=== PATIENT | female | born 1960 | race Caucasian/White ===

== ENCOUNTER 2018-02-02 16:38 | Outpatient (REF) | payer OTHER, SELFPAY ==
--- NOTE | 2018-02-02 10:00 | PAPFT_PTH ---
PATIENT: Elin Willard LOC: [facility] U#:[id number] AGE/SX: 57/F ROOM: RE02/02/[address]: Greta Kimball V : 1960 BED: DIS: 02/02/2018 SPEC #: [id number] RECD: 02/05/18 13:00 STATUS: JORDIN CONLEY #: [id number] CINDY: 02/02/18 10:[address]: Greta Kimball V DEPT: [facility] Cytology RECD BY: Cheryl Morton Tissues: 1 - CX/ENDOCX FOR PAP SMEARS Procedures: PAP THIN PREP/UVM Screening HPV DNA PROBE Comments: [id number]
== END 2018-02-02 16:58 ==
LOC: NCHCN 16:38
PROVIDERS: PCP Family Medicine; Visit Provider Family Medicine
DX: Z12.4 Encounter for screening for malignant neoplasm of cervix (principal); Z11.51 Encounter for screening for human papillomavirus (HPV)
CPT/HCPCS: 88142; 87624

== ENCOUNTER 2018-04-13 00:57 | Outpatient (CLI) | payer OTHER, SELFPAY ==
--- NOTE | 2018-04-13 15:27 | DI.MAMMO_ITS ---
SYMPTOM/DIAGNOSIS: SCREENING Z12.31, PREVENTATIVE CARE Z00.00 BILATERAL SCREENING MAMMOGRAM: Mammograms were interpreted according to the usual protocol including computer analysis with CAD system, tomosynthesis and C view imaging. Comparison is made with exams from 2013 through 2017. The breasts are composed of heterogeneously dense fibroglandular tissue, breast density Category C. Benign calcifications are again noted in both breasts, left greater than right. No suspicious microcalcifications or masses are seen. IMPRESSION: Category 2-C, negative mammogram with benign findings. Yearly screening mammography is recommended. SA ASSESSMENT OF FINDINGS: Negative with benign findings. Category 2. Patient will receive a letter notifying them of these results. Bi-RADS category C. The breasts are heterogeneously dense, which may obscure small masses.
== END 2018-04-13 01:17 ==
PROVIDERS: PCP Family Medicine; Visit Provider Family Medicine
DX: Z00.00 Encounter for general adult medical examination without abnormal findings (principal); Z12.31 Encounter for screening mammogram for malignant neoplasm of breast
CPT/HCPCS: 77063; 77067

== ENCOUNTER 2018-07-25 04:13 | Emergency (ER) | payer OTHER, SELFPAY ==
[2018-07-25] VITALS (50 sets, daily range): BP systolic 97–111; BP diastolic 56–69; PULSE 60–84; RESP 10–26; TEMP 36.5–36.7; O2SAT 94–100
[2018-07-25] MEDS: Normal Saline Flush 10 ML SYR IVP (04:30)
--- NOTE | 2018-07-25 04:32 | DI.RAD_ITS ---
SYMPTOM/DIAGNOSIS: CHEST PAIN PA AND LATERAL CHEST: The heart is normal in size. The lungs are clear. The mediastinal structures and pleura appear intact. CONCLUSION: Normal chest. No evidence of acute cardiopulmonary disease.
--- NOTE | 2018-07-25 04:33 | W.ED.GENAD ---
Discharge Plan Disposition Patient Disposition: HOME Condition: Good Discharge Details Chief Complaint: Chest Pain Clinical Impression: Chest pain Primary Care Provider: Greta Kimball V ED Provider: Martínez Payne Home Meds and New Rx's Prescriptions: No Action sumatriptan succinate 100 MG tablet 100 mg PO BID PRN RF: 0 hydrocodone-acetaminophen 1 EACH tablet 1 tab PO Q6H PRN RF: 0 famotidine 20 MG tablet 20 mg PO DAILY PRN RF: 0 albuterol sulfate [ProAir HFA] 8.5 GM HFA aerosol inhaler 2 puff Inhalation .Q4-6 PRN RF: 0 hydroxyzine pamoate [Vistaril] 25 MG capsule 25 mg PO DAILY PRN RF: 0 cholecalciferol (vitamin D3) 1,000 UNITS tablet 3,000 unit PO DIRECTED RF: 0 calcium carbonate-vitamin D3 1 EACH tablet 1 tab PO BID RF: 0 topiramate [Topamax] 100 MG tablet 100 mg PO HS RF: 0 diazepam [Valium] 5 MG tablet 5 mg PO PRN PRNRF: 0 magnesium citrate 100 MG tablet 100 mg PO DAILY RF: 0 naproxen 500 mg Tablet 500 mg PO BID PRNRF: 0 Discharge Instructions Instructions: Chest Pain (ED) Additional Instructions: Please discuss with your primary care provider potential outpatient testing/stress test of your heart. If you notice any worsening of your symptoms, or any new symptoms such as vomiting, diarrhea, fever, chills, shortness of breath, chest pain, numbness, weakness, or fainting , please return immediately to the emergency department for reevaluation. Please follow up with your primary care provider as soon as possible for reassessment and reevaluation. As always, it was a pleasure participating in your medical care today. Referrals: Greta Kimball MD [Primary Care Provider] - Medical Decision Making <Shaun Flynn MD - Last Filed: 07/25/18 07:51> 58-year-old female presents from home stating she was awakened from sleep 45 minutes prior with bandlike pressure and discomfort across her back and upper chest. She denies associated shortness of breath, nausea, or diaphoresis. She states the discomfort was transient and dissipated on its own. She arrives improved, well-appearing, with unremarkable vital signs and exam. Differential diagnosis includes ACS, esophageal spasm, must exclude pulmonary embolism given recent travel. Patient placed on manager stone, IV access established, referred for chest x-ray, EKG, laboratory testing. Labs including CBC, comprehensive panel troponin and d-dimer are reassuring and unremarkable for acute process. Patient's discomfort dissipated and she remained pain-free. Observed on manager stone and repeat troponin obtained at [address] Please see Dr Payne's note regarding final impression and disposition. Lab Data Lab results reviewed: Yes I reviewed the patient's lab results. Laboratory Results - last 24 hr 07/25/18 07/25/18 04:37 04:37 WBC 6.43 RBC 4.50 Hgb 14.5 Hct 42.6 MCV 94.7 MCH 32.2 MCHC 34.0 RDW 11.9 Plt Count 205 MPV 11.4 H Immature Gran % 0.2 Neutrophils % 38.8 Lymphocytes % 46.7 Monocytes % 8.7 Eosinophils % 4.7 Basophils % 0.9 Absolute Neutrophils 2.50 Absolute Lymphocytes 3.00 Absolute Monocytes 0.56 Absolute Eosinophils 0.30 Absolute Basophils 0.06 Sodium 144 Potassium 3.8 Chloride 107 Carbon Dioxide 27.2 Anion Gap 9.8 BUN 26 H Creatinine 0.82 Estimated GFR/1.73 m2 >= 60.00 Glucose 93 Calcium 8.9 Magnesium 2.1 Total Bilirubin 0.4 AST 14 L ALT 22 Alkaline Phosphatase 65 Troponin I < 0.02 Total Protein 6.6 Albumin 3.9 ECG Data Attestation: I personally reviewed and interpreted this ECG (s) as follows: Interpretation: Normal sinus rhythm with a rate of 66, the QRS is narrow, there is no ST segment elevation <Martínez Payne, DO - Last Filed: 07/25/18 09:32> Patient was signed out to me my my colleague Dr. Shaun Flynn. We were pending serial troponins and EKG at that time. Repeat troponin, repeat EKG have both returned benign, no evidence of STEMI, or other significant abnormality. EKG unchanged. Patient's chest pain and reevaluation is completely resolved without intervention, and her signs and symptoms are clinically inconsistent at this time with ACS. Of note she did cross-country ski last week and went 12 miles with no chest pain or shortness of breath whatsoever. I did discuss with her outpatient stress testing, the patient has declined and would like to follow-up with her primary care provider first. Of note the patient has been taking an increased amount of Aleve as of late for joint pain, and this may be a partial component of the cause of her symptoms, including mild stomach irritation. Discussed red flags for which to return, and the patient understands. I have extensively reviewed the treatment plan and discharge instructions with the patient. I have addressed all patient concerns at this time. The patient was made aware of what symptoms to monitor for that would warrant a return to the emergency department. Discussed the plan with the patient, they demonstrate verbal understanding and agreement with our assessment and plan at this time. EKG 8: 05 Rate 75, intervals normal, sinus rhythm, no significant ST elevations or depressions, no T wave inversions, no evidence of STEMI. No acute changes from prior EKG. HPI <Shaun Flynn MD - Last Filed: 07/25/18 07:51> General Mode of arrival: ambulatory. Date/Time Provider Initiated Documentation: 07/25/18 04:26. Limitations to Documentation: no limitations. Information obtained by: patient. History of Present Illness 58 year old F presents to the emergency department with the chief complaint of Chest and back pain, now improved, described as moderate, Quality is described as dull and constant, and is localized to the chest and back. Patient reports radiation to back. Patient started experiencing this minute(s) and it has been now resolved. No exacerbating factors reported . Patient notes no other symptoms. and other. Related Data Home Medications Medication Instructions Recorded Confirmed albuterol sulfate [ProAir HFA] 2 puff INHALATION .Q4-6 PRN 11/22/13 07/25/18 calcium carbonate-vitamin D3 1 tab PO BID 11/22/13 07/25/18 cholecalciferol (vitamin D3) 3,000 unit PO DIRECTED 11/22/13 07/25/18 famotidine 20 mg PO DAILY PRN 11/22/13 07/25/18 hydrocodone-acetaminophen 1 tab PO Q6H PRN 11/22/13 07/25/18 hydroxyzine pamoate [Vistaril] 25 mg PO DAILY PRN 11/22/13 07/25/18 sumatriptan succinate 100 mg PO BID PRN 11/22/13 07/25/18 diazepam [Valium] 5 mg PO PRN PRN 03/26/16 07/25/18 magnesium citrate 100 mg PO DAILY 03/26/16 07/25/18 topiramate [Topamax] 100 mg PO HS 03/26/16 07/25/18 naproxen 500 mg PO BID PRN 07/25/18 07/25/18 Allergies Allergy/AdvReac Type Severity Reaction Status Date / Time amitriptyline HCl AdvReac Intermediate lips and Unverified 07/25/18 04:25 [From Elavil] fingers tingling erythromycin base AdvReac Intermediate Nausea Unverified 07/25/18 04:25 [Erythromycin Base] escitalopram oxalate AdvReac Intermediate edgey Unverified 07/25/18 04:25 [From Lexapro] General Stated Complaint: Chest Pain SIVAN: 2 Review of Systems <Shaun Flynn MD - Last Filed: 07/25/18 07:51> Review of Systems Recently traveled home from [place]. No leg pain or swelling. No recent illness. 8 systems reviewed and otherwise neg PFSH <Shaun Flynn MD - Last Filed: 07/25/18 07:51> Social History Smoking/Tobacco Use Status: Never Alcohol Intake: current Alcohol Intake frequency: a few times a week Alcohol type: wine Drug use: Never Substance use type: does not use Do you feel safe at home: Yes Do you feel safe in your relationship?: Yes Exam <Shanu Flynn MD - Last Filed: 07/25/18 07:51> Narrative Exam Narrative: GEN: awake, alert, oriented 3. Pleasant, well groomed, interactive. HEAD: Normocephalic, atraumatic ENT: Mucous membranes moist, oropharynx unremarkable, External ear exam unremarkable EYES: PERRL, EOMI NECK: Full ROM, no KEVIN, no menigismus CHEST/RESP: Nontender, clear to auscultation bilateral, no wheeze/rhonchi/rales CARDIOVASCULAR: RRR, no murmur, rub gus. 2+ Rad pulse bilateral ABDOMEN: Soft, nontender, no mass. +Bowel sounds EXT: Full ROM, no edema, no rash Neuro: Grossly normal neurologic exam, conversant, interactive. Psych: Speech fluent, thoughts congruent, affect normal Course <Shaun Flynn MD - Last Filed: 07/25/18 07:51> Vital Signs Temperature 36.5 C 07/25/18 04:17 Pulse 73 07/25/18 04:17 Respiratory Rate 20 07/25/18 04:17 Blood Pressure 111/69 07/25/18 04:17 Pulse Oximetry 100 07/25/18 04:17 Temperature 36.5 C 07/25/18 04:17 Temperature Source Skin 07/25/18 04:17 Pulse 73 07/25/18 04:17 Respiratory Rate 20 07/25/18 04:27 Respiratory Effort Non-Labored 07/25/18 04:27 Respiratory Depth Normal 07/25/18 04:27 Respiratory Pattern Normal 07/25/18 04:27 Blood Pressure 111/69 07/25/18 04:17 Blood Pressure Position Sitting 07/25/18 04:17 Pulse Oximetry 100 07/25/18 04:17 Oxygen Delivery Method Room Air 07/25/18 04:17 Oxygen Flow Rate 0 07/25/18 04:17 Pain Level 0 07/25/18 04:17
[2018-07-25] MEDS: Normal Saline 1,000 ML 125 ML IV (04:35)
--- NOTE | 2018-07-25 04:36 | ED.GENADUL_ITS ---
Discharge Plan Disposition Patient Disposition: HOME Condition: Good Discharge Details Chief Complaint: Chest Pain Clinical Impression: Chest pain Primary Care Provider: Greta Kimball V ED Provider: Martínez Payne Home Meds and New Rx's Prescriptions: No Action sumatriptan succinate 100 MG tablet 100 mg PO BID PRN RF: 0 hydrocodone-acetaminophen 1 EACH tablet 1 tab PO Q6H PRN RF: 0 famotidine 20 MG tablet 20 mg PO DAILY PRN RF: 0 albuterol sulfate [ProAir HFA] 8.5 GM HFA aerosol inhaler 2 puff Inhalation .Q4-6 PRN RF: 0 hydroxyzine pamoate [Vistaril] 25 MG capsule 25 mg PO DAILY PRN RF: 0 cholecalciferol (vitamin D3) 1,000 UNITS tablet 3,000 unit PO DIRECTED RF: 0 calcium carbonate-vitamin D3 1 EACH tablet 1 tab PO BID RF: 0 topiramate [Topamax] 100 MG tablet 100 mg PO HS RF: 0 diazepam [Valium] 5 MG tablet 5 mg PO PRN PRNRF: 0 magnesium citrate 100 MG tablet 100 mg PO DAILY RF: 0 naproxen 500 mg Tablet 500 mg PO BID PRNRF: 0 Discharge Instructions Instructions: Chest Pain (ED) Additional Instructions: Please discuss with your primary care provider potential outpatient testing/stress test of your heart. If you notice any worsening of your symptoms, or any new symptoms such as vomiting, diarrhea, fever, chills, shortness of breath, chest pain, numbness, weakness, or fainting , please return immediately to the emergency department for reevaluation. Please follow up with your primary care provider as soon as possible for reassessment and reevaluation. As always, it was a pleasure participating in your medical care today. Referrals: Greta Kimball MD [Primary Care Provider] - Medical Decision Making <Shaun Flynn MD - Last Filed: 07/25/18 07:51> 58-year-old female presents from home stating she was awakened from sleep 45 minutes prior with bandlike pressure and discomfort across her back and upper chest. She denies associated shortness of breath, nausea, or diaphoresis. She states the discomfort was transient and dissipated on its own. She arrives improved, well-appearing, with unremarkable vital signs and exam. Differential diagnosis includes ACS, esophageal spasm, must exclude pulmonary embolism given recent travel. Patient placed on hall monitor, IV access established, referred for chest x-ray, EKG, laboratory testing. Labs including CBC, comprehensive panel troponin and d-dimer are reassuring and unremarkable for acute process. Patient's discomfort dissipated and she remained pain-free. Observed on hall monitor and repeat troponin obtained at [address] Please see Dr Payne's note regarding final impression and disposition. Lab Data Lab results reviewed: Yes I reviewed the patient's lab results. Laboratory Results - last 24 hr 07/25/18 07/25/18 04:37 04:37 WBC 6.43 RBC 4.50 Hgb 14.5 Hct 42.6 MCV 94.7 MCH 32.2 MCHC 34.0 RDW 11.9 Plt Count 205 MPV 11.4 H Immature Gran % 0.2 Neutrophils % 38.8 Lymphocytes % 46.7 Monocytes % 8.7 Eosinophils % 4.7 Basophils % 0.9 Absolute Neutrophils 2.50 Absolute Lymphocytes 3.00 Absolute Monocytes 0.56 Absolute Eosinophils 0.30 Absolute Basophils 0.06 Sodium 144 Potassium 3.8 Chloride 107 Carbon Dioxide 27.2 Anion Gap 9.8 BUN 26 H Creatinine 0.82 Estimated GFR/1.73 m2 >= 60.00 Glucose 93 Calcium 8.9 Magnesium 2.1 Total Bilirubin 0.4 AST 14 L ALT 22 Alkaline Phosphatase 65 Troponin I < 0.02 Total Protein 6.6 Albumin 3.9 ECG Data Attestation: I personally reviewed and interpreted this ECG (s) as follows: Interpretation: Normal sinus rhythm with a rate of 66, the QRS is narrow, there is no ST segment elevation <Martínez Payne, DO - Last Filed: 07/25/18 09:32> Patient was signed out to me my my colleague Dr. Shaun Flynn. We were pending serial troponins and EKG at that time. Repeat troponin, repeat EKG have both returned benign, no evidence of STEMI, or other significant abnormality. EKG unchanged. Patient's chest pain and reevaluation is completely resolved without intervention, and her signs and symptoms are clinically inconsistent at this time with ACS. Of note she did cross-country ski last week and went 12 miles with no chest pain or shortness of breath whatsoever. I did discuss with her outpatient stress testing, the patient has declined and would like to follow-up with her primary care provider first. Of note the patient has been taking an increased amount of Aleve as of late for joint pain, and this may be a partial component of the cause of her symptoms, including mild stomach irritation. Discussed red flags for which to return, and the patient understands. I have extensively reviewed the treatment plan and discharge instructions with the patient. I have addressed all patient concerns at this time. The patient was made aware of what symptoms to monitor for that would warrant a return to the emergency department. Discussed the plan with the patient, they demonstrate verbal understanding and agreement with our assessment and plan at this time. EKG 8: 05 Rate 75, intervals normal, sinus rhythm, no significant ST elevations or depressions, no T wave inversions, no evidence of STEMI. No acute changes from prior EKG. HPI <Shaun Flynn MD - Last Filed: 07/25/18 07:51> General Mode of arrival: ambulatory . Date/Time Provider Initiated Documentation: 07/25/18 04:26 . Limitations to Documentation: no limitations . Information obtained by: patient . History of Present Illness 58 year old F presents to the emergency department with the chief complaint of Chest and back pain, now improved, described as moderate, Quality is described as dull and constant, and is localized to the chest and back. Patient reports radiation to back. Patient started experiencing this minute(s) and it has been now resolved. No exacerbating factors reported . Patient notes no other symptoms. and other. Related Data Home Medications Medication Instructions Recorded Confirmed albuterol sulfate [ProAir HFA] 2 puff INHALATION .Q4-6 PRN 11/22/13 07/25/18 calcium carbonate-vitamin D3 1 tab PO BID 11/22/13 07/25/18 cholecalciferol (vitamin D3) 3,000 unit PO DIRECTED 11/22/13 07/25/18 famotidine 20 mg PO DAILY PRN 11/22/13 07/25/18 hydrocodone-acetaminophen 1 tab PO Q6H PRN 11/22/13 07/25/18 hydroxyzine pamoate [Vistaril] 25 mg PO DAILY PRN 11/22/13 07/25/18 sumatriptan succinate 100 mg PO BID PRN 11/22/13 07/25/18 diazepam [Valium] 5 mg PO PRN PRN 03/26/16 07/25/18 magnesium citrate 100 mg PO DAILY 03/26/16 07/25/18 topiramate [Topamax] 100 mg PO HS 03/26/16 07/25/18 naproxen 500 mg PO BID PRN 07/25/18 07/25/18 Allergies Allergy/AdvReac Type Severity Reaction Status Date / Time amitriptyline HCl AdvReac Intermediate lips and Unverified 07/25/18 04:25 [From Elavil] fingers tingling erythromycin base AdvReac Intermediate Nausea Unverified 07/25/18 04:25 [Erythromycin Base] escitalopram oxalate AdvReac Intermediate edgey Unverified 07/25/18 04:25 [From Lexapro] General Stated Complaint: Chest Pain SIVAN: 2 Review of Systems <Shaun Flynn MD - Last Filed: 07/25/18 07:51> Review of Systems Recently traveled home from [place]. No leg pain or swelling. No recent illness. 8 systems reviewed and otherwise neg PFSH <Shaun Flynn MD - Last Filed: 07/25/18 07:51> Social History Smoking/Tobacco Use Status: Never Alcohol Intake: current Alcohol Intake frequency: a few times a week Alcohol type: wine Drug use: Never Substance use type: does not use Do you feel safe at home: Yes Do you feel safe in your relationship?: Yes Exam <Shaun Flynn MD - Last Filed: 07/25/18 07:51> Narrative Exam Narrative: GEN: awake, alert, oriented 3. Pleasant, well groomed, inte ractive. HEAD: Normocephalic, atraumatic ENT: Mucous membranes moist, oropharynx unremarkable, External ear exam unremarkable EYES: PERRL, EOMI NECK: Full ROM, no KEVIN, no menigismus CHEST/RESP: Nontender, clear to auscultation bilateral, no wheeze/rhonchi/rales CARDIOVASCULAR: RRR, no murmur, rub gus. 2+ Rad pulse bilateral ABDOMEN: Soft, nontender, no mass. +Bowel sounds EXT: Full ROM, no edema, no rash Neuro: Grossly normal neurologic exam, conversant, interactive. Psych: Speech fluent, thoughts congruent, affect normal Course <Shaun Flynn MD - Last Filed: 07/25/18 07:51> Vital Signs Temperature 36.5 C 07/25/18 04:17 Pulse 73 07/25/18 04:17 Respiratory Rate 20 07/25/18 04:17 Blood Pressure 111/69 07/25/18 04:17 Pulse Oximetry 100 07/25/18 04:17 Temperature 36.5 C 07/25/18 04:17 Temperature Source Skin 07/25/18 04:17 Pulse 73 07/25/18 04:17 Respiratory Rate 20 07/25/18 04:27 Respiratory Effort Non-Labored 07/25/18 04:27 Respiratory Depth Normal 07/25/18 04:27 Respiratory Pattern Normal 07/25/18 04:27 Blood Pressure 111/69 07/25/18 04:17 Blood Pressure Position Sitting 07/25/18 04:17 Pulse Oximetry 100 07/25/18 04:17 Oxygen Delivery Method Room Air 07/25/18 04:17 Oxygen Flow Rate 0 07/25/18 04:17 Pain Level 0 07/25/18 04:17
[2018-07-25 04:47] LABS: Abs Immature Grans 0.01 k/cumm (0.0-0.09); Absolute Basophil Count 0.06 k/cumm (0.0-0.2); Absolute Monocyte Count 0.56 k/cumm (0.11-0.7); Basophils % 0.9; Eosinophils % 4.7; HCT 42.6 % (36.0-46.0); HGB 14.5 g/dL (12.0-15.5); Immature Grans % 0.2; Lymphocytes % 46.7; Mean Corpuscular Hemoglobin 32.2 pg (27.0-33.0); Mean Corpuscular Volume 94.7 fL (80-95); Mean Platelet Volume 11.4 fL (8.0-11.0); Monocytes % 8.7; Neutrophils % 38.8; Platelet Count 205 x1000/uL (130-400); RBC Distribution Width 11.9 % (11.7-14.6); White Blood Cell Count 6.43 k/cumm (4.4-10.8)
[2018-07-25 05:07] LABS: ALT 22 U/L (12-78); AST 14 U/L (15-37); Albumin 3.9 g/dL (3.4-5.0); Alkaline Phosphatase 65 U/L (46-116); Anion Gap 9.8 mmol/L (3-11); BUN 26 mg/dL (7-18); Bilirubin, Total 0.4 mg/dL (0.2-1.0); CO2 27.2 mmol/L (21.0-32.0); CREATININE 0.82 mg/dL (0.55-1.02); Calcium 8.9 mg/dL (8.5-10.1); Chloride 107 mmol/L (98-107); Glucose 93 mg/dL (70-100); Magnesium 2.1 mg/dL (1.8-2.4); Potassium 3.8 mmol/L (3.5-5.1); Sodium 144 mmol/L (136-145); Total Protein 6.6 g/dL (6.4-8.2)
[2018-07-25 05:13] LABS: Troponin I < 0.02 ng/mL (0.00-0.06)
[2018-07-25 05:18] LABS: D-Dimer 137 ng/mlFEU (<500)
--- NOTE | 2018-07-25 05:31 | DI.VRAD_ITS ---
EXAM: XR Chest, 2 Views EXAM DATE/TIME: 07/25/2018 4:34 AM CLINICAL HISTORY: 58 years old, female; Pain; Chest pain and other: Chest pain above left scapula and mid chest; Type not specified; Patient HX: Acute sharp pain in upper left back and mid chest TECHNIQUE: Imaging protocol: XR of the chest, 2 views. COMPARISON: No relevant prior studies available. FINDINGS: Lungs: Clear lungs. Pleural space: No pneumothorax. No sizable pleural effusion. Heart/Mediastinum: No cardiomegaly. Bones/joints: Unremarkable. IMPRESSION: Clear lungs. Dictated and Authenticated by: Burak Louis MD. Ordering:SALVATORE Dunn MD
[2018-07-25 08:16] LABS: Troponin I 0.02 ng/mL (0.00-0.06)
== END 2018-07-25 09:48 | disposition home or self-care (01) ==
PROVIDERS: Emergency Medicine; Emergency Provider Student in an Organized Health Care Education/Training Program; PCP Family Medicine
DX: R07.9 Chest pain, unspecified (principal)
CPT/HCPCS: 36415; 80053; 93005; 96360; 96361; 99285; 71046; 83735; 84484; 85025; 85379; 93010; 99284

== ENCOUNTER 2019-02-07 09:37 | Outpatient (REF) | payer OTHER, SELFPAY ==
--- NOTE | 2019-02-07 09:00 | PAPFT_PTH ---
PATIENT: Elin Willard LOC: [facility] U#:[id number] AGE/SX: 58/F ROOM: RE02/07/[address]: Greta Kimball V : 1960 BED: DIS: 02/07/2019 SPEC #: [id number] RECD: 02/08/19 12:59 STATUS: JORDIN REQ #: [id number] CINDY: 02/07/19 09:[address]: Greta Kimball V DEPT: [facility] Cytology RECD BY: Cheryl Morton Tissues: 1 - CX/ENDOCX FOR PAP SMEARS Procedures: PAP THIN PREP/UVM Screening HPV DNA PROBE Comments: [id number]
== END 2019-02-07 09:57 ==
LOC: NCHCN 09:37
PROVIDERS: PCP Family Medicine; Visit Provider Family Medicine
DX: Z12.4 Encounter for screening for malignant neoplasm of cervix (principal); Z11.51 Encounter for screening for human papillomavirus (HPV); Z01.419 Encounter for gynecological examination (general) (routine) without abnormal findings
CPT/HCPCS: 88142; 87624

== ENCOUNTER 2019-07-08 10:42 | Outpatient (REF) | payer OTHER, SELFPAY ==
[2019-07-08 19:06] LABS: Glucose 89 mg/dL (74-106); TSH (W/Ref FT4) 1.52 uIU/mL (0.36-3.74)
[2019-07-08 19:19] LABS: Calculated LDL 140 mg/dL (<100); Cholesterol 225 mg/dL (<200); HDL Cholesterol 70 mg/dL (40-60); Triglyceride 78 mg/dL (<150)
[2019-07-10 08:52] LABS: FSH 103.1 mIU/mL (See Note); LH 38.9 mIU/mL (See Note)
== END 2019-07-08 11:02 ==
LOC: NCHCN 10:42
PROVIDERS: PCP Family Medicine; Visit Provider Family Medicine
DX: Z00.00 Encounter for general adult medical examination without abnormal findings (principal); E28.319 Asymptomatic premature menopause
CPT/HCPCS: 80061; 82947; 83001; 83002; 84443

== ENCOUNTER 2020-02-11 10:28 | Outpatient (REF) | payer OTHER, SELFPAY ==
--- NOTE | 2020-02-11 08:30 | PAPFT_PTH ---
PATIENT: Elin Willard LOC: [facility]#:[id number] AGE/SX: 59/F ROOM: RE02/11/[address]: Greta Kimball V : 1960 BED: DIS: 02/11/2020 SPEC #: [id number] RECD: 02/11/20 18:17 STATUS: JORDIN REQ #: [id number] CINDY: 02/11/20 08:[address]: Greta Kimball V DEPT: [facility] Cytology RECD BY: Cheryl Morton Tissues: 1 - CX/ENDOCX FOR PAP SMEARS Procedures: PAP THIN PREP/UVM Screening HPV DNA PROBE Comments: [id number]
== END 2020-02-11 10:48 ==
LOC: NCHCN 10:28
PROVIDERS: PCP Family Medicine; Visit Provider Family Medicine
DX: Z12.4 Encounter for screening for malignant neoplasm of cervix (principal); Z11.51 Encounter for screening for human papillomavirus (HPV); Z01.419 Encounter for gynecological examination (general) (routine) without abnormal findings; R87.610 Atypical squamous cells of undetermined significance on cytologic smear of cervix (ASC-US); R87.810 Cervical high risk human papillomavirus (HPV) DNA test positive
CPT/HCPCS: 88142; 87624

== ENCOUNTER 2020-06-16 19:34 | Outpatient (CLI) | payer OTHER, SELFPAY ==
--- NOTE | 2020-06-16 | DI.RAD_ITS ---
EXAM: XR THORACIC SPINE COMPLETE there is slight indentation of the superior endplate of T12 CLINICAL HISTORY: BACK PAIN < 3 MONTHS M54.9. TECHNIQUE: 2D digital imaging was performed. COMPARISON: CR,XR XR LUMBAR SPINE AP, LAT from 06/16/2020 FINDINGS: There is slight depression of the superior endplate of T12, possibly 10-15 percent. Probable nancy eladia fracture. Correlation with site of tenderness is recommended. No other height loss evident. N o listhesis. No retropulsed fragment evident. IMPRESSION: Mild T12 superior endplate compression fracture. DATA REPOSITORY: RADIATION DOSE DELIVERED:
--- NOTE | 2020-06-16 | DI.RAD_ITS ---
EXAM: XR LUMBAR SPINE AP, LAT CLINICAL HISTORY: BACK PAIN < 3 MONTHS M54.9. TECHNIQUE: 2D digital imaging was performed. COMPARISON: CR LUMBAR SPINE COMPLETE from 08/02/2013 FINDINGS: There is no evidence of fracture or listhesis. Disc spaces exhibit normal height. No pars defects. Some facet joint degenerative changes are noted at the L5-S1 level. SI joints appear unremarkable. IMPRESSION: DATA REPOSITORY: RADIATION DOSE DELIVERED:
--- NOTE | 2020-06-16 | DI.RAD_ITS ---
EXAM: XR CERVICAL SP ROMANO TRAUMA 2-3V CLINICAL HISTORY: BACK PAIN < 3 MONTHS M54.9. TECHNIQUE: 2D digital imaging was performed. COMPARISON: No exams were available for comparison FINDINGS: There is no evidence of acute cervical spine fracture. There is multilevel moderate disc space narro wing. There is mild degenerative anterolisthesis of C4 upon C5. No obvious jumped facets. There is straightening of the normal lordotic curvature which is probably related to muscle spasm. IMPRESSION: Degenerative changes. No acute cervical spine fractures evident. DATA REPOSITORY: RADIATION DOSE DELIVERED:
--- NOTE | 2020-06-16 16:44 | DI.VRAD_ITS ---
Addendum created by Errol Blum DO on 06/16/2020 4:47:50 PM EST: Upon review of the same day lumbar radiographs the compression deformity described correlates to T12. Initial report created on 06/16/2020 4:43:52 PM EST: PROCEDURE INFORMATION: Exam: XR Thoracic Spine, 3 Views Exam date and time: 06/16/2020 12:20 PM Age: 60 years old Clinical indication: Other: Back pain <3 months TECHNIQUE: Imaging protocol: XR of the thoracic spine, 3 views. COMPARISON: MR T-SPINE^ROUTINE 09/20/2013 7:59 AM FINDINGS: Bones/joints: there is an endplate deformity of a lower thoracic vertebral body with up to approximately 20-30% height loss. Vertebral body heights are otherwise well maintained. Alignment is well preserved without significant listhesis. Note that the upper thoracic vertebral levels are not well visualized due to overlapping structures. Bony degenerative changes are at most mild. Soft tissues: Unremarkable. Lungs: Visualized lung clear. IMPRESSION: Suspected compression deformity of a lower thoracic vertebral body with up to 20-30% height loss of indeterminate age. Correlate with point tenderness. Dictated and Authenticated by: Errol Blum MD. Ordering:DOMINICK Navarro MD
--- NOTE | 2020-06-16 16:45 | DI.VRAD_ITS ---
PROCEDURE INFORMATION: Exam: XR Cervical Spine, 2 or 3 Views Exam date and time: 06/16/2020 12:20 PM Age: 60 years old Clinical indication: Other: Back pain <3 months TECHNIQUE: Imaging protocol: XR of the cervical spine, 2 or 3 views. COMPARISON: No relevant images were readily available for comparison purposes. FINDINGS: Bones/joints: Cervical vertebral body heights are well maintained. There is minimal anterolisthesis of C4 on C5 likely degenerative. Straightening and reversal of the normal lordotic curvature may be positional and/or degenerative. bony degenerative changes are [id number]. Soft tissues: unremarkable soft tissues. Dental: Dental hardware. Lungs: clear lung apices. IMPRESSION: [id number] bony degenerative changes of the cervical spine without acute bony findings. Dictated and Authenticated by: Errol Blum MD. Ordering:DOMINICK Navarro MD
--- NOTE | 2020-06-16 16:46 | DI.VRAD_ITS ---
PROCEDURE INFORMATION: Exam: XR Lumbosacral Spine, 2 or 3 Views Exam date and time: 06/16/2020 12:20 PM Age: 60 years old Clinical indication: Other: Back pain <3 months TECHNIQUE: Imaging protocol: XR of the lumbosacral spine, 2 or 3 views. COMPARISON: MRI - LUMBAR SPINE WO CONTRAST 09/20/2013 7:41 PM FINDINGS: Bones/joints: Lumbar vertebral body heights are well maintained. Alignment is well preserved without significant listhesis. Bony degenerative changes are mild. Soft tissues: unremarkable soft tissues. IMPRESSION: Mild bony degenerative changes of the lumbar spine Dictated and Authenticated by: Errol Blum MD. Ordering:DOMINICK Navarro MD
== END 2020-06-16 19:35 ==
LOC: DI 06-18 19:34
PROVIDERS: PCP Family Medicine; Visit Provider Nurse Practitioner Family
DX: M54.6 Pain in thoracic spine (principal); M48.54XA Collapsed vertebra, not elsewhere classified, thoracic region, initial encounter for fracture; M54.5 Low back pain; M54.2 Cervicalgia
CPT/HCPCS: 72040; 72072; 72100

== ENCOUNTER 2020-08-06 01:53 | Outpatient (CLI) | payer OTHER, SELFPAY ==
--- NOTE | 2020-08-06 | DI.MRI_ITS ---
EXAM: MR THORACIC SPINE WO CLINICAL HISTORY: LOW AND MID BACK PAIN WITH RADICULOPATHY,M54.16,XRAY SHOWED SUPERIOR END TECHNIQUE: Multiplanar multisequence MRI of the thoracic spine was performed without intravenous con trast. FINDINGS: MARROW: There are no acute appearing thoracic vertebral fractures. Slight indentation of the superior endplate of T12 is noted which does not exhibit acute signal on STIR sequence. There are no ominous osseous lesions in the thoracic vertebrae. A benign intraosseous hemangioma is noted in the T7 vert ebral body. THORACIC SPINAL CORD: There is no abnormal signal in the cervical spinal cord and no evidence of foca l cord atrophy nor focal cord swelling. There is no evidence of syringomyelia nor significant spinal cord dysraphism. There is no evidence of mass at the conus medullaris. The position of the conus me dullaris is at L1 level. SIGNIFICANT INDIVIDUAL LEVEL FINDINGS: T4-5: Mild central annular bulging. No prominent disc herniation. Central canal dimensions within n ormal limits. No significant foraminal stenosis. T5-6: Mild asymmetric right-sided annular bulging. No prominent disc herniation. No central canal s tenosis. No foraminal stenosis. T6-7: There is a central subligamentous disc protrusion at this level. This extends posteriorly 2 mi llimeters and is approximately 4 millimeters wide. This indents the thecal sac at this level and the re is slight concavity to the anterior border of the spinal cord at this level. The actual osseous c anal dimensions are within normal limits. There is no foraminal stenosis at this level this disc pro trusion does not extend into the exiting neural foramina. PARASPINAL TISSUES: No significant masses nor fluid collections evident. IMPRESSION: 1. There is a central subligamentous disc protrusion at T6-7 level as described above. This slightly indents the thecal sac and spinal cord. However, there is no prominent central canal stenosis at th is level. Also no foraminal stenosis at this level (nor elsewhere in the thoracic spinal column). 2. Other smaller annular bulges as described individually above. 3. Osseous canal dimensions are within normal limits throughout the 6 spinal canal. 4. Slight height loss of the superior endplate of T12 which is not acute and there is no evidence of compromise of the CS spinal canal at this level. DATA REPOSITORY:
--- NOTE | 2020-08-06 | DI.MRI_ITS ---
EXAM: MR LUMBAR SPINE WO CLINICAL HISTORY: LUMBAR BACK PAIN WITH RADICULOPATHY,M54.16. TECHNIQUE: Multiplanar multisequence MRI of the Lumbar spine was performed. COMPARISON: MR MRI - LUMBAR SPINE WO CONTRAST from 09/20/2013 CR,XR XR LUMBAR SPINE AP, LAT from 06/16/2020 FINDINGS: Conus medullaris is at normal level. There is no evidence of conus mass nor subjacent clumping of in trathecal nerve roots to suggest arachnoiditis. The distal thecal sac appears unremarkable.There is a small Tarlov intra sacral cyst left of center at the mid S2 level just below the tip of the distal thecal sac, this measuring 7 x 5 by 6 millimeters. Bones:There are no acute fractures nor ominous osseous lesions in the lumbar vertebral bodies and vis ualized sacrum. There is concavity of the superior endplate of T12 which is not acute, exhibiting no rmal signal on all sequences. With respect to the individual levels... T12-L1: Unremarkable L1-2: Normal disc height and signal. No disc herniation nor central canal stenosis.No foraminal steno sis L2-3: Normal disc height. No disc herniation nor central canal stenosis.No foraminal stenosis.No face t arthropathy. L3-4: Normal disc height. No disc herniation or central canal stenosis.No foraminal stenosis.No face t arthropathy. L4-5: Normal disc height and signal. Minimal central annular bulging without a significant disc colby iation. Central canal dimensions are lower normal. There is no foraminal stenosis. Mild degenerati ve changes in the facet joints. L5-S1: Slightly decreased disc height. There is signal abnormality consistent with a radial tear in the posterior right side of the annulus but this does not appear to be associated with a significant disc herniation at this time. There is mild annular bulging. No prominent indentation of the thecal sac. No foraminal stenosis. Mild degenerative facet joint changes. Soft tissues: paraspinal soft tissues appear unremarkable. IMPRESSION: 1. At L5-S1 level there is a right of center radial annular tear but there is no focal disc protrusio n at this level. There is mild generalized annular bulging at this level. No central nor foraminal stenosis at this level nor elsewhere in the lumbar spine. 2. Mild degenerative changes are noted in the facet joints at L4-5 and L5-S1 levels. There is no pro minent facet arthropathy. 3. Mild indentation of the superior endplate of T12. This is not an acute finding as there is no abn ormal intraosseous signal. DATA REPOSITORY:
== END 2020-08-06 02:13 ==
PROVIDERS: PCP Family Medicine; Visit Provider Nurse Practitioner Family
DX: M54.16 Radiculopathy, lumbar region (principal); M54.6 Pain in thoracic spine; M51.24 Other intervertebral disc displacement, thoracic region; M43.06 Spondylolysis, lumbar region
CPT/HCPCS: 72146; 72148

== ENCOUNTER 2020-08-13 02:01 | Outpatient (CLI) | payer OTHER, SELFPAY ==
--- NOTE | 2020-08-13 | DI.MAMMO_ITS ---
EXAM: MG MAMMO SCREENING CLINICAL HISTORY: SCREENING,COUNT INCLUDES THE [facility],Z00.00 TECHNIQUE: Bilateral full field digital CC and MLO mammographic images were obtained with 3D tomosyn thesis and utilizing computer aided detection (CAD). COMPARISON: Available for comparison. FINDINGS: Masses/Architectural Distortion: None seen. Microcalcifications: No suspicious pleomorphic-type are seen. Stable benign-appearing calcifications in both breasts. Skin Thickening/Nipple Retraction: None. IMPRESSION: 1. No significant interval change with no specific features of malignancy noted. 2. Unless there is more urgent need, screening mammography is recommended, as per [place] guidelines. BI-RADS Category 2 - Benign Findings Breast Density - Category C - Heterogeneously dense Breast density category C or D implies that the patient has dense breast tissue. Dense breast tissue is very common and is not abnormal but dense breast tissue can make it harder to find cancer on a ma mmogram. Also, dense breast tissue may increase their breast cancer risk. This information about the result of the mammogram report was provided to the patient to raise their awareness. Use this report when you speak with the patient about their risks for breast cancer, which includes their family hist ory. At that time, you may recommend for more screening tests (Ultrasound or MRI) as they might be us eful based on their risk. A negative radiographic report should not delay biopsy if a dominant or clinically suspicious mass is present. Up to ten percent of cancers are not identified on mammography. A negative report may reinforce clinical impression. Adenosis and dense breasts may obscure an underlying neoplasm. False positive reports average 6 to 10%. Patient will receive a letter notifying them of these results.
== END 2020-08-13 02:21 ==
PROVIDERS: PCP Family Medicine; Visit Provider Family Medicine
DX: Z00.00 Encounter for general adult medical examination without abnormal findings (principal); Z12.31 Encounter for screening mammogram for malignant neoplasm of breast
CPT/HCPCS: 77063; 77067

== ENCOUNTER 2020-08-26 02:29 | Outpatient (CLI) | payer OTHER, SELFPAY ==
--- NOTE | 2020-08-26 | DI.DEXA_ITS ---
Exam(s) XR DEXA BONE DENSITY W/WO TAINA EXAM: XR DEXA BONE DENSITY W/WO TAINA CLINICAL HISTORY: SCREENING FOR OSTEOPOROSIS, PREVENTIVE HEALTH CARE,Z00.00 TECHNIQUE: COMPARISON: CR,XR XR THORACIC SPINE COMPLETE from 06/16/2020 CR,XR XR LUMBAR SPINE AP, LAT from 06/16/2020 FINDINGS: DEXA scan was performed according to the usual protocol. Please see the accompanying data sheets. P margarito note that the lateral vertebral scanogram shows a mild anterior compression fracture of what ap pears to be the T12 vertebral body, minimal endplate changes were noted in T12 vertebral body on prio r radiographs of June 16 but the findings today would suggest some additional anterior loss of height. Radiographs or CT of the thoracolumbar junction suggested to evaluate this finding. Left hip scanning shows T-score -1.9 with left femoral neck T-score -2.1. Prior scan of January 11 showed left hip T-score -1.0. Lumbar spine scanning shows T-score -3.5. Prior examination of 2013 showed lumbar T-score -3.2. Left forearm scanning shows T-score -2.7. Prior examination of 2013 showed T-score -1.1. IMPRESSION: Findings consistent with osteoporosis according to the WHO criteria. Question new T12 vertebral body fracture, correlation with radiographs or CT of the thoraco lumbar junction region suggested. RADIATION DOSE DELIVERED: Total DLP
== END 2020-08-26 02:49 ==
PROVIDERS: PCP Family Medicine; Visit Provider Family Medicine
DX: M81.0 Age-related osteoporosis without current pathological fracture (principal)
CPT/HCPCS: 77080

== ENCOUNTER 2020-12-28 13:09 | Outpatient (REF) | payer OTHER, SELFPAY ==
[2020-12-28 14:37] LABS: Creatinine,Urine 62.35 mg/dL
[2020-12-28 14:38] LABS: Total Volume 1600 ml
[2020-12-30 08:51] LABS: Calcium Urine 23.4 mg/dL (See Note); Calcium Urine 24 hr 374 mg/24hrs (100-300); Timed Urine Volume 1600 mL
== END 2020-12-28 13:10 | disposition home or self-care (01) ==
LOC: LBN 13:09
PROVIDERS: PCP Family Medicine; Visit Provider Internal Medicine Endocrinology, Diabetes & Metabolism
DX: M80.08XD Age-related osteoporosis with current pathological fracture, vertebra(e), subsequent encounter for fracture with routine healing (principal)
CPT/HCPCS: 81050; 82340; 82570

== ENCOUNTER 2021-02-12 15:17 | Outpatient (REF) | payer OTHER, SELFPAY ==
--- NOTE | 2021-02-12 09:15 | PAPFT_PTH ---
PATIENT: Elin Willard LOC: [facility]#:[id number] AGE/SX: 60/F ROOM: RE02/12/[address]: Greta Kimball V : 1960 BED: DIS: 02/12/2021 SPEC #: [id number] RECD: 02/15/21 13:07 STATUS: JORDIN CONLEY #: [id number] CINDY: 02/12/21 09:[address]: Greta Kimball V DEPT: [facility] Cytology RECD BY: Cheryl Morton Tissues: 1 - CX/ENDOCX FOR PAP SMEARS Procedures: PAP THIN PREP/UVM Screening HPV DNA PROBE Comments: [id number]
== END 2021-02-12 15:18 | disposition home or self-care (01) ==
LOC: NCHCN 15:17
PROVIDERS: PCP Family Medicine; Visit Provider Family Medicine
DX: Z12.4 Encounter for screening for malignant neoplasm of cervix (principal); Z11.51 Encounter for screening for human papillomavirus (HPV); R87.610 Atypical squamous cells of undetermined significance on cytologic smear of cervix (ASC-US); R87.810 Cervical high risk human papillomavirus (HPV) DNA test positive
CPT/HCPCS: 88142; 87624

== ENCOUNTER 2021-07-15 19:46 | Outpatient (REF) | payer OTHER, SELFPAY ==
[2021-07-15 13:32] LABS: ESR 3 mm/hr (0-30)
[2021-07-15 13:50] LABS: ALT 27 U/L (14-59); AST 21 U/L (15-37); Alkaline Phosphatase 75 U/L (46-116); Anion Gap 8.5 mmol/L (3-11); BUN 21 mg/dL (7-18); Bilirubin, Total 0.4 mg/dL (0.2-1.0); C-Reactive Protein 0.66 mg/dL (0.0-0.3); CO2 25.5 mmol/L (21.0-32.0); CREATININE 0.8 mg/dL (0.55-1.02); Chloride 107 mmol/L (98-107); Glucose 92 mg/dL (74-106); Potassium 4.2 mmol/L (3.5-5.1); Sodium 141 mmol/L (136-145); Total Protein 6.8 g/dL (6.4-8.2)
[2021-07-15 22:22] LABS: Rheumatoid Factor <8.6 IU/mL (<12.0)
[2021-07-16 15:38] LABS: ANA Interpretation Negative (Negative)
== END 2021-07-15 19:47 | disposition home or self-care (01) ==
LOC: NCHCN 19:46
PROVIDERS: PCP Family Medicine; Visit Provider Nurse Practitioner Family
DX: M54.59 Other low back pain (principal)
CPT/HCPCS: 80053; 85652; 86038; 86140; 86431

== ENCOUNTER 2021-08-16 03:03 | Outpatient (CLI) | payer MEDICAID, SELFPAY ==
--- NOTE | 2021-08-16 11:15 | DI.MAMMO_ITS ---
Exam(s) MAMMO SCREENING EXAM: MAMMO SCREENING CLINICAL HISTORY: SCREENING, Z12.31 TECHNIQUE: Bilateral full field digital CC and MLO mammographic images were obtained with 3D tomosyn thesis and utilizing computer aided detection (CAD). COMPARISON: Available for comparison. FINDINGS: Masses/Architectural Distortion: None seen. Microcalcifications: No suspicious pleomorphic-type are seen. Stable benign-appearing calcifications are seen in both breasts. Skin Thickening/Nipple Retraction: None. IMPRESSION: 1. No significant interval change with no specific features of malignancy noted. 2. Unless there is more urgent need, screening mammography is recommended, as per [place] [employer] guidelines. BI-RADS Category 2 - Benign Findings Breast Density - Category C - Heterogeneously dense Breast density category C or D implies that the patient has dense breast tissue. Dense breast tissue is very common and is not abnormal but dense breast tissue can make it harder to find cancer on a ma mmogram. Also, dense breast tissue may increase their breast cancer risk. This information about the result of the mammogram report was provided to the patient to raise their awareness. Use this report when you speak with the patient about their risks for breast cancer, which includes their family hist ory. At that time, you may recommend for more screening tests (Ultrasound or MRI) as they might be us eful based on their risk. A negative radiographic report should not delay biopsy if a dominant or clinically suspicious mass is present. Up to ten percent of cancers are not identified on mammography. A negative report may reinforce clinical impression. Adenosis and dense breasts may obscure an underlying neoplasm. False positive reports average 6 to 10%. Patient will receive a letter notifying them of these results.
== END 2021-08-16 03:23 ==
PROVIDERS: PCP Family Medicine; Visit Provider Family Medicine
DX: Z12.31 Encounter for screening mammogram for malignant neoplasm of breast (principal)
CPT/HCPCS: 77063; 77067

== ENCOUNTER 2022-02-15 14:07 | Outpatient (REF) | payer MEDICAID, SELFPAY ==
--- NOTE | 2022-02-15 10:00 | PAPFT_PTH ---
PATIENT: Elin Willard LOC: [facility]#:[id number] AGE/SX: 61/F ROOM: RE02/15/[address]: Greta Kimball V : 1960 BED: DIS: 02/15/2022 SPEC #: [id number] RECD: 02/15/22 17:20 STATUS: JORDIN REBillie #: [id number] CINDY: 02/15/22 10:[address]: Greta Kimball V DEPT: [facility] Cytology RECD BY: Cheryl Morton Tissues: 1 - CX/ENDOCX FOR PAP SMEARS Procedures: PAP THIN PREP/UVM Screening Comments: [id number]
[2022-02-15 17:36] LABS: Calculated LDL 160 mg/dL (<100); Cholesterol 246 mg/dL (<200); HDL Cholesterol 77 mg/dL (40-60); Triglyceride 49 mg/dL (<150)
== END 2022-02-15 14:08 | disposition home or self-care (01) ==
LOC: NCHCN 14:07
PROVIDERS: PCP Family Medicine; Visit Provider Family Medicine
DX: Z00.00 Encounter for general adult medical examination without abnormal findings (principal); Z13.220 Encounter for screening for lipoid disorders; Z12.4 Encounter for screening for malignant neoplasm of cervix; R87.610 Atypical squamous cells of undetermined significance on cytologic smear of cervix (ASC-US)
CPT/HCPCS: 80061; 88142

== ENCOUNTER 2022-03-23 15:37 | Outpatient (REF) | payer MEDICAID, SELFPAY ==
[2022-03-25 12:15] LABS: COVID-19 RT-PCR UVMMC Result Negative (Negative)
== END 2022-03-23 15:38 | disposition home or self-care (01) ==
LOC: LBN 15:37
PROVIDERS: PCP Family Medicine; Visit Provider Physician Assistant Medical
DX: Z20.822 Contact with and (suspected) exposure to COVID-19 (principal); R09.81 Nasal congestion
CPT/HCPCS: U0003

== ENCOUNTER 2022-03-24 07:54 | Emergency (ER) | payer MEDICAID, SELFPAY ==
[2022-03-24 08:18] VITALS: BP 113/68; PULSE 99; RESP 18; TEMP 36.8; O2SAT 94
--- NOTE | 2022-03-24 08:45 | DI.CT_ITS ---
Exam(s) CT HEAD SINUS WO EXAM: CT HEAD SINUS WO CLINICAL HISTORY: Headache, sinus pressure. TECHNIQUE: Imaging Protocol: Axial computed tomography images with coronal and sagittal reformatted images were created and reviewed Noncontrast sinus protocol CT was also obtained. COMPARISON: No exams were available for comparison FINDINGS: The ventricular system is normal in appearance. No evidence of acute intracranial hemorrhage, mass effect, or midline shift. The orbital structures are unremarkable. The temporal bone structures appear intact. Calvarium: Normal. Visualized Paranasal sinuses/Mastoids: There is moderate mucoperiosteal thickening maxillary antra an d ethmoid air cells bilaterally. Minimal mucoperiosteal thickening of sphenoid sinuses period sparin g of frontal sinuses bilaterally. Findings are consistent with mild chronic pansinusitis.. IMPRESSION: No evidence of acute intracranial process, findings are consistent with mild chronic pansinusitis.. RADIATION DOSE DELIVERED: 708.24mGy.cm Total DLP 708.24mGy.cm Total DLP DATA REPOSITORY: All CT scans at this facility are submitted to the National Radiology Data Registry (NRDR) Dose Index Registry (DIR) with the [employer] (ACR). RADIATION OPTIMIZATION: All CT scans at this facility use at least one of these dose optimization te chniques: automated exposure control; mA and/or kV adjustment per patient size (includes targeted exa ms where dose is matched to clinical indication); or iterative reconstruction.
--- NOTE | 2022-03-24 08:49 | W.ED.GENAD ---
Discharge Plan Disposition Patient Disposition: Home Condition: Improving Discharge Details Clinical Impression: Acute sinusitis Primary Care Provider: Greta Kimball V ED Provider: Shaun Flynn Home Meds and New Rx's Prescriptions: New cefdinir 300 mg capsule 300 mg PO Q12H 10 Days Qty: 20 0RF Continued sumatriptan succinate 100 MG tablet 100 mg PO BID PRN albuterol sulfate [ProAir HFA] 8.5 GM HFA aerosol inhaler 2 puff Inhalation .Q4-6 PRN Label Comments: 03/26/16 pt uses only as needed for seasonal allergies. cholecalciferol (vitamin D3) 1,000 UNITS tablet 3,000 unit PO DIRECTED calcium carbonate-vitamin D3 1 EACH tablet 1 tab PO BID topiramate [Topamax] 100 MG tablet 100 mg PO HS diazepam [Valium] 5 MG tablet 5 mg PO PRN PRN magnesium citrate 100 MG tablet 100 mg PO DAILY acetaminophen 500 mg Tablet 500 mg PO DAILY PRN orphenadrine citrate 100 mg tablet extended release 100 mg PO DAILY PRN Label Comments: TAKE ONE TABLET BY MOUTH EVERY DAY NEEDED celecoxib 100 mg capsule 100 mg PO DAILY PRN Label Comments: Take 1-2 capsule by mouth once a day as needed Centrum 18-400 mg-mcg Tablet 1 tab PO DAILY riboflavin (vitamin B2) 400 mg tablet 400 mg PO DAILY Label Comments: 1 tablet daily Discontinued doxycycline hyclate 100 mg capsule 100 mg PO DAILY Discharge Instructions Instructions: Sinusitis (ED) Additional Instructions: Please stop the previously prescribed doxycycline. Begin antibiotics, cefdinir as prescribed today. Home to rest today. Small, frequent sips of fluids so that she maintain good hydration. You received dexamethasone, 8 mg by mouth x1 today. You may wish to discuss this single use of steroid with your specialty development consultant providers. Return to the emergency room for any acute concerns. Medical Decision Making 61-year-old female who has a history of migraine headaches. She has recently had persistent sinus drainage and pressure. She was seen at urgent care and started on doxycycline yesterday. Overnight she developed a global pounding headache similar to previous migraine that was refractive to home sumatriptan. She now presents with unremarkable neurologic exam, well-appearing. Differential diagnosis would include benign or migraine type cephalgia, sinus infection. She does not clinically appear to have evidence of meningitis. IV access established, screening labs obtained, patient referred for CT imaging and given parenteral medications and fluids. CT reveals chronic sinusitis. See the formal report. White blood cell count is 8, hematocrit 43, platelets 261. Chemistries unremarkable. Patient improved with medications. I will switch her from doxycycline to an oral cephalosporin. She is stable, improved, appropriate for discharge to home. Sign Out No HPI General Mode of arrival: ambulatory. Date/Time Provider Initiated Documentation: 03/24/22 08:02. Limitations to Documentation: no limitations. Information obtained by: patient. History of Present Illness 61 year old F presents to the emergency department with the chief complaint of Headache, sinus pressure, on antibiotics, described as moderate, Quality is described as dull and constant, and is localized to the head. Patient started experiencing this day(s) and it has been intermittent. No relieving factors improve symptom(s), No exacerbating factors reported . Patient notes denies fever/chills and weakness. Patient did receive the following treatments prior to arrival, none Related Data Home Medications Medication Instructions Recorded Confirmed albuterol sulfate 90 mcg/actuation 2 puff inhalation .Q4-6 PRN 11/22/13 03/24/22 aerosol inhaler (ProAir HFA) calcium carbonate 600 mg-vitamin 1 tab PO BID 11/22/13 03/24/22 D3 10 mcg (400 unit) tablet cholecalciferol (vitamin D3) 25 3,000 unit PO DIRECTED 11/22/13 03/24/22 mcg (1,000 unit) tablet sumatriptan succinate 100 mg tablet 100 mg PO BID PRN 11/22/13 03/24/22 diazepam 5 mg tablet (Valium) 5 mg PO PRN PRN 03/26/16 03/24/22 magnesium citrate 100 mg tablet 100 mg PO DAILY 03/26/16 03/24/22 topiramate 100 mg tablet (Topamax) 100 mg PO HS 03/26/16 03/24/22 acetaminophen 500 mg tablet 500 mg PO DAILY PRN 03/24/22 03/24/22 cefdinir 300 mg capsule 300 mg PO Q12H 10 days #20 caps 03/24/22 celecoxib 100 mg capsule 100 mg PO DAILY PRN 03/24/22 03/24/22 multivitamin-ferrous 1 tab PO DAILY 03/24/22 03/24/22 fumarate-folic acid 18 mg-400 mcg tablet (Centrum) orphenadrine citrate 100 mg 100 mg PO DAILY PRN 03/24/22 03/24/22 tablet,extended release riboflavin (vitamin B2) 400 mg 400 mg PO DAILY 03/24/22 03/24/22 tablet Previous Rx's Medication Instructions Recorded cefdinir 300 mg capsule 300 mg PO Q12H 10 days #20 caps 03/24/22 Allergies Allergy/AdvReac Type Severity Reaction Status Date / Time amitriptyline HCl AdvReac Intermediate lips and Unverified 03/24/22 08:21 [From Elavil] fingers tingling erythromycin base AdvReac Intermediate Nausea Unverified 03/24/22 08:21 [Erythromycin Base] escitalopram oxalate AdvReac Intermediate edgey Unverified 03/24/22 08:21 [From Lexapro] General Stated Complaint: Headache SIVAN: 4 Review of Systems Narrative: No neck stiffness, rash, fall. 8 systems reviewed and otherwise negative. PFSH All Active Problems (Updated 03/24/22 @ 11:03 by Shaun Flynn MD) Acute sinusitis (Acute) Social History Smoking/Tobacco Use Status: Never Smoking risk assessment performed?: Yes Alcohol Intake: current Alcohol Intake frequency: a few times a week Alcohol type: wine Drug use: Never Substance use type: does not use Do you feel safe at home: Yes Do you feel safe in your relationship?: Yes Exam Narrative Exam Narrative: GEN: awake, alert, oriented 3. Pleasant, well groomed, interactive. HEAD: Normocephalic, atraumatic ENT: Mucous membranes moist, oropharynx unremarkable, tympanic membranes clear bilaterally, mild sinus tenderness to percussion frontal and maxillary, external ear exam unremarkable EYES: PERRL, EOMI NECK: Full ROM, no KEVIN, no menigismus CHEST/RESP: Nontender, clear to auscultation bilateral, no wheeze/rhonchi/rales CARDIOVASCULAR: RRR, no murmur, rub gus. 2+ Rad pulse bilateral ABDOMEN: Soft, nontender, no mass. +Bowel sounds EXT: Full ROM, no edema, no rash Neuro: Grossly normal neurologic exam, conversant, interactive. Psych: Speech fluent, thoughts congruent, affect normal Course Vital Signs Vital signs: Vital Signs Temperature 36.8 C 03/24/22 08:18 Pulse 99 H 12/01/22 08:18 Respiratory Rate 18 03/24/22 08:18 Blood Pressure 113/68 03/24/22 08:18 Pulse Oximetry 94 03/24/22 08:18 Temperature 36.8 C 03/24/22 08:18 Temperature Source Temporal Artery Scan 03/24/22 08:18 Pulse 99 H 03/24/22 08:18 Respiratory Rate 18 03/24/22 08:18 Respiratory Effort Non-Labored 03/24/22 08:22 Blood Pressure 113/68 03/24/22 08:18 Blood Pressure Position Sitting 03/24/22 08:18 Pulse Oximetry 94 03/24/22 08:18 Oxygen Delivery Method Room Air 03/24/22 08:18 Oxygen Flow Rate 0 03/24/22 08:18 PAWSS Have you Been Recently Intoxicated or Drunk Within the Last 30 days?: No Have you Ever Experienced Previous Episodes of Alcohol Withdrawal?: No Have you ever Experienced Withdrawal Seizures?: No Have you ever Experienced Delirium Tremens(DT)s?: No Have you ever undergone Alcohol Rehabilitation Treatment (i.e, inpt ot outpatient treatment programs)?: No Have you ever Experienced Blackouts?: No Have you ever Combined Alcohol with other Downers within the last 90 days?: No Have you ever Combined Alcohol with any other Substance of Abuse during the last 90 days?: No Positive Blood Alcohol level on Presentation? [PCS.BAL]: No Evidence of Increased Autonomic Activity (i.e. HR>120, tremor, sweating, agitation, nausea)?: No Result: 0
[2022-03-24] MEDS: Normal Saline 1,000 ML 1000 ML IV (09:14)
[2022-03-24 09:20] LABS: Abs Immature Grans 0.03 10^3/uL (0.0-0.06); Absolute Basophil Count 0.05 10^3/uL (0.0-0.2); Absolute Eosinophil Count 0.13 10^3/uL (0.0-0.7); Absolute Lymphocyte Count 1.38 10^3/uL (1.2-3.4); Absolute Monocyte Count 0.69 10^3/uL (0.1-0.8); Absolute Neutrophil Count 5.92 10^3/uL (1.2-6.7); Basophils % 0.6; Eosinophils % 1.6; HCT 43.1 % (36.0-46.0); HGB 14.3 g/dL (11.2-15.7); Immature Grans % 0.4; Lymphocytes % 16.8; MCH 31.6 pg (27.0-33.0); MCHC 33.2 % (32.0-36.0); MCV 95 fL (80-95); MPV 10.6 fL (8.0-11.0); Monocytes % 8.4; Neutrophils % 72.2; Platelet Count 261 10^3/uL (130-400); RBC 4.52 10^6/uL (3.93-5.22); RDW 11.3 % (11.7-14.6); RDW-SD 39.8 fL
[2022-03-24] MEDS: Ondansetron 4 MG/2 ML VIAL IVP (09:29)
[2022-03-24] MEDS: Ketorolac 15 MG/ML VIAL (09:30)
[2022-03-24] MEDS: Dexamethasone 4 MG/ML VIAL 8 MG IVP (09:31)
[2022-03-24 09:39] LABS: ALT 21 U/L (14-59); AST 15 U/L (15-37); Albumin 3.5 g/dL (3.4-5.0); Alkaline Phosphatase 65 U/L (46-116); Anion Gap 7.9 mmol/L (3-11); BUN 14 mg/dL (7-18); Bilirubin, Total 0.3 mg/dL (0.2-1.0); CO2 27.1 mmol/L (21.0-32.0); CREATININE 0.9 mg/dL (0.55-1.02); Calcium 9.3 mg/dL (8.5-10.1); Chloride 105 mmol/L (98-107); Estimated GFR 72.28 (mL/min/1.73m2); Glucose 146 mg/dL (74-106); Potassium 3.7 mmol/L (3.5-5.1); Sodium 140 mmol/L (136-145); Total Protein 7.4 g/dL (6.4-8.2)
[2022-03-24 10:33] VITALS: BP 119/73; PULSE 85; RESP 14; TEMP 36.9; O2SAT 96
== END 2022-03-24 11:17 | disposition home or self-care (01) ==
PROVIDERS: Emergency Provider Emergency Medicine; PCP Family Medicine
DX: J01.90 Acute sinusitis, unspecified (principal); Z86.69 Personal history of other diseases of the nervous system and sense organs
CPT/HCPCS: 36415; 80053; 96361; 96374; 96375; 99284; 70450; 70486; 85025; J1100; J1885; J2405

== ENCOUNTER 2022-08-04 16:42 | Outpatient (REF) | payer MEDICAID, SELFPAY ==
[2022-08-04 15:55] LABS: TSH (W/Ref FT4) 1.14 uIU/mL (0.36-3.74)
[2022-08-08 10:31] LABS: Alpha 1 Antitrypsin,Serum 91 mg/dL (90-200)
== END 2022-08-04 16:43 | disposition home or self-care (01) ==
LOC: NCHCN 16:42
PROVIDERS: PCP Family Medicine; Visit Provider Nurse Practitioner Family
DX: R00.2 Palpitations (principal); L65.9 Nonscarring hair loss, unspecified; L85.3 Xerosis cutis; Z84.81 Family history of carrier of genetic disease
CPT/HCPCS: 82103; 84443

== ENCOUNTER 2022-08-09 11:20 | Outpatient (CLI) | payer MEDICAID, SELFPAY | END 2022-08-09 11:21 | disposition home or self-care (01) | PROVIDERS: PCP Family Medicine; Visit Provider Nurse Practitioner Family | DX: R00.2 Palpitations (principal) | CPT/HCPCS: 93246 ==

== ENCOUNTER 2022-08-25 00:57 | Outpatient (CLI) | payer MEDICAID, SELFPAY ==
--- NOTE | 2022-08-25 | DI.MAMMO_ITS ---
Exam(s) MAMMO SCREENING EXAM: MAMMO SCREENING CLINICAL HISTORY: SCREENING FOR BREAST CANCER Z12.31 [facility] C[facility] Z00.00 TECHNIQUE: Bilateral full field digital CC and MLO mammographic images were obtained with 3D tomosyn thesis and utilizing computer aided detection (CAD). COMPARISON: Available for comparison. FINDINGS: Masses/Architectural Distortion: There is a stable nodule in the medial left breast. No suspicious n odules or areas of architectural distortion are present. Microcalcifications: No suspicious pleomorphic-type are seen. Stable benign type calcifications are s een in both breasts. Skin Thickening/Nipple Retraction: None. IMPRESSION: 1. No significant interval change with no specific features of malignancy noted. 2. Unless there is more urgent need, screening mammography is recommended, as per [place] [employer] guidelines. BI-RADS Category 2 - Benign Findings Breast Density - Category C - Heterogeneously dense Breast density category C or D implies that the patient has dense breast tissue. Dense breast tissue is very common and is not abnormal but dense breast tissue can make it harder to find cancer on a ma mmogram. Also, dense breast tissue may increase their breast cancer risk. This information about the result of the mammogram report was provided to the patient to raise their awareness. Use this report when you speak with the patient about their risks for breast cancer, which includes their family hist ory. At that time, you may recommend for more screening tests (Ultrasound or MRI) as they might be us eful based on their risk. A negative radiographic report should not delay biopsy if a dominant or clinically suspicious mass is present. Up to ten percent of cancers are not identified on mammography. A negative report may reinforce clinical impression. Adenosis and dense breasts may obscure an underlying neoplasm. False positive reports average 6 to 10%. Patient will receive a letter notifying them of these results.
== END 2022-08-25 01:17 ==
LOC: DI 00:57
PROVIDERS: PCP Family Medicine; Visit Provider Nurse Practitioner Family
DX: Z12.31 Encounter for screening mammogram for malignant neoplasm of breast (principal); Z00.00 Encounter for general adult medical examination without abnormal findings
CPT/HCPCS: 77063; 77067

== ENCOUNTER 2022-09-01 07:23 | Outpatient (CLI) | payer MEDICAID, SELFPAY ==
--- NOTE | 2022-09-01 09:18 | W.CARDEVENT ---
Date of service: 09/01/22 Time of Service: 09:18 Cardiac Event Recorder Referring Provider:: Melanie Guajardo Indications:: Palpitations Cardiac Event Note: This is a 14-day cardiac event recorder ordered for palpitations Rhythm throughout was sinus with an average heart rate of 79. Minimum was 49, maximum 174 There were very rare isolated atrial and ventricular ectopic beats A total of 3 self-limited atrial runs occurred. The longest of these was 7 beats in duration There was no atrial fibrillation, no SVT, no high-grade AV block, no pauses greater than 3 seconds Multiple patient symptoms were reported all of which corresponded to sinus rhythm
== END 2022-09-01 07:24 | disposition home or self-care (01) ==
LOC: CARDOPNVT 07:23
PROVIDERS: PCP Family Medicine; Visit Provider Internal Medicine Cardiovascular Disease
DX: R00.2 Palpitations (principal); I49.1 Atrial premature depolarization

== ENCOUNTER 2023-02-16 10:34 | Outpatient (REF) | payer MEDICAID, SELFPAY ==
--- NOTE | 2023-02-16 08:40 | PAPFT_PTH ---
PATIENT: Elin Willard LOC: [facility]#:[id number] AGE/SX: 62/F ROOM: RE02/16/[address]: Greta Kimball V : 1960 BED: DIS: 02/16/2023 SPEC #: [id number] RECD: 02/16/23 18:23 STATUS: JORDIN REBillie #: [id number] CINDY: 02/16/23 08:[address]: Greta Kimball V DEPT: [facility] Cytology RECD BY: Cheryl Morton Tissues: 1 - CX/ENDOCX FOR PAP SMEARS Procedures: PAP THIN PREP/UVM Screening HPV DNA PROBE Comments: [id number]
[2023-02-16 16:17] LABS: ALT 20 U/L (14-59); AST 18 U/L (15-37); Alkaline Phosphatase 73 U/L (46-116); Anion Gap 6.5 mmol/L (3-11); BUN 25 mg/dL (7-18); Bilirubin, Total 0.4 mg/dL (0.2-1.0); CO2 27.5 mmol/L (21.0-32.0); CREATININE 0.9 mg/dL (0.55-1.02); Calcium 9.6 mg/dL (8.5-10.1); Calculated LDL 170 mg/dL (<100); Chloride 109 mmol/L (98-107); Cholesterol 244 mg/dL (<200); Estimated GFR 71.83 (mL/min/1.73m2); Glucose 99 mg/dL (74-106); HDL Cholesterol 64 mg/dL (40-60); Potassium 4.1 mmol/L (3.5-5.1); Sodium 143 mmol/L (136-145); Total Protein 7.2 g/dL (6.4-8.2); Triglyceride 54 mg/dL (<150)
[2023-02-16 16:22] LABS: Hemoglobin A1C 5.3 % (<5.7)
== END 2023-02-16 10:35 | disposition home or self-care (01) ==
LOC: NCHCN 10:34
PROVIDERS: PCP Family Medicine; Visit Provider Family Medicine
DX: Z01.419 Encounter for gynecological examination (general) (routine) without abnormal findings (principal); G43.909 Migraine, unspecified, not intractable, without status migrainosus; Z79.1 Long term (current) use of non-steroidal anti-inflammatories (NSAID)
CPT/HCPCS: 80053; 80061; 88142; 83036; 87624

== ENCOUNTER → 2023-05-10 01:06 | Outpatient (CLI) | payer MEDICAID, SELFPAY ==
--- NOTE | 2023-05-10 | DI.RAD_ITS ---
Exam(s) XR CHEST 2V PA LATERAL EXAM: XR CHEST 2V PA LATERAL CLINICAL HISTORY: CHRONIC COUGH,R05.3,H/O ASTHMA. TECHNIQUE: 2D digital imaging was performed. COMPARISON: CR XR CHEST 2V PA LATERAL from 07/25/2018 FINDINGS: 2 views: Heart size is normal. The mediastinum is not widened. Right lung is clear. There is subsegmental platelike atelectasis in left lung base. No confluent in filtrates. No pleural effusions. No pneumothorax. No fractures evident. IMPRESSION: There is subsegmental platelike atelectasis noted in the left lung base. DATA REPOSITORY: RADIATION DOSE DELIVERED:
--- OUTSIDE RECORDS SUMMARY | 2023-05-10 01:09 | XMS_ITS | Continuity of Care Document ---
Author Name Unknown Organization [facility] Ambulatory Clinics Address [address] [place] [address] Care Team Providers Care Paint Dipper Name Role Phone Greta Kimball Primary Care Physician Encounter [facility] NBR [id number] Date(s): 07/27/22 - 07/27/22 [facility] Ambulatory Clinics [address] [place] [address]- [place] Discharge Disposition: Home or Self Care Attending Physician: Harika Osullivan DO Allergies, Adverse Reactions, Alerts Substance Reaction Severity Status erythromycin N/V/D Unknown Active amitriptyline Unknown Unknown Active escitalopram edgy Unknown Active Elavil lips/fingers tingly Unknown Active Erythromycin ES INTOLERENCE Unknown Active Assessment and Plan Future Appointments Future Scheduled Tests Radiology* MRI Spine Lumbar w/o Contrast 08/03/22 Functional Status 07/27/22 Other exposure to Infectious Disease Non e Medications Airborne Dual Action 0 Refill(s) Start Date: 03/03/22 Status: Ordered calcium (as calcium citrate) 250 mg oral tablet 2 Unknown, 0 Refill(s) Start Date: 03/03/22 Status: Ordered cannabidiol See Instructions, 0 Refill(s) Start Date: 03/03/22 Status: Ordered celecoxib 100 mg oral capsule 120 EA, TAKE ONE CAPSULE BY MOUTH TWICE A DAY NEEDED, 0 Refill(s) Start Date: 02/17/22 Status: Ordered cetirizine 10 mg oral capsule 10 mg, Oral, Daily, 1 Unknown, 0 Refill(s) Start Date: 03/03/22 Status: Ordered cholecalciferol 10,000 intl units oral capsule 0 Refill(s) Start Date: 02/17/22 Status: Ordered diazePAM 10 mg oral tablet 0 Refill(s) Start Date: 03/03/22 Status: Ordered diclofenac sodium 1% topical cream 1 %, Topical, 0 Refill(s) Start Date: 03/03/22 Status: Ordered Flovent HFA 44 mcg/inh inhalation aerosol 2 puffs, Inhale, BID, # 10.6 g, 0 Refill(s) Start Date: 03/31/22 Status: Ordered fluorouracil 5% topical cream 40 g, APPLY A SMALL AMOUNT TO SKIN TWO TIMES A DAY ON NOSE FOR 2 WEEKS; APPLY VASELINE 1 HOUR AFTERAPPLICATION TO AID IN REDUCTION OF IRRITATION, 0 Refill(s) Start Date: 02/17/22 Status: Ordered hydrocortisone 2.5% topical cream 20 g, APPLY A SMALL AMOUNT TO AFFECTED AREA TWICE A DAY UP TO 2 WEEKS OR UNTIL RASH HAS CLEARED, 0 Refill(s) Start Date: 02/17/22 Status: Ordered hydrOXYzine hydrochloride 25 mg/mL intramuscular solution 25 Unknown, 0 Refill(s) Start Date: 03/03/22 Status: Ordered ketoconazole 2% topical shampoo 120 mL, APPLY A SMALL AMOUNT DIRECTED TO AFFECTED AREA(S) THREE TIMES WEEKLY; LEAVE ON FOR 5 MINBEFORE RINSING, 0 Refill(s) Start Date: 02/17/22 Status: Ordered Lidoderm 5% topical film 5 %, TD, 0 Refill(s) Start Date: 02/17/22 Status: Ordered melatonin 10 mg oral capsule 1 Unknown, 0 Refill(s) Start Date: 03/03/22 Status: Ordered orphenadrine 100 mg oral tablet, extended release 30 EA, TAKE ONE TABLET BY MOUTH EVERY DAY NEEDED, 0 Refill(s) Start Date: 02/17/22 Status: Ordered ProAir HFA 90 mcg/inh inhalation aerosol 8 g, INHALE TWO PUFFS BY MOUTH EVERY 6 HOURS NEEDED, 0 Refill(s) Start Date: 02/17/22 Status: Ordered prochlorperazine 10 mg oral tablet 1 Unknown, 0 Refill(s) Start Date: 02/17/22 Status: Ordered riboflavin 25 mg oral tablet 0 Refill(s) Start Date: 03/03/22 Status: Ordered SUMAtriptan 100 mg oral tablet 9 EA, TAKE ONE TABLET BY MOUTH EVERY DAY NEEDED FOR MIGRAINE. MAY REPEAT ONE TIME IN ONE HOUR, 0Refill(s) Start Date: 02/17/22 Status: Ordered topiramate 100 mg oral tablet 90 EA, TAKE ONE TABLET BY MOUTH EVERY NIGHT, 0 Refill(s) Start Date: 02/17/22 Status: Ordered Tylenol Extra Strength 500 mg oral tablet 0 Refill(s) Start Date: 03/03/22 Status: Ordered venlafaxine 37.5 mg oral capsule, extended release 7 EA, TAKE ONE CAPSULE BY MOUTH EVERY DAY FOR ONE WEEK, THEN STOP, 0 Refill(s) Start Date: 02/17/22 Status: Ordered Problem List Condition Confirmation Course Effective Dates Status H ealth Status Informant Annular tear of lumbar disc Confirmed Active Atypical squamous cells of undetermined significance on cervical Papanicolaou smear Confirmed Active Cervical radiculopathy Confirmed Active Derangement of right knee Confirmed Active Fracture of twelfth thoracic vertebra Confirmed Active Generalized anxiety disorder Confirmed Active Human papillomavirus deoxyribonucleic 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 Sex Patient Care team information Care Team Personnel Name: Greta Kimball Position: No Access Member Role: Primary Care Physician Address: Address: [address] [place] [id number] [place] Care Team Related Persons Name: KHANH TRAMMELL Address: Home [address] [place], [place] [id number] [facility]
--- OUTSIDE RECORDS SUMMARY | 2023-05-10 01:09 | XMS_ITS | Continuity of Care Document ---
Author Name Unknown Organization [facility] Ambulatory Clinics Address [address] [place] [address] Care Team Providers Care Police [employer] Program Coordinator Name Role Phone Greta Kimball Primary Care Physician [phone] Encounter [facility] NBR [id number] Date(s): 02/17/22 - 02/17/22 [facility] Ambulatory Clinics [address] [place] [address] [place] Encounter Diagnosis Lumbar spondylosis(Discharge Diagnosis) - 02/17/22 Sacroiliac joint dysfunction(Discharge Diagnosis) - 02/17/22 Lumbar radiculopathy(Discharge Diagnosis) - 02/17/22 Myofascial pain(Discharge Diagnosis) - 02/17/22 Discharge Disposition: Home or Self Care Attending Physician: Danny Ny DO Allergies, Adverse Reactions, Alerts Substance Reaction Severity Status erythromycin N/V/D Unknown Active amitriptyline Unknown Unknown Active escitalopram edgy Unknown Active Elavil lips/fingers tingly Unknown Active Erythromycin ES INTOLERENCE Unknown Active Functional Status 02/17/22 Other exposure to Infectious Disease Non e Medications albuterol 90 mcg/inh aerosol inhaler 2 Unknown, 0 Refill(s) Start Date: 02/17/22 Status: Ordered celecoxib 100 mg oral capsule 120 EA, TAKE ONE CAPSULE BY MOUTH TWICE A DAY NEEDED, 0 Refill(s) Start Date: 02/17/22 Status: Ordered cholecalciferol 10,000 intl units oral capsule 0 Refill(s) Start Date: 02/17/22 Status: Ordered diazePAM 5 mg oral tablet 10 EA, TAKE ONE TABLET BY MOUTH EVERY DAY NEEDED FOR MIGRAINES, 0 Refill(s) Start Date: 02/17/22 Status: Ordered fluorouracil 5% topical cream 40 [...] Date: 02/17/22 Status: Ordered hydrOXYzine hydrochloride 25 mg oral tablet 1 Unknown, 0 Refill(s) Start Date: 02/17/22 Status: Ordered hydrOXYzine pamoate 25 mg oral capsule 60 EA, TAKE ONE CAPSULE BY MOUTH TWICE A DAY NEEDED, 0 Refill(s) Start Date: 02/17/22 Status: Ordered Imitrex 100 mg oral tablet 1 Unknown, 0 Refill(s) Start Date: 02/17/22 Status: Ordered Imitrex 50 mg oral tablet BID, 0 Refill(s) Start Date: 02/17/22 Status: Ordered ketoconazole 2% topical shampoo 120 mL, APPLY A SMALL AMOUNT DIRECTED TO AFFECTED AREA(S) THREE TIMES WEEKLY; LEAVE ON FOR 5 MINBEFORE RINSING, 0 Refill(s) Start Date: 02/17/22 Status: Ordered Lidoderm 5% topical film 0 Refill(s) Start Date: 02/17/22 Status: Ordered Lyrica 50 mg oral capsule BID, 1 Unknown, 0 Refill(s) Start Date: 02/17/22 Status: Ordered orphenadrine 100 mg oral tablet, [...] 0 Refill(s) Start Date: 02/17/22 Status: Ordered SUMAtriptan 100 mg oral tablet 9 EA, TAKE ONE TABLET BY MOUTH EVERY DAY NEEDED FOR MIGRAINE. MAY REPEAT ONE TIME IN ONE HOUR, 0Refill(s) Start Date: 02/17/22 Status: Ordered Topamax 100 mg oral tablet 0 Refill(s) Start Date: 02/17/22 Status: Ordered topiramate 100 mg oral tablet 90 EA, TAKE ONE TABLET BY MOUTH EVERY NIGHT, 0 Refill(s) Start Date: 02/17/22 Status: Ordered Valium 5 mg oral tablet 1 Unknown, 0 Refill(s) Start Date: 02/17/22 Status: Ordered venlafaxine 37.5 mg oral capsule, extended release 7 EA, TAKE ONE CAPSULE BY MOUTH EVERY DAY FOR ONE WEEK, THEN STOP, 0 Refill(s) Start Date: 02/17/22 Status: Ordered venlafaxine 75 mg oral capsule, extended release 90 EA, TAKE ONE CAPSULE BY MOUTH EVERY DAY, 0 Refill(s) Start Date: 02/17/22 Status: Ordered Vitamin B2 100 mg oral tablet 360 unknown unit, 0 Refill(s) Start Date: 02/17/22 Status: Ordered Vital Signs Most recent to oldest [Reference Range]: 1 Temperature Temporal Artery [36-38 Deg C ] 36.8 Deg C (02/17/22 10:47 AM) Peripheral Pulse Rate [60-100 bpm] 79 bp m (02/17/22 10:47 AM) Weight 51.8 kg (02/17/22 10:47 AM) Weight Measured (lbs) 114.199 lb (02/17/22 10:47 AM) [place] Body Weight Calculated 47.8 kg (02/17/22 10:47 AM) Height 154.94 cm (02/17/22 10:47 AM) Height/Length Measured (inches) 61 inch (02/17/22 10:47 AM) BSA Measured 1.49 m2 (02/17/22 10:47 AM) Body Mass Index 21.58 kg/m2 (02/17/22 10:47 AM) Social History Social History Type Response Tobacco Tobacco use status u nknown Tobacco Use:. Sex Patient Care team information Personnel Name: Greta Kimball Address: Address: [address]
--- OUTSIDE RECORDS SUMMARY | 2023-05-10 01:09 | XMS_ITS | Continuity of Care Document ---
Author Name Unknown Organization [facility] Ambulatory Clinics Address [address] [place] [address] Care Team Providers Care Cost Control Supervisor Name Role Phone Greta Kimball Primary Care Physician [phone] Encounter [facility] NBR [id number] Date(s): 04/26/22 - 04/26/22 [facility] Ambulatory Clinics [address] [place] [address] [place] Encounter Diagnosis Left lumbar radiculopathy(Discharge Diagnosis) - 04/26/22 Sacroiliac joint dysfunction of left side(Discharge Diagnosis) - 04/26/22 Lumbar spondylosis(Discharge Diagnosis) - 04/26/22 Sacroiliac joint dysfunction of left side(Discharge Diagnosis) - 04/26/22 Myofascial pain(Discharge Diagnosis) - 04/26/22 Spinal enthesopathy of lumbar region(Discharge Diagnosis) - 04/26/22 Discharge Disposition: Home or Self Care Attending Physician: Danny Ny DO Allergies, Adverse Reactions, Alerts Substance Reaction Severity Status erythromycin N/V/D Unknown Active amitriptyline Unknown Unknown Active escitalopram edgy Unknown Active Elavil lips/fingers tingly Unknown Active Erythromycin ES INTOLERENCE Unknown Active Functional Status 04/26/22 Other exposure to Infectious Disease Non e Medications Airborne Dual Action 0 Refill(s) Start Date: 03/03/22 Status: Ordered albuterol 90 mcg/inh aerosol inhaler 2 Unknown, 0 Refill(s) Start Date: 02/17/22 Status: Ordered calcium (as calcium citrate) 250 mg oral tablet 2 Unknown, 0 Refill(s) Start Date: 03/03/22 Status: Ordered cannabidiol See Instructions, 0 Refill(s) Start Date: 03/03/22 Status: Ordered celecoxib 100 mg oral capsule 120 EA, TAKE ONE CAPSULE BY MOUTH TWICE A DAY NEEDED, 0 Refill(s) Start Date: 02/17/22 Status: Ordered Centrum Silver oral tablet, chewable 0 Refill(s) Start Date: 03/03/22 Status: Ordered cetirizine 10 mg oral capsule 10 mg, Oral, Daily, 1 Unknown, 0 Refill(s) Start Date: 03/03/22 Status: Ordered cholecalciferol 10,000 intl units oral capsule 0 Refill(s) Start Date: 02/17/22 Status: Ordered cyclobenzaprine 10 mg oral tablet 10 mg =, Oral, Daily, 1 Unknown, 0 Refill(s) Start Date: 03/03/22 Status: Ordered diazePAM 10 mg oral tablet 0 Refill(s) Start Date: 03/03/22 Status: Ordered diazePAM 5 mg oral tablet 10 EA, TAKE ONE TABLET BY MOUTH EVERY DAY NEEDED FOR MIGRAINES, 0 Refill(s) Start Date: 02/17/22 Status: Ordered diclofenac sodium 1% topical cream [...] 0 Refill(s) Start Date: 03/03/22 Status: Ordered hydrOXYzine pamoate 25 mg oral [...] Status: Ordered Lyrica 50 mg oral capsule 50 mg =, Oral, BID, 1 Unknown, 0 Refill(s) Start Date: [...] 0 Refill(s) Start Date: 03/03/22 Status: Ordered riboflavin 400 mg oral capsule 1 Unknown, 0 Refill(s) [...] 0 Refill(s) Start Date: 03/03/22 Status: Ordered Tylenol Extra Strength 500 mg oral tablet QID, 1 Unknown, 0 Refill(s) Start Date: 03/03/22 Status: Ordered Valium 5 mg oral tablet [...] Shoulder pain Confirmed Active Vertigo Confirmed Active Vital Signs Most recent to oldest [Reference Range]: 1 Peripheral Pulse Rate [60-100 bpm] 62 bp m (04/26/22 8:45 AM) Respiratory Rate [12-24 br/min] 16 br/mi n (04/26/22 8:45 AM) Blood Pressure [90-140/60-90 mmHg] 102/7 0mmHg (04/26/22 8:45 AM) Social History Social History Type Response Tobacco Tobacco use status u nknown Tobacco Use:. Sex Physician Outpatient Note * Danny Ny, DO: PERFORM, MODIFY Event Display: Office Clinic Note Physician Authored Date: [id number] JUAN AGUILAR :1960 Age:62 years Sex:Female Visit Date:04/26/2022 Primary Care Physician: Greta Kimball History of Present Illness Patient is here for follow-up after left L3, L4 and L5 medial branch blocks x1??and left sacroiliacjoint with piriformis injection x1. ??Patient claims to have??100% relief of lumbar pain??and 60 to70% relief of sacral pain. ??Patient also complains of??occasional radiation of pain down the right??medial thigh. ??Patient denies any adverse reactions to injection. ??Patient denies any new numbness weakness or bladder bowel dysfunction Review of Systems Patient denies any shortness of breath, chest pain, adverse reaction to procedures, new numbness, weakness, bladder dysfunction, bowel dysfunction, falls, gait/balance impairment Physical Exam Orientaton: AOx3, NAD Mood: pleasant ROM: pain with Palpation: tenderness to??palpation, trigger points noted Respiratory: non labor, non distress Strength: 5/5 overall except +4/5 hip??extension and abduction Neuro: Romberg's and Trendelenburg??negative Provocative exam: SLR, Facet Loading, Compression, Distraction, FABERS,??Martin and?? Galenson negative gait: Antalgic ?? Procedure Diagnosis:??Lumbar myofascial pain, lumbar spinal enthesopathy Procedure: Bilateral??trigger point injections??to the lumbar paraspinals gluteus jocelin and medius After risk and benefits were explained to the patient in detailed, the patient agreed to proceed with trigger point injections. After?? identifying trigger points by palpation and sterilizing the skin with an alcohol solution, a 22 gauge needle was placed into each trigger points. After negative aspriation a lidocaine solution was injected into each trigger point. Then each trigger point was peppered. The needle was withdrawn and there were no complications. A total of 5 TPI were performed to the lumbar paraspinals Assessment/Plan Left lumbar radiculopathy??M54.16 Patient received??100% relief of lumbar pain and 60 to 70% relief??of sacral??spinal pain??relief??from left L3, L4 and L5 epidural??x1??and left sacroiliac joint with piriformis injection x1 ?? Patient residual pain appears secondary??to unresolved sacroiliac joint dysfunction,??L5,??S1 and L3?? radiculopathy and myofascial pain Performed trigger point injections today If limited relief patient may benefit from L5 and S1 epidural??versus repeat SI joint injection Patient presents occasionally with L3 radiculopathy may benefit from L3 epidural Patient has had 2 successful lumbar medial branch blocks??of more than 100% relief. ??Patient may benefit from radiofrequency ablation next flareup Expressed to patient importance??of strengthening hip extensors and abductor's. 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 ??She is to follow-up with new provider??in the future. ??She expressed understanding Lumbar spondylosis??M47.816 Myofascial pain??M79.18 Sacroiliac joint dysfunction of left side??M53.3,?? Sacroiliac joint dysfunction of left side??M53.3 Spinal enthesopathy of lumbar region??M46.06 Problem List/Past Medical History Ongoing Annular tear of lumbar disc Atypical squamous cells of undetermined significance on cervical Papanicolaou smear Cervical radiculopathy Derangement of right knee Fracture of twelfth thoracic vertebra Generalized anxiety disorder Human papillomavirus deoxyribonucleic acid test positive, high risk on cervical specimen Inflammation of sacroiliac joint Insomnia Lumbar radiculopathy Lumbar spondylosis Menopausal flushing Pain of right knee joint Panic disorder Refractory migraine with aura Refractory migraine without aura Shoulder pain Vertigo Historical No qualifying data Medications Airborne Dual Action albuterol 90 mcg/inh aerosol inhaler calcium (as calcium citrate) 250 mg oral tablet cannabidiol, See Instructions celecoxib 100 mg oral capsule Centrum Silver oral tablet, chewable cetirizine 10 mg oral capsule, 10 mg, Oral, Daily cholecalciferol 10,000 intl units oral capsule cyclobenzaprine 10 mg oral tablet, 10 mg, Oral, Daily diazePAM 10 mg oral tablet diazePAM 5 mg oral tablet diclofenac sodium 1% topical cream, 1 %, Topical Flovent HFA 44 mcg/inh inhalation aerosol, 2 puffs, Inhale, BID fluorouracil 5% topical cream hydrocortisone 2.5% topical cream hydrOXYzine hydrochloride 25 mg oral tablet hydrOXYzine hydrochloride 25 mg/mL intramuscular solution hydrOXYzine pamoate 25 mg oral capsule Imitrex 100 mg oral tablet Imitrex 50 mg oral tablet, BID ketoconazole 2% topical shampoo Lidoderm 5% topical film, 5 %, TD Lyrica 50 mg oral capsule, 50 mg, Oral, BID melatonin 10 mg oral capsule orphenadrine 100 mg oral tablet, extended release ProAir HFA 90 mcg/inh inhalation aerosol prochlorperazine 10 mg oral tablet riboflavin 25 mg oral tablet riboflavin 400 mg oral capsule SUMAtriptan 100 mg oral tablet Topamax 100 mg oral tablet topiramate 100 mg oral tablet Tylenol Extra Strength 500 mg oral tablet Tylenol Extra Strength 500 mg oral tablet, QID Valium 5 mg oral tablet venlafaxine 37.5 mg oral capsule, extended release venlafaxine 75 mg oral capsule, extended release Vitamin B2 100 mg oral tablet Allergies Elavil??(lips/fingers tingly) Erythromycin ES??(INTOLERENCE) amitriptyline??(Unknown) erythromycin??(N/V/D) escitalopram??(edgy) Social History Electronic Cigarette/Vaping Electronic Cigarette Use: Unknown/not obtained. Tobacco Tobacco use status unknown Tobacco Use:. Electronically Signed on 04/26/22 10:15 AM Danny Ny, DO Patient Care team information Personnel Name: Greta Kimball Address: Address: [address] [place] [id number]
--- OUTSIDE RECORDS SUMMARY | 2023-05-10 01:09 | XMS_ITS | Continuity of Care Document ---
Author Name Unknown Organization [facility] Address [address] [place] [phone] Care Team Providers Care Aoc [employer] Operations Staff Officer Name Role Phone MOHAN OAKES Primary Care Physician Encounter [facility] FIN NBR [id number] Date(s): 08/26/22 - 08/26/[address] [phone]- [place] Discharge Disposition: Home or Self Care Attending Physician: Harika Osullivan DO Admitting Physician: Harika Osullivan DO Allergies, Adverse Reactions, Alerts Substance Reaction Severity Status erythromycin N/V/D Unknown Active amitriptyline Unknown Unknown Active escitalopram edgy Unknown Active Elavil lips/fingers tingly Unknown Active Erythromycin ES INTOLERENCE Unknown Active Assessment and Plan Extracted from: Title:Thoracic MRI results Author:Harika chand DO Date:08/26/22 Reviewed thoracic MRI images and report from today 08/26/2022. No urgent findings. Results will be reviewed with patient during her follow-up appointment next week. Future Appointments Medications Airborne Dual Action 0 Refill(s) Start [...] Shoulder pain Confirmed Active Vertigo Confirmed Active Results Radiology Reports * Exam Date Time Procedure Performing Provider Status 08/26/22 9:38 AM MRI Spine Thoracic w/o Contrast Charles Leach; Sukumar (Verified) Notes: (MRI Spine Thoracic w/o Contrast) Reason For Exam: history of thoracic disc protrusion T6-7, Hx of compression fx at T12, new leg weakness/shaking not explained by recent lumbar MRI. evaluate for changes since 2020 MRI Spine Thoracic w/o Contrast EXAM DESCRIPTION: MRI Spine Thoracic w/o Contrast 08/26/2022 INDICATION: HISTORY OF THORACIC DISC PROTRUSION T6-7, HX OF COMPRESSION FX AT T12, NEW LEG WEAKNESS/SHAKING NOT EXPLAINED BY RECENT LUMBAR MRI. EVALUATE FOR CHANGES SINCE 2020 TECHNIQUE: Multiplanar MRI examination of the thoracic spine utilizing T1, fat-suppressed T2 and fast STIR technique. COMPARISON: Outside facility MRI thoracic spine examination from 08/06/2020 FINDINGS: Lateral thoracic spine alignment is satisfactory. T4-5: Minimal posterior disc bulge without significant stenosis or cord encroachment T5-6: Mild central/right paracentral disc protrusion. No significant stenosis, cord encroachment or deformity. T6-7: Mild central disc protrusion without significant stenosis, cord encroachment or cord deformity. T9-10: Mild broad-based left paracentral disc protrusion with mild left lateral recess stenosis. No significant central stenosis or cord encroachment Remaining levels demonstrate no focal disc protrusion or significant stenosis. Neural foramina appear without significant encroachment throughout the thoracic region bilaterally. Spondylotic changes in the cervical spine with posterior disc osteophyte complexes at several levels with mild relative stenosis. No intrinsic signal abnormality within the thoracic spinal cord to suggest edema or myelomalacia with no evidence of syrinx No suspicious regional marrow lesions with mild degenerative endplate changes at T4-5. Small vertebral body hemangioma suspected at the T7 level. Mild stable remote compression deformity involving the superior endplate of the T12 vertebral body. No additional compression deformity in the thoracic region. Paraspinal soft tissues are unremarkable. IMPRESSION: Mild spondylotic changes. No significant thoracic stenosis or cord encroachment. Please see above discussion for detailed description Normal thoracic spinal cord. JOB #: [id number] Final Signed by: Isiah Cardenas MD Signed (Electronic Signature): 08/26/2022 9:51 am Social History Social History Type Response Tobacco Tobacco use status u nknown Tobacco Use:. Sex Progress note * Harika Osullivan DO: PERFORM Event Display: Progress Note - Physician Authored Date: [id number] Reviewed thoracic MRI images and report from today 08/26/2022. No urgent findings. Results will be reviewed with patient during her follow-up appointment next week. Electronically Signed on 08/26/22 01:17 PM Harika Osullivan DO MR Thoracic spine WO contrast * Isiah Cardenas MD: VERIFY, VERIFY Event Display: Report EXAM DESCRIPTION: MRI Spine Thoracic w/o Contrast 08/26/2022 INDICATION: HISTORY OF THORACIC DISC PROTRUSION T6-7, HX OF COMPRESSION FX AT T12, NEW LEG WEAKNESS/SHAKING NOT EXPLAINED BY RECENT LUMBAR MRI. EVALUATE FOR CHANGES SINCE 2020 TECHNIQUE: Multiplanar MRI examination of the thoracic spine utilizing T1, fat-suppressed T2 and fast STIR technique. COMPARISON: Outside facility MRI thoracic spine examination from 08/06/2020 FINDINGS: Lateral thoracic spine alignment is satisfactory. T4-5: Minimal posterior disc bulge without significant stenosis or cord encroachment T5-6: Mild central/right paracentral disc protrusion. No significant stenosis, cord encroachment or deformity. T6-7: Mild central disc protrusion without significant stenosis, cord encroachment or cord deformity. T9-10: Mild broad-based left paracentral disc protrusion with mild left lateral recess stenosis. No significant central stenosis or cord encroachment Remaining levels demonstrate no focal disc protrusion or significant stenosis. Neural foramina appear without significant encroachment throughout the thoracic region bilaterally. Spondylotic changes in the cervical spine with posterior disc osteophyte complexes at several levels with mild relative stenosis. No intrinsic signal abnormality within the thoracic spinal cord to suggest edema or myelomalacia with no evidence of syrinx No suspicious regional marrow lesions with mild degenerative endplate changes at T4-5. Small vertebral body hemangioma suspected at the T7 level. Mild stable remote compression deformity involving the superior endplate of the T12 vertebral body. No additional compression deformity in the thoracic region. Paraspinal soft tissues are unremarkable. IMPRESSION: Mild spondylotic changes. No significant thoracic stenosis or cord encroachment. Please see above discussion for detailed description Normal thoracic spinal cord. JOB #: [id number] Final Signed by: Isiah Cardenas MD Signed (Electronic Signature): 08/26/2022 9:51 am Patient Care team information Care Team Personnel Name: VIOLETTE MOHAN Alyse Position: No Access Member Role: Primary Care Physician Address: Address: [address] [place] [phone] [place] Care Team Related Persons Name: JP KHANH Beka Address: Home [address] [place], [place] [id number] [facility]
--- OUTSIDE RECORDS SUMMARY | 2023-05-10 01:09 | XMS_ITS | Continuity of Care Document ---
Author Name Unknown Organization [facility] Address [address] [place] [address] Care Team Providers Care Employment Educational Coord Name Role Phone Greta Kimball Primary Care Physician Encounter [facility] NBR [id number] Date(s): 03/31/22 - 03/31/22 [facility] [address] [place] [address] [place] Encounter Diagnosis Sacroiliac joint dysfunction of right side(Discharge Diagnosis) - 03/31/22 Piriformis syndrome of right side(Discharge Diagnosis) - 03/31/22 Discharge Disposition: Home or Self Care Attending Physician: Danny Ny DO Allergies, Adverse Reactions, Alerts Substance Reaction Severity Status erythromycin N/V/D Unknown Active amitriptyline Unknown Unknown Active escitalopram edgy Unknown Active Elavil lips/fingers tingly Unknown Active Erythromycin ES INTOLERENCE Unknown Active Assessment and Plan Future Appointments Functional Status 03/31/22 Other exposure to Infectious Disease Non e [...] recent to oldest [Reference Range]: 1 Temperature Tympanic [36.6-37.9 Deg C] 3 6.4 Deg C *LOW* (03/31/22 12:06 PM) Peripheral Pulse Rate [60-100 bpm] 77 bp m (03/31/22 12:06 PM) Respiratory Rate [12-24 br/min] 16 br/mi n (03/31/22 12:06 PM) Blood Pressure [90-140/60-90 mmHg] 100/6 0mmHg (03/31/22 12:06 PM) Social History Social History Type Response Tobacco Tobacco use status u nknown Tobacco Use:. Sex History and physical note * Danny Ny, DO: PERFORM, MODIFY Event Display: History and Physical Update Authored Date: [id number] JUAN AGUILAR :1960 Age:61 years Sex:Female Visit Date:03/31/2022 Primary Care Physician: Greta Kimball Chief complaint:??Back pain HPI:??Patient planes of back pain. ??Patient denies any other changes since last procedure. ??She claims to have had??relief from 80%??medial branch blocks??but complains of sacroiliac joint pain and??lower thoracic pain. ??Patient denies any??fevers or recent illnesses.?? Patient denies any new numbness, weakness, bladder??dysfunction, bowel dysfunction, shortness of breath??or gait??and balanceissues ?? ROS: Patient denies any recent illnesses, fevers, upper respiratory issues, shortness of breath, chest pain, abdominal pain, nausea, vomiting, new numbness, new weakness, bladder bowel dysfunction??or gait dysfunction ?? PE: ?? Orientation: Patient is alert and orient x3, does not appear to be in any acute distress Mood:??Pleasant Respiratory:??Nonlabored??breathing noted Abdominal, soft nondistended??nontender Cardio: Regular rate and rhythm Extremity:??No edema Gait:??Antalgic Assessment and plan: ?? Patient's back pain secondary to??sacroiliac joint dysfunction ?? We will proceed with??right sacroiliac joint with piriformis??steroid??injection??under fluoroscopy ?? Follow-up 2 weeks after injection Electronically Signed on 03/31/22 10:11 AM Danny Ny, DO Patient Care team information Personnel Name: Greta Kimball Address: Address: [address] [place] [phone] [place]
--- OUTSIDE RECORDS SUMMARY | 2023-05-10 01:09 | XMS_ITS | Continuity of Care Document ---
Author Name Unknown Organization [facility] Address [address] [place] [address] Care Team Providers Care Pipe Fitter Name Role Phone MOHAN OAKES Primary Care Physician Encounter [facility] NBR [id number] Date(s): 08/09/22 - 08/09/22 [facility] [address] [place] [address]- Encounter Diagnosis Lumbar spondylosis(Discharge Diagnosis) - 08/09/22 Facet arthropathy, lumbar(Discharge Diagnosis) - 08/09/22 Annular tear of lumbar disc(Discharge Diagnosis) - 08/09/22 Thoracic disc herniation(Discharge Diagnosis) - 08/09/22 Other intervertebral disc degeneration, lumbar region(Final) - Spondylosis without myelopathy or radiculopathy, lumbar region(Final) - Other intervertebral disc displacement, thoracic region(Final) - Discharge Disposition: Home or Self Care Attending Physician: Harika Osullivan DO Allergies, Adverse Reactions, Alerts Substance Reaction Severity Status erythromycin N/V/D Unknown Active amitriptyline Unknown Unknown Active escitalopram edgy Unknown Active Elavil lips/fingers tingly Unknown Active Erythromycin ES INTOLERENCE Unknown Active Assessment and Plan Future Appointments Future Scheduled Tests Radiology* MRI Spine Thoracic w/o Contrast 08/26/22 Medications Airborne Dual Action 0 Refill(s) Start [...] Tobacco Use:. Sex Physician Outpatient Note * Harika Osullivan, DO: PERFORM, MODIFY, MODIFY, MODIFY Event Display: Office Clinic Note Physician Authored Date: [id number] JUAN AGUILAR :1960 Age:62 years Sex:Female Visit Date:08/09/2022 Primary Care Physician: MOHAN OAKES Chief Complaint back pain History of Present Illness ?? Juan presents for??follow-up of lumbar MRI which was completed on 08/03/22.?? MRI does not show new urgent findings. ??Overall very similar to prior study from May 2021. ??There is no new disc herniation or obvious nerve root impingement. ?? She recently underwent bilateral facet steroid injections at L4-5 and L5- S1??on 07/27/2022.?? For the first week or so, she had slight increase in pain.?? She was experiencing some increased aching sensation in the??right calf and heel. ??She states that this has since??resolved. ??She has noticedsome improvement in her low back pain??which started to improve after the first week. ??She notes about 30% improvement at this point. 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 She starts physical therapy tomorrow. Review of Systems No new areas of pain or new??weakness. Physical Exam Not performed as this is a telehealth assessment Assessment/Plan Annular tear of lumbar disc??M51.36 ?? Facet arthropathy, lumbar??M47.816,??Lumbar spondylosis??M47.816 ?? Thoracic disc herniation??M51.24 Ordered: ? Juan is a pleasant 62 year old female with history of low back pain.?? We ordered an updated lumbar MRI as she was reporting some??sensation of leg shaking or weakness??in recent months. MRI doesnot show any new disc herniation or obvious nerve root impingement in the lumbar region.?? There isvery??mild disc bulging at L4-5 and L5-S1. ??There is an annular fissure at L5-S1 which could be contributing to the low back pain.?? There is facet arthropathy which appears to be most significant at L4-5 and there does appear to be??mild periarticular edema extending into the pars on the right side??on STIR??sequence which could also be contributing to the axial back pain.?? There is perhaps tra ce??listhesis of L4 on L5, although??the radiologist did not comment on this and overall this finding is fairly subtle.?? There is very mild foraminal narrowing on the right??at L4-5??which could??potentially irritate the exiting L4??nerve root on a dynamic basis??depending on positioning??and could potentially explain the intermittent??spasms she experiences along the medial right thigh. ?? While the mild foraminal narrowing on the right at L4-5 could potentially explain some medial??thigh discomfort,??overall the updated lumbar MRI does not show any obvious??nerve root compression??anddoes not reasonably explain the episodes of??leg shaking/weakness in the lower extremities that shedescribed.?? She??does have a history of a prior T12 compression??deformity as well as a T6-7??discprotrusion seen on prior thoracic MRI studies. ??We discussed updating the thoracic MRI to see??if there are any changes??from prior that would explain her more recent symptoms. She would like to proceed with an updated thoracic MRI. Order placed. ?? Also??informed patient of what appears to be an incidental??left renal??cyst??per radiologist. ??Recommended that she??follow-up with her primary care physician to discuss if further??evaluation or additional imaging is needed for this incidental finding. She expressed understanding. Images MRI lumbar spine from 08/03/22 reviewed ? Telehealth consent obtained: Yes?? Communication Type Utilized: Phone Patient Location: Home Provider Location: Office Names of individuals involved and Role or Relationship to Patient: Self Patient:??Juan Aguilar Provider:??Harika Dillon, DO ? 25 minutes spent in this encounter including 17 minutes on the phone??with the patient and additional time on??chart review, imaging??review and documentation. Problem List/Past Medical History Ongoing Annular tear [...] pain Vertigo Historical No qualifying data Medications Inpatient No active inpatient medications Home Airborne Dual Action calcium (as calcium citrate) 250 mg oral tablet cannabidiol, See Instructions celecoxib 100 mg oral capsule cetirizine 10 mg oral capsule, 10 mg, Oral, Daily cholecalciferol 10,000 intl units oral capsule diazePAM 10 mg oral tablet diclofenac sodium 1% topical cream, 1 %, Topical Flovent HFA 44 mcg/inh inhalation aerosol, 2 puffs, Inhale, BID fluorouracil 5% topical cream hydrocortisone 2.5% topical cream hydrOXYzine hydrochloride 25 mg/mL intramuscular solution ketoconazole 2% topical shampoo Lidoderm 5% topical film, 5 %, TD melatonin 10 mg oral capsule orphenadrine 100 mg oral tablet, extended release ProAir HFA 90 mcg/inh inhalation aerosol prochlorperazine 10 mg oral tablet riboflavin 25 mg oral tablet SUMAtriptan 100 mg oral tablet topiramate 100 mg oral tablet Tylenol Extra Strength 500 mg oral tablet venlafaxine 37.5 mg oral capsule, extended release Allergies Elavil??(lips/fingers tingly) Erythromycin ES??(INTOLERENCE) amitriptyline??(Unknown) erythromycin??(N/V/D) escitalopram??(edgy) Social History Electronic Cigarette/Vaping Electronic Cigarette Use: Unknown/not obtained. Tobacco Tobacco use status unknown Tobacco Use:. Electronically Signed on 08/09/22 01:54 PM Harika Osullivan DO Electronically Signed on 08/09/22 04:08 PM Harika Osullivan DO Patient Care team information Care Team Personnel Name: MOHAN OAKES Position: No Access Member Role: Primary Care Physician Address: Address: [address] [place] [phone] Care Team Related Persons Name: KHANH TRAMMELL Address: Home [address] [place], [place] [id number] [facility]
--- OUTSIDE RECORDS SUMMARY | 2023-05-10 01:09 | XMS_ITS | Continuity of Care Document ---
Author Name Unknown Organization [facility] Address [address] [place] [phone] Care Team Providers Care Powder Core Tester Name Role Phone Greta Kimball Primary Care Physician [phone] Encounter [facility] NBR [id number] Date(s): 08/03/22 - 08/03/[address] [phone] [place] Discharge Disposition: Home or Self Care Attending Physician: Harika Osullivan DO Admitting Physician: Harika Osullivan DO Allergies, Adverse Reactions, Alerts Substance Reaction Severity Status erythromycin N/V/D Unknown Active amitriptyline Unknown Unknown Active escitalopram edgy Unknown Active Elavil lips/fingers tingly Unknown Active Erythromycin ES INTOLERENCE Unknown Active Assessment and Plan Future Appointments Medications Airborne Dual Action 0 [...] Exam Date Time Procedure Performing Provider Status 08/03/22 2:29 PM MRI Spine Lumbar w/o Contrast Smiley Hall; Sukumar (Verified) Notes: (MRI Spine Lumbar w/o Contrast) Reason For Exam: low back pain, intermittent radiation to medial right thigh. evaluate for L3 impingement MRI Spine Lumbar w/o Contrast EXAM DESCRIPTION: MRI Spine Lumbar w/o Contrast 08/03/2022 INDICATION: LOW BACK PAIN, INTERMITTENT RADIATION TO MEDIAL RIGHT THIGH. EVALUATE FOR L3 IMPINGEMENT TECHNIQUE: Multiplanar MRI examination of the lumbar spine utilizing T1, fat-suppressed T2 and fast STIR technique. COMPARISON: Outside facility MRI lumbar spine examination from 06/12/2021 FINDINGS: Minimal anterolisthesis at L4-5. Lumbar lordosis is otherwise satisfactory. No significant scoliosis L5-S1: Right paracentral annular tear/fissure. Minimal diffuse disc bulge with mild bilateral facet hypertrophy. No focal disc protrusion, significant spinal stenosis or neural foraminal narrowing. AP spinal canal diameter is 12 mm. L4-5: Minimal diffuse disc bulge with mild bilateral facet hypertrophy. No focal disc protrusion, significant spinal stenosis or neural foraminal narrowing. AP spinal canal diameter is 11 mm L3-4: No focal disc protrusion, significant spinal stenosis or neural foraminal narrowing. L2-3: No focal disc protrusion, significant spinal stenosis or neural foraminal narrowing. L1-2: No focal disc protrusion, significant spinal stenosis or neural foraminal narrowing. No significant stenosis in the visualized lower thoracic spine The conus is normal in morphology and signal intensity and terminates at the L1 level. No suspicious focal marrow lesions. Mild remote compression deformity involving the superior endplate of the T12 vertebral body without significant change from previous study. No vertebral body compression deformity in the lumbar region Small T1 hypointense left renal lesion likely reflecting cyst. Paraspinal soft tissues are otherwise unremarkable. IMPRESSION: Minimal diffuse disc bulges at L4-5 and L5-S1. No focal disc protrusion or significant lumbar stenosis. Please see above discussion for individual level description. Normal conus. JOB #: [id number] Final Signed by: Isiah aCrdenas MD Signed (Electronic Signature): 08/03/2022 2:58 pm Social History Social History Type Response Tobacco Tobacco use status u nknown Tobacco Use:. Sex MR Lumbar spine WO contrast * Isiah Cardenas MD: VERIFY, VERIFY Event Display: Report EXAM DESCRIPTION: MRI Spine Lumbar w/o Contrast 08/03/2022 INDICATION: LOW BACK PAIN, INTERMITTENT RADIATION TO MEDIAL RIGHT THIGH. EVALUATE FOR L3 IMPINGEMENT TECHNIQUE: Multiplanar MRI examination of the lumbar spine utilizing T1, fat-suppressed T2 and fast STIR technique. COMPARISON: Outside facility MRI lumbar spine examination from 06/12/2021 FINDINGS: Minimal anterolisthesis at L4-5. Lumbar lordosis is otherwise satisfactory. No significant scoliosis L5-S1: Right paracentral annular tear/fissure. Minimal diffuse disc bulge with mild bilateral facet hypertrophy. No focal disc protrusion, significant spinal stenosis or neural foraminal narrowing. AP spinal canal diameter is 12 mm. L4-5: Minimal diffuse disc bulge with mild bilateral facet hypertrophy. No focal disc protrusion, significant spinal stenosis or neural foraminal narrowing. AP spinal canal diameter is 11 mm L3-4: No focal disc protrusion, significant spinal stenosis or neural foraminal narrowing. L2-3: No focal disc protrusion, significant spinal stenosis or neural foraminal narrowing. L1-2: No focal disc protrusion, significant spinal stenosis or neural foraminal narrowing. No significant stenosis in the visualized lower thoracic spine The conus is normal in morphology and signal intensity and terminates at the L1 level. No suspicious focal marrow lesions. Mild remote compression deformity involving the superior endplate of the T12 vertebral body without significant change from previous study. No vertebral body compression deformity in the lumbar region Small T1 hypointense left renal lesion likely reflecting cyst. Paraspinal soft tissues are otherwise unremarkable. IMPRESSION: Minimal diffuse disc bulges at L4-5 and L5-S1. No focal disc protrusion or significant lumbar stenosis. Please see above discussion for individual level description. Normal conus. JOB #: [id number] Final Signed by: Isiah Cardenas MD Signed (Electronic Signature): 08/03/2022 2:58 pm Patient Care team information Care Team Personnel Name: Greta Kimball Position: No Access Member Role: Primary Care Physician Address: Address: [address] [place] [phone] [place] Care Team Related Persons Name: KHANH TRAMMELL Address: Home [address] [place], [place] [id number] [facility]
--- OUTSIDE RECORDS SUMMARY | 2023-05-10 01:09 | XMS_ITS | Continuity of Care Document ---
Author Name Unknown Organization [facility] Ambulatory Clinics Address [address] [place] [address] Care Team Providers Care Test Car Driver Name Role Phone Greta Kimball Primary Care Physician Encounter [facility] NBR [id number] Date(s): 07/15/22 - 07/15/22 [facility] Ambulatory Clinics [address] [place] [address]- [place] Discharge Disposition: Home or Self Care Attending Physician: Harika Osullivan DO Allergies, Adverse Reactions, Alerts Substance Reaction Severity Status erythromycin N/V/D Unknown Active amitriptyline Unknown Unknown Active escitalopram edgy Unknown Active Elavil lips/fingers tingly Unknown Active Erythromycin ES INTOLERENCE Unknown Active Functional Status 07/15/22 Other exposure to Infectious Disease Non e [...] Temperature Temporal Artery [36-38 Deg C ] 36.7 Deg C (07/15/22 9:31 AM) Peripheral Pulse Rate [60-100 bpm] 74 bp m (07/15/22 9:31 AM) Blood Pressure [90-140/60-90 mmHg] 114/7 0mmHg (07/15/22 9:31 AM) Weight 52.80 kg (07/15/22 9:31 AM) Weight Measured (lbs) 116.404 lb (07/15/22 9:31 AM) [place] Body Weight Calculated 47.383 kg (07/15/22 9:31 AM) Height 154.48 cm (07/15/22 9:31 AM) Height/Length Measured (inches) 60.82 in ch (07/15/22 9:31 AM) BSA Measured 1.51 m2 (07/15/22 9:31 AM) Body Mass Index 22.13 kg/m2 (07/15/22 9:31 AM) Social History Social History Type Response Tobacco Tobacco use status u nknown Tobacco Use:. Sex Patient Care team information Care Team Personnel Name: Greta Kimball Position: No Access Member Role: Primary Care Physician Address: Address: [address] [place] [phone] [place] Care Team Related Persons Name: KHANH TRAMMELL Address: Home [address] [place] [address] [facility]
--- OUTSIDE RECORDS SUMMARY | 2023-05-10 01:09 | XMS_ITS | Continuity of Care Document ---
Author Name Unknown Organization [facility] Ambulatory Clinics Address [address] [place] [address] Care Team Providers Care Bobbin Handler Name Role Phone MOHAN OAKES Primary Care Physician [phone] Encounter [facility] FIN NBR [id number] Date(s): 08/10/22 - 08/10/22 [facility] Ambulatory Clinics [address] [place] [address]- [place] Discharge Disposition: Home Allergies, Adverse Reactions, Alerts Substance Reaction Severity [...] Member Role: Primary Care Physician Address: Address: [address] [place] [phone] [place] Care Team Related Persons Name: KHANH TRAMMELL Address: Home [address] [place], [place] [id number] [facility]
--- OUTSIDE RECORDS SUMMARY | 2023-05-10 01:09 | XMS_ITS | Continuity of Care Document ---
Author Name Unknown Organization [facility] Ambulatory Clinics Address [address] [place] [address] Care Team Providers Care Sailboat Captain Name Role Phone Greta Kimball Primary Care Physician [phone] Encounter [facility] NBR [id number] Date(s): 03/03/22 - 03/03/22 [facility] Ambulatory Clinics [address] [place] [address]- Encounter Diagnosis Sacroiliac joint dysfunction(Discharge Diagnosis) - 03/02/22 Myofascial pain(Discharge Diagnosis) - 03/02/22 Lumbar spondylosis(Discharge Diagnosis) - 03/03/22 Acute allergic reaction(Discharge Diagnosis) - 03/03/22 Spondylosis without myelopathy or radiculopathy, lumbar region(Final) - Myalgia, other site(Final) - Sacrococcygeal disorders, not elsewhere classified(Final) - Discharge Disposition: Home or Self Care Attending Physician: Danny Ny DO Allergies, Adverse Reactions, Alerts Substance Reaction Severity Status erythromycin N/V/D Unknown Active amitriptyline Unknown Unknown Active escitalopram edgy Unknown Active Elavil lips/fingers tingly Unknown Active Erythromycin ES INTOLERENCE Unknown Active Assessment and Plan Future Appointments Functional Status 03/03/22 Other exposure to Infectious Disease Non e Medications Airborne Dual Action 0 Refill(s) Start Date: 03/03/22 Status: Ordered albuterol 90 mcg/inh aerosol inhaler 2 Unknown, 0 Refill(s) Start Date: 02/17/22 Status: Ordered Benadryl 25 mg oral tablet 25 mg = 1 tab, Oral, Once, # 1 tab, 0 Refill(s), other reason (Rx) Start Date: 03/03/22 Status: Ordered calcium (as [...] 0 Refill(s) Start Date: 03/03/22 Status: Ordered fluorouracil 5% topical cream 40 [...] Member Role: Primary Care Physician Address: Address: [address]
--- OUTSIDE RECORDS SUMMARY | 2023-05-10 01:09 | XMS_ITS | Continuity of Care Document ---
Author Name Unknown Organization [facility] Ambulatory Clinics Address [address] [place] [address] Care Team Providers Care Data Lead Name Role Phone MOHAN OAKES Primary Care Physician Encounter [facility] NBR [id number] Date(s): 11/02/22 - 11/02/22 [facility] Ambulatory Clinics [address] [place] [address]- Encounter Diagnosis Protrusion of thoracic intervertebral disc(Discharge Diagnosis) - 11/02/22 Facet arthropathy, lumbar(Discharge Diagnosis) - 11/02/22 Annular tear of lumbar disc(Discharge Diagnosis) - 11/02/22 Other intervertebral disc degeneration, lumbar region(Final) - Spondylosis without myelopathy or radiculopathy, lumbar region(Final) - Other intervertebral disc displacement, thoracic region(Final) - Discharge Disposition: Home or Self Care Attending Physician: Harika Osullivan DO Allergies, Adverse Reactions, Alerts Substance Reaction Severity Status erythromycin N/V/D Unknown Active amitriptyline Unknown Unknown Active escitalopram edgy Unknown Active Erythromycin ES INTOLERENCE Unknown Active Elavil lips/fingers tingly Unknown Active Medications Airborne Dual Action 0 Refill(s) Start [...] STOP, 0 Refill(s) Start Date: 02/17/22 Status: Suspended Problem List Condition Confirmation Course Effective Dates [...] Physician Outpatient Note * Harika Osullivan, DO: PERFORM Event Display: Office Clinic Note Physician Authored Date: [id number] JUAN AGUILAR :1960 Age:62 years Sex:Female Visit Date:11/02/2022 Primary Care Physician: MOHAN OAKES Chief Complaint 2 month f/u History of Present Illness follows up today??for mid and low back pain Last??seen??08/30/2022 Since last visit, she completed physical therapy, therapist focused primarily on myofascial work reports that??her symptoms are overall??manageable with Celebrex 100 mg twice daily - denies negative SE to celebrex/no stomach upset experiences intermittent muscle spasm along the right adductor muscle group - states that she has had??weakness and atrophy in the adductor muscle group for at least 2 years and is unchanged, she never had an EMG/NCS study ?? mid back pain unchanged, occurs with slight bending forward (history of chronic thoracic disc protrusion) Review of Systems Reports chronic right adductor weakness and atrophy (states has been ongoing two years/unchanged), no new weakness and no new numbness. Physical Exam Not performed as this is a telehealth visit Assessment/Plan Annular tear of lumbar disc??M51.36 Facet arthropathy, lumbar??M47.816 Protrusion of thoracic intervertebral disc??M51.24 ?? Juan follows up today??for mid and low back pain, last visit was 08/30/2022.?? Since the last visit, she completed physical therapy last week.?Her pain??is overall similar to prior visit. ??Paincan wax and wane in intensity. ??She states that at this time her symptoms are manageable with Celebrex 100 mg twice daily. ??She experiences intermittent muscle spasms along the right adductor muscle group. She states that she has had??weakness and atrophy in the adductor muscle group for at least2 years.?She states that strength always comes up as normal??on??motor strength testing during her office exams - Per last in person office visit, strength was documented to be??5/5 in the lower extremities bilaterally. Lumbar MRI does not show obvious nerve root??compression??that would??explain the adductor atrophy. ??We reviewed??the option to pursue electrodiagnostic studies which would hopefully provide??additional information. ??She is not interested in pursuing electrodiagnostic studies at this time. ?? She??will continue with her daily exercise regimen. 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 She would like to continue to monitor her symptoms for now and will follow-up on an as-needed basis. ??She agrees to notify us if her pain??progresses or if she decides that she would like to pursue electrodiagnostic studies, she was advised to call the office and I will place a referral. ?? She may follow-up on an as-needed basis. Images MRI thoracic and lumbar spine reviewed ? Telehealth consent obtained: Yes??- she confirmed that she is aware she will be billed for telehealth visit, similar to in-person office visit Communication Type Utilized: Phone Patient Location: Home Provider Location: Office Names of individuals involved and Role or Relationship to Patient: Self Patient:??Juan Aguilar Provider:??Harika Dillon, DO ? 29 minutes spent in this encounter including 20 minutes on the phone with Juan and additional time on chart review,??documentation. Problem List/Past Medical History Ongoing Annular tear [...] Tylenol Extra Strength 500 mg oral tablet Allergies Elavil??(lips/fingers tingly) Erythromycin ES??(INTOLERENCE) amitriptyline??(Unknown) erythromycin??(N/V/D) escitalopram??(edgy) Social History Electronic Cigarette/Vaping Electronic Cigarette Use: Unknown/not obtained. Tobacco Tobacco use status unknown Tobacco Use:. Electronically Signed on 11/02/22 04:56 PM Harika Osullivan DO Patient Care team information Care Team Personnel Name: MOHAN OAKES Position: No Access Member Role: Primary Care Physician Address: Address: [address] [place] [phone] Care Team Related Persons Name: KHANH TRAMMELL Address: Home [address] [place], [place] [id number] [facility]
== END ==
PROVIDERS: PCP Family Medicine; Visit Provider Nurse Practitioner Family
DX: J98.11 Atelectasis (principal); R05.3 Chronic cough
CPT/HCPCS: 71046

== ENCOUNTER 2023-05-15 04:58 | Outpatient (CLI) | payer MEDICAID, SELFPAY ==
[2023-05-15] MEDS: Inhaler, Assist Device 1 EACH MC (12:01)
[2023-05-15] MEDS: Levalbuterol HFA 15 GM INH 4 PUFF IH (12:01)
--- NOTE | 2023-05-15 13:51 | W.PFT ---
Date of service: 05/15/23 Time of Service: 08:12 Pulmonary Function Test Result Indications: Cough Interpretation Spirometry: There is no airflow limitation. No bronchodilator response Lung Volumes: Normal lung volumes Diffusion Capacity: Normal diffusion Airway Pressure: Normal airways resistance Impression Normal pulmonary function testing Clinical Correlation therefore is recommended.
== END 2023-05-15 04:59 | disposition home or self-care (01) ==
LOC: RT 04:58
PROVIDERS: PCP Family Medicine; Visit Provider Nurse Practitioner Family
DX: R05.9 Cough, unspecified (principal)
CPT/HCPCS: 94060; 94726; 94729

== ENCOUNTER → 2023-07-19 02:49 | Outpatient (CLI) | payer MEDICAID, SELFPAY ==
--- NOTE | 2023-07-19 | DI.CT_ITS ---
Exam(s) CT CHEST WO EXAM: CT CHEST WO CLINICAL HISTORY: R05.3 Chronic cough, Platelike atelectasis on CXR TECHNIQUE: Imaging Protocol: Axial computed tomography images with coronal and sagittal reformatted images were created and reviewed CONTRAST MATERIAL: Intravenous: Omnipaque 350 Contrast volume:structured data ml. COMPARISON: CR XR CHEST, 2 VIEWS from 05/14/2021 CR XR CHEST 2V PA LATERAL from 05/10/2023 FINDINGS: Pulmonary parenchyma: No consolidation. No dominant measurable mass. No visible emphysematous change s. No significant interstitial changes. Minimal linear scarring noted at the right lower lobe. Min imal lingular scarring. Tracheobronchial tree: No bronchiectasis or mucous plugging. Mediastinum and Elizabeth: No dominant adenopathy or fluid collection. Pleura: No effusion. No pneumothorax. Heart: The heart is not dilated. No coronary artery calcifications are seen. Aorta: Thoracic aorta non-dilated. Mild atherosclerotic changes. Upper abdomen: No acute findings.. Bones: Degenerative changes in the spine. Soft tissues: Unremarkable. IMPRESSION: No acute abnormality. RADIATION DOSE DELIVERED: Total DLP DATA REPOSITORY: All CT scans at this facility are submitted to the National Radiology Data Registry (NRDR) Dose Index Registry (DIR) with the [employer] (ACR). RADIATION OPTIMIZATION: All CT scans at this facility use at least one of these dose optimization te chniques: automated exposure control; mA and/or kV adjustment per patient size (includes targeted exa ms where dose is matched to clinical indication); or iterative reconstruction.
== END ==
PROVIDERS: PCP Family Medicine; Visit Provider Nurse Practitioner Family
DX: R05.3 Chronic cough (principal); J98.4 Other disorders of lung
CPT/HCPCS: 71250

== ENCOUNTER → 2023-08-30 02:54 | Outpatient (CLI) | payer MEDICAID, SELFPAY ==
--- NOTE | 2023-08-30 | DI.MAMMO_ITS ---
Exam(s) MAMMO SCREENING EXAM: MAMMO SCREENING CLINICAL HISTORY: Z12.31 Screening TECHNIQUE: Mammograms were interpreted according to the usual protocol including computer analysis w [employer] CAD system, tomosynthesis and C-view imaging. COMPARISON: 2013 through 2022 FINDINGS: The breasts are composed of heterogeneously dense fibroglandular densities, Breast Density category C . No suspicious masses or suspicious microcalcifications are seen. Stable nodule lower inner quadrant of the left breast found by. So center represents a cyst. Stable benign calcifications greater in t he left breast. No skin thickening or abnormal axillary lymph nodes are seen. There has been no significant change from prior exams. IMPRESSION: BI-RADS Category 2 - Negative Mammogram with benign findings. Yearly screening mammography is recom mended. Breast Density Category C, heterogeneously Dense. The mammogram demonstrates the patient's breast tissue is dense. Dense breast tissue is very common a nd is not abnormal but dense breast tissue can make it harder to find cancer on a mammogram. Also, de nse breast tissue may increase breast cancer risk. This information about the result of the mammogram report was provided to the patient to raise their awareness. Use this report when you speak with the patient about their risks for breast cancer, which includes their family history. At that time, you may recommend additional screening tests (Ultrasound or MRI) as they might be useful based on their r isk. A negative radiographic report should not delay biopsy if a dominant or clinically suspicious mass is present. Up to ten percent of cancers are not identified on mammography. A negative report may reinforce clinical impression. Adenosis and dense breasts may obscure an underlying neoplasm. False positive reports average 6 to 10%.
== END ==
PROVIDERS: PCP Family Medicine; Visit Provider Family Medicine
DX: Z12.31 Encounter for screening mammogram for malignant neoplasm of breast (principal)
CPT/HCPCS: 77063; 77067

== ENCOUNTER 2024-05-28 15:27 | Outpatient (REF) | payer MEDICARE, MEDICAID, SELFPAY ==
--- NOTE | 2024-05-28 10:20 | PAPFT_PTH ---
PATIENT: Elin Willard LOC: [facility] U#:[id number] AGE/SX: 64/F ROOM: RE05/28/[address]: Greta Kimball V : 1960 BED: DIS: 05/28/2024 SPEC #: [id number] RECD: 05/28/24 17:47 STATUS: JORDIN REBillie #: [id number] CINDY: 05/28/24 10:[address]: Greta Kimball V DEPT: [facility] Cytology RECD BY: Cheryl Morton Tissues: 1 - CX/ENDOCX FOR PAP SMEARS Procedures: PAP THIN PREP/UVM Screening HPV DNA PROBE Comments: [id number] (HPV 16 & 18/45)
--- OUTSIDE RECORDS SUMMARY | 2024-05-28 16:05 | XMS_ITS | Encounter Summary ---
[place] [address] Care Team Providers Care Multimedia Assistant Name Role Phone Greta Kimball MD Primary Care Provider [phone] Encounter Details Date Type Department Care Team (Late st Contact Info) Description 06/04/2021 Telephone [facility] [place] [phone] Lore Maldonado RN Social History Tobacco Use Types Packs/Day Years Used Date Smoking Tobacco: Never Smokeless Tobacco: Never Alcohol Use Standard Drinks/Week Comments Yes 1 (1 standard drink = 0.6 oz pur e alcohol) Sex and Gender Information Value Date Recorded Sex Assigned at Female 07/26/2020 11:14 AM EDT Gender Identity Not on file Sexual Orientation Not on file documented as of this encounter Miscellaneous Notes * Telephone Encounter - Lore Maldonado RN - 06/04/2021 12:48 PM EST In coming call from Rambo wanting to know if Suzie Hebert APRN would approve changing patient's pregabalin prescription from 50 mg three times a day to 75 mg twice a day. I asked Rambo the reasoning behind this change and she informed me it is the same daily dose and because of the cost. If Ms. Hebert agrees to this change, a new prescription would need to be written and sent to patients pharmacy - [facility]. I spoke with Ms. Hebert who asked that I contact patient as she believes patient takes 50 mg in the morning and 100 mg at night. I left a M asking Capri to call the nurse triage line at [phone] so we can find out how she takes her pregabalin. Once we know we can let Ms. Hebert MEDICAL CLAIMS SPECIALIST know. FAROOQ Lay documented in this encounter Plan of Treatment Upcoming Encounters Date Type Department Care Team (Late st Contact Info) Description 07/10/2024 9:00 AM EDT TH Visit (TeleHealth) [place] [address] Andrei Kent MD [facility] [place] [address] documented as of this encounter Visit Diagnoses Not on filedocumented in this encounter Care Teams Multimedia Assistant Relationship Specialty Start Date End Date Greta Kimball MD [address] [place] [address] PCP - General 06/25/13 documented as of this encounter
--- OUTSIDE RECORDS SUMMARY | 2024-05-28 16:05 | XMS_ITS | Encounter Summary ---
Author Organization [facility] Address [facility] [place] [address] Care Team Providers Care Potato Chip Processing Supervisor Name Role Phone Greta Kimball MD Primary Care Provider [phone] Reason for Visit * Consultation (Urgent) - Closed Specialty Diagnoses / Procedures Referred By Michelle calle Referred To Contact Neurology Diagnoses Migraine without status migrainosus, not intractable, unspecified migraine type Greta Kimball MD [address] [place] [address] [facility] [place] [facility] [address] [place] [address] Referral ID Status Reason Start Date Expiration Date V isits Requested Visits Authorized [id number] Closed Consult, Test & Treat 07/27/2023 07/26/2024 1 1 Encounter Details Date Type Department Care Team (Late st Contact Info) Description 11/08/2023 11:00 AM EDT [place] [address] Andrei Kent MD [facility] [place] [address] Chronic migraine without aura without status migrainosus, not intractable (Primary Dx) Social History Tobacco Use Types Packs/Day Years Used Date Smoking Tobacco: Never Smokeless Tobacco: Never Alcohol Use Standard Drinks/Week Comments Yes 1 (1 standard drink = 0.6 oz pur e alcohol) Sex and Gender Information Value Date Recorded Sex Assigned at Female 07/26/2020 11:14 AM EDT Gender Identity Not on file Sexual Orientation Not on file documented as of this encounter Last Filed Vital Signs Vital Sign Reading Time Taken Comments Blood Pressure 106/78 11/08/2023 11:00 AM EDT Pulse 70 11/08/2023 11:00 AM EDT Temperature - - Respiratory Rate - - Oxygen Saturation - - Inhaled Oxygen Concentration - - Weight 52.2 kg (115 lb) 11/08/2023 11:00 AM EDT Height 152.4 cm (5') 11/08/2023 11:00 AM EDT Body Mass Index 22.46 11/08/2023 11:00 AM EDT documented in this encounter Patient Instructions * Patient Instructions* Andrei Kent MD - 11/08/2023 11:00 AM EDT Elin Willard 11/08/23 Today's diagnosis: Chronic migraine without aura Testing to be scheduled:None. Return visit will be scheduled. Please communicate with me thru your portal with clinic updates as necessary. Instructions: Ajovy 225 mg SC monthly as your next preventative Continue sumatriptan 100-mg as needed. Stop hydroxyzine Stop topirimate Medications to be used: Ajovy (Prescription has been electronically sent to your pharmacy.) Questions after the visit can be directed to my office (Dr. Zac Kent, Dept Neurology through your [facility] portal). Migraine Therapies and Advice Migraine headache therapies can be divided into two classes - rescue and prophylactic therapies. Rescue medications are taken at the time your headache starts and are useful to 'rescue' you from the impending headache (ie. reduce your head pain). Prophylactic medications are taken regularly in an attempt to reduce the frequency of your headaches. RESCUE Medications: Commonly, many patients find over the counter (OTC) analgesics helpful (Excedrin, Motrin/Advil (ibuprofen), Aleve(naprosyn) or Tylenol (acetaminophen) for their headaches. Often, Excedrin, which has caffeine as part of the tablet, has a preferred positive impact for migraines than the other analgesics. If these OTC medications do not help sufficiently, there are also prescriptions for triptans which became first available in the mid-: (Imitrex (sumatriptan), Maxalt (rizatriptan), Zomig (zolmitriptan), Amerge (naratriptan), Frova (frovatriptan) and Relpax (eletriptan)). These are specific migraine medications and are all tablets, except for a) sumatriptan - available as a nasal spray and injection and b) zolmitriptan - available as a nasal spray. These can be very effective headacheabortants - typically reducing head pain within 30-45 minutes. The nasal sprays can be preferred inpatients who suffer with nausea as an early symptom of the migraine. The triptans ae best if used ea rly in the headache attack but can be used anytime during the headache episode. Typical side effects can include nausea, somnolence, mental slowing and chest discomfort. Maximum use is two tablets/24hours or five tablets within seven days. Often, sumatriptan is the initial medication tried but, ifinsufficient or poorly tolerated, methodically going through the other triptans is requested to help find the best triptan for the individual patient. These are all generic at this time but remain dispensed limited by your insurance prescription benefits managers. Therefore, receiving only 6-9 tablets per month is very typical. CGRP (calcitonin gene receptor protein) antagonists, which became available between 2907-1624, can be effective headache abortants if the triptans fail. These include Nurtec, Ubrelevy, Qulipta and Zavzpret. As of yet, these are not available as generics, which means they are all expensive and require a prior authorization from your pharmacy e commerce manager. These have differences in use: Nurtec 75 mg tablet- taken once in 24 hours. (Nurtec can also be used as a prophylactic medication (see below) when taken every other day.) Nausea is a side effect seen in <5% of patients. Ubrelevy 50 mg and 100 mg tablets - taken at headache onset and can be repeated within 2 hours if needed. Maximum dose: 200-mg/day. Typical side effects include nausea and somnolence in <5% patients. Qulipta 10, 30, 60 mg tablets. Maximum daily dose is 200-mg. (Qulipta can be used for episodic rescue medication once a day or as a prophylactic 60 mg daily dose.). Typical side effects are nausea and somnulence in <5% of patients. Zavzpret 10 mg nasal spray used once a day at headache onset. Maximum daily dose is 10 mg. Typical side effects - nasal discomfort, nausea and taste distortion PROPHYLACTIC Medications 1) Oral older therapies - Available since the late 1970s, these are drugs such as Elavil (amitriptyline), propranolol, Depakote (divalproex), Calan & Verelan (verapamil) and Topamax (topirimate). By and large, these generic drugs are cheap, frequently cause unwanted and bothersome side effects and have limited benefits in reducing migraine attacks. 2) CGRP antagonists - available beginning in 2018, these are monthly, self- administered injections given via autoinjectors into the subcutaneous tissue of the thigh or abdomin. These are brand name medications: Aimovig, Emgailty and Ajovy. Another CGRP, Vyepi, is an infusion given IV every three months. These four drugs typically reduce headache frequency by 50% within the first four months of use with little side effects. (Note: Aimovig does have constipation occur in almost 40% of patients.) 3) Botox injections - This is reserved for patients who average at least 15 migraine headache days/month. This is an expensive therapy. It consists of 31 injections every 2-3 months into the scalp with a small needle. While the injection therapy may seem like a 'big' step, this therapy has been very helpful for a majority of patients with this headache frequency. Some advice: 1) Avoid triggers of migraine - Migrainedisorders.org has a fairly comprehensive list of common triggers - food, alcohol, etc. Review the list to see if there are triggers in your diet that you neverthought about. 2) Take your rescue medication early when you recognize that your migraine is in its early stages. The more you delay, the more pain you suffer with and the less likely the medication has its maximalimpact. 3) Fill your prescription for your rescue medication every month, even if you haven't run out of tablets. This will allow you to build up a 'stock pile' of extra tablets so that you never run out of medication, even if you have a 'bad' month with more than your usual headaches. As discussed in the office visit, my opinion is that using the CGRP medications for migraine prophylaxis are far superior than the oral medications used decades earlier. They are more likely to reduce the frequency of your headaches without the disabling side effects that are so common with the oral medications. However, these are all brand named prescriptions and are expensive ($760/month). Hence, when my prescription for this medication gets to your pharmacy, your prescription benefit plan will require a prior authorization, meaning nothing more than paperwork requesting information for me to your insurer with my reasoning for prescribing this class. For cost sake, your insurer would prefer you take a less expensive medication. Therefore if you have not been prescribed some of the cheaper alternatives, your pharmacy clerk will deny my prescription. In the written denial letter, which both you and I will receive, will be their reasoning for the denial and how many oral medications they would like you to trial before they would reconsider the CGRP prescription. For some, it is only one medication taken for a month. For others, it may be 2 or 3, each taken for a month. I propose the following plan if my prescription for this CGRP antagonist is denied. Today, I have written a prescription for one of these oral medications. This will count as one of the oral medications your pharmacy e commerce manager is looking for. Please pick this up at the pharmacy BUT DO NOT TAKE IT. Wait 30 days and then send me a message through the portal asking and reminding me to write another prescription for another oral medication. Wait another 30 days and, once again, send me a message through the portal. If you needed to have 2 oral medications used before your insurance benefit procurement services manager would reconsider my CGRP prescription, then I will send the prescription once again and it will be accepted. Remember, you must pickle water pump operator each prescription but I do not expect you to take it. This creates a paper trail of medications used which will ultimately get you to being on the medication of choice. documented in this encounter Progress Notes * Andrei Kent MD - 11/08/2023 11:00 AM EDT Images from the original note were not included. [facility] Department of Neurology Established Patient Visit 11/08/2023 Interval History: She was last seen in neurology in 2016 and earlier by Frieda Dias. She has been treated over many years for chronic migraine without aura. Her last two visits in 2016 were to receive Botox injections which failed to clearly make an impact on her headache frequency. She returns today to discuss other possible avenues of treatment that have not been tried previously-in particular, CGRP antagonist therapy. She has suffered with lifelong headaches of varying frequency. For example, in 2016 her headache frequency exceeded 15 per month but now, she states she has eight headaches per month. Her headaches are typically unilateral and are almost always associated with a prodrome of left eye twitching that can occur days in advance. She does not suffer with an aura. Her headaches are associated with nausea, photophobia and sonophobia. A paternal grandmother suffered with migraines. Red wine and poor night's sleep are known triggers. 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 She has successfully relied on sumatriptan 100 mg tablets as a headache rescue medicine. She statesthat within 15 minutes she already notices a significant benefit. Mild fatigue can be a side effect. No other triptans have been taken. When a headache starts, she had been told by Abiel Dias to take hydroxyzine first to see what might happen. From her perspective, very little happens and then she goes on to take sumatriptan which clearly is impactful. Occasionally, when her headaches become global in location, she requires diazepam to put her to sleep. She has not required diazepam in a few years. Review of Systems: No fever, diplopia, blurry vision, ptosis, neck pain, chest tightness or pain, palpitations, cough,breathlessness, urinary or fecal incontinence, recent falling, recent concussion, loss of responsiveness, loss of consciousness, diabetes, distal paresthesias or muscle cramps. All other ROS are negative Medical History: Past Medical History: Diagnosis Date Cervicalgia Chronic lower back pain Chronic migraine without aura Osteoporosis Surgical History: Past Surgical History: Procedure Laterality Date CARPAL TUNNEL RELEASE Bilateral PRO ARTHROSCOPY HIP W/LABRAL REPAIR Left 01/14/2016 ARTHROSCOPY HIP W/LABRAL REPAIR performed by Jonathan Smith MD at [facility] Medications: Your Medications Accurate as of November 08, 2023 2:27 PM. If you have any questions, ask your nurse or doctor. New Medications Dose Details Ajovy Autoinjector 225 mg/1.5 mL Auto-Injector Inject 1.5 mLs subcutaneously every 30 days. Generic drug: fremanezumab-vfrm Started by: Andrei Kent MD 1.5 mL Quantity: 1.5 mL Refills: 5 Continued medications, unchanged Dose Details acetaminophen 500 mg tablet Commonly known as: Tylenol Take 500-1,000 mg by mouth as needed. 500-1,000 mg Refills: 0 calcium carbonate 648 mg calcium tablet Commonly known as: OS-FABIANA Take 650 mg by mouth daily. 650 mg Refills: 0 celecoxib 100 mg capsule Commonly known as: CeleBREX Take 100 mg by mouth 2 times daily. TAKE 1-2 CAPSULES BY MOUTH ONCE DAILY NEEDED 100 mg Refills: 0 cetirizine 10 mg tablet Commonly known as: ZyrTEC Take 10 mg by mouth as needed for Allergies. 10 mg Refills: 0 Cholecalciferol (Vitamin D3) 125 mcg (5,000 unit) Capsule Take 1 capsule by mouth daily. 10,000 units 1 capsule Refills: 0 diazePAM 5 mg tablet Commonly known as: Valium Take 1-2 tablets by mouth daily as needed. 5-10 mg Quantity: 10 tablet Refills: 5 hydrOXYzine 25 mg capsule Commonly known as: Vistaril Take 1 capsule by mouth 2 times daily as needed. Caution:sedation 25 mg Quantity: 135 capsule Refills: 3 orphenadrine 100 mg ER tablet Commonly known as: Norflex TAKE 1 TABLET BY MOUTH TWICE DAILY NEEDED FOR MUSCLE SPASM Refills: 0 ProAir HFA 90 mcg/actuation inhaler (HFA) Inhale 1 puff into the lungs as needed. Generic drug: albuteroL 1 puff Refills: 0 prochlorperazine 10 mg tablet Commonly known as: Compazine TAKE 1 TABLET BY MOUTH EVERY 6 HOURS NEEDED FOR NAUSEA Refills: 0 SUMAtriptan 100 mg tablet Commonly known as: Imitrex Take 1 tablet by mouth 2 times daily as needed for Migraine. 100 mg Quantity: 54 tablet Refills: 3 topiramate 100 mg tablet Commonly known as: Topamax Take 25 mg by mouth nightly. 25 mg Refills: 0 UNABLE TO FIND Med Name: CBD: for night sleeping 1 droplet every day Refills: 0 (Previously used medications: gabapentin, amitriptyline, topiramate, botulinum toxin) Allergies: Allergies Allergen Reactions Amitriptyline 25 mg and up caused her fingers to tingle Erythromycin Mold Extracts Mildew, Dust Family history: Family History Problem Relation Age of Onset Migraines Paternal Grandmother Thrombophilia Neg Hx Social history: Social History Socioeconomic History Marital status: Domestic Partner Spouse name: Not on file Number of children: 2 Years of education: Not on file Highest education level: Not on file Occupational History Not on file Tobacco Use Smoking status: Never Smokeless tobacco: Never Vaping Use Vaping status: Never Used Substance and Sexual Activity Alcohol use: Yes Alcohol/week: 1.0 standard drink of alcohol Types: 1 Glasses of wine per week Drug use: Yes Types: Marijuana Sexual activity: Not on file Comment: Deferred Other Topics Concern Not on file Social History Narrative She is but living with a partner. She has two sons from her earlier marriage. 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 Social Determinants of Health Financial Resource Strain: Not on file Food Insecurity: Not on file Transportation Needs: Not on file Physical Activity: Not on file Intimate Partner Violence: Not on file Housing Stability: Not on file Physical Exam: Their appearance is of normal development and habitus. BP 106/78 (BP Location (NBP): Right arm, Patient Position: Sitting, BP Cuff Sizes: Adult (25-34 cm)) Pulse 70 Ht 152.4 cm (5') Wt 52.2 kg (115 lb) BMI 22.46 kg/m?? Relevant Laboratories: See below: Prior studies: cranial MRI (2010)-by report, this is normal. Assessment: Chronic migraine without aura-not intractable & without status migrainosis. Plan: Recommended that she continue to use her sumatriptan as a rescue medication. I don't believe she should be taking hydroxyzine before and waiting to use the sumatriptan. Method of use reviewed with her. Ajovy 225 mg SC monthly prescribed as a headache prophylactic therapy. She understands that this will require a prior authorization process, which we will complete and await her prescription benefitsdepartment review. I will keep her up-to-date with that process. I asked her to review online common foods that could trigger headaches. A telehealth visit will be scheduled for five months. Timdelores Kent MD I spent a total of 45 minutes on this encounter on the date of service. This included: [x] Preparing to see the patient, review of laboratory test results and medical record [] Independently interpreting neuroimaging or neurophysiological results [x] Obtaining and/or reviewing separately obtained history (eg, outside records, caregiver) [] Counseling and educating the patient/family/caregiver [x] Referring and communicating with other health personal caregiver [x] Documenting clinical information in the electronic or other health record [] Care coordination documented in this encounter Plan of Treatment Upcoming Encounters Date Type Department Care Team (Late st Contact Info) Description 07/10/2024 9:00 AM EDT TH Visit (TeleHealth) [place] [address] Andrei Kent MD [facility] [place] [address] documented as of this encounter Visit Diagnoses Diagnosis Chronic migraine without aura without status migrainosus, not intractable- Primary Chronic migraine without aura, without mention of intractable migraine without mention of status migrainosus documented in this encounter Care Teams Potato Chip Processing Supervisor Relationship Specialty Start Date End Date Greta Kimball MD [address] [place] [address] PCP - General 06/25/13 documented as of this encounter
--- OUTSIDE RECORDS SUMMARY | 2024-05-28 16:05 | XMS_ITS | Encounter Summary ---
Author Organization [facility] Address [facility] [place] [address] Care Team Providers Care Outside Sales Representative Insurance Name Role Phone Greta Kimball MD Primary Care Provider [phone] Encounter Details Date Type Department Care Team (Latest Contact Info) Description 11/08/2023 Travel Social History Tobacco Use Types Packs/Day Years Used Date Smoking Tobacco: Never Smokeless Tobacco: Never Alcohol Use Standard Drinks/Week Comments Yes 1 (1 standard drink = 0.6 oz pur e alcohol) Sex and Gender Information Value Date Recorded Sex Assigned at Female 07/26/2020 11:14 AM EDT Gender Identity Not on file Sexual Orientation Not on file documented as of this encounter Plan of Treatment Upcoming Encounters Date Type Department Care Team (Late st Contact Info) Description 07/10/2024 9:00 AM EDT TH Visit (TeleHealth) [place] [address] Andrei Kent MD [facility] [place] [address] documented as of this encounter Visit Diagnoses Not on filedocumented in this encounter Care Teams Outside Sales Representative Insurance Relationship Specialty Start Date End Date Greta Kimball MD [address] [place] [address] PCP - General 06/25/13 documented as of this encounter
--- OUTSIDE RECORDS SUMMARY | 2024-05-28 16:05 | XMS_ITS | Data Portability ---
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 Plan of Treatment Reminders Order Date Submit Date Provider Last Modified By Organization Details Last Modified Time Details Appointments Medicare Annual Wellness 40 2024 09:40A M GRETA KIMBALL Not available Not available Not available Medicare Annual Wellness 40 2025 09:00A Alyse KIMBALL Not available Not available Not available Lab urinalysi s, dipstick 2023 024 [email or web address] [facility], [address] [place] [address], [address], 03/27/2024 13:11:04 Referral None recorded. Procedures colonosco py screening (PROC) - Due for screening colonosco py [email or web address], [address] [place] [address], [place], [address], 12/26/2023 15:12:50 Surgeries None recorded. Imaging XR, chest, 2 view - HX asthma, prolonged cough 2023 024 [email or web address] [facility] [address], [place], [address], 07/05/2023 17:59:45 CT, chest, w/o contrast - platelike atelectas is on CXR 2023 024 [email or web address] [facility], [address], [place], [address], 09/27/2023 08:59:47 Medication Orders Ocuflox 0.3 % eye drops 2023 024 BOBNASIR [facility], [address] [place], [address], 05/28/2024 09:46:27 Macrobid 100 mg capsule 2023 024 BOB [facility], [address] [place], [address], 05/28/2024 09:45:26 Patient TargetsNo targets recorded. Patient Instructions Encounter Date Encounter Id Patient Instructions Last Modified By Organization Details Last Modified Time 05/08/2023 [id number] complete PFT w/ post bronchodilator spirometry* - HX of asthma, prolonged cough-? worsening asthma [email or web address] Not available 05/16/2023 09:29:51 Capri H: expect a call from [facility] respiratory re: PFTS and a call from radiology re: CXR follow up in 3-4 weeks with either Greta or Fabienne hernandez Not available 05/08/2023 16:16:36 06/14/2023 [id number] Capri start OTC citirizine daily for at least 4-6 weeks to see if cough improves expect a call from [facility]ology for your chest CT- will follow up after imaging on the phone. schedule a follow up in 8 weeks. mary Not available 06/14/2023 13:27:38 Reason for Referral None Reported. Results Created Date Observation Date Name Description Value Unit Range Abnormal Flag Note LastModifiedBy Organization Detail LastModifiedTime 03/27/2003/27/2024 urina lysis , dipst ick Leukocytes Negati ve Not Available [address], [place], [address], 03/27/2024 10:43:00 03/27/2016 0403/27/2024 urina lysis , dipst ick Nitrite negati ve Not Available [address], [address], 03/27/2024 10:43:00 03/27/20 24 03/27/2024 urina lysis , dipst ick Urobilinogen .2 Not Available [address], [address], 03/27/2024 10:43:00 03/27/20 24 03/27/2024 urina lysis , dipst ick Protein Negati ve Not Available [address], [address], 03/27/2024 10:43:00 03/27/20 24 03/27/2024 urina lysis , dipst ick pH 6.0 Not Available [address], [address], 03/27/2024 10:43:00 03/27/20 24 03/27/2024 urina lysis , dipst ick Blood Small Not Available [address], [address], 03/27/2024 10:43:00 03/27/20 24 03/27/2024 urina lysis , dipst ick Specific [place] 1.005 Not Available [address], [address], 03/27/2024 10:43:00 03/27/20 24 03/27/2024 urina lysis , dipst ick Ketone Negati ve Not Available [address], [address], 03/27/2024 10:43:00 03/27/20 24 03/27/2024 urina lysis , dipst ick Bilirubin Negati ve Not Available [facility] [address] [place], [address], 03/27/2024 10:43:00 03/27/20 24 03/27/2024 urina lysis , dipst ick Glucose Negati ve Not Available [address], [address], 03/27/2024 10:43:00 03/27/20 24 03/27/2024 urina lysis , dipst ick Appearance Clear Not Available [address], [address], 03/27/2024 10:43:00 03/27/20 24 03/27/2024 urina lysis , dipst ick Color Pale Yellow Not Available [address], [address], 03/27/2024 10:43:00 05/10/19 24 05/10/2023 x-ray imagi ng repor t Joseph t Name: Indra Willard Unit #: [id number] Loc: DI Orderi ng Provid er: oRe Pereira t #: [id number] Status : REG CLI Primar y Care Provid er: Flores Robles M.D. Date of Exam : Sex: F Admiss ion Date: : 1959 Age: 63 Exam(s ) XR CHEST 2V PA LATERA L EXAM: XR CHEST 2V PA LATERA L CLINIC AL HISTOR Y: CHRONI C COUGH, R05.3, H/O ASTHMA . TECHNI QUE: 2D digita l imagin g was perfor med. COMPAR DARRON: CR XR CHEST 2V PA LATERA L from 2018 FINDIN GS: 2 views: Heart size is normal . The medias tinum is not widene d. Right lung is clear. There is subseg mental platel davey atelec tasis in left lung base. No conflu ent infilt rates. No pleura l effusi ons. No pneumo thorax . No fractu res eviden t. IMPRES ELADIA: There is subseg mental platel davey atelec tasis noted in the left lung base. DATA REPOSI TORY: RADIAT ION DOSE DELIVE RED: Ordere d By: Roe Pereira CC: ------ ------ ------ ------ ------ ------ ------ ------ ------ ------ ------ ------ - Dictat ed By: Mynor Sosa M.D. 8 1457 Transc ribed By: Sheila LEWIS,Roderick tami 1457 This is privil eged, confid ential inform ation intend ed only for the provid er named. Any use or distri bution by any person other than this provid er is strict ly prohib ited. If you receiv e this report in error, please notify us immedi yuliyaly at and return the origin al report to us at the addres s above. Thank- you. the[address], [place], [address] 05/15/2023 17:30:22 05/12/19 24 05/10/2023 x-ray imagi liyah Ruiz t Name: Indra Willard janet Coleman Unit #: [id number] Loc: DI Orderi ng Provid er: Roe Pereira Accoun t #: [id number] Status : REG CLI Primar y Care Provid er: Flores Robles M.D. Date of Exam : Sex: F Admiss ion Date: : 1959 Age: 63 Exam(s ) XR CHEST 2V PA LATERA L EXAM: XR CHEST 2V PA LATERA L CLINIC AL HISTOR Y: CHRONI C COUGH, R05.3, H/O ASTHMA . TECHNI QUE: 2D digita l imagin g was perfor med. COMPAR DARRON: CR XR CHEST 2V PA LATERA L from 2018 FINDIN GS: 2 views: Heart size is normal . The medias tinum is not widene d. Right lung is clear. There is subseg mental platel davey atelec tasis in left lung base. No conflu ent infilt rates. No pleura l effusi ons. No pneumo thorax . No fractu res eviden t. IMPRES ELADIA: There is subseg mental platel davey atelec tasis noted in the left lung base. DATA REPOSI TORY: RADIAT ION DOSE DELIVE RED: Ordere d By: Roe Pereira CC: ------ ------ ------ ------ ------ ------ ------ ------ ------ ------ ------ ------ - Dictat ed By: Mynor Sosa M.D. 1458 1457 Transc ribed By: Sheila LEWIS,Roderick tami 1457 This is privil eged, confid ential inform ation intend ed only for the provid er named. Any use or distri bution by any person other than this provid er is strict ly prohib ited. If you receiv e this report in error, please notify us immedi ately at and return the origin al report to us at the addres s above. Thank- you. [email or web address] [facility] [address] [place], [address] 05/15/2023 17:30:23 05/15/19 24 05/15/2023 PFT, compl ete Pulmon ponce Functi on Test PATIEN T NAME: Indra Willard UNIT #: [id number] ADMITT ING PROVID ER: Serena Vidal M.D. ACCOUN T #: [id number] PRIMAR Y CARE PROVID ER: BRAN Larios MD, GRETA DATE OF ADMIT: : 1959 Date of servic e: Time of Servic e: 08:12 Pulmon ponce Functi on Test Result Indica tions: Cough Interp retati on Spirom etry: There is no airflo w limita tion. No bronch odilat or respon se Lung Volume s: Normal lung volume s Diffus ion Capaci ty: Normal diffus ion Airway Pressu re: Normal airway s resist ance Impres eladia Normal pulmon ponce functi on testin g Clinic al Correl ation theref ore is recomm ended. cc: ------ ------ ------ ------ ------ ------ ------ ------ ------ ------ ------ --- Dictat ed by: ONIEL Mcgarry MD,HALEY TTANY E Dictat ed: Time: 1351 Date: 1 353 Date: Date: Transc ribed Date: Transc ribed Time: 135 By: JED This is privil eged, confid ential inform ation, intend ed only for the provid er named. Any use or distri bution by any person other than this provid er is strict ly prohib ited. If you receiv e this report in error, please notify us immedi ger at and return the origin al report to us at the addres s above. Thank you. [email or web address] [facility] [address], [place], [address] 05/15/2023 17:30:24 07/19/19 24 07/19/2023 CT, chest , w/o contr ast Patien t Name: Indra Willard lavon P Unit #: [id number] Loc: DI Orderi ng Provid er: Roe Pereira Accoun t #: [id number] Status : REG CLI Primar y Care Provid er: Flores Robles M.D. Date of Exam : Sex: F : 1959 Age: 63 Exam(s ) a CT:CT chest wo Exam(s ) CT CHEST WO EXAM: CT CHEST WO CLINIC AL HISTOR Y: R05.3 Chroni c cough, Platel davey atelec tasis on CXR TECHNI QUE: Imagin g Protoc ol: Axial comput ed tomogr aphy images with abel l and sagitt al reform atted images were create d and review ed CONTRA ST MATERI AL: Intrav enous: Omnipa que [address] volume :struc tured data ml. COMPAR DARRON: CR XR CHEST, 2 VIEWS from 2021 CR XR CHEST 2V PA LATERA L from 2023 FINDIN GS: Pulmon ponce parenc hyma: No consol idatio n. No domina nt measur able mass. No visibl e emphys ematou s change s. No signif icant inters titial change s. Minima l linear scarri ng noted at the right lower lobe. Minima l lingul ar scarri ng. Trache obronc hial tree: No bronch iectas is or mucous pluggi ng. Medias tinum and Elizabeth: No domina nt adenop athy or fluid collec tion. Pleura : No effusi on. No pneumo thorax . Heart: The heart is not dilate d. No abel ry artery calcif icatio ns are seen. Aorta: Thorac ic aorta non-di lated. Mild athero sclero tic change s. Upper abdome n: No acute findin gs.. Bones: Degene rative change s in the spine. Soft tissue s: Unrema rkable . IMPRES ELADIA: No acute abnorm ality. RADIAT ION DOSE DELIVE RED: Total DLP DATA REPOSI TORY: All CT scans at this facili ty are submit zeinab to the Nation al Radiol ogy Data Regist ry (NRDR) Dose Index Regist ry (DIR) with the [employer] o[employer] (ACR). RADIAT ION OPTIMI ZATION : All CT scans at this facili ty use at least one of these dose optimi zation techni ques: automa zeinab exposu re contro l; mA and/or kV adjust ment per patien t size (inclu brendan target ed exams where dose is matche d to clinic al indica tion); or iterat sary recons tructi on. 0327-0 003: Total DLP = 0.00 mGy-cm Ordere d By: Roe Pereira CC: ------ ------ ------ ------ ------ ------ ------ ------ ------ ------ ------ ------ ---- Dictat ed By: Ciro Griffith 143 143 Transc ribed By: Talat Luevano 143 This is privil eged, confid ential inform ation intend ed only for the provid er named. Any use or distri bution by any person other than this provid er is strict ly prohib ited. If you receiv e this report in error, please notify us immedi ately at and return the origin al report to us at the addres s above. Thank- you. [email or web address] [facility] [address], [place], [address] 09/27/2023 08:59:47 08/30/19 24 08/30/2023 MAMMO eli bilat eral Patien t Name: Indra Willard Jared Unit #: [id number] Loc: DI Orderi ng Provid er: Flores Robles M.D. Accoun t #: [id number] Status : REG CLI Primar y Care Provid er: Flores Robles M.D. Date of Exam : Sex: F Admiss ion Date: : 1959 Age: 63 Exam(s ) MG MAMMO SCREEN ING EXAM: MG MAMMO SCREEN ING CLINIC AL HISTOR Y: Z12.31 Screen ing TECHNI QUE: Mammog amol were interp reted accord ing to the usual protoc ol includ ing comput er analys is with CAD system , tomosy nthesi s and C-view imagin g. COMPAR DARRON: 2013 throug h 2022 FINDIN GS: The breast s are compos ed of hetero geneou sly dense fibrog landul ar densit ies, Breast Densit y catego ry C. No suspic ious masses or suspic ious microc alcifi cation s are seen. Stable nodule lower inner quadra nt of the left breast found by. So center repres ents a cyst. Stable benign calcif icatio ns greate r in the left breast . No skin thicke viral or abnorm al axilla ry lymph nodes are seen. There has been no signif icant change from prior exams. IMPRES ELADIA: BI-RAD S Catego ry 2 - Negati ve Mammog yohan with benign findin gs. Yearly screen ing mammog micaela is recomm ended. Breast Densit y Catego ry C, hetero geneou sly Dense. The mammog yohan demons trates the patien t's breast tissue is dense. Dense breast tissue is very common and is not abnorm al but dense breast tissue can make it harder to find cancer on a mammog yohan. Also, dense breast tissue may increa se breast cancer risk. This inform ation about the result of the mammog yohan report was provid ed to the patien t to raise their awaren ess. Use this report when you speak with the patien t about their risks for breast cancer , which includ es their family histor y. At that time, you may recomm end additi onal screen ing tests (Ultra sound or MRI) as they might be useful based on their risk. A negati ve radiog raphic report should not delay biopsy if a domina nt or clinic ally suspic ious mass is presen t. Up to ten percen t of cancer s are not identi fied on mammog micaela. A negati ve report may reinfo rce clinic al impres eladia. Adenos is and dense breast s may obscur e an underl deric neopla sm. False positi ve report s averag e 6 to 10%. Ordere d By: Flores Robles M.D. CC: ------ ------ ------ ------ ------ ------ ------ ------ ------ ------ ------ ------ - Dictat ed By: Ciro Griffith 1312 1311 Transc ribed By: Talat Luevano 1311 This is privil eged, confid ential inform ation intend ed only for the provid er named. Any use or distri bution by any person other than this provid er is strict ly prohib ited. If you receiv e this report in error, please notify us immedi ately at and return the origin al report to us at the addres s above. Thank- you. [email or web address] [facility] [address], [place], [address], 09/22/2023 07:33:20 01/08/20 24 09/01/2022 imagi ng/kasandra benito tic resul t No observ ation record ed. Not Available 01/07 16:53:40 01/08/20 24 08/06/2019 DEXA No observ ation record ed. Not Available 01/07 16:53:43 01/08/20 24 08/06/2019 DEXA No observ ation record ed. Not Available 01/07 16:53:45 01/08/20 24 08/06/2019 DEXA No observ ation record ed. Not Available 01/07 16:53:46 01/08/20 24 08/18/2020 MAMMO , scree viral No observ ation record ed. Not Available 01/07 16:54:26 01/08/20 24 08/16/2021 MAMMO , scree viral No observ ation record ed. Not Available 01/07 16:54:28 01/08/20 24 06/16/2020 XR, lumba r spine No observ ation record ed. Not Available 01/07 16:54:30 01/08/20 24 08/03/2022 MRI, lumba r spine No observ ation record ed. Not Available 01/07 16:54:31 01/08/20 24 08/06/2020 MRI, lumba r spine No observ ation record ed. Not Available 01/07 16:54:33 01/08/20 24 05/14/2021 XR, chest No observ ation record ed. Not Available 01/07 16:54:35 01/08/20 24 03/24/2022 imagi ng/di agnos tic resul t No observ ation record ed. Not Available 01/07 16:54:36 01/08/20 24 07/25/2018 XR, chest No observ ation record ed. Not Available 01/07 16:54:37 01/08/20 24 08/27/2020 bone densi ty No observ ation record ed. Not Available 01/07 16:54:40 01/08/20 24 05/31/2019 MAMMO , diagn ostic No observ ation record ed. Not Available 01/07 16:54:49 01/08/20 24 06/16/2020 XR, cervi gerardo spine No observ ation record ed. Not Available 01/07 16:54:55 01/08/20 24 09/01/2022 imagi ng/di agnos tic resul t No observ ation record ed. Not Available 01/07 16:55:07 01/08/20 24 07/25/2018 imagi ng/di agnos tic resul t No observ ation record ed. Not Available 01/07 16:55:28 01/08/20 24 06/16/2020 imagi ng/di agnos tic resul t No observ ation record ed. Not Available 01/07 16:55:29 01/08/20 24 06/16/2020 imagi ng/di agnos tic resul t No observ ation record ed. Not Available 01/07 16:55:30 01/08/20 24 06/16/2020 imagi ng/di agnos tic resul t No observ ation record ed. Not Available 01/07 16:55:31 01/08/20 24 08/25/2022 imagi ng/di agnos tic resul t No observ ation record ed. Not Available 01/07 16:58:01 01/08/20 24 06/06/2019 imagi ng/di agnos tic resul t No observ ation record ed. Not Available 01/07 16:58:07 01/08/20 24 06/16/2020 XR, thora cic spine No observ ation record ed. Not Available 01/07 16:58:08 01/08/20 24 07/04/2019 XR, ribs No observ ation record ed. Not Available 01/07 16:58:09 01/08/20 24 08/26/2022 MRI, thora cic spine No observ ation record ed. Not Available 01/07 16:58:10 01/08/20 24 08/06/2020 MRI, thora cic spine No observ ation record ed. Not Available 01/07 16:58:11 Result Notes None recorded. Problems Name Problem SNOMED Code Status Onset Date Resolution Date Notes Provider Name and Address Organization Details Recorded Time Tubular adenoma of colon 230176243 Active 2024 GRETA KIMBALL MD [facility] [address], [place], [address] , [facility] 5 09:52:58 Migraine 89482411 Active 200702/18/20 22 - Comments only - Greta Kimball MD - Which have decrease d in intensit y and frequenc y. 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 She like to try decreasi ng the Topamax, see below. 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 She has normal calcium level, appropri ately replaced vitamin D. She has failed two oral bisphosp honates historic ally. We discusse d Reclast and she is interest ed in having a Reclast infusion . We will have her make sure she gets any dental work taking care of and then we can schedule the infusion . Problem Code: M81.0; Problem Code Type: ICD-10; Not Available [facility] 3 04:07:12 Term pregnanc y delivere d 49595550 Active 2005 Problem Code: O80; Problem Code Type: ICD-10; Not Available [facility] 3 04:07:12 Patient status finding 207234734 Active 2005 Problem Code: Z78.9; Problem Code Type: ICD-10; Not Available [facility] 3 04:07:13 Prematur e menopaus e 108613976 Active 200502/13/20 20 - Comments only - Greta Kimball MD - with associat ed mood fluctuat ions/hot flashes ongoing. She did meet with Dr. 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 He didn't list the dose in his note. Problem Code: E28.319; Problem Code Type: ICD-10; Not Available [facility] 3 04:07:13 Postproc edural state finding 578262692 Active 2011 Problem Code: Z98.89; Problem Code Type: ICD-10; Not Available [facility] 3 04:07:13 Breast lump 67747334 Active 201102/17/20 21 - Comments only - Greta Kimball MD - She does have a more prominen t area of some nodulari ty on the left that is being followed with mammogra phy. There have been no recent changes. Problem Code: N63.0; Problem Code Type: ICD-10; Not Available [facility] 3 04:07:13 Benign paroxysm al position al vertigo 758544653 Active 201202/08/20 19 - Comments only - Paulo townsend Udupi - She continue s to have this occasion ally. She is getting relief with Jesusita s maneuver . Problem Code: H81.10; Problem Code Type: ICD-10; Not Available [facility] 3 04:07:13 Adult health examinat ion Active 201408/05/19 23 - Comments only - Melanie Diaz [employer] - - She is due for mammogra m later this month; order generate d - She is schedule d for her annual exam with Dr Kimball 01/2023 Problem Code: Z00.00; Problem Code Type: ICD-10; Not Available [facility] 3 04:07:13 Lumbosac ral radiculo murtaza 0806632 Active 201505/06/19 22 - Comments only - Melanie Diaz [employer] - - She is awaiting repeat MRI appointm ent, and will continue to work with [facility], with possible repeat epidural . 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 Refill given today. Problem Code: J45.990; Problem Code Type: ICD-10; Not Available [facility] 3 04:07:14 Neck pain 91628849 Active 201501/31/20 21 - Comments only - Greta Kimball MD - This seems to be muscular . Will ask PT to work with her. Problem Code: M54.2; Problem Code Type: ICD-10; Not Available [facility] 3 04:07:14 Acute sinusiti s 20951156 Completed 201609/30/2016 09/17/19 17 - Comments only - Yessica Bales MD - given URI initiall y imrpoved and now worse with fevers and sinus pain, will treat with augmenti n 875 BID for 7 days. Continue with sinus rinse, lemon, etc. Problem Code: J01.90; Problem Code Type: ICD-10; Not Available [facility] 3 04:07:14 Palpitat ions 06413248 Active 201602/01/20 17 - Comments only - Greta Kimball MD - she will let me know if these worsen and then will arrange a holter monitor Problem Code: R00.2; Problem Code Type: ICD-10; Not Available [facility] 3 04:07:14 Insomnia 887129410 Active 201702/17/20 21 - Comments only - Greta Kimball MD - Partly stress related. She continue s to work on relaxati on techniqu es, will let me know if she needs a sleep clinic referral Problem Code: G47.00; Problem Code Type: ICD-10; Not Available [facility] 3 04:07:14 History of infectio us disease 304052820 Active 201802/17/20 21 - Comments only - Greta Kimball MD - And ASCUS with last Pap. We will follow up with her regardin g Pap results Problem Code: Z86.19; Problem Code Type: ICD-10; Not Available [facility] 3 04:07:14 Cough 43635318 Completed 201906/05/201920 20 - Comments only - Andres Cifuentes PA-C - Will treat with DOXYCYCL INE 100mg BID x 10d and PREDNISO NE 40mg QD x 4d as burst. Capri vilchis otherwis e continue to suppleme nt with MINNIE LEWISI (with provided spacer) as rescue. She was excused from work tomorrow to allow for rest and instruct ed to call to discuss scheduli ng for CXR if no better by F 05/24/19. Problem Code: R05; Problem Code Type: ICD-10; Not Available [facility] 3 04:07:14 Pleuriti c pain 8509679 Completed 201906/17/2019 Problem Code: R07.81; Problem Code Type: ICD-10; Not Available [facility] 3 04:07:15 Low back pain 017870572 Active 202010/08/19 22 - Comments only - Melanie Diaz [facility]- - - She continue s to be an active treatmen t for her persisti ng low back pain and radiculo murtaza, includin g physical therapy and pain clinic appointm ents. 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 She does continue to be symptoma tic, especial ly with prolonge d sitting, bending, and stooping , and she is definite ly not function ing at her preinjur y level. -She is currentl y consider ing another epidural injectio n, and possibly a medial branch block through the pain clinic. I will defer to her physical therapis t and the pain clinic regardin g when she has exhauste d all of her availabl e treatmen ts. Until that time, I am happy to see her back as needed for her Worker's Comp. claim. -I did give her informat ion today about obtainin g a medical marijuan a card, as we are unable to provide those through this [facility]. Problem Code: M54.5; Problem Code Type: ICD-10; Not Available [facility] 3 04:07:15 Pain of left shoulder joint [id number] Active 202005/06/19 22 - Comments only - Melanie Reyes -Lalito [facility] - - She has an appointm ent schedule d with Dr Rivas at [facility] on 05/11/20 for evaluati on of her ongoing L shoulder pain. Problem Code: M25.512; Problem Code Type: ICD-10; Not Available [facility] 3 04:07:15 Fracture of thoracic spine 050304126 Active 202002/18/20 22 - Comments only - Greta Kimball MD - With associat ed radiculo murtaza. Clinic the symptoms have been slowly improvin g. She still gets some back pain, less of the leg pain. She is finding a keeping herself in good physical shape is helping. 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 She is finding other things she is enjoying doing and mood has improved . Problem Code: F43.23; Problem Code Type: ICD-10; Not Available [facility] 3 04:07:15 Atypical squamous cells of undeterm ined signific ance on cervical Papanico laou smear 987426562 Active 202102/18/20 22 - Comments only - Greta Kimball MD - Pap and HPV done today. We will follow-u p with her regardin g results. Problem Code: R87.610; Problem Code Type: ICD-10; Not Available [facility] 3 04:07:16 Disorder of skin and/or subcutan eous tissue 35591802 Active 202102/18/20 22 - Comments only - Greta Kimball MD - She does have an actinic keratosi s on her nose, few scattere d elsewher e. She is interest ed in trying the 5-FU cream. Explaine d how it works, that she will have transien t increase d redness before symptoms start to armen. Problem Code: L98.8; Problem Code Type: ICD-10; Not Available [facility] 3 04:07:16 Itching of skin 772394936 Active 202109/11/19 22 - Comments only - Melanie Diaz [employer] - - Faint and resolvin g pruritic rash, with appearan ce of an eczemato us dermatit is. - Hydrocor tisone 2.5% cream sent to [facility] for twice daily use for up to 2 weeks, or until rash is cleared. She may also take oral antihist amines for itching, and or apply topical pramoxin e. She will call if the above is not providin g relief. - - I also suggeste d pramoxin e topical for itching, or p.o. antihist amines. 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 - - Last TSH checked 12/23/2020 and wnl; will recheck today, given newer onset dry skin and hair loss Problem Code: L85.3; Problem Code Type: ICD-10; Not Available [facility] 3 04:07:16 Non-scar ring alopecia 592669203 Active 2022 Problem Code: L65.9; Problem Code Type: ICD-10; Not Available [facility] 3 04:07:16 Menopaus e present 674251607 Active 202208/05/19 23 - Comments only - Melanie Reyes -Lalito [employer] - - [facility] hot flashes handout given today, which outlines lifestyl e modifica tions, non-pres cription , and prescrip tions options for manageme nt. Advised her to contact her PCP if she wishes to trial an Rx med. Problem Code: N95.1; Problem Code Type: ICD-10; Not Available [facility] 3 04:07:17 Traumati c or non-trau matic injury 144496371 Completed 201602/02/2018 Problem Code: T14.8; Problem Code Type: ICD-10; Not Available [facility] 3 04:07:17 History of patholog ical fracture [id number] 9104 Completed 202001/30/2021 Problem Code: Z87.311; Problem Code Type: ICD-10; Not Available [facility] 3 04:07:18 Lumbosac ral radiculo murtaza 7637800 Completed 201602/12/2020 Problem Code: M54.16; Problem Code Type: ICD-10; Not Available [facility] 3 04:07:18 Pelvic and perineal pain 728821132 Completed 201502/12/2020 Problem Code: R10.2; Problem Code Type: ICD-10; Not Available [facility] 3 04:07:18 Pneumoni a 288036591 Completed 202108/04/2022 Problem Code: J18.9; Problem Code Type: ICD-10; Not Available [facility] 3 04:07:18 Uncompli cated asthma 140403043 Completed 201501/22/2016 Problem Code: J45.909; Problem Code Type: ICD-10; Not Available [facility] 3 04:07:19 Osteopor osis 24224690 Completed 200401/18/2023 01/17/20 15 - Comments only - Greta Kimball MD - DEXA last year with osteopor osis of the spine. She is exercisi ng regulari ly, getting vitamin D. Continue the same and repeat DEXA in a few years. Not Available [facility] 3 04:07:19 Chronic sinusiti s 79943085 Completed 201702/02/2018 Problem Code: J32.9; Problem Code Type: ICD-10; Not Available [facility] 3 04:07:19 Chest pain 38686561 Completed 201802/12/2020 Problem Code: R07.9; Problem Code Type: ICD-10; Not Available [facility] 3 04:07:20 Disorder of nasal sinus 3317010 Completed 202108/04/2022 Not Available [facility] 3 04:07:20 Traumati c or non-trau matic injury 524140148 Completed 201509/16/2016 Problem Code: T14.8; Problem Code Type: ICD-10; Not Available [facility] 3 04:07:20 Pain in right arm 616546283 Completed 201702/02/2018 Problem Code: M79.601; Problem Code Type: ICD-10; Not Available [facility] 3 04:07:21 Nasal congesti on 08354118 Completed 202108/04/2022 Problem Code: R09.81; Problem Code Type: ICD-10; Not Available [facility] 3 04:07:22 Pre-surg peggy evaluati on Completed 201501/22/2016 Problem Code: Z01.818; Problem Code Type: ICD-10; Not Available [facility] 3 04:07:22 Vertigo 540596726 Completed 201201/18/2023 Not Available [facility] 3 04:07:23 Pain in thoracic spine 343879840 Completed 202001/30/2021 Problem Code: M54.9; Problem Code Type: ICD-10; Not Available [facility] 3 04:07:23 Human papillom a virus screenin g Completed 201502/12/2020 Problem Code: Z11.51; Problem Code Type: ICD-10; Not Available [facility] 3 04:07:23 Pain in thoracic spine 616629526 Completed Problem Code: M54.9; Problem Code Type: ICD-10; Not Available [facility] 3 04:07:24 Diarrhea 93590687 Completed 201401/22/2016 Problem Code: R19.7; Problem Code Type: ICD-10; Not Available [facility] 3 04:07:24 Abdomina l pain 81123435 Completed 201401/22/2016 Problem Code: R10.9; Problem Code Type: ICD-10; Not Available [facility] 3 04:07:25 Fever 640853223 Completed 201609/16/2016 Problem Code: R50.9; Problem Code Type: ICD-10; Not Available [facility] 3 04:07:25 Acute pharyngi tis 240144182 Completed 201609/16/2016 Problem Code: J02.9; Problem Code Type: ICD-10; Not Available [facility] 3 04:07:25 Pain of right knee joint 66474298330 4100 Completed 201702/02/2018 Problem Code: M25.561; Problem Code Type: ICD-10; Not Available [facility] 3 04:07:25 detention current use of non-ster oidal anti-inf lammator y drug 75443382178 9103 Active 202202/18/20 23 - Comments only - Greta Kimball MD - and tylenol use - will check a CMP Problem Code: Z79.1; Problem Code Type: ICD-10; Not Available [facility] 4 05:35:40 Pain in left arm 402856171 Active 2022 Problem Code: M79.602; Problem Code Type: ICD-10; Not Available [facility] 4 05:35:40 Notes:*Problem Name: Seasona l Affective *ICD-10 Codes: *Problem Status: inactive *Comments: *Note Date: 03/23/2006 *Problem Name: , Both *ICD-10 Codes: *Problem Status: inactive *Comments: *Note Date: 03/23/2006 *Problem Name: Lateral Release Right Knee And Chrondraplasty *ICD-10 Codes: *Problem Status: inactive *Comments: *Note Date: 01/02/2012 *Problem Name: Menopause Age 37 *ICD-10 Codes: *Problem Status: inactive *Comments: *Note Date: 03/23/2006 *Problem Name: Peridontal Disease *ICD-10 Codes: *Problem Status: inactive *Comments: *Note Date: 07/26/2007 *Problem Name: Tibeal Platueau Fracture--right June 2011 *ICD-10 Codes: *Problem Status: active *Comments: *Note Date: 01/02/2012 Problem Notes None recorded. Procedures Surgical History None recorded. Imaging Results Imaging Date Name Status LastModified by [facility] Details LastModified Time 05/10/2023 x-ray imaging report completed [address] [facility] [place], [address] 05/15/2023 17:30:22 05/10/2023 x-ray imaging report completed [address] [place], [address] 05/15/2023 17:30:23 05/15/2023 PFT, complete completed [address] [place], [address] 05/15/2023 17:30:24 07/19/2023 CT, chest, w/o contrast completed [email or web address] [place], [address] 09/27/2023 08:59:47 08/30/2023 MAMMO, screening, bilateral completed [email or web address] [address], [place], [address], 09/22/2023 07:33:20 09/01/2022 imaging/diagnos tic result completed Information not available 01/08/2024 16:53:40 08/06/2019 DEXA completed Information no t available 01/08/2024 16:53:43 08/06/2019 DEXA completed Information no t available 01/08/2024 16:53:45 08/06/2019 DEXA completed Information no t available 01/08/2024 16:53:46 08/18/2020 MAMMO, screening completed Information not available 01/08/2024 16:54:26 08/16/2021 MAMMO, screening completed Information not available 01/08/2024 16:54:28 06/16/2020 XR, lumbar spine completed Information not available 01/08/2024 16:54:30 08/03/2022 MRI, lumbar spine completed Information not available 01/08/2024 16:54:31 08/06/2020 MRI, lumbar spine completed Information not available 01/08/2024 16:54:33 05/14/2021 XR, chest completed Information no t available 01/08/2024 16:54:35 03/24/2022 imaging/diagnos tic result completed Information not available 01/08/2024 16:54:36 07/25/2018 XR, chest completed Information no t available 01/08/2024 16:54:37 08/27/2020 bone density completed Information not available 01/08/2024 16:54:40 05/31/2019 MAMMO, diagnostic completed Information not available 01/08/2024 16:54:49 06/16/2020 XR, cervical spine completed Information not available 01/08/2024 16:54:55 09/01/2022 imaging/diagnos tic result completed Information not available 01/08/2024 16:55:07 07/25/2018 imaging/diagnos tic result completed Information not available 01/08/2024 16:55:28 06/16/2020 imaging/diagnos tic result completed Information not available 01/08/2024 16:55:29 06/16/2020 imaging/diagnos tic result completed Information not available 01/08/2024 16:55:30 06/16/2020 imaging/diagnos tic result completed Information not available 01/08/2024 16:55:31 08/25/2022 imaging/diagnos tic result completed Information not available 01/08/2024 16:58:01 06/06/2019 imaging/diagnos tic result completed Information not available 01/08/2024 16:58:07 06/16/2020 XR, thoracic spine completed Information not available 01/08/2024 16:58:08 07/04/2019 XR, ribs completed Information no t available 01/08/2024 16:58:09 08/26/2022 MRI, thoracic spine completed Information not available 01/08/2024 16:58:10 08/06/2020 MRI, thoracic spine completed Information not available 01/08/2024 16:58:11 Procedure Notes None recorded. Medical Equipment None Reported. Allergies Allergen ID Allergen Name Allergen Category Reaction Reaction Severity Criticality Documentation Date Start Date Code Code System Note Provider Name and Address Organization Details Recorded Time 51003 erythromy sandie medicatio n nausea mild Not available 03/03/20232004 4053 RxNorm Nause a/Vom iting /Diar sean Aller gyRea ction : 'Naus ea/Vo mitin g/Lynette rrhea '; Aller gyCod e: '3680 [id number] 64'; Aller gyNam e: 'ERYT HROMY SANDIE'; Aller gyCon ceptT ype: 'NDC' ; Not Available [facility] 16:29:13 Medications Name Sig Start Date Stop Date Status Note LastModified by Organization Details LastModified Time cyclobenz aprine 10 mg tablet Take 1 tablet by mouth three times a day as needed 09/10 completed Not Available Not Available Not Available Augmentin 875 mg-125 mg tablet Take 1 tab by mouth twice daily. 02/05 completed Not Available Not Available Not Available venlafaxi ne ER 37.5 mg capsule,e xtended release 24 hr Take 1 capsule by mouth once a day for 1 week, then stop. 02/15 completed Not Available Not Available Not Available prednison e 10 mg tablet 6 po qd x 3d, 4 po qd x 3d, 2 po qd x 3d, 1 po qd x 3d, THEN STOP 05/23 completed Not Available Not Available Not Available venlafaxi ne ER 75 mg capsule,e xtended release 24 hr Take 1 capsule by mouth once a day 01/20 completed Not Available Not Available Not Available doxycycli ne hyclate 100 mg capsule Take 1 capsule by mouth twice a day 03/28 completed Not Available Not Available Not Available Neurontin 300 mg capsule 2 CAPS TID 01/03 completed Not Available Not Available Not Available ketoconaz ole 2 % shampoo 1 a small amount as directed as directed Use 3 times a week leave on for 5 minutes before rinsing 2021 active Not Available Not Available Not Avai lable tizanidin e 2 mg tablet 1 TAB THREE TIMES DAILY 01/13 completed Not Available Not Available Not Available azithromy sandie 250 mg tablet Take 2 by mouth now, then take 1 by mouth daily x 4 days 05/22 completed Not Available Not Available Not Available fluconazo le 150 mg tablet 1 tablet by mouth single dose 1 now and 1 after finishin g the metronid azole. Avoid taking the hydroxyz ine or diazepam on the days you take fluconaz ole 04/06 completed Not Available Not Available Not Available Vicodin 5 mg-500 mg tablet 1 TAB Q6H 07/26 completed Not Available Not Available Not Available sumatript an 100 mg tablet TAKE 1 TABLET BY MOUTH ONCE DAILY NEEDED FOR MIGRAINE , MAY REPEAT ONE TIME IN ONE HOUR 2023 active Not Available Not Available Not Avai lable hydrocodo ne 5 mg-acetam inophen 325 mg tablet 1 every 6 hours PRN 02/07 completed Not Available Not Available Not Available meloxicam 15 mg tablet 1 TAB DAILY 01/16 completed Not Available Not Available Not Available Flonase 50 mcg/DOSE nasal inhaler 2 SPRAY QD 01/24 completed Not Available Not Available Not Available prednison e 20 mg tablet Take two tabs by mouth daily x 4 days 06/12 completed Not Available Not Available Not Available fluoroura cil 5 % topical cream 1 a small amount to skin twice a day Apply to scaly spots on the nose BID x 2 weeks 2021 active Not Available Not Available Not Avai lable prednison e 5 mg tablet by mouth 4 tabs daily for 3d then 3 tabs daily for 4d then 2 tabs daily for 4d then 1 tab daily for 4d 09/10 completed Not Available Not Available Not Available Maxalt 10 mg tablet 1 TAB Q2H 05/18 completed Not Available Not Available Not Available topiramat e 25 mg tablet TAKE THREE TABLETS BY MOUTH EVERY EVENING AT BEDTIME 03/27 completed Not Available Not Available Not Available metronida zole 500 mg tablet 1 tablet by mouth twice a day 04/12 completed Not Available Not Available Not Available prochlorp erazine maleate 10 mg tablet 1 tablet by mouth every six hours as needed for nausea 2020 active Not Available Not Available Not Avai lable Nasacort AQ 55 mcg nasal spray aerosol 2 SPRAY daily 01/02 completed Not Available Not Available Not Available amoxicill in 500 mg tablet 1 CAP TID 08/20 completed Not Available Not Available Not Available Macrobid 100 mg capsule Take 1 capsule every 12 hours by oral route. 05/28 completed Not Available Not Available Not Available Lidoderm 5 % topical patch Apply 1-2 patch to skin once a day as needed for pain 02/16 completed Not Available Not Available Not Available Valium 5 mg tablet 1 tablet once a day as needed for migraine s [address] Enrico vides Not Available Not Available Not Available Ocuflox 0.3 % eye drops 2 drops in R eye TID x 7 days 05/28 completed Not Available Not Available Not Available naproxen sodium 550 mg tablet Take 1 tablet by mouth twice daily PRN 02/07 completed Not Available Not Available Not Available Neurontin 100 mg capsule 1 CAP TID 01/01 completed Not Available Not Available Not Available Antivert 25 mg tablet 1 TAB four times daily 01/02 completed Not Available Not Available Not Available orphenadr ine citrate ER 100 mg tablet,ex tended release Take 1 tablet by mouth once a day as needed 08/04 completed Not Available Not Available Not Available ibuprofen 200 mg tablet 01/24 completed Not Available Not Available Not Available hydrocort isone 2.5 % topical cream Apply a small amount to affected area twice a day For up to 2 weeks. or until rash has cleared 02/15 completed Not Available Not Available Not Available bisacodyl 5 mg tablet,de layed release TAKE TWO TABLETS BY MOUTH TWICE A DAY WITH A FULL GLASS OF WATER DIRECTED FOR COLONOSC OPY PREPARAT ION 03/27 completed Not Available Not Available Not Available Vistaril 25 mg capsule Take 1 tablet by mouth twice a day as needed 05/28 completed Not Available Not Available Not Available albuterol 90 mcg/actua tion aerosol inhaler 2 PUFFS Q 4-6 hours 2012 active Not Available Not Available Not Avai lable Pepcid 20 mg tablet 1 tab daily PRN 05/22 completed Not Available Not Available Not Available polyethyl grzegorz glycol 3350 17 gram/dose oral powder USE DIRECTED BY PHYSICIA N FOR PREP 03/27 completed Not Available Not Available Not Available methylpre dnisolone 4 mg tablets in a dose pack 12/30 completed Not Available Not Available Not Available celecoxib 100 mg capsule TAKE ONE TO TWO CAPSULES BY MOUTH EVERY DAY active Not Available Not Available No t Available topiramat e 100 mg tablet TAKE ONE TABLET BY MOUTH EVERY EVENING 03/27 completed Not Available Not Available Not Available doxycycli ne hyclate 100 mg tablet Take 1 tab by mouth twice daily x 10 days 06/01 completed Not Available Not Available Not Available naproxen 500 mg tablet 1 TAB twice daily 01/16 completed Not Available Not Available Not Available Ventolin HFA 90 mcg/actua tion aerosol inhaler INHALE TWO PUFFS BY MOUTH EVERY 4 TO 6 HOURS NEEDED FOR COUGH, WHEEZE, OR FOR SHORTNES S OF BREATH active Not Available Not Available No t Available magnesium 200 mg tablet Take by oral route in the morning. active Not Available Not Available No t Available Relpax 40 mg tablet 1 at onset H/A 06/27 completed Not Available Not Available Not Available Flovent HFA 44 mcg/actua tion aerosol inhaler Inhale 2 puff as directed twice a day Until cough and breathin g have improved . Rinse and spit after use 04/27 completed Not Available Not Available Not Available vitamin E (dl, acetate) 45 mg (100 unit) capsule Take 1 capsule by mouth once a day as needed 03/27 completed Not Available Not Available Not Available Lyrica 50 mg capsule Take 1 capsule by mouth at bedtime may increase to TID 12/23 completed Works [facility] Not Available Not Available Not Available Claritin 01/02 completed Not Available Not Available Not Available Vitamin D3 5000 units one daily active Not Available Not Available No t Available calcium 250 mg (as citrate) tablet Take 2 tablet by mouth once a day 02/16 completed Not Available Not Available Not Available Symbicort 80 mcg-4.5 mcg/actua tion HFA aerosol inhaler INHALE 2 PUFFS BY MOUTH TWO TIMES A DAY active Not Available Not Available No t Available diclofena c 1 % topical gel Apply a small amount to affected area three times a day as needed for pain 03/27 completed Not Available Not Available Not Available melatonin 5 mg tablet Take 1 tab by mouth at bedtime as needed 2017 active Not Available Not Available Not Avai lable venlafaxi ne ER 37.5 mg tablet,ex tended release 24 hr Take 1 tablet by mouth once a day for 2 weeks, then increase to 2 tabs 12/24 completed Not Available Not Available Not Available Bone Density Calcium Plus D active Not Available Not Available Not Available Vitamin D3 125 mcg (5,000 unit) tablet 1 tab twice daily 2010 active Not Available Not Available Not Avai lable Vicodin 5 mg-300 mg tablet 1 TAB Q6H 2013 active Not Available Not Available Not Avai lable cholecalc iferol (vitamin D3) 250 mcg (10,000 unit) tablet 1 tab daily 2010 active Not Available Not Available Not Avai lable Centrum Silver Women 8 mg iron-400 mcg-50 mcg tablet Take 1 tablet by mouth once a day 08/04 completed Not Available Not Available Not Available Vitamin B12 01/24 completed Not Available Not Available Not Available riboflavi n (vitamin B2) 400 mg tablet 1 tablet daily 03/27 completed Not Available Not Available Not Available Ajovy 225 mg/1.5 mL subcutane ous auto-inje ctor INJECT 1.5ML UNDER THE SKIN ONCE MONTHLY active Not Available Not Available No t Available Paxlovid 300 mg (150 mg x 2)-100 mg tablets in a dose pack Take 3 tablets twice a day by oral route. 06/14 completed Not Available Not Available Not Available Vitals Date Recorded Body height Body temperature Oxygen saturation Oxygen saturation in Arterial blood by Pulse oximetry Heart rate Systolic blood pressure Diastolic blood pressure Provider Name and Address Organization Details Last Updated DateTime 4 153.67 cm 98.5 [degF] 95 % 95 % 80 /min 102 mm[Hg] 60 mm[Hg] NIELS PURI LPN [facility] 4 15:43:15 Date Recorded Body height Oxygen saturation Oxygen saturation in Arterial blood by Pulse oximetry Heart rate Systolic blood pressure Diastolic blood pressure Provider Name and Address Organization Details Last Updated DateTime 4 153.67 cm 93 % 93 % 96 /min 90 mm[Hg] 58 mm[Hg] NIELS PURI LPN [facility] 4 13:00:48 Date Recorded Body height Body temperature Oxygen saturation Oxygen saturation in Arterial blood by Pulse oximetry Heart rate Respiratory rate Systolic blood pressure Diastolic blood pressure Provider Name and Address Organization Details Last Updated DateTime 4 153.67 cm 98 [degF] 96 % 96 % 64 /min 14 /min 110 mm[Hg] 60 mm[Hg] Mindy Dozier RN [facility] 4 10:02:45 Date Recorded Body height Body mass index (BMI) Body weight Oxygen saturation Oxygen saturation in Arterial blood by Pulse oximetry Heart rate Systolic blood pressure Diastolic blood pressure Provider Name and Address Organization Details Last Updated DateTime 5 153.67 cm 24.6 kg/m2 04359.8 2 g 99 % 99 % 88 /min 108 mm[Hg] 60 mm[Hg] Evan Hill MA [facility] 5 09:51:12 Social History Question Answer Notes LastModified by Organizat ion Details LastModified Time Tobacco Smoking Status Never Smoker Evan Hill MA [facility], [facility] 05/28/2024 09:48:28 Date Of Most Recent HSA 05/28/2024 [email or web address] Information not available 05/28/2024 Would You Say That, In General, Your Health Is Good [email or web address] Information not available 05/28/2024 How Often Does Anyone, Including Family, Physically Hurt You? Never [email or web address] Information not available 05/28/2024 How Often Does Anyone, Including Family, Insult Or Talk Down To You? Never [email or web address] Information no t available 05/28/2024 How Often Does Anyone, Including Family, Threaten You With Harm? Never [email or web address] Information not available 05/28/2024 How Often Does Anyone, Including Family, Scream Or Curse At You? Never [email or web address] Information not available 05/28/2024 Within The Past 12 Months, You Worried That Your Food Would Run Out Before You Got Money To Buy More. Never True [email or web address] Information n ot available 05/28/2024 Within The Past 12 Months, The Food You Bought Just Didn't Last And You Didn't Have Money To Get More. Never True [email or web address] Information n ot available 05/28/2024 How Hard Is It For You To Pay For The Very Basics Like Food, Housing, Medical Care, And Heating? Would You Say It Is: Not Hard At All [email or web address] Information not available 05/28/2024 In The Past 12 Months, Has Lack Of Reliable Transportation Kept You From Medical Appointments, Meetings, Work Or From Getting Things Needed For Daily Living? No [email or web address] Information not available 05/28/2024 What Is Your Housing Situation Today? I Have Housing. [email or web address] Information not available 05/28/2024 How Often In The Past Year Have You Used Marijuana (including Smoking, Vaping, Dabbing, Or Edibles)? 2-3 Times Per Week [email or web address] Information not available 05/28/2024 How Often In The Past Year Have You Used Prescription Medications That Were Not Prescribed To You? Never [email or web address] Information n ot available 05/28/2024 How Often In The Past Year Have You Taken Your Own Prescription Medication More Than The Way It Was Prescribed Or For Different Reasons Than Its Intended Purpose? Never [email or web address] Information no t available 05/28/2024 How Often In The Past Year Have You Used Other Drugs (for Example, Heroin, Cocaine, Meth, Salvia, Inhalants)? Never [email or web address] Information not available 05/28/2024 Have You Ever Used IV Drugs? No [email or web address] Information not available 05/28/2024 During The Past Four Weeks Has Your Physical And Emotional Health Limited Your Social Activities With Family And Friends, Neighbors, Or Groups? Moderately [email or web address] Information not available 05/28/2024 During The Past Four Weeks, Was Someone Available To Help You If You Needed And Wanted Help? (For Example, If You [place] Very Nervous, Lonely, Or Blue; Got Sick And Had To Stay In Bed; Needed Someone To Talk To; Needed Help With Daily Chores; Or Needed Help Just Taking Care Of Yourself.) Yes- As Much As I Wanted [email or web address] Information not available 05/28/2024 During The Past Four Weeks, What Was The Hardest Physical Activity You Could Do For At Least 2 Minutes? Moderate Information not available 05/28/2024 Can You Get To Places Out Of Walking Distance Without Help? (For Example, Can You Travel Alone On Buses Or Taxis, Or Drive Your Own Car?) Yes [email or web address] Information not available 05/28/2024 Can You Go Shopping For Groceries Or Clothes Without Someone? s Help? Yes [email or web address] Information not available 05/28/2024 Can You Prepare Your Own Meals? Yes [email or web address] Information not available 05/28/2024 Can You Do Your Housework Without Help? No [email or web address] Information not available 05/28/2024 Because Of Any Health Problems, Do You Need The Help Of Another Person With Your Personal Care Needs Such As Eating, Bathing, Dressing, Or Getting Around The House? No [email or web address] Information not available 05/28/2024 Can You Handle Your Own Money Without Help? Yes [email or web address] Information not available 05/28/2024 Are You Having Difficulties Driving Your Car? No [email or web address] Information no t available 05/28/2024 Do You Always Fasten Your Seat Belt When You Are In A Car? Yes- Usually [email or web address] Information not available 05/28/2024 How Often During The Past Four Weeks Have You Been Bothered By Any Of The Following Problems? Falling Or Dizzy When Standing Up? Seldom [email or web address] Information not available 05/28/2024 Sexual Problems? Never [email or web address] Informat ion not available 05/28/2024 Trouble Eating Well? Never [email or web address] Information not available 05/28/2024 Teeth Or Denture Problems? Seldom [email or web address] Information not available 05/28/2024 Problems Using The Telephone? Never [email or web address] Information not available 05/28/2024 Tiredness Or Fatigue? Sometimes [email or web address] Information not available 05/28/2024 Have You Had 2 Or More Falls Or Sustained An Injury With A Fall In The Last Year? No [email or web address] Information no t available 05/28/2024 Do You Have Difficulty With Walking Or Balance? No [email or web address] Information not available 05/28/2024 Do You Currently Use A Hearing Device? No [email or web address] Information not available 05/28/2024 Do You Currently Have Any Trouble With Your Vision? No Information no t available 05/28/2024 Do You Exercise For About 20 Minutes Three Or More Days A Week? Yes- Most Of The Time [email or web address] Information not available 05/28/2024 Are There Any Safety Concerns In Your Home (see Attached CDC Pamphlet)? No [email or web address] Information not available 05/28/2024 How Often Do You Have Trouble Taking Medicines The Way You Have Been Told To Take Them? I Always Take Them As Prescribed [email or web address] Information not available 05/28/2024 How Confident Are You That You Can Control And Manage Most Of Your Health Problems? Very Confident [email or web address] Information not available 05/28/2024 Do You Currently Have Any Difficulty With Your Hearing? No [email or web address] Information not available 05/28/2024 Date Of Most Recent SBINS 05/28/2024 [email or web address] Information not available 05/28/2024 What Was The Date Of Your Most Recent Tobacco Screening? 05/28/2024 Information not available 05/28/2024 Do You Or Have You Ever Used Any Other Forms Of Tobacco Or Nicotine? No [email or web address] Information not available 05/28/2024 Sex: Female Functional Status None recorded. Mental Status None recorded. 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 Mom with h/o HTN, brother with HTN. But no family h/oovarian CA, or colon CA, however. Obesity in mom's family. Breast cancer - paternal cousin. and maternal great aunt, cousin who from breast CA in her 40's depression strong on maternal side Medical History No medical history recorded. Gynecological HistoryNo gynecological history recorded. Obstetrics History GPAL:G 0 P 0 0 0 0 Immunizations Vaccine Type Date Status Note Provider Nam e and Address Organization Details Recorded Time Tdap 7 completed Not Available [facility] 03/03/2023 05:12:00 Td(adult) unspecified formulation 1 completed Not Available [facility] 03/03/2023 05:12:00 Td(adult) unspecified formulation 4 completed Not Available [facility] 03/03/2023 05:12:01 Influenza, split virus, trivalent, preservative 5 completed Not Available [facility] 03/03/2023 05:12:01 Influenza, split virus, quadrivalent, PF 9 completed Not Available [facility] 03/03/2023 05:12:02 Influenza, split virus, quadrivalent, PF 0 completed Not Available [facility] 03/03/2023 05:12:02 Influenza, split virus, quadrivalent, PF 1 completed Not Available [facility] 03/03/2023 05:12:02 Influenza, split virus, quadrivalent, PF 2 completed Not Available [facility] 03/03/2023 05:12:02 Influenza, split virus, quadrivalent, preservative 8 completed Not Available [facility] 03/03/2023 05:12:02 zoster recombinant 1 completed Not Available [facility] 03/03/2023 05:12:03 zoster recombinant 0 completed Not Available [facility] 03/03/2023 05:12:03 COVID-19, mRNA, LNP-S, PF, 100 mcg/0.5mL dose or 50 mcg/0.25mL dose 1 completed Not Available [facility] 03/03/2023 05:12:04 COVID-19, mRNA, LNP-S, PF, 100 mcg/0.5mL dose or 50 mcg/0.25mL dose 2 completed Not Available [facility] 03/03/2023 05:12:04 COVID-19, mRNA, LNP-S, PF, 100 mcg/0.5mL dose or 50 mcg/0.25mL dose 0 completed Not Available [facility] 03/03/2023 05:12:04 SARS-COV-2 (COVID-19) vaccine, UNSPECIFIED 1 completed Not Available [facility] 03/03/2023 05:12:05 COVID-19, mRNA, LNP-S, bivalent, PF, 30 mcg/0.3 mL dose 2 completed Not Available [facility] 03/03/2023 05:12:05 pneumococcal polysaccharide PPV23 8 completed Not Available [facility] 03/03/2023 05:12:06 influenza, unspecified formulation 1 completed Not Available [facility] 03/03/2023 05:12:06 influenza, unspecified formulation 2 completed Not Available [facility] 03/03/2023 05:12:06 influenza, unspecified formulation 6 completed Not Available [facility] 03/03/2023 05:12:07 COVID-19, mRNA, LNP-S, PF, miriam-sucrose, 30 mcg/0.3 mL 4 [facility] 15:07:58 Influenza, split virus, trivalent, PF 4 completed [facility]/27/[facility]24 15:07:58 Influenza, split virus, quadrivalent, PF 3 completed Not Available [facility] 05/05/2023 05:30:48 COVID-19, mRNA, LNP-S, PF, miriam-sucrose, 30 mcg/0.3 mL 3 completed Not Available [facility] 05/05/2023 05:30:51 Past Encounters Encounter ID Performer Location Encounter Start Date Encounter Closed Date Diagnosis/Indication Diagnosis SNOMED-CT Code Diagnosis ICD10 Code Diagnosis Note [id number] FABIENNE PEREIRA, [address] [address] 05/08/2023 15:24:59 05/08/2023 16:17:07 Persistent cough 228817431 R05.3 physical exam unremarkab le, lung sounds are clear bilaterall y, no postnasal drip on exam. Known history of asthma? likely a worsening of her asthma vs postinfect ious cough? Will get chest x-ray to rule out any abnormalit ies, order pulmonary function test at [facility], have her follow-up in 3 to 4 weeks, may consider trial of Symbicort. [id number] FABIENNE PEREIRA, [employer] [address] [address] 06/14/2023 12:46:09 06/14/2023 13:34:44 Persistent cough 030061954 R05.3 Cough if, persistent , waxes and wanes. Slightly exacerbate d with recent COVID infection. She did not consistent ly use the Symbicort did not think it helped out much. She will continue to recover from her COVID-19 infection, plan to trial over-the-c ounter cetirizine 10 mg daily to see if there is an allergic component, meanwhile in about 1 month will do a chest CT at [facility] without to further evaluate abnormalit y seen on chest x-ray. Will plan to follow-up in 8 weeks. Could consider pulmonolog y referral if unable to get complete resolution of symptoms. Screening for malignant neoplasm of colon [id number] Z12.11 Would like me to send a referral to [facility] for colonoscop y? colon cancer screening [id number] Traci Sun MA [address] [address] 02/27/2024 14:50:38 02/27/2024 15:03:53 Active or passive immunization [id number] Z23 [id number] Lauri Rodriguez DO [address] [address] 03/27/2024 09:46:28 03/27/2024 10:51:58 Acute conjunctivitis 12989182 H10.30 R eye conjunctiv itis w discolored dischargen o periorbita l or mastoid tenderness to palpation, full EOMI, no internal stye/horde olumtx ocuflox TID x 7 daysfreque nt hand washing, avoid touching eyes, change pillow casestx L eye w ocuflox at first sign of conjunctiv itis symptoms should they occur Increased frequency of urination [id number] R35.0 w mild discomfort on urinationu rine dip w 1+ bld, neg nitr, neg leuks - suspect possible skin tear w discomfort pt. traveling out of state for a week in near future - will rx macrobid 100mg Q12hr x 5-7 days should UTI symptoms occur during travel [id number] Mary Nathan [facility] [address] [place] [address] 05/28/2024 09:28:20 05/28/2024 10:48:01 Adult health examination 190606111 Z00.00 Screening for malignant neoplasm of colon 222258599 Z12.11 UTD, performed 10/12/2023 Screening mammography 24 339818 Z12.31 Mammo due 08/29/24 Screening for osteoporosis 055270589 Z78.0 Dexa done 2020 Lumbosacra l radiculopathy 0550673 M54.17 Gynecologi c examination 09934542 Z01.419 Health Concerns Section Related Observation LastModified by Organization Detai ls LastModified Time None Recorded Concern Status LastModified by Organization Details LastModified Time None Recorded Advance Directives Directive None Recorded Payers Encounter Date Sequence Insurance Name Policy Number Policy Barreto Covered Member ID Barreto Member ID Guarantor Name 05/08/2023 1 [facility] (MEDICAID) Elin P Willard [id number] Elin P Willard 06/14/2023 1 [facility] (MEDICAID) Elin P Willard [id number] Elin P Willard 02/27/2024 1 [facility] (MEDICAID) Elin P Willard [id number] Elin P Willard 03/27/2024 1 [facility] (MEDICAID) Elin P Willard [id number] [place] Notes Date Note Type Note Provider Name and Address Organization Details Recorded Time 05/08/19 24 text/htm l 63-year-old woman here for complaints of prolonged cough. She had an upper respiratory infection over , and since then she has a barky? dry cough can be during the nighttime and during the daytime as well. It gets worse when she is exposed to cold air or respiratory irritants. Denies shortness of breath. She is using her rescue inhaler almost daily (history of asthma), never on a controller medicine. She feels tired overall. The cough does keep her up at nighttime. She is concerned as in the past there was an abnormality on imaging that showed a possible small granuloma. She feels well otherwise, does have occasional night sweats? chronic intermittent after menopause (went through menopause in her 40s), no weight loss, reports slight weight gain.History of seasonal allergies to goldenrod and to mold and mildew? has been asymptomatic though recently.She is physically active, doing cardiovascular activity at the gym typically 45 minutes, has had to cut back to 30 minutes due to fatigue. She skis regularly and rides her bike. 05/14/2021 [facility] chest x-ray; small dense nodular opacity in the left mid chest described on recent left shoulder series appears to overlie the lateral left hilum and is consistent with vascular artifact or possible small granuloma. FABIENNE PEREIRA, [employer] [address], [place], [address], [facility]. 05/09/2023 10:21:54 06/14/19 24 text/htm l 63-year-old woman here for f/u prolonged cough. HX: She had an upper respiratory infection over , and since then she has a barky? dry cough can be during the nighttime and during the daytime as well. It gets worse when she is exposed to cold air or respiratory irritants. Denies shortness of breath. She is using her rescue inhaler almost daily (history of asthma), never on a controller medicine. She feels tired overall. The cough does keep her up at nighttime. She is concerned as in the past there was an abnormality on imaging that showed a possible small granuloma. She feels well otherwise, does have occasional night sweats? chronic intermittent after menopause (went through menopause in her 40s), no weight loss, reports slight weight gain.History of seasonal allergies to goldenrod and to mold and mildew? has been asymptomatic though recently.She is physically active, doing cardiovascular activity at the gym typically 45 minutes, has had to cut back to 30 minutes due to fatigue. She skis regularly and rides her bike. 05/14/2021 [facility] chest x-ray; small dense nodular opacity in the left mid chest described on recent left shoulder series appears to overlie the lateral left hilum and is consistent with vascular artifact or possible small granuloma. 05/10/2023: CXR:Heart size is normal. The mediastinum is not widened.Right lung is clear. There is subsegmental platelike atelectasis in left lung base.No confluent infiltrates. No pleural effusions. No pneumothorax. No fractures evident. After consulting with patient's PCP, patient is agreeable to a trial of Symbicort. 05/15/2023:Pulmonary Function Test ResultIndications: CoughInterpretationSpirometry: There is no airflow limitation. No bronchodilator responseLung Volumes:Normal lung volumesDiffusion Capacity:Normal diffusionAirway Pressure:Normal airways resistanceImpressionNormal pulmonary function testingClinical Correlation therefore is recommended. Today 06/14/2023 patient recently recovering from COVID-19 infection, she is concerned that her cough has an allergic component? notices it gets triggered when she is at the gym doing yoga at a certain area of the room that is carpeted, also notices it gets triggered with people wearing heavy cologne and perfumes. Has not used the Symbicort inhaler consistently- When used it did not think it was helpful. Denies shortness of breath, No fever, weight loss. FABIENNE PEREIRA, [employer] [address], [place], [address], [facility], [facility]. 06/14/2023 14:04:27 03/27/20 24 text/htm l pt presents c/o redness, swelling, and discharge of R eye since monday (today day 4). using warm compresses w some improvement of symptoms however still w discharge and erythema. no acute vision changes, no new neurological complaints (has migraines - on ajovy).also c/o discomfort w urine flow, increased frequency and urgency for several days. possibly related to rigorous intimate activity, possible minor skin tear. no new mid back pain, no abdominal pain, fevers/chills.pt. will be traveling out of state for a week in the near future - understandably does not want to have UTI during trip. Lauri Rodriguez, DO [address], [place], [address], [facility], [facility]. 03/27/2024 11:25:25 OBGyn Episode No OBEpisode recorded.
--- OUTSIDE RECORDS SUMMARY | 2024-05-28 16:05 | XMS_ITS | Encounter Summary ---
Author Organization [facility] Address [facility] [place] [address] Care Team Providers Care Manager Shipping Name Role Phone Greta Kimball MD Primary Care Provider [phone] Reason for Visit * Auth/Cert Specialty Diagnoses / Procedures Referred By Michelle calle Referred To Contact Diagnoses lumbar radiculopathy Procedures PRO INJECTION DX/THER SBST INTRLMNR LMBR/SAC W/IMG GDN INJECTION, EPIDURAL, LUMBAR OR SACRAL (CAUDAL), WITH IMAGING GUIDANCE (WRVU 1.8) Referral ID Status Reason Start Date Expiration Date Visits Re quested Visits Authorized [id number] 1 1 Encounter Details Date Type Department Care Team (Late st Contact Info) Description 12/15/2020 10:30 AM EDT - 12/15/2020 11:00 AM EDT [place] [id number] Jamie Pepe MD [facility] [place] [address] INJECTION, EPIDURAL, LUMBAR OR SACRAL (CAUDAL), WITH IMAGING GUIDANCE (WRVU 1.8) Social History Tobacco Use Types Packs/Day Years [...] Sign Reading Time Taken Comments Blood Pressure 108/62 12/15/2020 10:45 AM EDT Pulse 72 12/15/2020 10:45 AM EDT Temperature - - Respiratory Rate 14 12/15/2020 10:45 AM EDT Oxygen Saturation 100% 12/15/2020 10:45 AM EDT Inhaled Oxygen Concentration - - Weight 50.8 kg (112 lb) 12/15/2020 10:45 AM EDT Height 154.9 cm (5' 1) 12/15/2020 10:45 AM EDT Body Mass Index 21.16 12/15/2020 10:45 AM EDT documented in this encounter Discharge Instructions * Discharge Instructions* William Calderón Beka - 12/15/2020 11:29 AM EDT Pain Management Center Discharge Instructions: You were seen today by Surgeon(s): Vik Garcia MD Dey, [place], MD The following was performed: Procedure(s) (LRB): INJECTION, EPIDURAL, LUMBAR OR SACRAL (CAUDAL), WITH IMAGING GUIDANCE (WRVU 1.8) (N/A) It is normal that the injection site will be sore for up to 48 hours. [x] You may also experience mild stiffness in the joint near the injection site. You may resume your normal activities: tomorrow. You may shower today. DO NOT tub bathe, use whirlpools, hot tubs or pool therapy for 2 days. RemoveBand-Aid(s) later today/tomorrow. Do not drive until tomorrow. Use caution walking/climbing stairs as you may be unsteady on your feet. You may use your usual medications, including pain medications, as directed, unless otherwise instructed. You may use an ice pack as needed for the first 24 hours, on for 20 minutes then off for 20 minutes. Do not apply heat today. Attempt to empty your bladder 4-6 hours after your procedure. You received the following medications: Medications Given During Procedure Date/Time Order Dose Route Action 12/15/2020 1118 iohexoL (Omnipaque) (240 mg/mL) injection solution 2 mL Epidural Given 12/15/2020 1118 lidocaine (pf) (Xylocaine) (10 mg/mL) 1% injection 2 mL Other Given 12/15/2020 1119 methylPREDNISolone acetate (DEPO-Medrol) (80 mg/mL) injection 80 mg Epidural Given During regular business hours, please phone the Pain Management Center at with any questions or if the following or other troubling symptoms develop: 1) Prolonged dizziness or weakness (more than 1 day). 2) Localized swelling, redness or drainage at the injection site(s). 3) Temperature of 101 degrees that lasts for more than 4 hours. After 5 PM or on weekends, call and ask for Pain Clinic provider on-call. If you are unable to reach the Pain Management Center and have a complication, please call your Primary Care Provider or proceed to your local emergency department. William Calderón Special instructions documented in this encounter Medications at Time of Discharge Medication Sig Dispensed Refills Start Date End Date orphenadrine (NORFLEX) 100 mg Tablet Sustained Release TAKE 1 TABLET BY MOUTH TWICE DAILY NEEDED FOR MUSCLE SPASM 07/01/2020 prochlorperazine (Compazine) 10 mg Tablet TAKE 1 TABLET BY MOUTH EVERY 6 HOURS NEEDED FOR NAUSEA 07/17/2020 cetirizine (ZYRTEC) 10 mg Tablet Take 10 mg by mouth as needed for Allergies. SUMAtriptan (IMITREX) 100 mg TabletIndications:Chron ic migraine Take 1 tablet by mouth 2 times daily as needed for Migraine. 54 tablet 3 05/20/2015 diaZEPam (VALIUM) 5 mg TabletIndications:Migra ine without aura and without status migrainosus, not intractable Take 1-2 tablets by mouth daily as needed. 10 tablet 5 05/20/2015 hydrOXYzine (VISTARIL) 25 mg CapsuleIndications:Migr rick without aura and without status migrainosus, not intractable Take 1 capsule by mouth 2 times daily as needed. Caution:sedation 135 capsule 3 05/20/2015 Cholecalciferol, Vitamin D3, 5,000 unit Capsule Take 1 capsule by mouth daily. 10,000 units PROAIR HFA 90 mcg/actuation inhaler Inhale 1 puff into the lungs as needed. 07/07/2013 calcium carbonate 648 mg calcium tablet Take 650 mg by mouth daily. topiramate (Topamax) 100 mg Tablet Take 25 mg by mouth nightly. 09/19/2020 04/09/2024 multivitamin Capsule Take 1 capsule by mouth daily. 11/08/2023 cyclobenzaprine (FLEXERIL) 10 mg tablet Take 10 mg by mouth 3 times daily as needed. 01/12/2021 documented as of this encounter H&P Notes * Vik Garcia MD - 12/15/2020 5:20 AM EDT Patient Name: Elin Willard Patient Age: 60 y.o. Birthdate: 1960 Admit date: 12/15/2020 Attending Physician: Jamie Pepe MD PREPROCEDURE HISTORY AND PHYSICAL Date of Visit: December 15, 2020 Chief Complaint: Low back pain down R leg HPI: Elin Willard is a 60 y.o. female who presents today for L5-S1 Interlaminar SIVAN with a diagnosis of 1. Radiculopathy of lumbar region resulting in symptoms of low back pain and R leg pain. The history is obtained from the patient, and I have reviewed medical records provided by the referring physician and located in the electronic medical record to fill in gaps in the patient's recollection of events, treatments and outcomes. LOCATION: right lumbar area or radiating to right leg(s). PAIN LEVEL AT REST 4/10 PAST MEDICAL HISTORY: No past medical history on file. There are no medical history contraindications to this procedure. PAST SURGICAL HISTORY: Past Surgical History: Procedure Laterality Date ??? PRO ARTHROSCOPY HIP W/LABRAL REPAIR Left 01/14/2016 ARTHROSCOPY HIP W/LABRAL REPAIR performed by Jonathan Smith MD at [facility] There are no past surgical contraindications to this procedure PAST PAIN PROCEDURES: 08/28/2020: L5-S1 SIVAN ALLERGIES: Amitriptyline, Erythromycin, and Mold extracts There are no allergic contraindications to this procedure. MEDICATIONS: No current facility-administered medications for this encounter. There are no medication contraindications to this procedure. FAMILY HISTORY: Family History Problem Relation Age of Onset ??? Thrombophilia Neg Hx SOCIAL HISTORY: Social History Socioeconomic History ??? Marital status: Domestic Partner Spouse name: Not on file ??? Number of children: Not on file ??? Years of education: Not on file ??? Highest education level: Not on file Occupational History ??? Not on file Tobacco Use ??? Smoking status: Never Smoker ??? Smokeless tobacco: Never Used Vaping Use ??? Vaping Use: Never used Substance and Sexual Activity ??? Alcohol use: Yes Alcohol/week: 1.0 standard drink Types: 1 Glasses of wine per week ??? Drug use: No ??? Sexual activity: Not on file Comment: Deferred Other Topics Concern ??? Not on file Social History Narrative ??? Not on file Social Determinants of Health Financial Resource Strain: ??? Difficulty of Paying Living Expenses: Not on file Food Insecurity: ??? Worried About Running Out of Food in the Last Year: Not on file ??? Ran Out of Food in the Last Year: Not on file Transportation Needs: ??? Lack of Transportation (Medical): Not on file ??? Lack of Transportation (Non-Medical): Not on file Physical Activity: ??? Days of Exercise per Week: Not on file ??? Minutes of Exercise per Session: Not on file There are no social history contraindications to this procedure. ROS: Review of Systems Constitutional: Negative for fever, chills, or recent infection. Respiratory: Negative for shortness of breath. Cardiovascular: Negative for chest pain. Musculoskeletal: Positive for low back and R leg pain. Psychiatric/Behavioral: Negative for agitation and behavioral problems. PHYSICAL EXAM: BP 108/62 (Patient Position: Sitting) Pulse 72 Resp 14 Ht 154.9 cm (5' 1) Wt 50.8 kg (112 lb) SpO2 100% BMI 21.16 kg/m?? Physical Exam Constitutional: She appears well-developed and well-nourished. No distress. Cardiovascular: Normal heart rate. Pulmonary/Chest: Effort normal and breath sounds normal. Skin: She is not diaphoretic. This is no rash, apparent infection, or other abnormality to the areaof the proposed injection. There are no physical examination findings which would preclude this procedure. ASSESSMENT: 1. Radiculopathy of lumbar region PLAN: Proceed with procedure as planned. Thank you for the opportunity to participate in Elin Willard's care. Please feel free to contactme with any questions. Sincerely, Vik Garcia MD Pain Medicine Fellow documented in this encounter Miscellaneous Notes * Op Note - Jamie Pepe MD - 12/15/2020 11:16 AM EDT Pain Management Operative Note Patient Name: Elin Willard : [id number] MR#: [id number] Case Date: 12/15/2020 Surgeon: Surgeon(s) and Role: * Jamie Pepe MD - Primary * Vik Garcia MD - Fellow Present on Admission: ??? Radiculopathy of lumbar region Postoperative diagnosis: same LUMBAR INTERLAMINAR EPIDURAL STERIOID INJECTION PROCEDURE NOTE Ms. Elin Willard has been referred to the Pain Management Center for a lumbar epidural steroid injection by Suzie Hebert APRN [facility] [address]. The patient complains of low back pain with pain radiating down the bilateral leg. Ms. Willard was greeted by the nurse who verified patients name and . The patient was then taken tothe fluoroscopy suite. Ms. Willard was interviewed and the medical record reviewed. There were no medical, pharmacologic, radiographic, or other structural contraindications to attempting fluoroscopically guided lumbar epidural steroid injection. Risks and potential side effects, as well as potential benefits of the procedure were reviewed with Ms. Willard. Her voiced concerns were addressed. After I was assured that informed consent was obtained, the patient consent form was signed. Standard time-out procedure was performed. Ms. Willard was placed in the prone position on the fluoroscopy table and automated blood pressure cuff and pulse oximeter applied. The skin entry point for entering/approaching the right L5-S1 epiduralspace for the lumbar epidural steroid injection was marked. Following thorough chlorhexadine preparation of the skin and draping and 1% lidocaine infiltration of the skin entry point and subcutaneoustissues, an 18 gauge Touhy needle was placed and advanced under fluoroscopic guidance and with lossof resistance technique into the right L5-S1 epidural space. Needle tip placement and depth were aided and confirmed by fluoroscopy. There was no paresthesia or return of blood or CSF through the need le. 2 cc's of Omnipaque 240 was injected (48 cc's was wasted) with clear epidural spread confirmed with fluoroscopy. 80 mg of preservative-free Depomedrol (80 mg/cc) and 2 ml of 1% lidocaine preservative free was injected. This was followed by 1 cc of preservative-free normal saline to flush the darien roid out of the needle. There was not any unusual discomfort expressed by Ms. Willard. (48 cc of Omnipaque was wasted) Patient's neurological examination was unchanged postprocedure. Ms. Willard's vital signs were stable throughout the procedure and were as recorded in nursing records. Follow up plans and appointments were discussed with Ms. Willard. The patient is set to follow up withSuzie Hebert APRN as scheduled. Post procedure instruction was given as documented in nursing records and having met discharge criteria he was discharged from the Pain Management Center. Comments: If this procedure is successful in helping with pain and improving her function, it can be completed a maximum of 3 times every 12 months. I was the attending physician supervising the fellow in the above care and I was present with the fellow for the entire procedure. Jamie Pepe MD Pain Management Center Slasher Runner of Anesthesiology [facility] [employer] [address] [phone] / [facility] CC: Suzie Hebert APRN [facility] [place] [address] documented in this encounter Plan of Treatment Upcoming Encounters Date Type Department Care Team (Late st Contact Info) Description 07/10/2024 9:00 AM EDT TH Visit (TeleHealth) [place] [address] Andrei Kent MD [facility] [place] [address] Scheduled Orders Name Type Priority Associated Diagnoses Orde r Schedule INJECTION, EPIDURAL, LUMBAR OR SACRAL (CAUDAL), WITH IMAGING GUIDANCE Procedures Routine Radiculopathy of lumbar region One Time for 1 Occurrences starting 12/15/2020 until 12/15/2020 documented as of this encounter Visit Diagnoses Diagnosis Radiculopathy of lumbar region Thoracic or lumbosacral neuritis or radiculitis, unspecified Radiculopathy of lumbar region Thoracic or lumbosacral neuritis or radiculitis, unspecified documented in this encounter Administered Medications Inactive Administered Medications - up to 3 most recent administrations Medication Order MAR Action Action Date Dose Rate Site iohexoL (Omnipaque) (240 mg/mL) injection solution ONCE PRN, Starting on Mon12/15/20 at 1118, Until Mon12/15/20 at 1337, Intra-Operative (Intra-Procedure), Routine Given 12/15/2020 11:18 AM EDT 2 mLs lidocaine (pf) (Xylocaine) (10 mg/mL) 1% injection ONCE PRN, Starting on Mon12/15/20 at 1118, Until Mon12/15/20 at 1337, Intra-Operative (Intra-Procedure), Routine Given 12/15/2020 11:18 AM EDT 2 mLs methylPREDNISolone acetate (DEPO-Medrol) (80 mg/mL) injection ONCE PRN, Starting on Mon12/15/20 at 1119, Until Mon12/15/20 at 1337, Intra-Operative (Intra-Procedure), Routine Given 12/15/2020 11:19 AM EDT 80 mg documented in this encounter Active and Recently Administered Medications Times are shown in EDT. PRN Medication Order 12/13/2020 12/14/2020 12/15/2020 iohexoL (Omnipaque) (240 mg/mL) injection solution (CANCELED) ONCE PRN, Starting on Mon12/15/20 at 1118, Until Tu12/15/20 at 1337, Intra-Operative (Intra-Procedure), Routine 1118 (Given - Provid er: Vik Garcia MD) lidocaine (pf) (Xylocaine) (10 mg/mL) 1% injection (CANCELED) ONCE PRN, Starting on Mon12/15/20 at 1118, Until Mon12/15/20 at 1337, Intra-Operative (Intra-Procedure), Routine 1118 (Given - Provid er: Vik Garcia MD - Comment: LESI) methylPREDNISolone acetate (DEPO-Medrol) (80 mg/mL) injection (CANCELED) ONCE PRN, Starting on Mon12/15/20 at 1119, Until Mon12/15/20 at 1337, Intra-Operative (Intra-Procedure), Routine 1119 (Given - Provid er: Vik Garcia MD) documented in this encounter Care Teams Manager Shipping Relationship Specialty Start Date End Date Greta Kimball MD [address] [place] [address] PCP - General 06/25/13 documented as of this encounter
--- OUTSIDE RECORDS SUMMARY | 2024-05-28 16:05 | XMS_ITS | Encounter Summary ---
Author Organization [facility] Address [facility] [place] [address] Care Team Providers Care Clipper Automatic Name Role Phone Greta Kimball MD Primary Care Provider [phone] Encounter Details Date Type Department Care Team (Latest Contact Info) Description 06/12/2021 Travel Social History Tobacco Use Types Packs/Day [...] AM EDT TH Visit (TeleHealth) [place] [address] [facility] [place] [address] documented as of this encounter Visit Diagnoses Not on filedocumented in this encounter Care Teams Clipper Automatic Relationship Specialty Start Date End Date Greta Kimball MD [address] [place] [address] PCP - General 06/25/13 documented as of this encounter
--- OUTSIDE RECORDS SUMMARY | 2024-05-28 16:05 | XMS_ITS | Encounter Summary ---
Author Organization [facility] [place] [address] Care Team Providers Care Steam Conditioner Operator Name Role Phone Greta Kimball MD Primary Care Provider [phone] Encounter Details Date Type Department Care Team (Latest Contact Info) Description 10/12/2023 5:34 PM EDT - 10/12/2023 11:59 PM EDT Hospital [place] [phone] Discharge Disposition: Home Social History Tobacco Use Types Packs/Day Years Used Date Smoking Tobacco: Never Smokeless Tobacco: Never Alcohol Use Standard Drinks/Week Comments Yes 1 (1 standard drink = 0.6 oz pur e alcohol) Sex and Gender Information Value Date Recorded Sex Assigned at Female 07/26/2020 11:14 AM EDT Gender Identity Not on file Sexual Orientation Not on file documented as of this encounter Medications at Time of Discharge Medication Sig Dispensed Refills Start Date End Date UNABLE TO FIND Med Name: CBD: for night sleeping 1 droplet every day acetaminophen (Tylenol) 500 mg Tablet Take 500-1,000 mg by mouth as needed. orphenadrine (NORFLEX) 100 mg Tablet Sustained Release TAKE 1 TABLET BY MOUTH TWICE DAILY NEEDED FOR MUSCLE SPASM 07/01/2020 prochlorperazine (Compazine) 10 mg Tablet TAKE 1 TABLET BY MOUTH EVERY 6 HOURS NEEDED FOR NAUSEA 07/17/2020 cetirizine (ZYRTEC) 10 mg Tablet Take 10 mg by mouth as needed for Allergies. 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 54 tablet 3 05/20/2015 diaZEPam (VALIUM) 5 mg TabletIndications:Migr rick without aura and without status migrainosus, not intractable Take 1-2 tablets by mouth daily as needed. 10 tablet 5 05/20/2015 hydrOXYzine (VISTARIL) 25 mg CapsuleIndications:Casey irene without aura and without status migrainosus, not intractable Take 1 capsule by mouth 2 times daily as needed. Caution:sedation 135 capsule 3 05/20/2015 Cholecalciferol, Vitamin D3, 5,000 unit Capsule Take 1 capsule by mouth daily. 10,000 units PROAIR HFA 90 mcg/actuation inhaler Inhale 1 puff into the lungs as needed. 07/07/2013 calcium carbonate 648 mg calcium tablet Take 650 mg by mouth daily. lidocaine (Lidoderm) 5% Adhesive Patch, Medicated 1-2 patches as needed. 03/03/2021 11/08/2023 riboflavin, vitamin B2, (RIBOFLAVIN ORAL) Take by mouth daily. 11/08/2023 cyclobenzaprine HCl (FLEXERIL ORAL) Take by mouth as needed. 11/08/2023 topiramate (Topamax) 100 mg Tablet Take 25 mg by mouth nightly. 09/19/2020 04/09/2024 multivitamin Capsule Take 1 capsule by mouth daily. 11/08/2023 documented as of this encounter Plan of Treatment Upcoming Encounters Date Type Department Care Team (Late st Contact Info) Description 07/10/2024 9:00 AM EDT TH Visit (TeleHealth) [place] [address] Andrei Kent MD [facility] [place] [address] documented as of this encounter Procedures Procedure Name Priority Date/Time Associated Diagnosis Comments SURGICAL PATHOLOGY REPORT Routine 10/12/2023 11:45 AM EDT documented in this encounter Results * Surgical Pathology Report (10/12/2023 11:45 AM EDT) Final Diagnosis [id number] ? Location: [facility] The signing pathologist has (i) examined the relevant preparation(s) for the specimen(s) and (ii) rendered or confirmed the diagnosis(es). . ?Surgical Pathology DIAGNOSIS A - Random Colon Bxs: - ??Colonic mucosa within normal limits. B - Rectal Polyp: - ??Tubular adenoma. CR-PX Electronically signed by: ?Niko LEWIS PhD, Gisela Verified: ??10/18/2023 10:38 ??Pathologist Performed at: ??-[facility] [place] [place], [place] [address] Combatant Swimmer: Naga Price MD, FCAP, ??CLIA Certificate: [id number] SPECIMEN(S) SUBMITTED A - Random Colon Bxs B - Rectal Polyp Referring Identifier: ??[id number] Copy to: Anika Carpenter CLINICAL INFORMATION Screening, chronic diarrhea, normal-appearin g colon SPECIMEN PROCESSING A - Labeled/Fixativ e: Random colon BXS, formalin. Quantity/Size: Six, ranging from 0.1 to 0.2 cm. Tissue Description: Soft, che-pink tissues. Sections/Proces sing: Submitted in toto ??in 1 cassette labeled A1. B - Labeled/Fixativ e: Rectal polyp, formalin. Quantity/Size: Single, 0.2 cm. Tissue Description: Soft, che-pink tissue. Sections/Proces sing: Submitted in toto ??in 1 cassette labeled B1. ??CCP 10/18/2023 10:38 AM EDT [facility] GI Biopsy 10/12/2023 11:4 5 AM EDT 10/12/2023 11:45 AM EDT GI Biopsy 10/12/2023 11:4 5 AM EDT 10/12/2023 11:45 AM EDT Gabriel Malhotra DO PATHOLOGY/CYT OLOGY ORDERABLES [facility] [place] [address] documented in this encounter Visit Diagnoses Not on filedocumented in this encounter Care Teams Steam Conditioner Operator Relationship Specialty Start Date End Date Greta Kimball MD [address] [place] [address] PCP - General 06/25/13 documented as of this encounter
--- OUTSIDE RECORDS SUMMARY | 2024-05-28 16:05 | XMS_ITS | Encounter Summary ---
Author Organization [facility] Address [facility] [place] [address] Care Team Providers Care Floor Specialist Name Role Phone Greta Kimball MD Primary Care Provider Reason for Visit * Consultation (Routine) - Closed Specialty Diagnoses / Procedures Referred By Michelle calle Referred To Contact Endocrinology Diagnoses Age-related osteoporosis without current pathological fracture Greta Kimball MD [address] [place] [address] [facility] [address] [place] [address] Referral ID Status Reason Start Date Expiration Date V isits Requested Visits Authorized [id number] Closed Consult, Test & Treat Connection Center PCP Updated and/or Approved 09/03/2020 09/03/2021 12 12 Encounter Details Date Type Department Care Team (Late st Contact Info) Description 12/23/2020 8:30 AM EDT Office [place] [address] Renny Macias MD [facility] [place] [address] Osteoporosis with pathological fracture with routine healing, subsequent encounter Social History Tobacco Use Types Packs/Day Years [...] Sign Reading Time Taken Comments Blood Pressure 116/78 12/23/2020 8:37 AM EDT Pulse 75 12/23/2020 8:37 AM EDT Temperature 36.2 ??C (97.2 ??F) 12/23/2020 8:37 AM ED T Respiratory Rate - - Oxygen Saturation 99% 12/23/2020 8:37 AM EDT Inhaled Oxygen Concentration - - Weight 50.9 kg (112 lb 3.2 oz) 12/23/2020 8:37 A M EDT Height 153 cm (5' 0.24) 12/23/2020 8:37 AM EDT Body Mass Index 21.74 12/23/2020 8:37 AM EDT documented in this encounter Progress Notes * Renny Macias MD - 12/23/2020 8:30 AM EDT Date of Visit: 12/23/2020 Patient Name: Elin Willard : 1960 PCP: Greta Kimball MD Reason for Referral We are asked to consult on Mrs Elin Willard for spine T12 compression fx/osteoporosis by Dr. Greta Kimball MD. This is his/her 1st minimal trauma fracture. 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 She has been on ibandronate/alendronate some years ago, but read that it makes bones brittle and stopped. Her last BMD by DXA done on 08/2020 LS - 3.5 SD LFN -2.1 SD Distal 1/3 forearm -2.7 SD on T score Other risk factors for fracture/osteoporosis are: [] Yes [x] No Smoking, if yes, how long [x] Yes [] No Drinking alcohol. If yes, how much, 1-2 drinks a week [x] Yes [] No Exercise If yes how long and what kind of exercise, water exercise, PT, yoga, walking [] Yes [x] No Stomach or bowel surgery. If yes, When and what kind [x] Yes [] No Loose bowel movements. If yes, how frequently and how long as has IBS [x] Yes [] No Loss of height 1/4 [] Yes [x] No History of kidney stones? If yes, when and how many episodes? [] Yes [x] No Kidney or liver problems? If yes, what kind and how long? Average time spent outside in direct sun a day [] 0-5 min [] 5-10 min [] 11-15 min [] 16-20 min [] 21-25 min [] 26-30 min [x] >30 min For women: Start of menstrual cycle 13 End of menstrual cycle 39 was on ERT for some time Daily calcium intake: [] 0-100 mg [x] 101-200 mg MVI pill [] 201-300 mg [] 301-400 mg [] 401-500 mg [x] 501-600 mg takes one Ca pill daily [x] 601-700 mg from food, mainly cheese [] 701-900 mg [] 901-1100 mg [] 4005-1464 mg [] 8274-1887 mg [] Above 1500 mg Medications: Current Outpatient Medications on File Prior to Visit Medication Sig Dispense Refill ??? topiramate (Topamax) 100 mg Tablet nightly. ??? Cholecalciferol, Vitamin D3, 5,000 unit Capsule Take 1 capsule by mouth daily. 10,000 units ??? acetaminophen (Tylenol) 500 mg Tablet Take 1,000 mg by mouth 2 times daily. ??? multivitamin Capsule Take 1 capsule by mouth daily. ??? orphenadrine (NORFLEX) 100 mg Tablet Sustained Release TAKE 1 TABLET BY MOUTH TWICE DAILY NEEDED FOR MUSCLE SPASM ??? prochlorperazine (Compazine) 10 mg Tablet TAKE 1 TABLET BY MOUTH EVERY 6 HOURS NEEDED FOR NAUSEA ??? cetirizine (ZYRTEC) 10 mg Tablet Take 10 mg by mouth as needed for Allergies. ??? SUMAtriptan (IMITREX) 100 mg Tablet Take 1 tablet by mouth 2 times daily as needed for Migraine. (Patient not taking: Reported on 12/23/2020) 54 tablet 3 ??? diaZEPam (VALIUM) 5 mg Tablet Take 1-2 tablets by mouth daily as needed. (Patient not taking: Reported on 12/23/2020) 10 tablet 5 ??? hydrOXYzine (VISTARIL) 25 mg Capsule Take 1 capsule by mouth 2 times daily as needed. Caution:sedation (Patient not taking: Reported on 12/23/2020) 135 capsule 3 ??? PROAIR HFA 90 mcg/actuation inhaler Inhale 1 puff into the lungs as needed. ??? calcium carbonate 648 mg calcium tablet Take 650 mg by mouth daily. ??? cyclobenzaprine (FLEXERIL) 10 mg tablet Take 10 mg by mouth 3 times daily as needed. No current facility-administered medications on file prior to visit. [] Yes [x] No Glucocorticoid dose. When first prescribed? [] Yes [x] No Cyclosporine dose. When first prescribed? [] Yes [x] No Phenobarbital and phenytoin. When first prescribed? [] Yes [x] No Rosiglitazone, pioglitazone. When first prescribed? [] Yes [x] No PPI. When first prescribed? [] Yes [x] No SSRI. When first prescribed? [] Yes [x] No Thiaizdes, loop diuretics. When first prescribed? [x] Yes [] No Estrogens, testosterone. When first prescribed? [] Yes [x] No Calcitonin. When first prescribed? [] Yes [x] No Aromatase inhibitors (breast CA). When first prescribed? [] Yes [x] No Androgen deprivation therapy (prostate CA). When first prescribed? [x] Yes [] No Alendronate, risedronate, ibandronate. When first prescribed? PMH: Patient Active Problem List Diagnosis Code ??? Migraine G43.909 ??? Chronic migraine G43.709 ??? Multilevel degenerative disc disease M53.9 ??? IBS (irritable bowel syndrome) K58.9 ??? Left hip pain s/p labral debridement 01/14/16 ([facility]) M25.552 ??? Radiculopathy of lumbar region M54.16 ??? Neck pain M54.2 ??? Lumbar spondylosis M47.816 ??? Compression fracture of T12 vertebra S22.080A ??? Work related injury Y99.0 Allergy: Allergies Allergen Reactions ??? Amitriptyline 25 mg and up caused her fingers to tingle ??? Erythromycin ??? Mold Extracts Mildew, Dust Family history: Family History Problem Relation Age of Onset ??? Thrombophilia Neg Hx Hip fracture in parents: yes mom in her 80s Osteopenia/Osteoporosis: yes Hyperthyroidism/Hyperparathyrodism: no Social History: Social History Socioeconomic History ??? Marital status: [...] of Exercise per Session: Not on file Physical Examination: BP 116/78 Pulse 75 Temp 36.2 ??C (97.2 ??F) Ht 153 cm (5' 0.24) Wt 50.9 kg (112 lb 3.2 oz) SpO2 99% BMI 21.74 kg/m?? Spine: without kyphosis, without pain on palpation. Patient able to stand up without assistance Skin: no [place] rio face, acne, supraclavicular fat pads, purple striae on Appearance: well hydrated, well nourished, oriented x 3, in nad. Lungs: Lungs clear bilaterally, no crackles or wheeze. Extremities: no pitting edema Labs None Assessment and Plan 1. spine fracture/osteoporosis: Mrs Elin Willard has minimal trauma fracture due to severe osteoorosis. Her risk of future fractures are increased. Pt can not lift more than 10lbs with this BMD and compression fx. A. As patient's Ca intake is 650mg from food mg, and 200mg from MVU and one Ca pill, will get 24h urine ca to see if it is adequate. Get PTH, TSH also. B. Patient also doesn't have Vitamin D done; goal is 30 ng/ml and above. Will check 25, Vit D now, yet pt resport being on vit D 27964I daily for more than a year. C. Will order BMD by DXA 12/2021 D. As 25 Vit D, PTH, TSH and 24h urine ca is at good range, would treat with either teriparatide 20mcg SC daily, Tymlos or Evenity to stimulate osteoblasts and make new bone, before antiresorptive agent is used to solidify those improvements. E. I will schedule patient for outpatient visit at 6 month. Thank you for allowing me to participate in the care of this very pleasant patient. I spend 60min in chart review of xrays, DXA, discussing osteoporosis and writing my note. Sincerely, Renny Macias MD Professor documented in this encounter Miscellaneous Notes * Addendum Note - João Vo - 12/23/2020 8:30 AM EDTAddended by: JOÃO VO on: 12/23/2020 09:55 AM Modules accepted: Orders documented in this encounter Plan of Treatment Upcoming Encounters Date Type Department Care Team (Late st Contact Info) Description 07/10/2024 9:00 AM EDT TH Visit (TeleHealth) [place] [id number] Andrei Kent MD [facility] [place] [address] documented as of this encounter Procedures Procedure Name Priority Date/Time Associated Diagnosis Comments HC PARATHYROID HORMONE(PTH INTACT Routine 12/23/2020 10:08 AM EDT Osteoporosis with pathological fracture with routine healing, subsequent encounter HC HEMOGRAM Routine 12/23/2020 10:08 AM EDT Osteoporosis with pathological fracture with routine healing, subsequent encounter HC VITAMIN D TOTAL-25 HYDROXY Routine 12/23/2020 10:08 AM EDT Osteoporosis with pathological fracture with routine healing, subsequent encounter HC THYROID STIMULATING HORMONE, SERUM Routine 12/23/2020 10:08 AM EDT Osteoporosis with pathological fracture with routine healing, subsequent encounter HC FREE THYROXINE (T4) Routine 12/23/2020 10:08 AM EDT Osteoporosis with pathological fracture with routine healing, subsequent encounter BASIC METABOLIC PANEL Routine 12/23/2020 10:08 AM EDT Osteoporosis with pathological fracture with routine healing, subsequent encounter documented in this encounter Results * (ABNORMAL) Hemogram (12/23/2020 10:08 AM EDT) White Blood Cell 7.8 4.0 - 9.5 x10(3)/mc L [facility] Red Blood Cell 4.68 4.00 - 5.21 x10(6)/mc L [facility] Hemoglobin 15.0 11.7 - 15.5 gm/dL [facility] Hematocrit 45.1 35.7 - 45.8 % [facility] Mean Cell Volume 96.4(H) 82.6 - 94.4 fL [facility] Mean Cell Hemoglobin 32.1(H) 27.1 - 32.0 pg [facility] Mean Cell Hemoglobin Concentration 33.3 31.7 - 35.0 gm/dL [facility] Platelet 258 145 - 357 x10(3)/mc L [facility] RDW Standard Deviation 40.9 37.0 - 46.0 fL [facility] RDW coefficient of variation 11.6 11.5 - 14.1 % [facility] Mean Platelet Volume 11.2 7.6 - 12.9 fL [facility] NRBC% auto 0.0 % [facility] NRBC Absolute 0.000 0.000 - 0.000 x10(3)/mc L [facility] Blood 12/23/2020 10:0 8 AM EDT 12/23/2020 10:41 AM EDT Narrative Resulting Agency Comment Spec In Lab Renny Macias MD HEMATOLOGY ORDERABLE S [facility] [place] [address] * (ABNORMAL) Basic Metabolic Panel (non-fasting) (12/23/2020 10:08 AM EDT) Glucose 94 65 - 199 mg/dL [facility] Comment:Diabetes: >=200 mg/d L plus symptoms Blood Urea Nitrogen 22(H) 8 - 18 mg/dL [facility] Creatinine 0.80 0.70 - 1.20 mg/dL [facility] Sodium 141 135 - 145 mmol/L [facility] Potassium 4.0 3.5 - 5.0 mmol/L [facility] Comment: Please note: ??Patients with WBC >100,000 may have falsely elevated Potassium levels. ??For accurate Potassium quantification in these patients send serum separator tube (gold top) for subsequent determinations. ??Contact the Clinical Chemistry Laboratory if there are any questions. Chloride 104 98 - 107 mmol/L [facility] Carbon Dioxide 25 22 - 31 mmol/L [facility] Anion Gap 12 5 - 15 mmol/L [facility] Calcium 9.9 8.5 - 10.5 mg/dL [facility] Est Glomerular Filtration Rate 80 >=60 mL/min/1. 73 m?? [facility] Comment: This patient? s estimated glomerular filtration rate (eGFR) is between 80 mL/min/1.73 m2 (patients with less muscle mass) and 92 mL/min/1.73 m2 (patients with more muscle mass) as determined by the CKD-EPI equation. Assessment of eGFR is not appropriate when creatinine concentrations are rapidly changing. For clinical decisions where creatinine clearance will affect therapy, a 24-hour urine creatinine clearance may be advised. Assignment of CKD stage 1 - 5 for patients with an eGFR near the transition point between stages may be based on clinical assessment of muscle mass and symptoms in addition to eGFR. Blood 12/23/2020 10:0 8 AM EDT 12/23/2020 10:41 AM EDT Narrative Resulting Agency Comment Spec In Lab Renny Macias MD CHEMISTRY ORDERABLES Performing Organization Address City/[facility]/ZIP Co de Phone Number [facility] [place] [address] * PTH (12/23/2020 10:08 AM EDT) Parathyroid Hormone 45 15 - 65 pg/mL [facility] Blood 12/23/2020 10:0 8 AM EDT 12/23/2020 10:41 AM EDT Narrative Resulting Agency Comment Spec In Lab Renny Macias MD CHEMISTRY ORDERABLES Performing Organization Address City/[facility]/ZIP Co de Phone Number [facility] [place] [address] * Vitamin D, 25-Hydroxy (12/23/2020 10:08 AM EDT) Vitamin D Total 25 OH 74 21 - 100 ng/mL [facility] Vit D Interp Sufficient [facility] Blood 12/23/2020 10:0 8 AM EDT 12/23/2020 10:41 AM EDT Narrative Resulting Agency Comment Spec In Lab Renny Macias MD CHEMISTRY ORDERABLES Performing Organization Address City/[facility]/ZIP Co de Phone Number [facility] [place] [address] * T4, free (12/23/2020 10:08 AM EDT) Free T4 1.15 0.93 - 1.70 ng/dL [facility] Comment: Reference Interval (ng/dL): Females: ??First Trimester: 0.97-1.68 ??Second Trimester: 0.77-1.51 ??Third Trimester: 0.77-1.49 Blood 12/23/2020 10:0 8 AM EDT 12/23/2020 10:41 AM EDT Narrative Resulting Agency Comment Spec In Lab Renny Macias MD CHEMISTRY ORDERABLES Performing Organization Address City/[facility] Co de Phone Number [facility] [place] [address] * TSH (12/23/2020 10:08 AM EDT) Thyroid Stimulating Hormone 1.49 0.27 - 4.20 mcIU/mL [facility] Comment: Reference Interval (mcIU/mL): Females: ??First Trimester: 0.23-3.88 ??Second Trimester: 0.22-3.90 ??Third Trimester: 0.44-4.66 Blood 12/23/2020 10:0 8 AM EDT 12/23/2020 10:41 AM EDT Narrative Resulting Agency Comment Spec In Lab Renny Macias MD CHEMISTRY ORDERABLES Performing Organization Address City/[facility]/ZIP Co de Phone Number [facility] [place] [address] documented in this encounter Visit Diagnoses Diagnosis Osteoporosis with pathological fracture with routine healing, subsequent encounter documented in this encounter Care Teams Floor Specialist Relationship Specialty Start Date End Date Greta Kimball MD [address] [place] [address] PCP - General 06/25/13 documented as of this encounter
--- OUTSIDE RECORDS SUMMARY | 2024-05-28 16:05 | XMS_ITS | Encounter Summary ---
[place] [address] Care Team Providers Care Long Distance Billing Operator Name Role Phone Greta Kimball MD Primary Care Provider [phone] Encounter Details Date Type Department Care Team (Late st Contact Info) Description 12/02/2020 Notes Only [facility] [place] [address] Ariana Eisenberg Social History Tobacco Use Types Packs/Day Years Used Date Smoking Tobacco: Never Smokeless Tobacco: Never Alcohol Use Standard Drinks/Week Comments Yes 1 (1 standard drink = 0.6 oz pur e alcohol) Sex and Gender Information Value Date Recorded Sex Assigned at Female 07/26/2020 11:14 AM EDT Gender Identity Not on file Sexual Orientation Not on file documented as of this encounter Progress Notes * Ariana Eisenberg - 12/02/2020 5:46 PM EDT Faxed Office notes from 12/01/20 to Nurse First Leveler Aaliyah electronically documented in this encounter Plan of Treatment Upcoming Encounters Date Type Department Care Team (Late st Contact Info) Description 07/10/2024 9:00 AM EDT TH Visit (TeleHealth) [place] [address] Andrei Kent MD [facility] [place] [address] documented as of this encounter Visit Diagnoses Not on filedocumented in this encounter Care Teams Long Distance Billing Operator Relationship Specialty Start Date End Date Greta Kimball MD [address] [place] [address] PCP - General 06/25/13 documented as of this encounter
--- OUTSIDE RECORDS SUMMARY | 2024-05-28 16:05 | XMS_ITS | Encounter Summary ---
[place] [address] Care Team Providers Care Service Center Supervisor Name Role Phone Greta Kimball MD Primary Care Provider [phone] Encounter Details Date Type Department Care Team (Late st Contact Info) Description 05/25/2021 Telephone [facility] [place] [phone] Smiley Jenkins Social History Tobacco Use Types Packs/Day Years [...] encounter Miscellaneous Notes * Telephone Encounter - Smiley Jenkins - 05/25/2021 3:58 PM EST LVM for patient requesting a return call to discuss financial clearance for her upcoming MRI, scheduled 05/27/21. Per notification from [facility], they have been unsuccessful in reaching the W/C adjustortherefore have not been able to obtain a PA for the MRI. If the patient has a flaring machine operator involved I would encourage her to notify her flaring machine operator in order to attempt to intervene, otherwise the patient's P/F plan could be billed. The MRI will more than likely need to be postponed to a later date in order totake action regardless. documented in this encounter Plan of Treatment Upcoming Encounters Date Type Department Care Team (Late st Contact Info) Description 07/10/2024 9:00 AM EDT TH Visit (TeleHealth) [place] [address] Andrei Kent MD [facility] [place] [address] documented as of this encounter Visit Diagnoses Not on filedocumented in this encounter Care Teams Service Center Supervisor Relationship Specialty Start Date End Date Greta Kimball MD [address] [place] [address] PCP - General 06/25/13 documented as of this encounter
--- OUTSIDE RECORDS SUMMARY | 2024-05-28 16:05 | XMS_ITS | Encounter Summary ---
Author Organization [place] [id number] Care Team Providers Care Log Truck Driver Name Role Phone Greta Kimball MD Primary Care Provider [phone] Reason for Referral * Consultation (Urgent) - Closed Specialty Diagnoses / Procedures Referred By Michelle calle Referred To Contact Neurology Diagnoses Migraine without status migrainosus, not intractable, unspecified migraine type Greta Kimball MD [address] [place] [address] [facility] [address] [place] [phone] Referral ID Status Reason Start Date Expiration Date V isits Requested Visits Authorized [id number] Closed Consult, Test & Treat 07/27/2023 07/26/2024 1 1 Encounter Details Date Type Department Care Team (Latest Contact Info) Description 07/27/2023 Transcribe Orders eDH Incoming Referrals [phone] Greta Kimball MD [address] [place] [address] Migraine without status migrainosus, not intractable, unspecified migraine type Social History Tobacco Use Types Packs/Day Years [...] AM EDT TH Visit (TeleHealth) [place] [address] Andrei Kent MD [facility] [place] [address] Scheduled Referrals Name Type Priority Associated Diagnoses Orde r Schedule Referral to Neurology Outpatient Referral Urgent Migraine without status migrainosus, not intractable, unspecified migraine type Ordered: 07/27/2023 documented as of this encounter Visit Diagnoses Diagnosis Migraine without status migrainosus, not intractable, unspecified migraine type documented in this encounter Care Teams Log Truck Driver Relationship Specialty Start Date End Date Greta Kimball MD [address] [place] [address] PCP - General 06/25/13 documented as of this encounter
--- OUTSIDE RECORDS SUMMARY | 2024-05-28 16:05 | XMS_ITS | Encounter Summary ---
Author Organization [facility] [place] [address] Care Team Providers Care Veneer Drier Tailer Name Role Phone Greta Kimball MD Primary Care Provider [phone] Reason for Visit * Auth/Cert Specialty Diagnoses / Procedures Referred By Michelle calle Referred To Contact Diagnoses lumbar radiculopathy Procedures PRO INJECTION DX/THER SBST INTRLMNR LMBR/SAC W/IMG GDN INJECTION, EPIDURAL, LUMBAR OR SACRAL (CAUDAL), WITH IMAGING GUIDANCE (WRVU 1.8) Referral ID Status Reason Start Date Expiration Date Visits Re quested Visits Authorized [id number] 1 1 Encounter Details Date Type Department Care Team (Late st Contact Info) Description 12/15/2020 10:45 AM EDT Ancillary Procedure [place] [phone] Jamie Pepe MD [facility] [place] [address] Pain Social History Tobacco Use Types Packs/Day Years [...] AM EDT TH Visit (TeleHealth) [place] [address] Andrei Kent MD [facility] [place] [address] documented as of this encounter Procedures Procedure Name Priority Date/Time Associated Diagnosis Comments FILM LIBRARY STORAGE ONLY PAIN CLINIC C ARM Routine 12/15/2020 4:13 PM EDT Pain documented in this encounter Results * Film Library- Storage Only pain Clinic C-Arm (12/15/2020 4:13 PM EDT) Narrative [facility] - 12/15/2020 4:13 PM EDT See PACS for result report. Jamie Pepe MD IMG FILM LIBRARY ORD ERABLES Performing Organization Address City/State/[place] Co de Phone Number [place], [place] documented in this encounter Visit Diagnoses Diagnosis Pain Generalized pain documented in this encounter Care Teams Veneer Drier Tailer Relationship Specialty Start Date End Date Greta Kimball MD [address] [place] [address] PCP - General 06/25/13 documented as of this encounter
--- OUTSIDE RECORDS SUMMARY | 2024-05-28 16:05 | XMS_ITS | Encounter Summary ---
Author Organization [facility] Address [facility] [place] [address] Care Team Providers Care Tax Representative Name Role Phone Greta Kimball MD Primary Care Provider [phone] Reason for Visit * Auth/Cert Specialty Diagnoses / Procedures Referred By Michelle calle Referred To Contact Diagnoses lumbar radiculopathy Procedures PRO INJECTION DX/THER SBST INTRLMNR LMBR/SAC W/IMG GDN INJECTION, EPIDURAL, LUMBAR OR SACRAL (CAUDAL), WITH IMAGING GUIDANCE (WRVU 1.8) Referral ID Status Reason Start Date Expiration Date Visits Re quested Visits Authorized [id number] 1 1 Encounter Details Date Type Department Care Team (Latest Contact Info) Description 12/15/2020 10:05 AM EDT - 12/15/2020 11:37 AM EDT Hospital [place] [phone] Jamie Pepe MD [facility] [place] [address] Radiculopathy of lumbar region Discharge Disposition: Home Social History Tobacco Use [...] 10:45 AM EDT Oxygen Saturation 100% 12/15/2020 11:25 AM EDT Inhaled Oxygen Concentration - - Weight 50.8 kg (112 lb) 12/15/2020 10:45 AM EDT Height 154.9 cm (5' 1) 12/15/2020 10:45 AM EDT Body Mass Index 21.16 12/15/2020 10:45 AM EDT documented in this encounter Discharge Instructions * Discharge Instructions* William Calderón - 12/15/2020 11:29 AM EDT Pain Management [...] REPAIR performed by Jonathan Smith MD at [facility] There are no past surgical contraindications [...] Operative Note Patient Name: Elin Willard : [id number] MR#: [id number] Case Date: 12/15/2020 Surgeon: Surgeon(s) and Role: * Jamie Pepe MD - Primary * Vik Garcia MD - Fellow Present on Admission: ??? Radiculopathy of lumbar region Postoperative diagnosis: same LUMBAR INTERLAMINAR EPIDURAL STERIOID INJECTION PROCEDURE NOTE Ms. Elin Willard has been referred [facility] the [facility] for a lumbar epidural steroid injection by Suzie Hebert APRN [facility] [place] [address]. The patient complains of low back pain [...] procedure. Jamie Pepe MD [facility] Department Manager of Anesthesiology [facility] [employer] [address] [phone] / [facility] CC: Suzie Hebert APRN [facility] [place] [address] documented in this encounter Plan of Treatment Upcoming Encounters Date Type Department Care Team (Late st Contact Info) Description 07/10/2024 9:00 AM EDT TH Visit (TeleHealth) [place] [address] Andrei Kent MD [facility] [address] Scheduled Orders Name Type Priority Associated Diagnoses Orde r Schedule INJECTION, EPIDURAL, LUMBAR OR SACRAL (CAUDAL), WITH IMAGING GUIDANCE Procedures Routine Radiculopathy of lumbar region One Time for 1 Occurrences starting 12/15/2020 until 12/15/2020 documented as of this encounter Visit Diagnoses Diagnosis Radiculopathy of lumbar region Thoracic or lumbosacral neuritis or radiculitis, unspecified documented in this encounter Active and Recently Administered Medications Times are shown in EDT. PRN Medication Order 12/13/2020 12/14/2020 12/15/2020 iohexoL (Omnipaque) (240 mg/mL) injection solution (CANCELED) ONCE PRN, Starting on 12/15/20 at 1118, Until 12/15/20 at 1337, Intra-Operative (Intra-Procedure), Routine 1118 (Given - Provid er: Vik Garcia MD) lidocaine (pf) (Xylocaine) (10 mg/mL) 1% injection (CANCELED) ONCE PRN, Starting on 12/15/20 at 1118, Until 12/15/20 at 1337, Intra-Operative (Intra-Procedure), Routine 1118 (Given - Provid er: Vik Garcia MD - Comment: LESI) methylPREDNISolone acetate (DEPO-Medrol) (80 mg/mL) injection (CANCELED) ONCE PRN, Starting on e 12/15/20 at 1119, Until 12/15/20 at 1337, Intra-Operative (Intra-Procedure), Routine 1119 (Given - Provid er: Vik Garcia MD) documented in this encounter Care Teams Tax Representative Relationship Specialty Start Date End Date Greta Kimball MD [address] [place] [address] PCP - General 06/25/13 documented as of this encounter
--- OUTSIDE RECORDS SUMMARY | 2024-05-28 16:05 | XMS_ITS | Continuity of Care Document ---
Author Organization [facility] Address [address] [place] [address] Care Team Providers Care Physician Assistant Psychiatry Name Role Phone MOHAN OAKES Primary Care Provider [phone] TITO UGALDE Neurologist Assessment No assessment recorded. Plan of Treatment Reminders Order Date Submit Date Provider Last Modified By Organization Details Last Modified Time Details Appointments Medicare Annual Wellness 40 2024 09:40A M MOHAN OAKES Not available Not available Not available Medicare Annual Wellness 40 2025 09:00A M MOHAN OAKES Not available Not available Not available Lab urinalysi s, dipstick 2023 024 [email or web address] [facility], [address] [place] [address], [address], 03/27/2024 13:11:04 Referral None recorded. Procedures None recorded. Surgeries None recorded. Imaging None recorded. Medication Orders Ocuflox 0.3 % eye drops 2023 [facility], [address] [place], [address], 05/28/2024 09:46:27 Macrobid 100 mg capsule 2023 024 [facility], [address] [place], [address], 05/28/2024 09:45:26 Patient TargetsNo targets recorded. Patient InstructionsNo instructions recorded. Reason for Referral None Reported. Results Created Date Observation Date Name Description Value Unit Range Abnormal Flag Note LastModifiedBy Organization Detail LastModifiedTime 03/27/20 24 03/27/2024 urina lysis , dipst ick Leukocytes Negati ve Not Available [facility] [address] [place], [address], 03/27/2024 10:43:00 03/27/20 24 03/27/2024 urina lysis , dipst ick Nitrite negati ve Not Available [address], [address], 03/27/2024 10:43:00 03/27/20 24 03/27/2024 urina lysis , dipst ick Urobilinogen .2 Not Available [address], [address], 03/27/2024 10:43:00 03/27/20 24 03/27/2024 urina lysis , dipst ick Protein Negati ve Not Available [address], [address], 03/27/2024 10:43:00 03/27/20 24 03/27/2024 urina lysis , dipst ick pH 6.0 Not Available [address], [address], 03/27/2024 10:43:00 03/27/20 24 03/27/2024 urina lysis , dipst ick Blood Small Not Available [address], [address], 03/27/2024 10:43:00 03/27/20 24 03/27/2024 urina lysis , dipst ick Specific [place] 1.005 Not Available [address], [address], 03/27/2024 10:43:00 03/27/20 24 03/27/2024 urina lysis , dipst ick Ketone Negati ve Not Available [address], [address], 03/27/2024 10:43:00 03/27/20 24 03/27/2024 urina lysis , dipst ick Bilirubin Negati ve Not Available [address], [address], 03/27/2024 10:43:00 03/27/20 24 03/27/2024 urina lysis , dipst ick Glucose Negati ve Not Available [address], [address], 03/27/2024 10:43:00 03/27/20 24 03/27/2024 urina lysis , dipst ick Appearance Clear Not Available [address], [address], 03/27/2024 10:43:00 03/27/20 24 03/27/2024 urina lysis , dipst ick Color Pale Yellow Not Available [address], [address], 03/27/2024 10:43:00 Result Notes None recorded. Problems Name Problem SNOMED Code Status Onset Date Resolution Date Notes Provider Name and Address Organization Details Recorded Time Tubular adenoma of colon 598021256 Active 2024 MOHAN OAKES MD [address], [place], [address] , [place] - [facility] 09:52:58 Migraine 58303534 Active 200702/18/20 22 - Comments only - Mohan Oakes MD - Which have decrease d in intensit y and frequenc y. 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 She like to try decreasi ng the Topamax, see below. 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 Problem Code: K05.6; Problem Code Type: ICD-10; Not Available [facility] 3 04:07:12 Recurren t major depressi on 84484230 Active 2005 Problem Code: F33.9; Problem Code Type: ICD-10; Not Available [facility] 3 04:07:12 Senile osteopor osis 75176528 Active 200402/18/20 22 - Comments only - Mohan Oakes MD - With a history of vertebra [...] M81.0; Problem Code Type: ICD-10; Not Available [facility] 3 04:07:12 Term pregnanc y delivere d 70424744 Active 2005 Problem Code: O80; Problem Code Type: ICD-10; Not Available [facility] 3 04:07:12 Patient status finding 080455404 Active 2005 Problem Code: Z78.9; Problem Code Type: ICD-10; Not Available [facility] 3 04:07:13 Prematur e menopaus e 790333865 Active 200502/13/20 20 - Comments only - Mohan Oakes MD - with associat ed mood fluctuat ions/hot flashes ongoing. She did meet with Dr. Vega recently and he suggeste d she start Remifemi n (black cohosh) OTC and also he sent in an rx for venlefax ine that Capri has yet to picker tender. He didn't list the dose in his note. Problem Code: E28.319; Problem Code Type: ICD-10; Not Available [facility] 3 04:07:13 Postproc edural state finding 974447350 Active 2011 Problem Code: Z98.89; Problem Code Type: ICD-10; Not Available [facility] 3 04:07:13 Breast lump 34166297 Active 201102/17/20 21 - Comments only - Mohan Oakes MD - She does have a more prominen t area of some nodulari ty on the left that is being followed with mammogra phy. There have been no recent changes. Problem Code: N63.0; Problem Code Type: ICD-10; Not Available [facility] 3 04:07:13 Benign paroxysm al position al vertigo 506612537 Active 201202/08/20 19 - Comments only - Paulo Arenas - She continue s to have this occasion ally. She is getting relief with Jesusita s maneuver . 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 Refill given today. Problem Code: J45.990; Problem Code Type: ICD-10; Not Available [facility] 3 04:07:14 Neck pain 99549484 Active 201501/31/20 21 - Comments only - Mohan Oakes MD - This seems to be muscular . Will ask PT to work with her. Problem Code: M54.2; Problem Code Type: ICD-10; Not Available [facility] 3 04:07:14 Acute sinusiti s 18147025 Completed 201609/30/2016 09/17/19 17 - Comments only - Yessica Bales MD - given URI initiall y imrpoved and now worse with fevers and sinus pain, will treat with augmenti n 875 BID for 7 days. Continue with sinus rinse, lemon, etc. Problem Code: J01.90; Problem Code Type: ICD-10; Not Available [facility] 3 04:07:14 Palpitat ions 38952443 Active 201602/01/20 17 - Comments only - Mohan Oakes MD - she will let me know if these worsen and then will arrange a holter monitor Problem Code: R00.2; Problem Code Type: ICD-10; Not Available [facility] 3 04:07:14 Insomnia 806861973 Active 201702/17/20 21 - Comments only - Mohan Oakes MD - Partly stress related. She continue s to work on relaxati on techniqu es, will let me know if she needs a sleep clinic referral Problem Code: G47.00; Problem Code Type: ICD-10; Not Available [facility] 3 04:07:14 History of infectio us disease 157062780 Active 201802/17/20 21 - Comments only - Mohan Oakes MD - And ASCUS with last Pap. We will follow up with her regardin g Pap results Problem Code: Z86.19; Problem Code Type: ICD-10; Not Available [facility] 3 04:07:14 Cough 34790907 Completed 201906/05/2019 05/22/19 20 - Comments only - Andres Cifuentes [...] R05; Problem Code Type: ICD-10; Not Available [facility] 3 04:07:14 Pleuriti c pain 2534871 Completed 201906/17/2019 Problem Code: R07.81; Problem Code Type: ICD-10; Not Available [facility] 3 04:07:15 Low back pain 465311725 Active 202010/08/19 22 - Comments only - Melanie Diaz [facility]- - - She continue s to be [...] are unable to provide those through this [facility]. Problem Code: M54.5; Problem Code Type: ICD-10; Not Available [facility] 3 04:07:15 Pain of left shoulder joint 23094446456 781835 Active 202005/06/19 22 - Comments only - Melanie Reyes -Lalito [facility]- - - She has an appointm ent schedule d with Dr Rivas at [facility] on 05/11/20 for evaluati on of her ongoing L shoulder pain. Problem Code: M25.512; Problem Code Type: ICD-10; Not Available [facility] 3 04:07:15 Fracture of thoracic spine 232675688 Active 202002/18/20 22 - Comments only - Mohan Oakes MD - With associat ed radiculo murtaza. Clinic the symptoms have been slowly improvin g. She still gets some back pain, less of the leg pain. She is finding a keeping herself in good physical shape is helping. Problem Code: S22.009S ; Problem Code Type: ICD-10; Not Available [facility] 3 04:07:15 General symptom 099494451 Completed 202105/19/2021 Problem Code: R68.89; Problem Code Type: ICD-10; Not Available [facility] 3 04:07:15 Nerve root disorder 92209650 Active 2021 Problem Code: M54.10; Problem Code Type: ICD-10; Not Available [facility] 3 04:07:15 Adjustme nt disorder with mixed anxiety and depresse d mood 354819365 Active 202102/18/20 22 - Comments only - Mohan Oakes MD - Capri is doing better, has adjusted to the fact that she is okay to be on disabili ty and not working. She is finding other things she is enjoying doing and mood has improved . Problem Code: F43.23; Problem Code Type: ICD-10; Not Available [facility] 3 04:07:15 Atypical squamous cells of undeterm ined signific ance on cervical Papanico laou smear 655642544 Active 202102/18/20 22 - Comments only - Mohan Oakes MD - Pap and HPV done today. We will follow-u p with her regardin g results. Problem Code: R87.610; Problem Code Type: ICD-10; Not Available [facility] 3 04:07:16 Disorder of skin and/or subcutan eous tissue 51123907 Active 202102/18/20 22 - Comments only - Mohan Oakes MD - She does have an actinic keratosi s on her nose, few scattere d elsewher e. She is interest ed in trying the 5-FU cream. Explaine d how it works, that she will have transien t increase d redness before symptoms start to armen. 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[employer] - - Will check alpha 1 antitryp sin carrier status Problem Code: Z84.81; Problem Code Type: ICD-10; Not Available [facility] 3 04:07:16 Asteatos is cutis 40967096 Active 202208/05/19 23 - Comments only - Melanie Diaz 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[employer] - - Last TSH checked 12/23/2020 and wnl; will recheck today, given newer onset dry skin and hair loss Problem Code: L85.3; Problem Code Type: ICD-10; Not Available [facility] 3 04:07:16 Non-scar ring alopecia 330679507 Active 2022 Problem Code: L65.9; Problem Code Type: ICD-10; Not Available [facility] 3 04:07:16 Menopaus e present 489357008 Active 202208/05/19 23 - Comments only - 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 Advised her to contact her PCP if she wishes to trial an Rx med. Problem Code: N95.1; Problem Code Type: ICD-10; Not Available [facility] 3 04:07:17 Traumati c or non-trau matic injury 820209755 Completed 201602/02/2018 Problem Code: T14.8; Problem Code Type: ICD-10; Not Available [facility] 3 04:07:17 History of patholog ical fracture 35994589763 9104 Completed 202001/30/2021 Problem Code: Z87.311; Problem Code Type: ICD-10; Not Available [facility] 3 04:07:18 Lumbosac ral radiculo murtaza 9911401 Completed 201602/12/2020 Problem Code: M54.16; Problem Code Type: ICD-10; Not Available [facility] 3 04:07:18 Pelvic and perineal pain 244993658 Completed 201502/12/2020 Problem Code: R10.2; Problem Code Type: ICD-10; Not Available [facility] 3 04:07:18 Pneumoni a 971077402 Completed 202108/04/2022 Problem Code: J18.9; Problem Code Type: ICD-10; Not Available [facility] 3 04:07:18 Uncompli cated asthma 990251087 Completed 201501/22/2016 Problem Code: J45.909; Problem Code Type: ICD-10; Not Available [facility] 3 04:07:19 Osteopor osis 05722797 Completed 200401/18/2023 01/17/20 15 - Comments only - Mohan Oakes MD - DEXA last year with osteopor osis of the spine. She is exercisi ng regulari ly, getting vitamin D. Continue the same and repeat DEXA in a few years. Not Available [facility] 3 04:07:19 Chronic sinusiti s 81115247 Completed 201702/02/2018 Problem Code: J32.9; Problem Code Type: ICD-10; Not Available [facility] 3 04:07:19 Chest pain 32627585 Completed 201802/12/2020 Problem Code: R07.9; Problem Code Type: ICD-10; Not Available [facility] 3 04:07:20 Disorder of nasal sinus 2700655 Completed 202108/04/2022 Not Available [facility] 3 04:07:20 Traumati c or non-trau matic injury 830410284 Completed 201509/16/2016 Problem Code: T14.8; Problem Code Type: ICD-10; Not Available [facility] 3 04:07:20 Pain in right arm 159653501 Completed 201702/02/2018 Problem Code: M79.601; Problem Code Type: ICD-10; Not Available [facility] 3 04:07:21 Nasal congesti on 64162824 Completed 202108/04/2022 Problem Code: R09.81; Problem Code Type: ICD-10; Not Available [facility] 3 04:07:22 Pre-surg peggy evaluati on Completed 201501/22/2016 Problem Code: Z01.818; Problem Code Type: ICD-10; Not Available [facility] 3 04:07:22 Vertigo 388280790 Completed 201201/18/2023 Not Available [facility] 3 04:07:23 Pain in thoracic spine 280129004 Completed 202001/30/2021 Problem Code: M54.9; Problem Code Type: ICD-10; Not Available [facility] 3 04:07:23 Human papillom a virus screenin g Completed 201502/12/2020 Problem Code: Z11.51; Problem Code Type: ICD-10; Not Available [facility] 3 04:07:23 Pain in thoracic spine 238256657 Completed Problem Code: M54.9; Problem Code Type: ICD-10; Not Available [facility] 3 04:07:24 Diarrhea 96782442 Completed 201401/22/2016 Problem Code: R19.7; Problem Code Type: ICD-10; Not Available [facility] 3 04:07:24 Abdomina l pain 61864696 Completed 201401/22/2016 Problem Code: R10.9; Problem Code Type: ICD-10; Not Available [facility] 3 04:07:25 Fever 545891469 Completed 201609/16/2016 Problem Code: R50.9; Problem Code Type: ICD-10; Not Available [facility] 3 04:07:25 Acute pharyngi tis 030392931 Completed 201609/16/2016 Problem Code: J02.9; Problem Code Type: ICD-10; Not Available [facility] 3 04:07:25 Pain of right knee joint 50580807217 4100 Completed 201702/02/2018 Problem Code: M25.561; Problem Code Type: ICD-10; Not Available [facility] 3 04:07:25 care home current use of non-ster oidal anti-inf lammator y drug 46425668524 9103 Active 202202/18/20 23 - Comments only - Mohan Oakes MD - and tylenol use - will check a CMP Problem Code: Z79.1; Problem Code Type: ICD-10; Not Available [facility] 4 05:35:40 Pain in left arm 945847106 Active 2022 Problem Code: M79.602; Problem Code Type: ICD-10; Not Available [facility] 4 05:35:40 Notes:*Problem Name: Seasona l Affective [...] *Note Date: 01/02/2012 Problem Notes None recorded. Medical Equipment None Reported. Allergies Allergen ID Allergen Name Allergen Category Reaction Reaction Severity Criticality Documentation Date Start Date Code Code System Note Provider Name and Address Organization Details Recorded Time 22062 erythromy sandie medicatio n nausea mild Not available 03/03/20232004 4053 RxNorm Nause a/Vom iting /Diar sean Aller gyRea ction : 'Naus ea/Vo mitin g/Lynette rrhea '; Aller gyCod e: '3680 78210 64'; Aller gyNam e: 'ERYT HROMY SANDIE'; Aller gyCon ceptT ype: 'NDC' ; Not Available [facility] 3 16:29:13 Medications Name Sig Start Date Stop [...] may increase to TID 12/23 completed Works [facility] Not Available Not Available Not Available [...] 110 mm[Hg] 60 mm[Hg] Mindy Dozier RN [facility] 4 10:02:45 Social History Question Answer Notes LastModified by Organizat ion Details LastModified Time Tobacco Smoking Status Never Smoker KYARA Padilla, [facility] 05/28/2024 09:48:28 Date Of Most Recent HSA 05/28/2024 [email or web address] Information not available 05/28/2024 Would You Say That, In General, Your Health Is Good [email or web address] Information not available 05/28/2024 How Often Does Anyone, Including Family, Physically Hurt You? Never [email or web address] Information not available 05/28/2024 How Often Does Anyone, Including Family, Insult Or Talk Down To You? Never [email or web address] Information no t available 05/28/2024 How Often Does Anyone, Including Family, Threaten You With Harm? Never [email or web address] Information not available 05/28/2024 How Often Does Anyone, Including Family, Scream Or Curse At You? Never [email or web address] Information not available 05/28/2024 Within The Past 12 Months, You Worried That Your Food Would Run Out Before You Got Money To Buy More. Never True [email or web address] Information n ot available 05/28/2024 Within The Past 12 Months, The Food You Bought Just Didn't Last And You Didn't Have Money To Get More. Never True [email or web address] Information n ot available 05/28/2024 How Hard Is It For You To Pay For The Very Basics Like Food, Housing, Medical Care, And Heating? Would You Say It Is: Not Hard At All [email or web address] Information not available 05/28/2024 In The Past 12 Months, Has Lack Of Reliable Transportation Kept You From Medical Appointments, Meetings, Work Or From Getting Things Needed For Daily Living? No [email or web address] Information not available 05/28/2024 What Is Your Housing Situation Today? I Have Housing. [email or web address] Information not available 05/28/2024 How Often In The Past Year Have You Used Marijuana (including Smoking, Vaping, Dabbing, Or Edibles)? 2-3 Times Per Week Information not available 05/28/2024 How Often In The Past Year Have You Used Prescription Medications That Were Not Prescribed To You? Never [email or web address] Information n ot available 05/28/2024 How Often In The Past Year Have You Taken Your Own Prescription Medication More Than The Way It Was Prescribed Or For Different Reasons Than Its Intended Purpose? Never [email or web address] Information no t available 05/28/2024 How Often In The Past Year Have You Used Other Drugs (for Example, Heroin, Cocaine, Meth, Salvia, Inhalants)? Never [email or web address] Information not available 05/28/2024 Have You Ever Used IV Drugs? No [email or web address] Information not available 05/28/2024 During The Past Four Weeks Has Your Physical And Emotional Health Limited Your Social Activities With Family And Friends, Neighbors, Or Groups? Moderately [email or web address] Information not available 05/28/2024 During The Past Four Weeks, Was Someone Available To Help You If You Needed And Wanted Help? (For Example, If You [place] Very Nervous, Lonely, Or Blue; Got Sick And Had To Stay In Bed; Needed Someone To Talk To; Needed Help With Daily Chores; Or Needed Help Just Taking Care Of Yourself.) Yes- As Much As I Wanted [email or web address] Information not available 05/28/2024 During The Past Four Weeks, What Was The Hardest Physical Activity You Could Do For At Least 2 Minutes? Moderate [email or web address] Information not available 05/28/2024 Can You Get To Places Out Of Walking Distance Without Help? (For Example, Can You Travel Alone On Buses Or Taxis, Or Drive Your Own Car?) Yes [email or web address] Information not available 05/28/2024 Can You Go Shopping For Groceries Or Clothes Without Someone? s Help? Yes [email or web address] Information not available 05/28/2024 Can You Prepare Your Own Meals? Yes Information not available 05/28/2024 Can You Do Your Housework Without Help? No [email or web address] Information not available 05/28/2024 Because Of Any Health Problems, Do You Need The Help Of Another Person With Your Personal Care Needs Such As Eating, Bathing, Dressing, Or Getting Around The House? No [email or web address] Information not available 05/28/2024 Can You Handle Your Own Money Without Help? Yes [email or web address] Information not available 05/28/2024 Are You Having Difficulties Driving Your Car? No [email or web address] Information no t available 05/28/2024 Do You Always Fasten Your Seat Belt When You Are In A Car? Yes- Usually [email or web address] Information not available 05/28/2024 How Often During The Past Four Weeks Have You Been Bothered By Any Of The Following Problems? Falling Or Dizzy When Standing Up? Seldom Information not available 05/28/2024 Sexual Problems? Never [email or web address] Informat ion not available 05/28/2024 Trouble Eating Well? Never [email or web address] Information not available 05/28/2024 Teeth Or Denture Problems? Seldom [email or web address] Information not available 05/28/2024 Problems Using The Telephone? Never Information not available 05/28/2024 Tiredness Or Fatigue? Sometimes [email or web address] Information not available 05/28/2024 Have You Had 2 Or More Falls Or Sustained An Injury With A Fall In The Last Year? No [email or web address] Information no t available 05/28/2024 Do You Have Difficulty With Walking Or Balance? No [email or web address] Information not available 05/28/2024 Do You Currently Use A Hearing Device? No [email or web address] Information not available 05/28/2024 Do You Currently Have Any Trouble With Your Vision? No [email or web address] Information no t available 05/28/2024 Do You Exercise For About 20 Minutes Three Or More Days A Week? Yes- Most Of The Time [email or web address] Information not available 05/28/2024 Are There Any Safety Concerns In Your Home (see Attached [facility] Pamphlet)? No [email or web address] Information not available 05/28/2024 How Often Do You Have Trouble Taking Medicines The Way You Have Been Told To Take Them? I Always Take Them As Prescribed [email or web address] Information not available 05/28/2024 How Confident Are You That You Can Control And Manage Most Of Your Health Problems? Very Confident [email or web address] Information not available 05/28/2024 Do You Currently Have Any Difficulty With Your Hearing? No Information not available 05/28/2024 Date Of Most Recent SBINS 05/28/2024 [email or web address] Information not available 05/28/2024 What Was The Date Of Your Most Recent Tobacco Screening? 05/28/2024 [email or web address] Information not available 05/28/2024 Do You Or Have You Ever Used Any Other Forms Of Tobacco Or Nicotine? No Information not available 05/28/2024 Sex: Female Functional Status None recorded. Mental Status None recorded. 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 - thyroid [...] Recorded Time Tdap 7 completed Not Available [facility] 03/03/2023 05:12:00 Td(adult) unspecified formulation 1 completed Not Available [facility] 03/03/2023 05:12:00 Td(adult) unspecified formulation 4 completed [facility] 03/[facility]/2023 05:12:01 Influenza, split virus, trivalent, preservative 5 completed Not Available [facility] 03/03/2023 05:12:01 Influenza, split virus, quadrivalent, PF 9 completed Not [facility] 03/03/2023 05:12:02 Influenza, split virus, quadrivalent, PF 0 completed Not Available [facility] 03/03/2023 05:12:02 Influenza, split virus, quadrivalent, PF 1 completed Not Available [facility] 03/03/2023 05:12:02 Influenza, split virus, quadrivalent, PF 2 completed Not Available [facility] 03/03/2023 05:12:02 Influenza, split virus, quadrivalent, preservative 8 completed Not Available [facility] 03/03/2023 05:12:02 zoster recombinant 1 completed Not Available [facility] 03/03/2023 05:12:03 zoster recombinant 0 completed Not Available [facility] 03/03/2023 05:12:03 COVID-19, mRNA, LNP-S, PF, 100 mcg/0.5mL dose or 50 mcg/0.25mL dose 1 completed Not Available [facility] 03/03/2023 05:12:04 COVID-19, mRNA, LNP-S, PF, 100 mcg/0.5mL dose or 50 mcg/0.25mL dose 2 completed Not Available [facility] 03/03/2023 05:12:04 COVID-19, mRNA, LNP-S, PF, 100 mcg/0.5mL dose or 50 mcg/0.25mL dose 0 completed Not Available [facility] 03/03/2023 05:12:04 SARS-COV-2 (COVID-19) vaccine, UNSPECIFIED 1 completed Not Available [facility] 03/03/2023 05:12:05 COVID-19, mRNA, LNP-S, bivalent, PF, 30 mcg/0.3 mL dose 2 completed Not Available [facility] 03/03/2023 05:12:05 pneumococcal polysaccharide PPV23 8 completed Not Available [facility] 03/03/2023 05:12:06 influenza, unspecified formulation 1 completed Not Available [facility] 03/03/2023 05:12:06 influenza, unspecified formulation 2 completed Not Available [facility] 03/03/2023 05:12:06 influenza, unspecified formulation 6 completed Not Available [facility] 03/03/2023 05:12:07 COVID-19, mRNA, LNP-S, PF, miriam-sucrose, 30 mcg/0.3 mL 4 completed KYARA Byrd, [facility] 02/27/2024 15:07:58 Influenza, split virus, trivalent, PF 4 completed KYARA Byrd, [facility] 02/27/2024 15:07:58 Influenza, split virus, quadrivalent, PF 3 completed Not Available [facility] 05/05/2023 05:30:48 COVID-19, mRNA, LNP-S, PF, miriam-sucrose, 30 mcg/0.3 mL 3 completed [facility] 05/05/2023 05:30:51 Past Encounters Encounter ID Performer Location Encounter Start Date Encounter Closed Date Diagnosis/Indication Diagnosis SNOMED-CT Code Diagnosis ICD10 Code Diagnosis Note [id number] Traci Sun KYARA [facility] [address] [place] [address] 02/27/2024 14:50:38 02/27/2024 15:03:53 Active or passive immunization [id number] Z23 [id number] Lauri Rodriguez DO [facility] [address] [place] [address] 03/27/2024 09:46:28 03/27/2024 10:51:58 Acute conjunctivitis 31717178 H10.30 R eye conjunctiv itis w discolored dischargen o periorbita l or mastoid tenderness to palpation, full EOMI, no internal stye/horde olumtx ocuflox TID x 7 daysfreque nt hand washing, avoid touching eyes, change pillow casestx L eye w ocuflox at first sign of conjunctiv itis symptoms should they occur Increased frequency of urination [id number] R35.0 w mild discomfort on urinationu rine dip w 1+ bld, neg nitr, neg leuks - suspect possible skin tear w discomfort pt. traveling out of state for a week in near future - will rx macrobid 100mg Q12hr x 5-7 days should UTI symptoms occur during travel Health Concerns Section Related Observation LastModified by Organization Detai ls LastModified Time None Recorded Concern Status LastModified by Organization Details LastModified Time None Recorded Payers Encounter Date Sequence Insurance Name Policy Number Policy Barreto Covered Member ID Barreto Member ID Guarantor Name 03/27/2024 1 [facility] (MEDICAID) Elin Willard [id number] Elin Willard Notes Date Note Type Note Provider Name and Address Organization Details Recorded Time 03/27/2024 text/html pt presents c/o redness, swelling, and discharge [...] trip. Lauri Rodriguez, DO [address], [place], [address], [facility]. 03/27/2024 11:25:25 OBGyn Episode No OBEpisode recorded.
--- OUTSIDE RECORDS SUMMARY | 2024-05-28 16:05 | XMS_ITS | Encounter Summary ---
[place] [address] Care Team Providers Care Technical Sales Advisor Name Role Phone Greta Kimball MD Primary Care Provider [phone] Encounter Details Date Type Department Care Team (Late st Contact Info) Description 06/17/2021 Telephone [facility] [place] [id number] Lore Maldonado RN Social History Tobacco Use [...] Telephone Encounter - Lore Maldonado RN - 06/17/2021 2:13 PM EST Incoming call from Rambo at [facility], Patient's pharmacy Benefit Carrier for workers comp. Rambo had called several weeks ago asking to have patients pregabalin prescription changed (see telephone encounter note from 06/04/21) I let Rambo know that I had spoken to Ms. Anup TAMEZ and reached out to patient to confirm how patient is taking her pregabalin. We have not heard back from patient at this time. I let Rambo know I would reach back out to Capriregarding how she is taking the pregabalin. I contact Capri to discuss her pregabalin dosing. Capri became very upset that someone from her workers [employer] had reached out to us regarding her treatment. They are not supposed to do that. They have no say in what I take or how I take it. They are not entitled to any information other thanmy medical notes. It is a breach. That is why I had to get legal representation. I apologized to Capri for the miscommunication, let her know I would not pass any information on tothe pharmacy carrier and would make a note in her chart regarding. Capri verbalized understanding and thanks Rosanne RN documented in this encounter Plan of Treatment Upcoming Encounters Date Type Department Care Team (Late st Contact Info) Description 07/10/2024 9:00 AM EDT TH Visit (TeleHealth) [place] [address] Andrei Kent MD [facility] [place] [address] documented as of this encounter Visit Diagnoses Not on filedocumented in this encounter Care Teams Technical Sales Advisor Relationship Specialty Start Date End Date Greta Kimball MD [address] [place] [address] PCP - General 06/25/13 documented as of this encounter
--- OUTSIDE RECORDS SUMMARY | 2024-05-28 16:05 | XMS_ITS | Encounter Summary ---
Author Organization [facility] Address [facility] [place] [address] Care Team Providers Care Stoker Mechanic Name Role Phone Greta Kimball MD Primary Care Provider Reason for Visit * Reason Onset Date Comments Appointment 04/10/2024 Encounter Details Date Type Department Care Team (Late st Contact Info) Description 04/10/2024 [place] [address] Andrei Kent MD [facility] [place] [address] Appointment Social History Tobacco Use Types Packs/Day Years [...] encounter Miscellaneous Notes * Telephone Encounter - Anika Spence - 04/10/2024 10:04 AM EST Please follow scheduling instructions below Schedule telehealth visit Return in about 3 months (around 07/08/2024) for Telehealth. . Appt Notes: Chronic migraine without aura without status migrainosus, not intractable Visit Type: [facility] ([facility] Video Visit Follow Up) Provider: Dr Kent Additional Info Needed: documented in this encounter Plan of Treatment Upcoming Encounters Date Type Department Care Team (Late st Contact Info) Description 07/10/2024 9:00 AM EDT TH Visit (TeleHealth) [place] [address] Andrei Kent MD [facility] [place] [address] documented as of this encounter Visit Diagnoses Not on filedocumented in this encounter Care Teams Stoker Mechanic Relationship Specialty Start Date End Date Greta Kimball MD [address] [place] [address] PCP - General 06/25/13 documented as of this encounter
--- OUTSIDE RECORDS SUMMARY | 2024-05-28 16:05 | XMS_ITS | Encounter Summary ---
[place] [address] Care Team Providers Care Exchange Administrator Name Role Phone Greta Kimball MD Primary Care Provider [phone] Encounter Details Date Type Department Care Team (Late st Contact Info) Description 06/25/2021 Telephone [facility] [place] [phone] Christian Escudero MSW Social History Tobacco Use Types Packs/Day Years [...] encounter Miscellaneous Notes * Telephone Encounter - Christian Escudero MSW - 06/25/2021 12:32 PM ESTSummary: Attempted Phone Call OFFICE of CARE MANAGMENT CCM Hair Worker attempted to contact Ms. Willard by phone at . However, she was unavailable. Hair Worker left a voicemail message asking for a return call. There are no other concerns to address at this time. Christian Escudero LCSW documented in this encounter Plan of Treatment Upcoming Encounters Date Type Department Care Team (Late st Contact Info) Description 07/10/2024 9:00 AM EDT TH Visit (TeleHealth) [place] [address] Andrei Kent MD [facility] [place] [address] documented as of this encounter Visit Diagnoses Not on filedocumented in this encounter Care Teams Exchange Administrator Relationship Specialty Start Date End Date Greta Kimball MD [address] [place] [address] PCP - General 06/25/13 documented as of this encounter
--- OUTSIDE RECORDS SUMMARY | 2024-05-28 16:05 | XMS_ITS | Encounter Summary ---
Author Organization [facility] Address [facility] [place] [address] Care Team Providers Care Research Development Manager Name Role Phone Greta Kimball MD Primary Care Provider [phone] Reason for Visit * Reason Comments Follow-up F/U to MRI Encounter Details Date Type Department Care Team (Latest Contact Info) Description 06/14/2021 8:40 AM EST TH Visit (TeleHealth) [facility] [place] [address] Suzie Hebert, JOI [facility] [place] [address] Compression fracture of T12 vertebra, sequela; Lumbar spondylosis; Radiculopathy of lumbar region; Work related injury Social History Tobacco Use Types Packs/Day Years [...] Sign Reading Time Taken Comments Blood Pressure - - Pulse - - Temperature - - Respiratory Rate - - Oxygen Saturation - - Inhaled Oxygen Concentration - - Weight 49.9 kg (110 lb) 06/11/2021 2:04 PM EST Height 156.2 cm (5' 1.5) 06/11/2021 2:04 PM EST Body Mass Index 20.45 06/11/2021 2:04 PM EST documented in this encounter Progress Notes * Suzie Hebert, LEAD ADVISOR - 06/14/2021 8:[address] [facility] [place] [address] Phone: PAIN MANAGEMENT TELEHEALTH FOLLOW UP VISIT NOTE DATE OF VISIT 06/14/2021 Patient Elin Willard 1960 REFERRING PROVIDER Melanie Guajardo [address] [place] [id number] PRIMARY CARE PROVIDER Greta Kimball MD [X] Consent: I introduced and identified myself, received verbal consent from the patient to proceed with this telephone visit and made the patient aware that the same confidentiality and informationsecurity practices apply. [X] I verified the patient's name and, date of , and as well as payer information ID if available. [X] I also verified the following: Patient Location: ( ) Work ( XX) Home ( ) Other: Provider Location: ( XX) Clinic ( ) Home ( ) Other: The patient understands not all conditions can be adequately evaluated and treated through a virtual visit and may require an in-person medical evaluation. The patient understands that there may be co-pay /cost for the visit. DOI: 1) 04/07/2020 2) 05/14/20 Reason for Visit: Elin Willard is a 61 y.o. female with lower back and right leg pain which is extending posteriorand laterally to the foot. She completed the MRI on 06/12. She is scheduled to see Dr. Satish Stern for surgical consult at the [facility] on 06/16. She will see Dr. Rivas on 07/13. Took medrol dose pack and it helped a great deal with her leg and foot symptoms. It has returned a bit but not nearly as severe as it had been. She completed the steroid pack on 05/29. She was able to go to [place] on vacation so was able to take it easy. She is more comfortable. She feels that this levelis more manageable. 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 Pain medications: Worker's Comp finally approved her [place] Patient continues to perform clinician directed home exercises. She has a follow up visit scheduledfor the Patient denies any new neurological symptoms. Denies ataxia, cornelius weakness, bladder/bowel complaints. Denies recent hospitalizations since last visit. Denies fever, chills. Past medical, social and family history is unchanged from prior visit on 05/03/21. Physical Exam: On limited telephonic examination appropriate speech and communication. Constitutional - Ax3 Psychiatric - normal affect , responds normally Respiratory - normal respiratory effort Musculoskeletal - Per report normal gait Neurologic - Alert and oriented x 3 with intact recent memory, attention, concentration, language function, and affect. Speech is fluent and prosodic with no dysarthria appreciated. Per report, able to weight bear, lift legs, bend at hips while standing, toe and heel walk without issues. Imaging Studies: EXAMINATION: MRI LUMBAR SPINE WO CONTRAST (GENERIC) ?? CLINICAL HISTORY: Lumbar radiculopathy, symptoms persist with conservative treatment right lower extremity pain with numbness into foot. ? TECHNIQUE: MRI of the lumbar spine performed without intravenous contrast administration. ?? COMPARISON: MRI lumbar spine 08/06/2020 and lumbar spine radiograph 06/16/2020 ?? FINDINGS: Mild leftward convex curvature of the lumbar spine. Unchanged chronic superior endplate deformity of T12. Facet marrow edema at L4-5 on the right related to facet arthropathy. Marrow signal is otherwise unremarkable. The conus is normal in signal and terminates at L1. Abdominal aorta is normal caliber. ?? T12-L1: Normal. ?? L1-2: Mild disc bulge without significant stenosis. ?? L2-3: Disc bulge mildly narrowing the foramina. ?? L3-4: Mild disc bulge without significant stenosis. ?? L4-5: Disc bulge minimally narrowing the foramina. ?? L5-S1: Central disc protrusion and annular fissure. No significant stenosis.. ?? IMPRESSION Mild degenerative changes. Assessment Elin Willard is a 61 y.o. 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 MRI was completed on 06/12. She is scheduled for a neurosurgical consultation with Dr. Stern on 06/16. At this time there are no red flag symptoms on history. Patient instructed to go to emergency department if new or worsening neurological symptoms develop. Plan: Reveiwed imaging results with patient using both images and discussed likely pain generators. Continue with PT and HEP She will see Dr. Stern for evaluation as scheduled. Continue work with vocational rehab. Consider MBBs if back pain increases. Patient verbalized agreement of the plan. All of patient's questions were answered to their satisfaction. Time spent on this visit reflects time evaluating the patient pre-visit, during the visit and post-visit. Total time spent (# of) 40 minutes by video. Phone Visits: PCV12 (5-10 Minutes) PCV13 (11-20 Minutes) PCV14 (21 or > Minutes) Suzie Hebert APRN Nurse Practitioner [facility] [address] [address] / documented in this encounter Plan of Treatment Upcoming Encounters Date Type Department Care Team (Late st Contact Info) Description 07/10/2024 9:00 AM EDT TH Visit (TeleHealth) [place] [address] Andrei Kent MD [facility] [place] [address] documented as of this encounter Visit Diagnoses Diagnosis Compression fracture of T12 vertebra, sequela Lumbar spondylosis Lumbosacral spondylosis without myelopathy Radiculopathy of lumbar region Thoracic or lumbosacral neuritis or radiculitis, unspecified Work related injury Injury, other and unspecified, unspecified site documented in this encounter Care Teams Research Development Manager Relationship Specialty Start Date End Date Grtea Kimball MD [address] [place] [id number] PCP - General 06/25/13 documented as of this encounter
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
--- OUTSIDE RECORDS SUMMARY | 2024-05-28 16:05 | XMS_ITS | Encounter Summary ---
[place] [address] Care Team Providers Care Spa Attendant Name Role Phone Greta Kimball MD Primary Care Provider [phone] Encounter Details Date Type Department Care Team (Late st Contact Info) Description 12/14/2020 Telephone [facility] [place] [id number] Chastity Toledo, RN Social History Tobacco Use Types Packs/Day [...] encounter Miscellaneous Notes * Telephone Encounter - Chastity Toledo RN - 12/14/2020 9:40 AM EDT Contact made with patient or bilingual inside sales representative as identified in contacts 1. Patient instructed to arrive at 1000 on 12/15/20 with their uke driver for their LESI procedure. 2. Has pt started any new medications or supplements in the past two weeks? No 3. Have any of the following occurred within the two weeks before the procedure date? a. Patient is having a Covid vaccine or other vaccine No b. Patient has been exposed to anybody with a contagious illness such as Covid, flu, chicken pox No c. Patient has any symptoms of illness such as: cough, sore throat, fever, N/V/D No d. Patient is taking antibiotics to treat an infection No e. Patient has any skin rashes, breakdown, blisters or open wounds No f. Patient has had any hospitalizations, ED visits, surgery, other procedure, dental procedure No g. Patient has taken oral steroids or had a steroid injection No 4. Has the patient's pain resolved or significantly improved such as a rating of 3/10 or less? No 5. Was patient instructed to stop any medications? No if yes: a. Name of medication(s): b. Confirm date of last dose: 6. Is patient having a nerve block: No a. If yes instructed to not take any pain medication for 12 hours before your procedure. 7. Patient instructed to take any prescribed medications that they were not told to stop, especially blood pressure medication, because their procedure may be cancelled if their blood pressure is toohigh. 8. Was patient instructed to follow NPO guidelines: No if yes, the following instructions were reviewed: a. You may eat up to 6 hours before your procedure b. You may have clear liquids only up to 2 hours before your procedure: water, apple juice, richardson lilibeth, sprite, popsicles, broth, tea or coffee plain or with sweetener, absolutely no dairy products, no milk including soy, oat, almond. 9. Does patient have a pacemaker? No a. If yes, document that cardiology was called and notified. 10. Additional notes if applicable: Patient expressed understanding and agreement with instructions No Patient denies further questions Yes documented in this encounter Plan of Treatment Upcoming Encounters Date Type Department Care Team (Late st Contact Info) Description 07/10/2024 9:00 AM EDT TH Visit (TeleHealth) [place] [address] Andrei Kent MD [facility] [place] [address] documented as of this encounter Visit Diagnoses Not on filedocumented in this encounter Care Teams Spa Attendant Relationship Specialty Start Date End Date Greta Kimball MD [address] [place] [address] PCP - General 06/25/13 documented as of this encounter
--- OUTSIDE RECORDS SUMMARY | 2024-05-28 16:05 | XMS_ITS | Encounter Summary ---
Author Organization [facility] [place] [address] Care Team Providers Care Electric Repair Supervisor Name Role Phone Greta Kimball MD Primary Care Provider [phone] Reason for Referral * Diagnostic Test (Routine) - Closed Specialty Diagnoses / Procedures Referred By Michelle calle Referred To Contact Radiology Diagnoses Radiculopathy of lumbar region Procedures MRI Lumbar Spine wo Contrast (Generic) Suzie Hebert APRN [facility] [place] [address] [place] [address] Referral ID Status Reason Start Date Expiration Date V isits Requested Visits Authorized [id number] Closed Specialty Service Requested 05/27/2021 06/26/2021 1 1 Reason for Visit * Reason Comments Follow-up Back Pain Encounter Details Date Type Department Care Team (Late st Contact Info) Description 05/03/2021 9:20 AM EST Office Visit [facility] [place] [address] Suzie Hebert APRN [facility] [place] [place] [address] Lumbar spondylosis; Neck pain; Compression fracture of T12 vertebra, sequela; Radiculopathy of lumbar region Social History Tobacco Use Types Packs/Day Years [...] Sign Reading Time Taken Comments Blood Pressure 91/57 05/03/2021 9:33 AM EST Pulse 77 05/03/2021 9:33 AM EST Temperature - - Respiratory Rate - - Oxygen Saturation 98% 05/03/2021 9:33 AM EST Inhaled Oxygen Concentration - - Weight 50.8 kg (112 lb) 05/03/2021 9:33 AM EST Height 156.2 cm (5' 1.5) 05/03/2021 9:33 AM EST Body Mass Index 20.82 05/03/2021 9:33 AM EST documented in this encounter Progress Notes * Suzie Hebert, JOI - 05/03/2021 9:20 AM EST [facility] [place] [address] Phone: PAIN MANAGEMENT INTERVAL FOLLOW UP NOTE DATE OF VISIT 05/03/2021 Patient Elin Willard 1960 REFERRING PROVIDER Melanie Guajardo [address] [place] [address] PRIMARY CARE PROVIDER Greta Kimball MD Dates of Injury: 1) Approx. April 07 2020 2) 05/14/20 REASON FOR VISIT: Elin Willard is a 61 y.o. female with lower back and right leg pain which is extending posteriorand laterally to the foot. The leg pain has worsened. She is here for interval follow up on her work related injuries. She has reached a plateau with regard to PT so is going only once per week but does exercises at the gym. She is frustrated that it has been one year and her pain is still significant and is limiting her function. She had previously been very active with skiing, biking, and hiking. She finds that doing recreational activities increases her pain markedly. She is eager to return to work but still has trouble with stooping, bending, etc. Has a 10 pound lifting restriction due to osteoporsis. She is considering medication management for the osteoporosis. Had RENAY on Apr [address] Benitez. 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 Patient's leg pain has been more severe since PT session 3 months ago. Now constant right leg pain with numbness in great toe and dorsum of foot. Pain level 5/10 She still has pain in mid back. She manages it with exercise/stretching. Medication: Tylenol-still taking often when active. Using lidocaine patches as well. HISTORY OF INJURY: Patient was injured on two separate dates. 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 She was assisting a patient with ambulation [...] constipation, or change in urination. MEDICATIONS Medications 05/03/21 5104 Medication Sig Taking? lidocaine (Lidoderm) 5% Adhesive Patch, Medicated 1-2 patches as needed. Yes UNABLE TO FIND Med Name: CBD: for night sleeping 1 droplet every day Yes riboflavin, vitamin B2, (RIBOFLAVIN ORAL) Take by mouth daily. Yes cyclobenzaprine HCl (FLEXERIL ORAL) Take by mouth as needed. Yes acetaminophen (Tylenol) 500 mg Tablet Take 500-1,000 mg by mouth as needed. Yes topiramate (Topamax) 100 mg Tablet nightly. Yes multivitamin Capsule Take 1 capsule by mouth daily. Yes orphenadrine (NORFLEX) 100 mg Tablet Sustained Release TAKE 1 TABLET BY MOUTH TWICE DAILY NEEDEDFOR MUSCLE SPASM Yes prochlorperazine (Compazine) 10 mg Tablet TAKE [...] Take 650 mg by mouth daily. Yes ADVERSE DRUG REACTIONS Allergies as of 05/03/2021 - Review Complete 05/03/2021 Allergen Reaction Noted ??? Amitriptyline 11/23/2015 ??? Erythromycin 04/14/2011 ??? Mold extracts 04/14/2011 SURGICAL HISTORY Past Surgical History: Procedure Laterality Date ??? PRO ARTHROSCOPY HIP W/LABRAL REPAIR Left 01/14/2016 ARTHROSCOPY HIP W/LABRAL REPAIR performed by Jonathan Smith MD at [facility] OSC FAMILY HISTORY None pertinent IMAGING [...] the past 24 hrs: Pulse BP SpO2 05/03/21 0933 77 91/57 98 % Body mass index is 20.82 kg/m??. BP 91/57 Pulse 77 Ht 156.2 cm (5' 1.5) Wt 50.8 kg (112 lb) Appearance/ Behavior Well groomed, good eye [...] ROM: ROM lumbar spine is fairly well preserved with pain. Left patellar DTR +1 right +2. Ankles are _+1 bilaterally No clonus Positive left SLR ASSESSMENT Elin Willard is a 61 y.o. 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 She underwent two LESIs with some temporary improvement in her leg pain but recently she has noted an increase in the pain with numbness in great toe and dorsum of foot with limitation in function. The last was in November. She is very frustrated by the continued functional limitations which have prevented her from returning to work. Physical therapist has noted that she is not able to regain much strength in the left leg. There issome reduction in patellar reflex. Will obtain current imaging to evaluate for disc herniation/ nerve root impingement. She has resumed working with voc rehab with the goal of doing computer training. PLAN/RECOMMENDATIONS Continue with physical therapy/ HEP. MRI lumbar spine w/o contrast. patient's pain has been much more severe since PT session 3 months ago. Now constant right leg pain with numbness in great toe and dorsum of foot. Continue to Pace activities. Consider another LESI Once MRI completed Completed the worker's compensation form as required. Activity restrictions are left up to the PCP. Lyrica 50mg Q hs start with one at hs may increase to TID follow up after imaging completed. Elin Willard had the opportunity to ask questions and indicated that all questions were answeredto her satisfaction. Suzie Hebert APRN Nurse Practitioner [facility] Notes to be sent to [facility] [place] documented in this encounter Plan of Treatment Upcoming Encounters Date Type Department Care Team (Late st Contact Info) Description 07/10/2024 9:00 AM EDT TH Visit (TeleHealth) [place] [address] Andrei Kent MD [facility] [place] [address] documented as of this encounter Results * MRI Lumbar Spine wo Contrast (Generic) (06/12/2021 3:26 PM EST) Anatomical Region Laterality Modality L-spine Magnetic Resonan ce Impressions 06/14/2021 8:35 AM EST Mild degenerative changes. Comment: The following findings are so common in people without low back pain that while we report their presence, they must be interpreted with caution and in context of the clinical situation (Reference- Jarvik Et Al, Spine 2001). Findings: (Prevalence in patients without low back pain), disc degeneration (decreased T2 signal, height loss, bulge) (91%), disc T2-signal loss (83%), disc height loss (56%), disc bulge (64%), disc protrusion (32%), annular fissure (38%). Thank you for letting us participate in the care of this patient. ??If you are a health care provider and have any questions regarding this report, please contact the number below. ??For patients who have questions please contact the health health care analyst that requested your imaging first. ? Narrative 06/14/2021 8:35 AM EST EXAMINATION: MRI LUMBAR SPINE WO CONTRAST (GENERIC) CLINICAL HISTORY: Lumbar radiculopathy, symptoms persist with conservative treatment right lower extremity pain with numbness into foot. TECHNIQUE: MRI of the lumbar spine performed without intravenous contrast administration. COMPARISON: MRI lumbar spine 08/06/2020 and lumbar spine radiograph 06/16/2020 FINDINGS: Mild leftward convex curvature of the lumbar spine. Unchanged chronic superior endplate deformity of T12. Facet marrow edema at L4-5 on the right related to facet arthropathy. Marrow signal is otherwise unremarkable. The conus is normal in signal and terminates at L1. Abdominal aorta is normal caliber. T12-L1: Normal. L1-2: Mild disc bulge without significant stenosis. L2-3: Disc bulge mildly narrowing the foramina. L3-4: Mild disc bulge without significant stenosis. L4-5: Disc bulge minimally narrowing the foramina. L5-S1: Central disc protrusion and annular fissure. No significant stenosis.. Procedure Note Dana Robledo MD - 06/14/2021 EXAMINATION: MRI LUMBAR SPINE WO CONTRAST (GENERIC) CLINICAL HISTORY: Lumbar radiculopathy, symptoms persist withconservative treatment right lower extremity pain with numbness into foot. TECHNIQUE: MRI of the lumbar spine performed without intravenous contrastadministration. COMPARISON: MRI lumbar spine 08/06/2020 and lumbar spine radiograph 06/16/2020 FINDINGS: Mild leftward convex curvature of the lumbar spine. Unchanged chronicsuperior endplate deformity of T12. Facet marrow edema at L4-5 on the right relatedto facet arthropathy. Marrow signal is otherwise unremarkable. The conus isnormal in signal and terminates at L1. Abdominal aorta is normal caliber. T12-L1: Normal. L1-2: Mild disc bulge without significant stenosis. L2-3: Disc bulge mildly narrowing the foramina. L3-4: Mild disc bulge without significant stenosis. L4-5: Disc bulge minimally narrowing the foramina. L5-S1: Central disc protrusion and annular fissure. No significantstenosis.. IMPRESSION Mild degenerative changes. Comment: The following findings are so common in people without low backpain that while we report their presence, they must be interpreted with cautionand in context of the clinical situation (Reference- Jarvik Et Al, [id number]). Findings: (Prevalence in patients without low back pain), discdegeneration (decreased T2 signal, height loss, bulge) (91%), disc T2-signal loss(83%), disc height loss (56%), disc bulge (64%), disc protrusion (32%), annularfissure (38%). Thank you for letting us participate in the care of this patient. If youare a health care provider and have any questions regarding this report,please contact the number below. For patients who have questions please contactthe health health care analyst that requested your imaging first. Suzie Hebert APRN IMG MRI ORDERABLES documented in this encounter Visit Diagnoses Diagnosis Lumbar spondylosis Lumbosacral spondylosis without myelopathy Neck pain Cervicalgia Compression fracture of T12 vertebra, sequela Radiculopathy of lumbar region Thoracic or lumbosacral neuritis or radiculitis, unspecified Radiculopathy of lumbar region Thoracic or lumbosacral neuritis or radiculitis, unspecified documented in this encounter Care Teams Electric Repair Supervisor Relationship Specialty Start Date End Date Greta Kimball MD [address] [place] [address] PCP - General 06/25/13 documented as of this encounter
--- OUTSIDE RECORDS SUMMARY | 2024-05-28 16:05 | XMS_ITS | Encounter Summary ---
Author Organization [facility] Address [facility] [place] [address] Care Team Providers Care Veneer Department Manager Name Role Phone Greta Kimball MD Primary Care Provider [phone] Encounter Details Date Type Department Care Team (Late st Contact Info) Description 06/25/2021 Telephone [place] [phone] Christian Escudero, HOSE TESTER Social History Tobacco Use Types Packs/Day Years [...] AM EDT TH Visit (TeleHealth) [place] [phone] Andrei Kent MD [facility] [address] documented as of this encounter Visit Diagnoses Not on filedocumented in this encounter Care Teams Veneer Department Manager Relationship Specialty Start Date End Date Greta Kimball MD [address] [place] [address] PCP - General 06/25/13 documented as of this encounter
--- OUTSIDE RECORDS SUMMARY | 2024-05-28 16:05 | XMS_ITS | Encounter Summary ---
[place] [address] Care Team Providers Care Block Trimmer Name Role Phone Greta Kimball MD Primary Care Provider [phone] Encounter Details Date Type Department Care Team (Late st Contact Info) Description 04/09/2024 9:00 AM EST TH Visit (TeleHealth) [place] [address] Andrei Kent MD [facility] [place] [address] Chronic migraine without aura without status migrainosus, [...] as of this encounter Progress Notes * Andrei Kent MD - 04/09/2024 9:00 AM EST Images from the original note were not included. [facility] Department of Neurology Established Patient Visit 04/09/2024 Patient provided verbal consent prior to initiation of this telehealth encounter and expressed understanding that the encounter may be billed similar to a clinic visit. I spent a total of 25 minutes in discussion/counseling related to ongoing medical problems as well as medication management. Interval History: Since our last visit in October, she has started Ajovy 225 mg SC monthly and will begetting her fourth injection later this month. She estimates that her migraine frequency has been reduced between 50-75%. Additionally, those breakthrough headaches that remain are shorter in duration. She continues to use sumatriptan tablets for her headache rescue medicine. She will be converting to Medicare at the end of this month and her Medicare advantage insurance isnot anticipated to cover the CGRP medications. If not, as she anticipates, she would prefer going back onto topiramate as this was somewhat helpful in reducing her headache frequency. She does have some site reaction to the Ajovy injections, manageable with conservative care. Otherwise there have been no adverse side effects from the Ajovy. Medical History: Past Medical History: Diagnosis Date Cervicalgia Chronic lower back pain Chronic migraine without aura Osteoporosis Surgical History: Past Surgical History: Procedure Laterality Date CARPAL TUNNEL RELEASE Bilateral PRO ARTHROSCOPY HIP W/LABRAL REPAIR Left 01/14/2016 ARTHROSCOPY HIP W/LABRAL REPAIR performed by Jonathan Smith MD at [facility] Medications: Your Medications Accurate as of April 09, 2024 9:33 AM. If you have any questions, ask your nurse or doctor. Continued medications, unchanged Dose Details acetaminophen 500 mg tablet Commonly known as: Tylenol Take 500-1,000 mg by mouth as needed. 500-1,000 mg Refills: 0 Ajovy Autoinjector 225 mg/1.5 mL Auto-Injector Inject 1.5 mLs subcutaneously every 30 days. Generic drug: fremanezumab-vfrm 1.5 mL Quantity: 1.5 mL Refills: 5 calcium carbonate 648 mg calcium tablet Commonly [...] 100 mg Quantity: 54 tablet Refills: 3 UNABLE TO FIND Med Name: CBD: for [...] on file Housing Stability: Not on file Relevant Laboratories: None to review. Prior studies: Cranial MRI (2010)-by report, this is normal. Assessment: Chronic migraine without aura-not intractable & without status migrainosis. Plan: She will continue using Ajovy but anticipates that her upcoming injection may be the last that is covered by her insurance. She will be looking into alternative ways of obtaining Ajovy that are more affordable. If unable to do this, she would prefer going back onto topiramate 50 mg BID which I haveagreed to prescribe if necessary. Sumatriptan is being prescribed by her PCP and will continue to be done that way. A telehealth visit will be scheduled for mid June.This is a chronic neurologic condition which requires long-term follow-up. Tim Kent MD I spent a total of 35 minutes on this encounter on the date of service. This included: [x] Preparing to see the patient, review of laboratory test results and medical record [] Independently interpreting neuroimaging or neurophysiological results [] Obtaining and/or reviewing separately obtained history (eg, outside records, caregiver) [x] Counseling and educating the patient/family/caregiver [] Referring and communicating with other health caretaker grounds [x] Documenting clinical information in the electronic or other health record [] Care coordination documented in this encounter Plan of Treatment Upcoming Encounters Date Type Department Care Team (Late st Contact Info) Description 07/10/2024 9:00 AM EDT TH Visit (TeleHealth) [place] [address] Andrei Kent MD [facility] [place] [address] documented as of this encounter Visit Diagnoses Diagnosis Chronic migraine without aura without status migrainosus, not intractable- Primary Chronic migraine without aura, without mention of intractable migraine without mention of status migrainosus documented in this encounter Care Teams Block Trimmer Relationship Specialty Start Date End Date Greta Kimball MD [address] [place] [address] PCP - General 06/25/13 documented as of this encounter
--- OUTSIDE RECORDS SUMMARY | 2024-05-28 16:05 | XMS_ITS | Encounter Summary ---
[place] [address] Care Team Providers Care Physics Tutor Name Role Phone Greta Kimball MD Primary Care Provider [phone] Reason for Visit * Reason Onset Date Comments Reminder Appointment 04/02/2024 Encounter Details Date Type Department Care Team (Late st Contact Info) Description 04/02/2024 Telephone [place] [address] Andrei Kent MD [facility] [place] [address] Reminder Appointment Social History Tobacco Use Types Packs/Day [...] encounter Miscellaneous Notes * Telephone Encounter - Genny Martinez CMA - 04/02/2024 11:52 AM EST Unable to reach this patient by phone to review their medications and allergies prior to their upcoming tele-appointment with the Neurology provider. No message left. documented in this encounter Plan of Treatment Upcoming Encounters Date Type Department Care Team (Late st Contact Info) Description 07/10/2024 9:00 AM EDT TH Visit (TeleHealth) [place] [address] Andrei Kent MD [facility] [address] documented as of this encounter Visit Diagnoses Not on filedocumented in this encounter Care Teams Physics Tutor Relationship Specialty Start Date End Date Greta Kimball MD [address] [place] [address] PCP - General 06/25/13 documented as of this encounter
--- OUTSIDE RECORDS SUMMARY | 2024-05-28 16:05 | XMS_ITS | Encounter Summary ---
Author Organization [facility] [place] [address] Care Team Providers Care Yield Clerk Name Role Phone Greta Kimball MD Primary Care Provider Reason for Visit * Reason Comments Follow-up W/C DOI Encounter Details Date Type Department Care Team (Latest Contact Info) Description 01/12/2021 2:30 PM EDT Office Visit [facility] [place] [address] Suzie Hebert, JOI [facility] [place] [address] Radiculopathy of lumbar region Social History Tobacco [...] Sign Reading Time Taken Comments Blood Pressure 104/66 01/12/2021 2:34 PM EDT Pulse 86 01/12/2021 2:34 PM EDT Temperature - - Respiratory Rate - - Oxygen Saturation 99% 01/12/2021 2:34 PM EDT Inhaled Oxygen Concentration - - Weight 51.3 kg (113 lb) 01/12/2021 2:34 PM EDT Height 156.2 cm (5' 1.5) 01/12/2021 2:34 PM EDT Body Mass Index 21.01 01/12/2021 2:34 PM EDT documented in this encounter Progress Notes * Suzie Hebert, JOI - 01/12/2021 2:30 PM EDT [facility] [place] [address] Phone: PAIN MANAGEMENT WORK RELATED INJURY FOLLOW UP NOTE DATE OF VISIT 01/12/2021 Patient Elin Willard 1960 REFERRING PROVIDER Melanie Guajardo [address] [place] [id number] PRIMARY CARE PROVIDER Greta Kimball MD Dates of Injury: 1) Approx. April 07 2020 2) 05/14/20 REASON FOR VISIT: Elin Willard is a 60 y.o. female with lower back and right leg pain radiating to the foot. She underwent an LESI on 12/15 to help improve her leg pain. She is doing much better in this regard. Having some neck pain lately and radiating into the left arm to the thumb. Some of the PT exerciseshave been aggravating the neck pain. She injured her neck during the fall. The PT was changed to [facility] and is very happy with it. She feels as though she is making progress and would like to complete this program. She is open to FRP. 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 Saw an fountain clerk due to osteoporosis. she was given restrictions regarding the osteoporosis by the fountain clerk. She was given a 10 pound lifting limit and no forward flexion. Patient feels that the restrictions are a bit strict considering her individual situation, including baseline strength and mobility. There are some options regarding medication therapy but a decision has not yet been made regarding which med will be used. Medication: Tylenol-not needing to take as often. HISTORY OF INJURY: Patient was injured on two separate dates. 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 She was assisting a patient with ambulation when he suddenly went down to the ground and , knocking Ms. Willard over. She felt immediate pain in her back and right leg but stood up and helped the client. The pain continued to be quite severe but she c ontinued to work. She was injured a second time on 05/14/2020 when she was doing a max assist transfer with a hospice client. REVIEW OF SYSTEMS: Denies fever, chills, SOB, abdominal pain, leg weakness/numbness, bowel or bladder incontinence, balance issues. No constipation, or change in urination. MEDICATIONS Medications 01/12/21 8624 Medication Sig Taking? acetaminophen (Tylenol) 500 mg Tablet Take 1,000 mg by mouth 2 times daily. Yes topiramate (Topamax) 100 mg Tablet nightly. Yes multivitamin Capsule Take 1 capsule by mouth daily. Yes prochlorperazine (Compazine) 10 mg Tablet TAKE 1 TABLET BY MOUTH EVERY 6 HOURS NEEDED FOR NAUSEAYes SUMAtriptan (IMITREX) 100 mg Tablet Take 1 [...] BY MOUTH TWICE DAILY NEEDEDFOR MUSCLE SPASM cetirizine (ZYRTEC) 10 mg Tablet Take 10 mg by mouth as needed for Allergies. ADVERSE DRUG REACTIONS Allergies as of 01/12/2021 - Review Complete 01/12/2021 Allergen Reaction Noted ??? Amitriptyline 11/23/2015 ??? Erythromycin 04/14/2011 ??? Mold extracts 04/14/2011 SURGICAL HISTORY Past Surgical History: Procedure Laterality Date ??? PRO ARTHROSCOPY HIP W/LABRAL REPAIR Left 01/14/2016 ARTHROSCOPY HIP W/LABRAL REPAIR performed by Jonathan Smith MD at [facility] FAMILY HISTORY None pertinent IMAGING [...] the past 24 hrs: Pulse BP SpO2 01/12/21 1434 86 104/66 99 % Body mass index is 21.01 kg/m??. BP 104/66 Pulse 86 Ht 156.2 cm (5' 1.5) Wt 51.3 kg (113 lb) Appearance/ Behavior Well groomed, good eye contact, relaxed, cooperative, normal speech, no acute distress, no involuntary movements Eyes Sclera anicteric, conjunctiva clear. ENT Hearing grossly intact Lungs Normal respiratory effort Skin No rash, asymmetric hair loss, bruises, scars, swelling Musckuloskeletal Inspection/Palpation/ Range of Motion/Facet Loading maneuvers Gait:intact, no assistive devices required Inspection: No residuals from injection. Good alignment, no excessive curvature, shoulder and hip levels equal bilaterally. There is some spasm on left in paraspinal musculature including trap. Palpation: Mild tenderness thoracic paraspinal musculature. Right lumbar paraspinal muscle tenderness. ROM: ROM lumbar and cervical spine are fairly well preserved. DTRs are 2+ and symmetrical. Neg hoffmans Strength upper extremities is intact. ASSESSMENT Elin Willard is a 60 y.o. 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 She underwent a second LESI on 12/15 which has resolved the leg pain. Still has some intermittentnumbness in her leg but her function has been improving. She is having some neck pain lately with some of the PT exercises with some intermittent numbness in thumb. She continues to remain off work. She is working with vocational rehabilitation. PLAN/RECOMMENDATIONS Continue with the physical therapy. Once completed, if still not able to return to work, will consider FRP. Continue to Pace activities. May consider MRI cervical spine but at this point, we can not consider further injections and she is not having neurologic deficits which might indicate surgery needed. Will monitor her symptoms and response to PT. Completed the worker's compensation form as required. Activity restrictions are left up to the PCP. Elin Willard had the opportunity to ask questions and indicated that all questions were answeredto her satisfaction. Suzie Hebert APRN Nurse Practitioner [facility] Notes to be sent to [facility] Aaliyah documented in this encounter Plan of Treatment Upcoming Encounters Date Type Department Care Team (Late st Contact Info) Description 07/10/2024 9:00 AM EDT TH Visit (TeleHealth) [place] [address] Andrei Kent MD [facility] [place] [address] documented as of this encounter Visit Diagnoses Diagnosis Radiculopathy of lumbar region Thoracic or lumbosacral neuritis or radiculitis, unspecified documented in this encounter Care Teams Yield Clerk Relationship Specialty Start Date End Date Greta Kimball MD [address] [place] [address] PCP - General 06/25/13 documented as of this encounter
--- OUTSIDE RECORDS SUMMARY | 2024-05-28 16:05 | XMS_ITS | Encounter Summary ---
[place] [address] Care Team Providers Care Battery Charger Name Role Phone Greta Kimball MD Primary Care Provider [phone] Reason for Visit * Reason Onset Date Comments Prior Authorization 12/20/2023 AJOVY (frema nezumab-vfrm) injection 225MG/1.5ML auto-injectors Encounter Details Date Type Department Care Team (Late st Contact Info) Description 12/20/2023 [place] [address] Senait Garcia CMA Prior Authorization (AJOVY (fremanezumab-vfrm) injection 225MG/1.5ML auto-injectors) Social History Tobacco Use Types Packs/Day Years [...] encounter Miscellaneous Notes * Telephone Encounter - Alexus Payne CCMA - 12/20/2023 1:16 PM EDT Summary: APPROVAL Submitted Date: Submitted Date: 12/20/2023 Next Review Date: Next Review Date: 06/21/2024 PA Outcome: PA Approval Medication Prior Authorization Approval Approved: Ajovy Inj 225/1.5 Start Date: 12/20/2023 End Date: 06/21/2024 Case/Reference #: [id number] Approval Letter will be scanned into media once received. * Telephone Encounter - Senait Garcia CMA - 12/20/2023 9:07 AM EDT PA Submitted Submitted Date: Date Submitted: 12/20/2023 Medication Prior Authorization Patient: Elin Willard Patient : 1960 Insurance Company: [place] Medicaid Sent via: [employer] [place]: [id number] Physician: Andrei Kent MD Medication Requested: fremanezumab-vfrm (Ajovy Autoinjector) 225 mg/1.5 mL Auto-Injector Frequency/Sig: Inject 1.5 mLs subcutaneously every 30 days. Disp: 1.5mL Refills: 5 Currently taking: no Diagnosis for this medication: Chronic migraine without aura without status migrainosus, not intractable [G43.709] Prior medications trialed in this patient: Medication: venlafaxine (Effexor) 50 mg Tablet Approx Dates: 04/2020-07/2020 Outcome/Adverse Reactions: Inadequate response Medication: topiramate (TOPAMAX) 25 mg Tablet Approx Dates: Outcome/Adverse Reactions: Inadequate response Medication: SUMAtriptan (IMITREX) 100 mg Tablet Approx Dates: 2010- Outcome/Adverse Reactions: Inadequate response Medication: botulinum toxin type A (BOTOX) injection 200 Units Approx Dates: -11/2015 Outcome/Adverse Reactions: inadequate response Medication: naproxen sodium (ANAPROX) 550 mg tablet Approx Dates: Outcome/Adverse Reactions: inadequate response Medication: eletriptan (RELPAX) 40 mg tablet Approx Dates: 2010 Outcome/Adverse Reactions: inadequate response Medication: hydrOXYzine (VISTARIL) 25 mg Capsule Approx Dates: Outcome/Adverse Reactions: inadequate response Additional Notes: 11/08/2023 ov note attached to PA via CMM documented in this encounter Plan of Treatment Upcoming Encounters Date Type Department Care Team (Late st Contact Info) Description 07/10/2024 9:00 AM EDT TH Visit (TeleHealth) [place] [address] Andrei Kent MD [facility] [place] [address] documented as of this encounter Visit Diagnoses Not on filedocumented in this encounter Care Teams Battery Charger Relationship Specialty Start Date End Date Greta Kimball MD [address] [place] [address] PCP - General 06/25/13 documented as of this encounter
--- OUTSIDE RECORDS SUMMARY | 2024-05-28 16:05 | XMS_ITS | Clinical Summary ---
Author Organization [facility] Address [facility] [place] [address] Care Team Providers Care Economist Research Assistant Name Role Phone Greta Kimball MD Primary Care Provider [phone] Allergies Active Allergy Reactions Criticality Noted Date Comments Amitriptyline 11/23/2015 25 mg and up caused her fingers to tingle Erythromycin 04/14/2011 Mold Extracts 04/14/2011 Mildew, Dust Medications Medication Sig Dispensed Refills Start Date End Date Status calcium carbonate 648 mg calcium tablet Take 650 mg by mouth daily. Active PROAIR HFA 90 mcg/actuation inhaler Inhale 1 puff into the lungs as needed. 07/07/2013 Active Cholecalciferol, Vitamin D3, 5,000 unit Capsule Take 1 capsule by mouth daily. 10,000 units Active SUMAtriptan (IMITREX) 100 mg TabletIndications :Chronic migraine Take 1 tablet by mouth 2 times daily as needed for Migraine. 54 tablet 3 05/20/2015 Active diaZEPam (VALIUM) 5 mg TabletIndications :Migraine without aura and without status migrainosus, not intractable Take 1-2 tablets by mouth daily as needed. 10 tablet 5 05/20/2015 Active hydrOXYzine (VISTARIL) 25 mg CapsuleIndication s:Migraine without aura and without status migrainosus, not intractable Take 1 capsule by mouth 2 times daily as needed. Caution:sedation 135 capsule 3 05/20/2015 Active cetirizine (ZYRTEC) 10 mg Tablet Take 10 mg by mouth as needed for Allergies. Active orphenadrine (NORFLEX) 100 mg Tablet Sustained Release TAKE 1 TABLET BY MOUTH TWICE DAILY NEEDED FOR MUSCLE SPASM 07/01/2020 Active prochlorperazine (Compazine) 10 mg Tablet TAKE 1 TABLET BY MOUTH EVERY 6 HOURS NEEDED FOR NAUSEA 07/17/2020 Active acetaminophen (Tylenol) 500 mg Tablet Take 500-1,000 mg by mouth as needed. Active UNABLE TO FIND Med Name: CBD: for night sleeping 1 droplet every day Active celecoxib (CeleBREX) 100 mg capsule Take 100 mg by mouth 2 times daily. TAKE 1-2 CAPSULES BY MOUTH ONCE DAILY NEEDED 10/14/2023 Active fremanezumab-vfrm (Ajovy Autoinjector) 225 mg/1.5 mL Auto-InjectorIndi cations:Chronic migraine without aura without status migrainosus, not intractable Inject 1.5 mLs subcutaneously every 30 days. 1.5 mL 11 05/08/2024 Active Active Problems Problem Noted Date Diagnosed Date Neck pain 09/13/2020 Lumbar spondylosis 09/13/2020 Compression fracture of T12 vertebra 09/13/2020 Work related injury 09/13/2020 Radiculopathy of lumbar region 08/11/2020 Overview (08/11/2020): Added automatically from request for surgery [id number] Left hip pain s/p labral debridement 01/14/16 (Am es) 12/03/2015 IBS (irritable bowel syndrome) 11/23/2015 Multilevel degenerative disc disease 07/31/2015 Chronic migraine 03/27/2013 Migraine 04/14/2011 Encounters Date Type Department Care Team Description 05/08/2024 [place] [address] Andrei Kent MD Chronic migraine without aura without status migrainosus, not intractable 04/10/2024 [place] [address] Andrei Kent MD Appointment 04/09/2024 9:00 AM EST TH Visit (TeleHealth) [place] [address] Andrei Kent MD Chronic migraine without aura without status migrainosus, not intractable (Primary Dx) 04/02/2024 [place] [phone] Andrei Kent MD Reminder Appointment from Last 3 Months Family History Medical History Relation Comments Migraines Paternal Grandmother Thrombophilia Neg Hx Relation Status Comments Paternal Grandmother Social History Tobacco Use Types Packs/Day Years Used Date Smoking Tobacco: Never Smokeless Tobacco: Never Alcohol Use Standard Drinks/Week Comments Yes 1 (1 standard drink = 0.6 oz pur e alcohol) Sex and Gender Information Value Date Recorded Sex Assigned at Female 07/26/2020 11:14 AM EDT Gender Identity Not on file Sexual Orientation Not on file Last Filed Vital Signs Vital Sign Reading Time Taken Comments Blood Pressure 106/78 11/08/2023 11:00 AM EDT Pulse 70 11/08/2023 11:00 AM EDT Temperature 36.2 ??C (97.2 ??F) 12/23/2020 8:37 AM ED T Respiratory Rate 14 12/15/2020 10:45 AM EDT Oxygen Saturation 98% 05/03/2021 9:33 AM EST Inhaled Oxygen Concentration - - Weight 52.2 kg (115 lb) 11/08/2023 11:00 AM EDT Height 152.4 cm (5') 11/08/2023 11:00 AM EDT Body Mass Index 22.46 11/08/2023 11:00 AM EDT Plan of Treatment Upcoming Encounters Date Type Department Care Team (Late st Contact Info) Description 07/10/2024 9:00 AM EDT TH Visit (TeleHealth) [place] [phone] Andrei Kent MD [facility] [place] [address] Health Maintenance Due Date Last Done Comments CT Colonography 1960 Colonoscopy 1960 Colorectal Cancer Screening 1960 FIT DNA 1960 FIT 1960 Sigmoidoscopy (10 year) with FIT yearly 1960 Sigmoidoscopy 1960 HIV screen 1977 Hepatitis C Screening 1977 Tetanus/Diphtheria/Pertussis Vaccines (1 - Tdap) 04/18 HPV test 1989 PAP Smear 1989 Breast Cancer Share Decision Needed 1999 Breast Cancer screening 1999 Pneumoccocal Vaccine: 50+ (1 of 1 - PCV) 2009 Zoster vaccine (1 of 2) 2009 Advance Directive 2014 Covid-19 Vaccine (1 - season) 2023 Influenza (Flu) vaccine (1 o f 1 - Influenza standard series) 12/24/2023 Bone Density Scan 2024 Advance Directives * Full Code (Latest Code Status on File) Date Activated Date Inactivated Comments 01/14/2016 7:08 AM 01/14/2016 12:56 PM Question Answer Comments Does patient have capacity to make decision: Yes Care Teams Economist Research Assistant Relationship Specialty Start Date End Date Greta iKmball MD [address] [place], [place] [address] PCP - General 06/25/13
--- OUTSIDE RECORDS SUMMARY | 2024-05-28 16:05 | XMS_ITS | Encounter Summary ---
Author Organization [facility] [place] [address] Care Team Providers Care Resident In Diagnostic Radiology Name Role Phone Grtea Kimball MD Primary Care Provider [phone] Reason for Referral * Diagnostic Test (Routine) - Closed Specialty Diagnoses / Procedures Referred By Contac t Referred To Contact Radiology Diagnoses Radiculopathy of lumbar region Procedures MRI Lumbar Spine wo Contrast (Generic) Suzie Hebert APRN [facility] [place] [address] [place] [address] Referral ID Status Reason Start Date Expiration Date V isits Requested Visits Authorized [id number] Closed Specialty Service Requested 05/27/2021 06/26/2021 1 1 Reason for Visit * Diagnostic Test (Routine) - Closed Specialty Diagnoses / Procedures Referred By Contac t Referred To Contact Radiology Diagnoses Radiculopathy of lumbar region Procedures MRI Lumbar Spine wo Contrast (Generic) Suzie Hebert APRN [facility] [place] [address] [place] [address] Referral ID Status Reason Start Date Expiration Date V isits Requested Visits Authorized [id number] Closed Specialty Service Requested 05/27/2021 06/26/2021 1 1 Encounter Details Date Type Department Care Team (Latest Contact Info) Description 06/12/2021 2:16 PM EST - 06/12/2021 11:59 PM EST Hospital Encounter MRI at [facility] [place] [address] Suzie Hebert, JOI [facility] [place] [address] Radiculopathy of lumbar region Discharge Disposition: Home [...] needed for Allergies. SUMAtriptan (IMITREX) 100 mg TabletIndications:Natural Remedy Consultant catina migraine Take 1 tablet by mouth [...] Medicated 1-2 patches as needed. 03/03/2021 11/08/2023 pregabalin (Lyrica) 50 mg CapsuleIndications:Rad iculopathy of lumbar region Take 1 capsule by mouth 3 times daily. Start with one at bedtime 90 tablet 05/03/2021 06/14/2021 riboflavin, vitamin B2, (RIBOFLAVIN ORAL) Take by [...] AM EDT TH Visit (TeleHealth) [place] [address] Andrei Kent MD [facility] [place] [address] documented as of this encounter Procedures Procedure Name Priority Date/Time Associated Diagnosis Comments MRI LUMBAR SPINE WITHOUT CONTRAST Routine 06/12/2021 3:26 PM EST Radiculopathy of lumbar region documented in this encounter Results * MRI Lumbar Spine wo Contrast (Generic) (06/12/2021 3:26 PM EST) Anatomical Region Laterality Modality L-spine Magnetic Resonan ce Impressions 06/14/2021 8:35 AM EST Mild degenerative changes. Comment: The following findings are so common in people without low back pain that while we report their presence, they must be interpreted with caution and in context of the clinical situation (Reference- Latonyak Et Al, Spine 2001). Findings: (Prevalence in [...] who have questions please contact the health careers counsellor that requested your imaging first. ? Electronically signed by: Dana Robledo MD, [facility] ([phone]), at 06/14/2021 8:35 AM Narrative 06/14/2021 8:35 AM EST EXAMINATION: MRI [...] in context of the clinical situation (Reference- Latonyak Et Al, [id number]). Findings: (Prevalence in patients without low back [...] patients who have questions please contactthe health careers counsellor that requested your imaging first. Suzie Hebert APRN IMG MRI ORDERABLES documented in this encounter Visit Diagnoses Diagnosis Radiculopathy of lumbar region Thoracic or lumbosacral neuritis or radiculitis, unspecified documented in this encounter Care Teams Resident In Diagnostic Radiology Relationship Specialty Start Date End Date Greta Kimball MD [address] [place] [address] PCP - General 06/25/13 documented as of this encounter
--- OUTSIDE RECORDS SUMMARY | 2024-05-28 16:05 | XMS_ITS | Encounter Summary ---
Author Organization [facility] [place] [address] Care Team Providers Care Carpet Inspector Finished Name Role Phone Greta Kimball MD Primary Care Provider [phone] Reason for Visit * Reason Onset Date Comments Medication Refill 05/08/2024 Encounter Details Date Type Department Care Team (Late st Contact Info) Description 05/08/2024 [place] [address] Andrei Kent MD [facility] [place] [address] Chronic migraine without aura without status migrainosus, not intractable Social History Tobacco Use Types Packs/Day Years [...] encounter Miscellaneous Notes * Telephone Encounter - Radha Washington CMA - 05/08/2024 9:39 AM EST Prescription Renewal Request Name: Elin Willard : 1960 Prescription(s) Requested: Requested Prescriptions Pending Prescriptions Disp Refills fremanezumab-vfrm (Ajovy Autoinjector) 225 mg/1.5 mL Auto-Injector 1.5 mL 11 Sig: Inject 1.5 mLs subcutaneously every 30 days. Date of Encounter last in This Dept (If need an appointment send to secretaries to schedule): 04/09/2024 with Andrei Kent MD Next Encounter in This Dept: 07/10/2024 with Andrei Kent MD Date of Last Refill (for each medication): fremanezumab-vfrm (Ajovy Autoinjector) 225 mg/1.5 mL Auto-Injector Inject 1.5 mLs subcutaneously every 30 days. Dispense: 1.5 mL, Refills: 5 ordered 11/08/2023 Status of request: Pended Allergies Allergen Reactions Amitriptyline 25 mg and up caused her fingers to tingle Erythromycin Mold Extracts Mildew, Dust Radha Washington CMA 05/08/24 9:39 AM documented in this encounter Plan of Treatment Upcoming Encounters Date Type Department Care Team (Late st Contact Info) Description 07/10/2024 9:00 AM EDT TH Visit (TeleHealth) [place] [address] Andrei Kent MD [facility] [place] [address] documented as of this encounter Visit Diagnoses Diagnosis Chronic migraine without aura without status migrainosus, not intractable Chronic migraine without aura, without mention of intractable migraine without mention of status migrainosus documented in this encounter Care Teams Carpet Inspector Finished Relationship Specialty Start Date End Date Greta Kimball MD [address] [place] [address] PCP - General 06/25/13 documented as of this encounter
--- OUTSIDE RECORDS SUMMARY | 2024-05-28 16:06 | XMS_ITS | Encounter Summary ---
Author Organization [facility] [place] [address] Care Team Providers Care Voice Intercept Technician Name Role Phone Greta Kimball MD Primary Care Provider [phone] Reason for Visit * Reason Onset Date Comments Questions 07/03/2015 Encounter Details Date Type Department Care Team (Late st Contact Info) Description 07/03/2015 Telephone [place] [address] Jonathan Smith MD [facility] [place] [address] Questions Social History Tobacco Use Types Packs/Day Years [...] encounter Miscellaneous Notes * Telephone Encounter - Michelle uYng - 07/09/2015 10:31 AM EDT Spoke with patient. 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 Has had imaging and informal evaluation to this point with Dr. Ibrahim who offered injection and referral to Dr. Smith,she has not proceeded with injection yet. Her symptoms presented a few months ago after a chiropractic treatment when she was adjusted in a Zachary test position. She had hip pain following this and increasing pain with squatting, positional treatment to her patients, and getting in/out of car. It is persisting and effecting her desired activities of yoga, walking, hiking. We discussed moving her into Dr. Smith' clinic as this seems prudent, but that it would be beneficial for her to have an injection with Dr. Ibrahim closer to home and have the data on what her response to injection was by the time she comes to her appt with Dr. Smith. She agreed and will proceed with injection with Dr. Ibrahim. Appt rescheduled to 07/[address] Smith. She was very appreciative of the call. * Telephone Encounter - Ajit Mckeon - 07/09/2015 9:22 AM EDT Patient calling back wondering what is going on with scheduling with Dr. Smith. What is the status of this decision. * Telephone Encounter - Dorene Yeboah - 07/03/2015 12:30 PM EST Patient was told by Dr. Ibrahim to see Dr. Smith. She wants to see Dr. Smith only not a PA. She is scheduled per Michelle with Kimberly but really wants to ask if she can see Dr. Smith instead. Please advise. Patient can be reached at [phone]. documented in this encounter Plan of Treatment Upcoming Encounters Date Type Department Care Team (Late st Contact Info) Description 07/10/2024 9:00 AM EDT TH Visit (TeleHealth) [place] [address] Andrei Kent MD [facility] [place] [address] documented as of this encounter Visit Diagnoses Not on filedocumented in this encounter Care Teams Voice Intercept Technician Relationship Specialty Start Date End Date Greta Kimball MD [address] [place] [address] PCP - General 06/25/13 documented as of this encounter
--- OUTSIDE RECORDS SUMMARY | 2024-05-28 16:06 | XMS_ITS | Encounter Summary ---
Author Organization [facility] [place] [address] Care Team Providers Care Night Coordinator Name Role Phone Greta Kimball MD Primary Care Provider [phone] Encounter Details Date Type Department Care Team (Late st Contact Info) Description 06/16/2020 12:10 AM EST Ancillary Procedure Radiology at [facility] [address] [place] [address] Frannie Hughes MD [address] [facility] [address] Social History Tobacco Use Types Packs/Day Years [...] AM EDT TH Visit (TeleHealth) [place] [address] Andrei Kent MD [facility] [place] [address] documented as of this encounter Procedures Procedure Name Priority Date/Time Associated Diagnosis Comments FILM LIBRARY STORAGE ONLY DX SPINE Routine 06/16/2020 12:10 AM EST documented in this encounter Results * Film Library- Storage Only DX Spine (06/16/2020 12:10 AM EST) Narrative BINTA - 06/22/2020 3:11 PM EST This exam is auto-finalizing. It's purpose is for storage only. Frannie Hughes MD IMEliane FILM LIBRARY ORDERABLES Performing Organization Address City/State/[facility] Co de Phone Number [place], [place] documented in this encounter Visit Diagnoses Not on filedocumented in this encounter Care Teams Night Coordinator Relationship Specialty Start Date End Date Greta Kimball MD [address] [place] [address] PCP - General 06/25/13 documented as of this encounter
--- OUTSIDE RECORDS SUMMARY | 2024-05-28 16:06 | XMS_ITS | Encounter Summary ---
Author Organization [facility] Address [facility] [place] [address] Care Team Providers Care Picker / Packer Name Role Phone Greta Kimball MD Primary Care Provider [phone] Encounter Details Date Type Department Care Team (Late st Contact Info) Description 01/15/2014 12:45 PM EDT [place] [address] Zachary Dias MD [facility] [address] Chronic migraine (Primary Dx) Discharge Disposition: Home Social History Tobacco Use [...] Sign [place] Time Taken Comments Blood Pressure 110/74 01/15/2014 12:46 PM EDT Pulse 106 01/15/2014 12:46 PM EDT Temperature - - Respiratory Rate - - Oxygen Saturation - - Inhaled Oxygen Concentration - - Weight 59 kg (130 lb) 01/15/2014 12:46 PM EDT Height 160.7 cm (5' 3.25) 01/15/2014 12:46 PM E DT Body Mass Index 22.85 01/15/2014 12:46 PM EDT documented in this encounter Progress Notes * Zachary Dias MD - 01/15/2014 1:23 PM EDT She looks well. She is not jaundiced, sedated, ataxic, or dysarthric. She has been dutifully keeping her headache calendar on her iPad, overall has done pretty well. Two days of headache in August, six in September, three in October, but had 11 days in November, really the most part of a two-week stretch that was not good, and six days so far in December. I think we should raise her topiramate to 75 mg at bedtime. She is to call in two weeks and if she is doing well I would not raise it any further than that for the time being but if she is not doing well we can make it 100 mg at bedtime certainly. Followup otherwise will be in approximately three months. I did generate a prescription for the topiramate at 75 mg at bedtime should that be the does she needs to fill. The majority of today's 25-minute office visit was dominated by 15 minutes of direct [id number] counseling and therapeutic planning. documented in this encounter Plan of Treatment Upcoming Encounters Date Type Department Care Team (Late st Contact Info) Description 07/10/2024 9:00 AM EDT TH Visit (TeleHealth) [place] [address] Andrei Kent MD [facility] [place] [address] documented as of this encounter Visit Diagnoses Diagnosis Chronic migraine- Primary Chronic migraine without aura, without mention of intractable migraine without mention of status migrainosus documented in this encounter Care Teams Picker / Packer Relationship Specialty Start Date End Date Greta Kimball MD [address] [place] [address] PCP - General 06/25/13 documented as of this encounter
--- OUTSIDE RECORDS SUMMARY | 2024-05-28 16:06 | XMS_ITS | Encounter Summary ---
Author Organization [facility] Address [place] [address] Care Team Providers Care Cooking Chef Name Role Phone Greta Kimball MD Primary Care Provider [phone] Reason for Visit * High Dollar Medication (Routine) - Closed Specialty Diagnoses / Procedures Referred By Michelle calle Referred To Contact Neurology Diagnoses Chronic migraine without aura, not intractable, without status migrainosus Procedures CHEMODENERVATION, MEDICAL TC ONABOTULINUMTOXINA, 1 UNIT, INJECTION Zachary Dias MD [facility] [place] [address] Zachary Dias MD [facility] [place] [address] Referral ID Status Reason Start Date Expiration Date V isits Requested Visits Authorized [id number] Closed Evaluate and Treat 05/20/2015 05/19/2016 4 4 Encounter Details Date Type Department Care Team (Late st Contact Info) Description 06/17/2015 3:30 PM EST Office [place] [address] Nadir Powell MD Intractable chronic migraine without aura and without status migrainosus; Intractable migraine with aura with status migrainosus Social History Tobacco Use Types Packs/Day Years [...] Sign [place] Time Taken Comments Blood Pressure 110/69 06/17/2015 3:21 PM EST Pulse 81 06/17/2015 3:21 PM EST Temperature - - Respiratory Rate - - Oxygen Saturation - - Inhaled Oxygen Concentration - - Weight 53.5 kg (118 lb) 06/17/2015 3:21 PM EST Height 161 cm (5' 3.4) 06/17/2015 3:21 PM EST Body Mass Index 20.64 06/17/2015 3:21 PM EST documented in this encounter Progress Notes * Nadir Powell MD - 06/17/2015 3:26 PM EST BOTOX PREEMPT PROTOCOL 2-24-16 Total headache days per month: 16 Total days headache free per month: 13 Severity of headaches: Mild, moderate, and severe Botox effective: 1st treatment The risks, benefits and anticipated outcomes of the procedure, the risks and benefits of the alternatives to the procedure, and the roles and tasks of the personnel to be involved, were discussed with the patient. The patient has given written informed consent to the procedure and agrees to proceed. Yes, Nadir Powell MD UNIVERSAL PROTOCOL / SAFETY CHECKLIST Procedure to be performed: Botox for Chronic Intractable Migraine Sign in Communication: 3.30 PM Time Out: Team Confirms the Correct Patient, Correct Procedure, Correct Site and Site Marking, Correct Position (if applicable), Prep and Dry Time (if applicable). Time: 3.35 PM Affirmation of Time Out: 3.40 PM Sign Out Discussion: Nadir Powell MD Treatment # 1 Lot #:[id number] Exp: Dec 2017 Dilution: 1:4 Diluent: Normal Saline Indication: Chronic Intractable Migraine without status migrainosus Injection SItes Muscle Fixed Site/Fixed Dose L R Optional follow pain # units Environmental Monitoring Technician 10 Units divided in 2 sites Procerus 5 Units in 1 site Frontalis 20 Units divided in 4 sites Temporalis 40 Units divided in 8 sites 10U or <, @2 sites or < Occipitalis 30 Units divided in 6 sites 10U or <, @2 sites or < Cervical PSPs 20 Units divided in 4 sites Trapezius 30 Units divided in 6 sites 15 10 10U or <, @2 sites or < Subtotals 155 Units plus 15 10 Total Units used:180 Total Units wasted:20 Patient did tolerate the procedure. Nadir Powell MD documented in this encounter Plan of Treatment Upcoming Encounters Date Type Department Care Team (Late st Contact Info) Description 07/10/2024 9:00 AM EDT TH Visit (TeleHealth) [place] [address] Andrei Kent MD [facility] [place] [address] documented as of this encounter Visit Diagnoses Diagnosis Intractable chronic migraine without aura and without status migrainosus Chronic migraine without aura, with intractable migraine, so stated, without mention of status migrainosus Intractable migraine with aura with status migrainosus Migraine with aura, with intractable migraine, so stated, with status migrainosus documented in this encounter Administered Medications Inactive Administered Medications - up to 3 most recent administrations Medication Order MAR Action Action Date Dose Rate Site botulinum toxin type A (BOTOX) injection 200 Units 200 Units, Intramuscular, ONCE, 1 dose, On Mon06/17/15 at 1545, Routine Given 06/17/2015 3:28 PM EST 200 Units documented in this encounter Care Teams Cooking Chef Relationship Specialty Start Date End Date Greta Kimball MD [address] [place] [address] PCP - General 06/25/13 documented as of this encounter
--- OUTSIDE RECORDS SUMMARY | 2024-05-28 16:06 | XMS_ITS | Encounter Summary ---
Author Organization [facility] [place] [address] Care Team Providers Care Fast Food Crew Lead Name Role Phone Greta Kimball MD Primary Care Provider [phone] Reason for Visit * Reason Onset Date Comments Other 07/03/2015 medication quest ions Encounter Details Date Type Department Care Team (Late st Contact Info) Description 07/03/2015 Telephone [place] [address] Zachary Dias MD [facility] [place] [address] Other (medication questions) Social History Tobacco Use Types Packs/Day Years [...] encounter Miscellaneous Notes * Telephone Encounter - Zachary Dias MD - 07/08/2015 1:27 PM EDT Can take it all at night. * Telephone Encounter - Yoli Muse RN - 07/08/2015 12:49 PM EDT Called patient back and she states she has resumed taking 75 mg Topamax at bedtime. She was feelingspacey during the daytime and was not able to split the medication accurately, even with a splitter. She also questioned the extra Botox and we discussed that the providers are now able to offer this to the patients in the clinic and that she may elect to accept this at future visits if she wouldlike. * Telephone Encounter - Yoli Muse RN - 07/03/2015 9:44 AM EST Patient called and left a message on the triage line that she was having a hard time with the change in her Topamax schedule a couple ways. 1) She couldn't accurately split the tablets and didn't feel she was getting an accurate split. 2) She was spacey while driving after taking Topamax in the morning. Because of this, she went back to taking all of her medication at night again. She hopes this is okay with Dr. Dias. She also has concerns about her Botox visit with Dr. Powell. She states he gave her Botox in the normal protocol way and then asked her where he should put the leftover and she is concerned about that because that has never happened before and wants to discuss that. documented in this encounter Plan of Treatment Upcoming Encounters Date Type Department Care Team (Late st Contact Info) Description 07/10/2024 9:00 AM EDT TH Visit (TeleHealth) [place] [address] Andrei Kent MD [facility] [place] [address] documented as of this encounter Visit Diagnoses Not on filedocumented in this encounter Care Teams Fast Food Crew Lead Relationship Specialty Start Date End Date Greta Kimball MD [address] [place] [address] PCP - General 06/25/13 documented as of this encounter
--- OUTSIDE RECORDS SUMMARY | 2024-05-28 16:06 | XMS_ITS | Encounter Summary ---
Author Organization [facility] Address [facility] [place] [address] Care Team Providers Care Snailer Name Role Phone Greta Kimball MD Primary Care Provider [phone] Reason for Visit * Auth/Cert Specialty Diagnoses / Procedures Referred By Michelle calle Referred To Contact Diagnoses lumbar radiculopathy Procedures PRO INJECTION DX/THER SBST INTRLMNR LMBR/SAC W/IMG GDN INJECTION, EPIDURAL, LUMBAR OR SACRAL (CAUDAL), WITH IMAGING GUIDANCE (WRVU 1.8) Referral ID Status Reason Start Date Expiration Date Visits Re quested Visits Authorized [id number] 1 1 Encounter Details Date Type Department Care Team (Late st Contact Info) Description 08/28/2020 12:00 PM EDT - 08/28/2020 12:30 PM EDT [place] [address] Jamie Pepe MD [facility] [address] INJECTION, EPIDURAL, LUMBAR OR SACRAL (CAUDAL), WITH [...] Sign Reading Time Taken Comments Blood Pressure 108/70 08/28/2020 12:00 PM EDT Pulse - - Temperature - - Respiratory Rate 18 08/28/2020 12:00 PM EDT Oxygen Saturation 98% 08/28/2020 12:00 PM EDT Inhaled Oxygen Concentration - - Weight 49 kg (108 lb) 08/28/2020 11:37 AM EDT Height 156.2 cm (5' 1.5) 08/28/2020 11:37 AM ED T Body Mass Index 20.08 08/28/2020 11:37 AM EDT documented in this encounter Discharge Instructions * Discharge Instructions* Ana Luisa Menezes RN - 08/28/2020 12:07 PM EDT Pain Management Center Discharge Instructions: You were seen today by Surgeon(s): Jamie Pepe MD The following was performed: Procedure(s) (LRB): [...] During Procedure Date/Time Order Dose Route Action 08/28/2020 1206 iohexoL (Omnipaque) (240 mg/mL) injection solution 1 mL Epidural Given 08/28/2020 1206 lidocaine (pf) (Xylocaine) (10 mg/mL) 1% injection 2 mL Other Given 08/28/2020 1206 methylPREDNISolone acetate (DEPO-Medrol) (80 mg/mL) injection 80 [...] or proceed to your local emergency department. Ana Luisa Menezes RN Special instructions documented in this encounter Medications [...] tablet Take 650 mg by mouth daily. famotidine (PEPCID) 20 mg TabletIndications:Chron ic migraine Take 1 tablet by mouth daily. 90 tablet 3 05/20/2015 09/10/2020 topiramate (TOPAMAX) 25 mg TabletIndications:Chron ic migraine Take 1 and 1/2=37.5 mg in the morning and 2=50mg at bedtime 315 tablet 3 05/20/2015 11/30/2020 cyclobenzaprine (FLEXERIL) 10 mg tablet Take 10 mg by mouth 3 times daily as needed. 01/12/2021 documented as of this encounter H&P Notes * Jamie Pepe MD - 08/27/2020 8:17 PM EDT Patient Name: Elin Willard Patient Age: 60 y.o. Birthdate: 1960 Admit date: 08/28/2020 Attending Physician: Jamie Pepe MD PREPROCEDURE HISTORY AND PHYSICAL Date of Visit: August 28, 2020 Chief Complaint: Low back and right > left lower extremity pain HPI: Subjective Elin Willard is a 60 y.o. female who presents today for lumbar epidural steroid injection referred by Suzie Hebert (pain). The history is obtained from the patient, and I have reviewed medical records provided by the referring physician and located in the electronic medical record to fill in gaps in the patient's recollection of events, treatments and outcomes. LOCATION: Low back PAIN LEVEL AT REST 4/10 PAST MEDICAL HISTORY: No past medical history on file. PAST SURGICAL HISTORY: Past Surgical History: Procedure Laterality Date ??? PRO ARTHROSCOPY HIP W/LABRAL REPAIR Left 01/14/2016 ARTHROSCOPY HIP W/LABRAL REPAIR performed by Jonathan Smith MD at [facility] ALLERGIES: Amitriptyline, Erythromycin, and Mold extracts MEDICATIONS: No current facility-administered medications on file prior to encounter. Current Outpatient Medications on File Prior to Encounter Medication Sig Dispense Refill ??? orphenadrine (NORFLEX) 100 mg Tablet Sustained Release TAKE 1 TABLET BY MOUTH TWICE DAILY NEEDED FOR MUSCLE SPASM ??? prochlorperazine (Compazine) 10 mg Tablet TAKE 1 TABLET BY MOUTH EVERY 6 HOURS NEEDED FOR NAUSEA ??? cetirizine (ZYRTEC) 10 mg Tablet Take 10 mg by mouth as needed for Allergies. ??? famotidine (PEPCID) 20 mg Tablet Take 1 tablet by mouth daily. 90 tablet 3 ??? topiramate (TOPAMAX) 25 mg Tablet Take 1 and 1/2=37.5 mg in the morning and 2=50mg at bedtime (Patient taking differently: 100 mg. 100 mg at night Indications: 4 tablets at night) 315 tablet 3 ??? hydrOXYzine (VISTARIL) 25 mg Capsule Take 1 capsule by mouth 2 times daily as needed. Caution:sedation (Patient taking differently: Take 25 mg by mouth 2 times daily as needed. Caution:sedation Only as needed for migraines) 135 capsule 3 ??? Cholecalciferol, Vitamin D3, 5,000 unit Capsule Take 1 capsule by mouth daily. 10,000 units ??? PROAIR HFA 90 mcg/actuation inhaler Inhale 1 puff into the lungs as needed. ??? calcium carbonate 648 mg calcium tablet Take 650 mg by mouth daily. ??? cyclobenzaprine (FLEXERIL) 10 mg tablet Take 10 mg by mouth 3 times daily as needed. ??? SUMAtriptan (IMITREX) 100 mg Tablet Take 1 tablet by mouth 2 times daily as needed for Migraine. (Patient taking differently: Take 100 mg by mouth 2 times daily as needed for Migraine. As needed for migrains) 54 tablet 3 ??? diaZEPam (VALIUM) 5 mg Tablet Take 1-2 tablets by mouth daily as needed. (Patient taking differently: Take 5-10 mg by mouth daily as needed. PRN) 10 tablet 5 FAMILY HISTORY: Family History Problem Relation Age [...] Never Smoker ??? Smokeless tobacco: Never Used Substance and Sexual Activity ??? Alcohol use: Yes Alcohol/week: 1.0 standard drinks Types: 1 Glasses of wine per week ??? Drug use: No ??? Sexual activity: Not on file Comment: Deferred Other Topics Concern ??? Not on file Social History Narrative ??? Not on file Social Determinants of Health Financial Resource Strain: ??? Difficulty of Paying Living Expenses: Food Insecurity: ??? Worried About Running Out of Food in the Last Year: ??? Ran Out of Food in the Last Year: Transportation Needs: ??? Lack of Transportation (Medical): ??? Lack of Transportation (Non-Medical): Physical Activity: ??? Days of Exercise per Week: ??? Minutes of Exercise per Session: Stress: ??? Feeling of Stress : Social Connections: ??? Frequency of Communication with Friends and Family: ??? Frequency of Social Gatherings with Friends and Family: ??? Attends Holiness Services: ??? Active Member of Clubs or Organizations: ??? Attends Club or Organization Meetings: ??? Marital Status: Intimate Partner Violence: ??? Fear of Current or Ex-Partner: ??? Emotionally Abused: ??? Physically Abused: ??? Sexually Abused: ROS: Pt denies recent fever, chills, infection, wounds, hospitalizations, ED visits, use of antibiotics.Otherwise, as described above. PHYSICAL EXAM: BP 102/63 Ht 156.2 cm (5' 1.5) Wt 49 kg (108 lb) SpO2 100% BMI 20.08 kg/m?? Physical Exam Constitutional: Pt oriented to person, place, and time. Appears well-developed and well-nourished. No distress. HENT: Head: Normocephalic and atraumatic. Pulmonary/Chest: Effort normal. Neurological: Alert and oriented to person, place, and time. No cranial nerve deficit. Skin: Skin is warm and dry. No rash noted. Not diaphoretic. Psychiatric: Normal mood and affect. RADIOLOGIC DATA: Relevant imaging reviewed LABS/DX RESULTS: Last 3 wbc, hgb, hct plt No results for input(s): WBC, HGB, HCT, PLATELET in the last 7068 hours. Last 3 Lytes No results for input(s): NA, K, CL, CO2, BUN, CREATININE in the last 7068 hours. Last 3 LFTs No results for input(s): AST, ALT, ALKPHOS, BILITOT, BILIDIR in the last 7068 hours. Last 3 Coags No results for input(s): PT, INR, PTT in the last 168 hours. Last 3 HgbA1C No results for input(s): HA1C in the last 7068 hours. ASSESSMENT: Assessment 1. Radiculopathy of lumbar region 2. Radiculopathy of lumbar region PLAN: Proceed with planned lumbar epidural steroid injection. Addressed all questions and concerns. Risksand benefits discussed with patient. No contraindications to the procedure at this time, will proceed. Jamie Pepe MD [facility] Management [facility] Chin Strap Maker of Anesthesiology [facility] of [address] [address] / [facility] documented in this encounter Miscellaneous Notes * Op Note - Jamie Pepe MD - 08/28/2020 12:03 PM EDT Pain Management Operative Note Patient Name: Elin Willard : [id number] MR#: [id number] Case Date: 08/28/2020 Surgeon: Surgeon(s) and Role: * Jamie Pepe MD - Primary Present on Admission: ??? Radiculopathy of lumbar region Postoperative diagnosis: same LUMBAR INTERLAMINAR EPIDURAL STERIOID INJECTION PROCEDURE NOTE Ms. Elin Willard has been referred to the Pain Management Center for a lumbar epidural steroid injection by No referring provider defined for this encounter.. The patient complains of low back pain with pain radiating down the right leg. Ms. Willard was greeted by the [...] patient is set to follow up withSuzie santoyo. Post procedure instruction was given as documented in nursing records andhaving met discharge criteria he was discharged from the Pain Management Center. Comments: If this procedure is successful in helping with pain and improving her function, it can be completed a maximum of 3 times every 12 months. I personally performed this entire procedure. Jamie ePpe MD Pain Management Center [employer] St[employer] Maker of Anesthesiology [facility] [address] [phone] / [facility] CC: No referring provider defined for this encounter. documented in this encounter Plan of Treatment Upcoming Encounters Date Type Department Care Team (Late st Contact Info) Description 07/10/2024 9:00 AM EDT TH Visit (TeleHealth) [place] [address] Andrei Kent MD [facility] [place] [address] Scheduled Orders Name Type Priority Associated Diagnoses Orde r Schedule INJECTION, EPIDURAL, LUMBAR OR SACRAL (CAUDAL), WITH IMAGING GUIDANCE Procedures Routine Radiculopathy of lumbar region One Time for 1 Occurrences starting 08/28/2020 until 08/28/2020 documented as of this encounter Visit Diagnoses Diagnosis Radiculopathy of lumbar region- Primary Thoracic or lumbosacral neuritis or radiculitis, unspecified Radiculopathy of lumbar region Thoracic or lumbosacral neuritis or radiculitis, unspecified documented in this encounter Admitting Diagnoses Diagnosis Radiculopathy of lumbar region Thoracic or lumbosacral neuritis or radiculitis, unspecified documented in this encounter Administered Medications Inactive Administered Medications - up to 3 most recent administrations Medication Order MAR Action Action Date Dose Rate Site iohexoL (Omnipaque) (240 mg/mL) injection solution ONCE PRN, Starting on Mon08/28/20 at 1206, Until Mon08/28/20 at 1411, Intra-Operative (Intra-Procedure), Routine Given 08/28/2020 12:06 PM EDT 1 mL lidocaine (pf) (Xylocaine) (10 mg/mL) 1% injection ONCE PRN, Starting on Mon08/28/20 at 1206, Until Mon08/28/20 at 1411, Intra-Operative (Intra-Procedure), Routine Given 08/28/2020 12:06 PM EDT 2 mLs methylPREDNISolone acetate (DEPO-Medrol) (80 mg/mL) injection ONCE PRN, Starting on Mon08/28/20 at 1206, Until Mon08/28/20 at 1411, Intra-Operative (Intra-Procedure), Routine Given 08/28/2020 12:06 PM EDT 80 mg documented in this encounter Active and Recently Administered Medications Times are shown in EDT. PRN Medication Order 08/26/2020 08/27/2020 08/28/2020 iohexoL (Omnipaque) (240 mg/mL) injection solution (CANCELED) ONCE PRN, Starting on Mon08/28/20 at 1206, Until Mon08/28/20 at 1411, Intra-Operative (Intra-Procedure), Routine 1206 (Given - Provid er: Jamie Pepe MD) lidocaine (pf) (Xylocaine) (10 mg/mL) 1% injection (CANCELED) ONCE PRN, Starting on Mon08/28/20 at 1206, Until Mon08/28/20 at 1411, Intra-Operative (Intra-Procedure), Routine 1206 (Given - Provid er: Jamie Pepe MD - Comment: Epidural) methylPREDNISolone acetate (DEPO-Medrol) (80 mg/mL) injection (CANCELED) ONCE PRN, Starting on Mon08/28/20 at 1206, Until Mon08/28/20 at 1411, Intra-Operative (Intra-Procedure), Routine 1206 (Given - Provid er: Jamie Pepe MD) documented in this encounter Care Teams Snailer Relationship Specialty Start Date End Date Greta Kimball MD [address] [place] [address] PCP - General 06/25/13 documented as of this encounter
--- OUTSIDE RECORDS SUMMARY | 2024-05-28 16:06 | XMS_ITS | Encounter Summary ---
Author Organization [facility] Address [facility] [place] [address] Care Team Providers Care Database Administration Associate Name Role Phone Greta Kimball MD Primary Care Provider [phone] Encounter Details Date Type Department Care Team (Late st Contact Info) Description 05/20/2015 8:15 AM EST Office [place] [address] Zachary Disa MD [facility] [place] [address] Chronic migraine; Migraine without aura and without status migrainosus, not intractable Social History [...] Sign Reading Time Taken Comments Blood Pressure 116/71 05/20/2015 8:28 AM EST Pulse 79 05/20/2015 8:28 AM EST Temperature - - Respiratory Rate - - Oxygen Saturation - - Inhaled Oxygen Concentration - - Weight 54.4 kg (120 lb) 05/20/2015 8:28 AM EST Height 154.9 cm (5' 1) 05/20/2015 8:28 AM EST Body Mass Index 22.67 05/20/2015 8:28 AM EST documented in this encounter Progress Notes * Zachary Dias MD - 05/20/2015 8:59 AM EST She has kept her headache calendars on her Smartphone and has between six and nine days of headache per month. She usually starts off treating the [id number] ones with naproxen sodium and hydroxyzine, which I renewed today. Severe ones do respond to sumatriptan 100 mg. In the past when we raised her topiramate to 100 mg a day, she did get some word finding difficulty that is not present on the 75 mg bedtime dose. I have suggested we make the morning dose 37-1/2 mg and the evening dose 50 mg, so we will change to a b.i.d. regimen and see if that is tolerated and adequate. She did get Botox once in the past but then her insurance changed, and it was going to be very expensive for her. She would like to revisit that. We will look into that, but it may be that we would have to reduce her topiramate and make her have a few more headaches a month so she falls back into the diagnosis of chronic migraine, a diagnosis she carried when she was not on the topiramate. I also renewed her famotidine and her rescue diazepam. The majority of today's 15-minute office visit was dominated by 10 minutes of direct [id number] counseling and therapeutic planning. documented in this encounter Plan of Treatment Upcoming Encounters Date Type Department Care Team (Late st Contact Info) Description 07/10/2024 9:00 AM EDT TH Visit (TeleHealth) [place] [address] Andrei Kent MD [facility] [place] [address] documented as of this encounter Visit Diagnoses Diagnosis Chronic migraine Chronic migraine without aura, without mention of intractable migraine without mention of status migrainosus Migraine without aura and without status migrainosus, not intractable Migraine without aura, without mention of intractable migraine without mention of status migrainosus documented in this encounter Care Teams Database Administration Associate Relationship Specialty Start Date End Date Greta Kimball MD [address] [place] [address] PCP - General 06/25/13 documented as of this encounter
--- OUTSIDE RECORDS SUMMARY | 2024-05-28 16:06 | XMS_ITS | Encounter Summary ---
Author Organization [facility] [place] [address] Care Team Providers Care Loom Starter Name Role Phone Greta Kimball MD Primary Care Provider [phone] Reason for Visit * Reason Onset Date Comments Medication Refill 12/02/2014 Encounter Details Date Type Department Care Team (Late st Contact Info) Description 12/02/2014 [place] [address] Zachary Dias MD [facility] [place] [address] Social History Tobacco Use Types Packs/Day Years [...] AM EDT TH Visit (TeleHealth) [place] [address] Andrei Kent MD [facility] [place] [address] documented as of this encounter Visit Diagnoses Not on filedocumented in this encounter Care Teams Loom Starter Relationship Specialty Start Date End Date Greta Kimball MD [address] [place] [address] PCP - General 06/25/13 documented as of this encounter
--- OUTSIDE RECORDS SUMMARY | 2024-05-28 16:06 | XMS_ITS | Encounter Summary ---
Author Organization [facility] [place] [address] Care Team Providers Care Furnace Process Plant Operator Name Role Phone Greta Kimball MD Primary Care Provider [phone] Encounter Details Date Type Department Care Team (Late st Contact Info) Description 12/03/2015 Orders Only [place] [address] Jonathan Smith MD [facility] [place] [address] Pain in left hip (Primary Dx) Social History Tobacco Use Types [...] AM EDT TH Visit (TeleHealth) [place] [address] Andrei Kent MD [facility] [place] [address] documented as of this encounter Procedures Procedure Name Priority Date/Time Associated Diagnosis Comments ARTHROSCOPY HIP W/LABRAL REPAIR Routine 12/03/2015 1:58 PM EDT Pain in left hip documented in this encounter Visit Diagnoses Diagnosis Pain in left hip- Primary Pain in joint, pelvic region and thigh documented in this encounter Care Teams Furnace Process Plant Operator Relationship Specialty Start Date End Date Greta Kimball MD [address] [place] [address] PCP - General 06/25/13 documented as of this encounter
--- OUTSIDE RECORDS SUMMARY | 2024-05-28 16:06 | XMS_ITS | Encounter Summary ---
Author Organization [facility] Address [facility] [place] [address] Care Team Providers Care Plastics Process Hand Name Role Phone Greta Kimball MD Primary Care Provider [phone] Reason for Visit * Reason Onset Date Comments Other 12/01/2014 Encounter Details Date Type Department Care Team (Late st Contact Info) Description 12/01/2014 [place] [address] Zachary Dias MD [facility] [place] [address] Other Social History Tobacco Use Types Packs/Day Years [...] encounter Miscellaneous Notes * Telephone Encounter - Elin Boyce RN - 12/02/2014 2:01 PM EDT Spoke with patient, she understands and agrees with this plan. She asks that a new prescription be sent to her pharmacy. I will prep this for provider signature in a separate encounter. * Telephone Encounter - Elin Boyce RN - 12/02/2014 1:33 PM EDT Call placed to patient to inform her of the recommendation from Dr Dias. I left a detailed message with this information. * Telephone Encounter - Zachary Dias MD - 12/02/2014 1:27 PM EDT Return to the 75mg dose * Telephone Encounter - Elin Boyce RN - 12/02/2014 1:22 PM EDT Patient left message on triage line stating that she has been having these issues since increasing to 100mg topiramate. She wonders if she should drop back to the 75 mg, as she did not have these issues at this dose. * Telephone Encounter - Elin Boyce RN - 12/02/2014 10:58 AM EDT Message left for patient to return my call. * Telephone Encounter - Elayne Caballero - 12/01/2014 3:31 PM EDT Patient called stating that since the increase in her topamax she has noticed word finding problems, sleep issues, stomach upset. She states that she was on 75 mg and now on 100mg but the change has created some differences. Please call and advise. documented in this encounter Plan of Treatment Upcoming Encounters Date Type Department Care Team (Late st Contact Info) Description 07/10/2024 9:00 AM EDT TH Visit (TeleHealth) Neurology at [place] [phone] Andrei Kent MD [facility] [place] [address] documented as of this encounter Visit Diagnoses Not on filedocumented in this encounter Care Teams Plastics Process Hand Relationship Specialty Start Date End Date Greta Kimball MD [address] [place] [address] PCP - General 06/25/13 documented as of this encounter
--- OUTSIDE RECORDS SUMMARY | 2024-05-28 16:06 | XMS_ITS | Encounter Summary ---
[place] [address] Care Team Providers Care Fuse Spooler Name Role Phone Greta Kimball MD Primary Care Provider [phone] Encounter Details Date Type Department Care Team (Late st Contact Info) Description 06/16/2020 Ancillary Procedure Radiology at [facility] [address] [place] [address] Frannie Hughes MD [address] [facility] [place] [address] Social History Tobacco Use Types Packs/Day Years [...] AM EDT TH Visit (TeleHealth) [place] [address] Andrei Kent MD [facility] [place] [address] documented as of this encounter Procedures Procedure Name Priority Date/Time Associated Diagnosis Comments FILM LIBRARY STORAGE ONLY DX SPINE Routine 06/16/2020 12:00 AM EST documented in this encounter Results * Film Library- Storage Only DX Spine (06/16/2020 12:00 AM EST) Narrative RAD - 06/22/2020 3:10 PM EST This exam is auto-finalizing. It's purpose is for storage only. Frannie Hughes MD IMG FILM LIBRARY ORDERABLES Performing Organization Address City/State/[facility] Co de Phone Number [place], [place] documented in this encounter Visit Diagnoses Not on filedocumented in this encounter Care Teams Fuse Spooler Relationship Specialty Start Date End Date Greta Kimball MD [address] [place] [address] PCP - General 06/25/13 documented as of this encounter
--- OUTSIDE RECORDS SUMMARY | 2024-05-28 16:06 | XMS_ITS | Encounter Summary ---
[place] [address] Care Team Providers Care Washtub Worker Name Role Phone Greta Kimball MD Primary Care Provider [phone] Encounter Details Date Type Department Care Team (Late st Contact Info) Description 09/09/2015 2:30 PM EDT [place] [address] Nadir Powell MD Intractable chronic migraine without aura and without status migrainosus Social History Tobacco Use Types [...] Sign Reading Time Taken Comments Blood Pressure 118/70 09/09/2015 2:18 PM EDT Pulse 98 09/09/2015 2:18 PM EDT Temperature - - Respiratory Rate - - Oxygen Saturation - - Inhaled Oxygen Concentration - - Weight 54.4 kg (120 lb) 09/09/2015 2:18 PM EDT Height 160.7 cm (5' 3.25) 09/09/2015 2:18 PM ED T Body Mass Index 21.09 09/09/2015 2:18 PM EDT documented in this encounter Procedure Notes * Nadir Powell MD - 09/09/2015 2:25 PM EDTAssociated Order(s): CHEMODENERVATION, MEDICAL BOTOX PREEMPT PROTOCOL 09-09-15 Total headache days per month: 11 (down from 16 in May) Total days headache free per month: 20 Severity of headaches: Moderate (almost no severe) Botox effective: Not sure The risks, benefits and anticipated outcomes of the procedure, the risks and benefits of the alternatives to the procedure, and the roles and tasks of the personnel to be involved, were discussed with the patient. The patient has given written informed consent to the procedure and agrees to proceed. Yes, in chart and verbally obtained today. Nadir Powell MD UNIVERSAL PROTOCOL / SAFETY CHECKLIST Procedure to be performed: Botox for Chronic Intractable Migraine Sign in Communication: 2.30 PM Time Out: Team Confirms the Correct Patient, Correct Procedure, Correct Site and Site Marking, Correct Position (if applicable), Prep and Dry Time (if applicable). Time: 2.35 PM Affirmation of Time Out: 2.40 PM Sign Out Discussion: Nadir Powell MD Treatment # 2 Lot #:[id number] Exp: Jan 2018 Dilution: 1:4 Diluent: Normal Saline Indication: Chronic Intractable Migraine without status migrainosus Injection SItes Muscle Fixed Site/Fixed Dose L R Optional follow pain #units Machine Stuffer 10 Units divided in 2 sites Procerus 5 Units in 1 site Frontalis 20 Units divided in 4 sites Temporalis 40 Units divided in 8 sites 10U or <, @2 sites or < Occipitalis 30 Units divided in 6 sites 10 10 10U or <, @2 sites or < Cervical PSPs 20 Units divided in 4 sites Trapezius 30 Units divided in 6 sites 10 15 10U or <, @2 sites or < Subtotals 155 Units plus 20 25 Total Units used:200 Total Units wasted:0 Patient did tolerate the procedure. Nadir Powell MD documented in this encounter Plan of Treatment Upcoming Encounters Date Type Department Care Team (Late st Contact Info) Description 07/10/2024 9:00 AM EDT TH Visit (TeleHealth) [place] [address] Andrei Kent MD [facility] [place] [address] documented as of this encounter Procedures Procedure Name Priority Date/Time Associated Diagnosis Comments CHEMODENERVATION, MEDICAL Routine 09/09/2015 2:46 PM EDT Intractable chronic migraine without aura and without status migrainosus documented in this encounter Results * Chemodenervation, medical (09/09/2015 2:46 PM EDT) Narrative Nadir Powell MD - 09/09/2015 2:46 PM EDT Nadir Powell MD ? 09/09/2015 ??2:46 PM BOTOX ??PREEMPT PROTOCOL 09-09-15 Total headache days per month: ?? 11 (down from 16 in May) Total days headache free per month: 20 Severity of headaches: ?? Moderate (almost no severe) Botox effective: ?? Not sure The risks, benefits and anticipated outcomes of the procedure, the risks and benefits of the alternatives to the procedure, and the roles and tasks of the personnel to be involved, were discussed with the patient. ??The patient has given written informed consent to the procedure and agrees to proceed. Yes, in chart and verbally obtained today. Nadir Powell MD UNIVERSAL PROTOCOL / SAFETY CHECKLIST Procedure to be performed: Botox for Chronic Intractable Migraine Sign in Communication: 2.30 PM Time Out: ??Team Confirms the Correct Patient, Correct Procedure, Correct Site and Site Marking, Correct Position (if applicable), Prep and Dry Time (if applicable). ??Time: ??2.35 PM Affirmation of Time Out: 2.40 PM Sign Out Discussion: Nadir Powell MD Treatment # 2 Lot #:[id number] ?Exp: Jan 2018 Dilution: ??1:4 Diluent: ?? Normal Saline Indication: ?? Chronic Intractable Migraine without status migrainosus Injection SItes Muscle ? Fixed Site/Fixed Dose ?L ?R ??Optional follow pain ??#units Machine Stuffer ? 10 Units divided in 2 sites ? Procerus ? 5 Units in 1 site ? Frontalis ? 20 Units divided in 4 sites ? Temporalis ? 40 Units divided in 8 sites ? 10U or <, @2 sites or < Occipitalis ?30 Units divided in 6 sites ?10 ?? 10 ? 10U or <, ??@2 sites or < Cervical PSPs ? 20 Units divided in 4 sites ? Trapezius ? 30 Units divided in 6 sites ?10 ?? 15 ?10U or <, @2 sites or < ? Subtotals ?155 Units ?? plus ?20 ??25 ? Total Units used:200 Total Units wasted:0 Patient did ??tolerate the procedure. Nadir Powell MD Nadir Powell MD PROCEDURE/MINOR SURG ICAL ORDERABLES documented in this encounter Visit Diagnoses Diagnosis Intractable chronic migraine without aura and without status migrainosus Chronic migraine without aura, with intractable migraine, so stated, without mention of status migrainosus documented in this encounter Administered Medications Inactive Administered Medications - up to 3 most recent administrations Medication Order MAR Action Action Date Dose Rate Site botulinum toxin type A (BOTOX) injection 200 Units 200 Units, Intramuscular, ONCE, 1 dose, On Mon09/09/15 at 1445, Routine Given 09/09/2015 2:24 PM EDT 200 Units documented in this encounter Care Teams Washtub Worker Relationship Specialty Start Date End Date Greta Kimball MD [address] [place] [address] PCP - General 06/25/13 documented as of this encounter
--- OUTSIDE RECORDS SUMMARY | 2024-05-28 16:06 | XMS_ITS | Encounter Summary ---
Author Organization [facility] Address [facility] [place] [address] Care Team Providers Care Leisure Travel Agent Name Role Phone Greta Kimball MD Primary Care Provider [phone] Encounter Details Date Type Department Care Team (Late st Contact Info) Description 05/20/2014 7:45 AM EST [place] [address] Zachary Dias MD [facility] [place] [address] Chronic migraine; Migraine without aura and without status migrainosus, not intractable Discharge Disposition: Home Social History Tobacco Use [...] - Inhaled Oxygen Concentration - - Weight 56.7 kg (125 lb) 05/20/2014 7:58 AM EST Height 161.9 cm (5' 3.75) 05/20/2014 7:58 AM ES T Body Mass Index 21.62 05/20/2014 7:58 AM EST documented in this encounter Progress Notes * Zachary Dias MD - 05/20/2014 8:32 AM EST She has done quite well. She is on 75 mg of topiramate a day and has kept an excellent record on her electronic calendar. Her calendar revealed six days of headache in January, only two in February but she had two weeks of vacation, and then six in March, and five so far in April. She has been able to control them all with naproxen 500 mg and sumatriptan 100 mg. I renewed those today except I made the naproxen, naproxen sodium as it has a much faster T max, so naproxen sodium 550 mg b.i.d. I also renewed her hydroxyzine. She knows to call if she is not doing well. I will see her again in about five months and we will decide if we need to adjust her prevention further at that point but I do not really think it is necessary today. Here in the office, she is not jaundiced, sedated, ataxic, or dysarthric. The majority of today's 25-minute office visit was dominated by 15 minutes of direct [id number] counseling and therapeutic planning. documented in this encounter Plan of Treatment Upcoming Encounters Date Type Department Care Team (Late st Contact Info) Description 07/10/2024 9:00 AM EDT TH Visit (TeleHealth) [place] [address] Andrei Kent MD [facility] [place] [address] documented as of this encounter Visit Diagnoses Diagnosis Chronic migraine Chronic migraine without aura, without mention of intractable migraine without mention of status migrainosus Migraine without aura and without status migrainosus, not intractable Migraine without aura, without mention of intractable migraine without mention of status migrainosus documented in this encounter Care Teams Leisure Travel Agent Relationship Specialty Start Date End Date Greta Kimball MD [address] [place] [address] PCP - General 06/25/13 documented as of this encounter
--- OUTSIDE RECORDS SUMMARY | 2024-05-28 16:06 | XMS_ITS | Encounter Summary ---
Author Organization [facility] [place] [address] Care Team Providers Care Bulldogger Name Role Phone Greta Kimball MD Primary Care Provider [phone] Reason for Referral * Consultation (Routine) - Closed Specialty Diagnoses / Procedures Referred By Michelle calle Referred To Contact [facility] Diagnoses Radiculopathy of lumbar region Lumbar spondylosis Neck pain APCS - Welcome Group - Suzie Hebert APRN [facility] [address] [facility] [place] [address] Referral ID Status Reason Start Date Expiration Date V isits Requested Visits Authorized [id number] Closed Consult, Test & Treat 09/13/2020 09/13/2021 1 1 Reason for Visit * Reason Comments Follow-up s/P injection Encounter Details Date Type Department Care Team (Latest Contact Info) Description 09/11/2020 11:00 AM EDT Office Visit [facility] [place] [address] Suzie Hebert APRN [facility] [place] [address] Radiculopathy of lumbar region; Lumbar spondylosis; Neck pain; Work related injury Social History Tobacco Use [...] Sign Reading Time Taken Comments Blood Pressure 104/53 09/11/2020 10:56 AM EDT Pulse 73 09/11/2020 10:56 AM EDT Temperature - - Respiratory Rate - - Oxygen Saturation - - Inhaled Oxygen Concentration - - Weight 49.9 kg (110 lb) 09/11/2020 10:56 AM EDT Height 152.4 cm (5') 09/11/2020 10:56 AM EDT Body Mass Index 21.48 09/11/2020 10:56 AM EDT documented in this encounter Progress Notes * Suzie Hebert, COMPUTER FORENSIC SPECIALIST - 09/11/2020 11:00 AM EDT [facility] [place] [address] Phone: PAIN MANAGEMENT WORK RELATED INJURY FOLLOW UP NOTE DATE OF VISIT 09/11/2020 Patient Elin Willard 1960 REFERRING PROVIDER Melanie Guajardo [address] [place] [id number] PRIMARY CARE PROVIDER Greta Kimball MD Dates of Injury: 1) Approx. April 07 2020 2) 05/14/20 REASON FOR VISIT: Elin Willard is a 60 y.o. female with lower back and right leg pain radiating to the foot. She underwent an interlaminar LESI at L5-S1 L> on 08/28. She has found that since the injection, the intensity of the aching in her legs is less severe and has changed in quality but overall, the pain level is still significant with increased activity. The first week the relief was more significant and the effectiveness has waned somewhat. She continues to feel that she is making progress but it continues to be slow. 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 She was seen by a denture contour wire specialist and will be off of work until October. She is hopeful that during that time, she will be able to make sufficient progress to be able to return to work. She is continuing to do exercises at home and with the physical therapist. She is also having neck pain which increases with rotation in addition to mid back pain which is exacerbated with most activities requiring bending, twisting, reaching, etc. HISTORY OF INJURY: Patient was injured on two separate dates. 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 She was assisting a patient with ambulation [...] No constipation, or change in urination. MEDICATIONS The [place] Prescription Monitoring Program was checked and no concerns were identified. Medications 09/11/20 1059 Medication Sig Taking? SUMAtriptan (IMITREX) 100 mg Tablet Take 1 tablet by mouth 2 times daily as needed for Migraine. Patient taking differently: Take 100 mg by mouth 2 times daily as needed for Migraine. As needed for migrains Yes topiramate (TOPAMAX) 25 mg Tablet Take 1 and 1/2=37.5 mg in the morning and 2=50mg at bedtime Patient taking differently: 100 mg. 100 mg at night Indications: 4 tablets at night Yes diaZEPam (VALIUM) 5 mg Tablet Take 1-2 tablets by mouth daily as needed. Patient taking differently: Take 5-10 mg by mouth daily as needed. PRN Yes hydrOXYzine (VISTARIL) 25 mg Capsule Take 1 capsule by mouth 2 times daily as needed. Caution:sedation Patient taking differently: Take 25 mg by mouth 2 times daily as needed. Caution:sedation Only as needed for migraines Yes Cholecalciferol, Vitamin D3, 5,000 unit Capsule Take 1 capsule by mouth daily. 10,000 units Yes PROAIR HFA 90 mcg/actuation inhaler Inhale 1 puff into the lungs as needed. Yes calcium carbonate 648 mg calcium tablet Take 650 mg by mouth daily. Yes orphenadrine (NORFLEX) 100 mg Tablet Sustained Release TAKE 1 TABLET BY MOUTH TWICE DAILY NEEDEDFOR MUSCLE SPASM prochlorperazine (Compazine) 10 mg Tablet TAKE 1 TABLET BY MOUTH EVERY 6 HOURS NEEDED FOR NAUSEA cetirizine (ZYRTEC) 10 mg Tablet Take 10 mg by mouth as needed for Allergies. cyclobenzaprine (FLEXERIL) 10 mg tablet Take 10 mg by mouth 3 times daily as needed. ADVERSE DRUG REACTIONS Allergies as of 09/11/2020 - Review Complete 08/28/2020 Allergen Reaction Noted ??? Amitriptyline 11/23/2015 ??? Erythromycin 04/14/2011 ??? Mold extracts 04/14/2011 SURGICAL HISTORY Past Surgical History: Procedure Laterality Date ??? PRO ARTHROSCOPY HIP W/LABRAL REPAIR Left 01/14/2016 ARTHROSCOPY HIP W/LABRAL REPAIR performed by Jonathan Smith MD at [facility] HISTORY None pertinent IMAGING [...] for the past 24 hrs: Pulse BP 09/11/20 1056 73 104/53 Body mass index is 21.48 kg/m??. BP 104/53 Pulse 73 Ht 152.4 cm (5') Wt 49.9 kg (110 lb) Appearance/ Behavior Well groomed, good eye [...] excessive curvature, shoulder and hip levels equal bilaterally; Palpation: Mild tenderness thoracic paraspinal musculature. Right lumbar paraspinal muscle tenderness. ROM:Patient has excellent range of motion. ASSESSMENT Elin Willard is a 60 y.o. 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 She underwent an LESI to help reduce her back pain. She had some modest improvement with the LESI and is continuing to do PT both with a physical therapist and at home. She is frustrated that improvement has been slow. In addition to the lower back and leg pain, she is also continuing to experience mid back pain with activities and neck pain which is worse with rotation. These are all a resultof the injury sustained at work and have been documented in the initial report. She continues to remain off work. She was evaluated by a denture contour wire specialist and will remain off of work until October. PLAN/RECOMMENDATIONS She will continue the PT exercises. Discussed aquatherapy. We discussed further injections which are an option but at this point, although her progress is slow, she is continuing to make progress. Continue to Pace activities. Discussed options for functional rehabilitation. She is open to considering the program and will start with the welcome group. Provided anti-inflammatory diet information handout. She will meet with the vocational rn rehabilitation prior to return to work and will need a work readiness evaluation. Completed the worker's compensation form as required. Activity restrictions are left up to the PCP. Elin Willard had the opportunity to ask questions and indicated that all questions were answeredto her satisfaction. Suzie Hebert APRN Nurse Practitioner [facility] documented in this encounter Plan of Treatment Upcoming Encounters Date Type Department Care Team (Late st Contact Info) Description 07/10/2024 9:00 AM EDT TH Visit (TeleHealth) [place] [address] Andrei Kent MD [facility] [place] [address] Scheduled Referrals Name Type Priority Associated Diagnoses Orde r Schedule Amb Referral to Active Pain Care Services Outpatient Referral Routine Radiculopathy of lumbar region Lumbar spondylosis Neck pain Ordered: 09/13/2020 documented as of this encounter Visit Diagnoses Diagnosis Radiculopathy of lumbar region Thoracic or lumbosacral neuritis or radiculitis, unspecified Lumbar spondylosis Lumbosacral spondylosis without myelopathy Neck pain Cervicalgia Work related injury Injury, other and unspecified, unspecified site documented in this encounter Care Teams Bulldogger Relationship Specialty Start Date End Date Greta Kimball MD [address] [place] [address] PCP - General 06/25/13 documented as of this encounter
--- OUTSIDE RECORDS SUMMARY | 2024-05-28 16:06 | XMS_ITS | Encounter Summary ---
Author Organization [facility] [place] [address] Care Team Providers Care Banana Carrier Name Role Phone Greta Kimball MD Primary Care Provider Encounter Details Date Type Department Care Team (Late st Contact Info) Description 06/16/2020 12:05 AM EST Ancillary Procedure Radiology at [facility] [address] [place] [address] Frannie Hughes MD [address] [facility] [place] [address] Social History Tobacco Use Types Packs/Day Years [...] AM EDT TH Visit (TeleHealth[place] [address] Andrei Kent MD [facility] [place] [address] documented as of this encounter Procedures Procedure Name Priority Date/Time Associated Diagnosis Comments FILM LIBRARY STORAGE ONLY DX SPINE Routine 06/16/2020 12:05 AM EST documented in this encounter Results * Film Library- Storage Only DX Spine (06/16/2020 12:05 AM EST) Narrative BINTA - 06/22/2020 3:10 PM EST This exam is auto-finalizing. It's purpose is for storage only. Frannie Hughes MD IMEliane FILM LIBRARY ORDERABLES Performing Organization Address City/State/[facility] Co de Phone Number [place], [place] documented in this encounter Visit Diagnoses Not on filedocumented in this encounter Care Teams Banana Carrier Relationship Specialty Start Date End Date Greta Kimball MD [address] [place] [address] PCP - General 06/25/13 documented as of this encounter
--- OUTSIDE RECORDS SUMMARY | 2024-05-28 16:06 | XMS_ITS | Encounter Summary ---
Author Organization [facility] [place] [address] Care Team Providers Care Automotive Glass Mechanic Name Role Phone Greta Kimball MD Primary Care Provider [phone] Reason for Visit * Reason Comments Medication Refill Encounter Details Date Type Department Care Team (Late st Contact Info) Description 04/21/2015 [place] [address] Zachary Dias MD [facility] [place] [address] Social History Tobacco Use Types Packs/Day Years [...] AM EDT TH Visit (TeleHealth) [place] [address] Andrei Kent MD [facility] [place] [place] [address] documented as of this encounter Visit Diagnoses Not on filedocumented in this encounter Care Teams Automotive Glass Mechanic Relationship Specialty Start Date End Date Greta Kimball MD [address] [place] [address] PCP - General 06/25/13 documented as of this encounter
--- OUTSIDE RECORDS SUMMARY | 2024-05-28 16:06 | XMS_ITS | Encounter Summary ---
Author Organization Replaced By [facility] Address [facility] [place] [address] Care Team Providers Care Gift Shop Manager Name Role Phone Greta Kimball MD Primary Care Provider [phone] Encounter Details Date Type Department Care Team (Late st Contact Info) Description 03/06/2015 - 03/06/2015 11:59 PM EST Hospital Encounter Radiology Library at [facility] [place] [address] [facility] Discharge Disposition: Home Social History Tobacco Use [...] Sig Dispensed Refills Start Date End Date Cholecalciferol, Vitamin D3, 5,000 unit Capsule Take 1 capsule by mouth daily. 10,000 units PROAIR HFA 90 mcg/actuation inhaler Inhale 1 puff into the lungs as needed. 07/07/2013 calcium carbonate 648 mg calcium tablet Take 650 mg by mouth daily. topiramate (TOPAMAX) 25 mg Tablet Take 3 tablets by mouth daily. 90 tablet 3 12/02/2014 04/21/2015 diaZEPam (VALIUM) 5 mg TabletIndications:Migra ine without aura and without status migrainosus, not intractable Take 1-2 tablets by mouth daily as needed. 10 tablet 5 11/03/2014 05/20/2015 topiramate (TOPAMAX) 100 mg TabletIndications:Chron ic migraine Take 1 tablet by mouth nightly. 90 tablet 3 10/20/2014 04/22/2015 Magnesium 250 mg Tablet Take 1 tablet by mouth daily as needed. 01/05/2016 SUMAtriptan (IMITREX) 100 mg TabletIndications:Chron ic migraine Take 1 tablet by mouth 2 times daily as needed for Migraine. 54 tablet 3 05/20/2014 05/20/2015 naproxen sodium (ANAPROX) 550 mg TabletIndications:Chron ic migraine Take 1 tablet by mouth 2 times daily as needed. 120 tablet 3 05/20/2014 05/20/2015 hydrOXYzine (VISTARIL) 25 mg CapsuleIndications:Migr rick without aura and without status migrainosus, not intractable Take 1 capsule by mouth 2 times daily as needed. Caution:sedation 135 capsule 3 05/20/2014 05/20/2015 multivitamin (THERAGRAN) Tablet Take 1 tablet by mouth daily. 01/05/2016 Flaxseed Oil Oil by [facility].(Non-Drug; Combo Route) route as needed. 01/05/2016 famotidine (PEPCID) 20 mg tablet take 1 tablet by mouth once daily if needed 30 tablet 12 07/30/2013 05/20/2015 hydroCODone-acetaminoph en (VICODIN) 5-500 mg per tablet Take 1 tablet by mouth every 6 hours as needed. 05/20/2015 cyclobenzaprine (FLEXERIL) 10 mg tablet Take 10 mg by mouth 3 times daily as needed. 01/12/2021 documented as of this encounter Plan of Treatment Upcoming Encounters Date Type Department Care Team (Late st Contact Info) Description 07/10/2024 9:00 AM EDT TH Visit (TeleHealth) [place] [address] Andrei Kent MD [facility] [place] [address] documented as of this encounter Procedures Procedure Name Priority Date/Time Associated Diagnosis Comments FILM LIBRARY STORAGE ONLY MR HIP Routine 03/06/2015 12:00 AM EST Pain documented in this encounter Results * Film Library- Storage only MR Hip (03/06/2015 12:00 AM EST) Narrative BINTA - 07/01/2015 3:24 PM EST See PACS for result report. Dr Nino [facility] FILM LIBRARY ORD ERABLES Performing Organization Address City/State/[facility] Co de Phone Number [place], [place] documented in this encounter Visit Diagnoses Diagnosis Pain Generalized pain documented in this encounter Care Teams Gift Shop Manager Relationship Specialty Start Date End Date Greta Kimball MD [address] [place] [address] PCP - General 06/25/13 documented as of this encounter
--- OUTSIDE RECORDS SUMMARY | 2024-05-28 16:06 | XMS_ITS | Encounter Summary ---
Author Organization [facility] Address [facility] [place] [address] Care Team Providers Care Layout Designer Name Role Phone Greta Kimball MD Primary Care Provider [phone] Reason for Visit * - Closed Specialty Diagnoses / Procedures Referred By Michelle calle Referred To Contact Procedures Film Library- Storage Only MR Spine Greta Kimball MD [address] [place] [address] Referral ID Status Reason Start Date Expiration Date Visits Re quested Visits Authorized [id number] Closed 08/07/2020 08/07/2021 1 1 Encounter Details Date Type Department Care Team (Late st Contact Info) Description 08/06/2020 Ancillary Procedure Radiology Library at [facility] [place] [address] Greta Kimball MD [address] [place], [place] [address] Social History Tobacco Use Types Packs/Day Years [...] AM EDT TH Visit (TeleHealth) [place] [address] Andrei Kent MD [facility] [place] [address] documented as of this encounter Procedures Procedure Name Priority Date/Time Associated Diagnosis Comments FILM LIBRARY STORAGE ONLY MR SPINE Routine 08/06/2020 12:00 AM EDT documented in this encounter Results * Film Library- Storage Only MR Spine (08/06/2020 12:00 AM EDT) Narrative [facility] [place] - 08/07/2020 7:19 AM EDT This exam is auto-finalizing. It's purpose is for storage only. Greta Kimball MD IMG FILM LIBRARY ORD ERABLES [place], [place] documented in this encounter Visit Diagnoses Not on filedocumented in this encounter Care Teams Layout Designer Relationship Specialty Start Date End Date Greta Kimball MD [address] [place] [address] PCP - General 06/25/13 documented as of this encounter
--- OUTSIDE RECORDS SUMMARY | 2024-05-28 16:06 | XMS_ITS | Encounter Summary ---
Author Organization [facility] [place] [address] Care Team Providers Care Pediatric Oncology Nurse Name Role Phone Greta Kimball MD Primary Care Provider [phone] Reason for Visit * Reason Onset Date Comments Pre Procedure Call 12/03/2015 Encounter Details Date Type Department Care Team (Late st Contact Info) Description 12/03/2015 [place] [address] Jonathan Smith MD [facility] [place] [address] Pre Procedure Call Social History Tobacco Use Types Packs/Day Years [...] encounter Miscellaneous Notes * Telephone Encounter - Edgar Hinds - 12/03/2015 1:06 PM EDT Patient called stating that she would like to proceed with surgery as proposed by Dr Smith. Patient can be reached at [phone]. documented in this encounter Plan of Treatment Upcoming Encounters Date Type Department Care Team (Late st Contact Info) Description 07/10/2024 9:00 AM EDT TH Visit (TeleHealth) [place] [address] Andrei Kent MD [facility] [place] [address] documented as of this encounter Visit Diagnoses Not on filedocumented in this encounter Care Teams Pediatric Oncology Nurse Relationship Specialty Start Date End Date Greta Kimball MD [address] [place] [address] PCP - General 06/25/13 documented as of this encounter
--- OUTSIDE RECORDS SUMMARY | 2024-05-28 16:06 | XMS_ITS | Encounter Summary ---
Author Organization [facility] Address [facility] [place] [address] Care Team Providers Care Jewel Blocker And Sawyer Name Role Phone Greta Kimball MD Primary Care Provider [phone] Encounter Details Date Type Department Care Team (Late st Contact Info) Description 10/20/2014 12:15 PM EDT [place] [address] Zachary Dias MD [facility] [place] [address] Chronic migraine Discharge Disposition: Home Social History Tobacco Use [...] Sign Reading Time Taken Comments Blood Pressure 121/68 10/20/2014 12:06 PM EDT Pulse 77 10/20/2014 12:06 PM EDT Temperature - - Respiratory Rate - - Oxygen Saturation - - Inhaled Oxygen Concentration - - Weight 55 kg (121 lb 3.2 oz) 10/20/2014 12:06 PM EDT Height 161.9 cm (5' 3.75) 10/20/2014 1 2:06 PM EDT per patient Body Mass Index 20.97 10/20/2014 12:06 PM EDT documented in this encounter Progress Notes * Zachary Dias MD - 10/20/2014 12:47 PM EDT She looks well. She is not jaundiced, sedated, ataxic, or dysarthric. She brought excellent headache calendars showing five days of headache in May, two in June, six in both July and August, and five in September. Her new brand of sumatriptan seems to make her sleep and I think it is probably just moving her into the postdrome quicker. She usually does not need to use it. I have suggested we try raising her topiramate once more to 100 mg at bedtime. If that is not good, she should let me know and we will stay at 75 mg. Otherwise, followup will be in five to six months. I did generate a new prescription for her mail-away pharmacy for 100 mg topiramate if she can tolerate it. The majority of today's 25-minute office visit was dominated by 15 minutes of direct [id number] counseling and therapeutic planning. documented in this encounter Plan of Treatment Upcoming Encounters Date Type Department Care Team (Late st Contact Info) Description 07/10/2024 9:00 AM EDT TH Visit (TeleHealth) [place] [address] Andrei Kent MD [facility] [place] [address] documented as of this encounter Visit Diagnoses Diagnosis Chronic migraine Chronic migraine without aura, without mention of intractable migraine without mention of status migrainosus documented in this encounter Care Teams Jewel Blocker And Sawyer Relationship Specialty Start Date End Date Greta Kimball MD [address] [place] [address] PCP - General 06/25/13 documented as of this encounter
--- OUTSIDE RECORDS SUMMARY | 2024-05-28 16:06 | XMS_ITS | Encounter Summary ---
Author Organization [facility] [place] [address] Care Team Providers Care Gear Cutting Machine Set Up Operator Name Role Phone Greta Kimball MD Primary Care Provider [phone] Reason for Visit * Consultation (Routine) - Closed Specialty Diagnoses / Procedures Referred By Michelle calle Referred To Contact [facility] Diagnoses Radiculopathy of lumbar region Lumbar spondylosis Neck pain [facility] - Welcome Group - WC Suzie Hebert, JOI [facility] [place] [address] [facility] [place] [address] Referral ID Status Reason Start Date Expiration Date V isits Requested Visits Authorized [id number] Closed Consult, Test & Treat 09/13/2020 09/13/2021 1 1 Encounter Details Date Type Department Care Team (Late st Contact Info) Description 10/29/2020 12:00 PM EDT Notes Only [place] [address] Yessica Luque, Dima Social History Tobacco Use Types Packs/Day Years [...] as of this encounter Progress Notes * Yoli Hamilton - 10/29/2020 12:00 PM EDT [facility] Active Pain Care, A Service of the [facility] Patient: Elin Willard Date: 10/29/2020 Appointment: Via Telehealth, No Charge Visit Elin attended a 60 minute Welcome Group for the Active Pain Care Service ([facility]). Patients were provided detailed information on the programs and treatment options available to them through the [facility]. The group also presented the rationale for engaging in active treatment strategies that include education and interdisciplinary, multimodal therapies. Patients' questions were answered and they were provided written materials describing the [facility] and recommended next steps. Participants were encouraged to schedule an appointment for a Pain Neuroscience Education class, asresearch studies have shown that if patients have a basic understanding of how chronic pain develops and functions physiologically, they experience better treatment outcomes including improved function, reduced reliance on medications, and have greater interest in healthy exercise and movement. Plan: Elin will be scheduled to attend a Pain Education Group if she is interested. Patients were instructed to call the [facility] phone number or send a [employer] message if they are interested in gettingscheduled. documented in this encounter Plan of Treatment Upcoming Encounters Date Type Department Care Team (Late st Contact Info) Description 07/10/2024 9:00 AM EDT TH Visit (TeleHealth) [place] [address] Andrei Kent MD [facility] [place] [address] Scheduled Referrals Name Type Priority Associated Diagnoses Orde r Schedule Amb Referral to Active Pain Care Services Outpatient Referral Routine Radiculopathy of lumbar region Lumbar spondylosis Neck pain Ordered: 09/13/2020 documented as of this encounter Visit Diagnoses Not on filedocumented in this encounter Care Teams Gear Cutting Machine Set Up Operator Relationship Specialty Start Date End Date Greta Kimball MD [address] [place] [address] PCP - General 06/25/13 documented as of this encounter
--- OUTSIDE RECORDS SUMMARY | 2024-05-28 16:06 | XMS_ITS | Encounter Summary ---
Author Organization [facility] Address [facility] [place] [address] Care Team Providers Care Pigment Pumper Name Role Phone Greta Kimball MD Primary Care Provider [phone] Reason for Visit * Auth/Cert Specialty Diagnoses / Procedures Referred By Michelle calle Referred To Contact Diagnoses lumbar radiculopathy Procedures PRO INJECTION DX/THER SBST INTRLMNR LMBR/SAC W/IMG GDN INJECTION, EPIDURAL, LUMBAR OR SACRAL (CAUDAL), WITH IMAGING GUIDANCE (WRVU 1.8) Referral ID Status Reason Start Date Expiration Date Visits Re quested Visits Authorized [id number] 1 1 Encounter Details Date Type Department Care Team (Latest Contact Info) Description 08/28/2020 11:35 AM EDT - 08/28/2020 12:11 PM EDT Hospital [place] [address] Jamie Pepe MD [facility] [place] [address] Radiculopathy of lumbar region; Radiculopathy of lumbar region Discharge Disposition: Home [...] Instructions: You were seen today by Surgeon(s): Jamei Pepe MD The following was performed: Procedure(s) [...] REPAIR performed by Jonathan Smith MD at [facility] OSC ALLERGIES: Amitriptyline, Erythromycin, and Mold [...] Gatherings with Friends and Family: ??? Attends [employer] Services: ??? Active Member of Clubs or [...] proceed. Jamie Pepe MD [facility] Ordnance Artificer Helper of Anesthesiology [facility] of [address] [address] / [facility] documented in this encounter Miscellaneous Notes * Op Note - Jamie Pepe MD - 08/28/2020 12:03 PM EDT Pain Management Operative Note Patient Name: Elin Willard : [id number] MR#: [id number] Case Date: 08/28/2020 Surgeon: Surgeon(s) and Role: [...] I personally performed this entire procedure. Jamie Pepe MD [facility] [employer]dn[employer] Artificer Helper of Anesthesiology [facility] [address] [address] / [facility] CC: No referring provider defined for this encounter. documented in this encounter Plan of Treatment Upcoming Encounters Date Type Department Care Team (Late st Contact Info) Description 07/10/2024 9:00 AM EDT TH Visit (TeleHealth) [place] [address] Andrei Kent MD [facility] [place] [address] Scheduled Orders Name Type Priority Associated Diagnoses [...] MD) documented in this encounter Care Teams Pigment Pumper Relationship Specialty Start Date End Date Greta Kimball MD [address] [place], [place] [address] PCP - General 06/25/13 documented as of this encounter
--- OUTSIDE RECORDS SUMMARY | 2024-05-28 16:06 | XMS_ITS | Encounter Summary ---
Author Organization [place] [address] Care Team Providers Care Filter Helper Name Role Phone Greta Kimball MD Primary Care Provider [phone] Reason for Visit * Auth/Cert Specialty Diagnoses / Procedures Referred By Michelle calle Referred To Contact Diagnoses Labral tear of hip, degenerative Labral tear, left hip Procedures PRO ARTHROSCOPY HIP W/LABRAL REPAIR ARTHROSCOPY HIP W/LABRAL REPAIR Referral ID Status Reason Start Date Expiration Date Visits Re quested Visits Authorized [id number] 1 1 Encounter Details Date Type Department Care Team (Latest Contact Info) Description 01/14/2016 6:14 AM EDT - 01/14/2016 10:55 AM EDT Hospital Encounter [facility] [place] [address] Brittany Smith MD [facility] [place] [address] Pain in left hip Discharge Disposition: Home Social History Tobacco Use [...] Sign Reading Time Taken Comments Blood Pressure 104/59 01/14/2016 10:00 AM EDT Pulse 72 01/14/2016 10:00 AM EDT Temperature 36.1 ??C (97 ??F) 01/14/2016 9:19 AM EDT Respiratory Rate 16 01/14/2016 10:00 AM EDT Oxygen Saturation 99% 01/14/2016 10:00 AM EDT Inhaled Oxygen Concentration - - Weight 55.3 kg (122 lb) 01/14/2016 6:34 AM EDT Height 154.9 cm (5' 1) 01/14/2016 6:34 AM EDT Body Mass Index 23.05 01/14/2016 6:34 AM EDT documented in this encounter Discharge Instructions * Discharge Instructions* Marilyn Tijerina RN - 01/14/2016 6:59 AM EDT General Anesthesia Discharge Instructions Go home and rest. You may be sleepy for several hours. Take it easy as sudden position changes may cause nausea and/or dizziness. Use caution on stairs. Do not smoke if you are alone. Follow a light to regular diet as tolerated today. If nausea occurs, start with clear liquids, and progress slowly to a regular diet. Do not drive, operate machinery, drink alcoholic beverages or make any legal decisions after havinggeneral anesthesia. The medications given change your reaction time and alter your judgement. IV site -- slight redness is normal, you can use warm compresses. If tenderness and redness increases or foul drainage occurs, please contact your M.D. Patients who have had endotracheal tubes/LMA (tubes used by the anesthesia staff to ensure a safe airway during your operation) may have a sore throat. This is normal and cold liquids or soothing lozengers will help ease this discomfort. Narcotic pain medications can cause constipation, please ask the surgeons office what they recommend for prevention of this. Some non-pharmaceutical means of constipation prevention include increasing intake of fluids, eating more fruits and vegetables as well as fruit juices. If you are uncomfortable and/or unable to urinate within 8 hours of discharge and it is before 5 pm, call your physician. If it is after 5pm go to the closest emergency room or call the hospital shovel operator at [phone] and ask for physician welding machine operator friction covering for your physician. Questions or problems after 5pm or on a weekend: Call the [facility] shovel operator at and ask for the physician welding machine operator friction covering for your doctor. SCOPOLAMINE PATCH DISCHARGE INSTRUCTIONS You are wearing a scopolamine patch. This is a medication patch used to prevent and treat nausea and vomiting after surgery. The patch is located: Behind the: Right or Left ear. Please follow these instructions while you are wearing the patch. Try not to touch the patch. ??? If you do touch the patch, wash your hands right away. Make sure to remove all traces of medication from your hands. ??? If the medication gets on your hands and then you touch your eyes, your vision may become blurry or your pupils may widen. These are both normal and temporary reactions; they will go away shortly. You may remove the patch as early as: am/pm on BUT must remove it no later than am/pm on There will still be some active ingredients on the patch, so fold it in half (with the sticky sidestogether) and throw it in the trash. This will help prevent others from coming into contact with it. After removing the patch, carefully wash your hands and behind your ear (or wherever the patch was placed) with soap and water. If you have not urinated in 6-8 hours after your surgery, remove the patch and call your surgeon. At 7 am you received 1000 mg of acetaminophen- Your next dose should not be taken before 8 hours have passed. Next dose not before- 4pm You should not take more than a total of 3000 mg of acetaminophen in a 24 hour period. * Patient Instructions* Chalino Baltazar - 01/14/2016 8:49 AM EDT Weight Bearing/Activity: Labral Debridement: 50% weight bearing with normal gait (heel-toe) for ~7 days. After this it is okay to progress to full weigh bearing and discontinue crutches when comfortable and walking without alimp. Pain Medication Protocol: 1) Oxycodone 5mg: take 1 - 2 tablets every 4 - 6 hours for pain as needed. Take this medication with a small amount of food to help prevent nausea. Oxycodone is a short acting narcotic pain medication. Bjdt-qow-yeghdwd Tylenol (acetaminophen) may be taken in addition to oxycodone for further pain relief. Follow the instructions on the Tylenol package for dosage and frequency. 2) Aspirin 325mg: take 1 tablet twice daily starting on the day after surgery and continue for 2 weeks. Take with meals to minimize gastrointestinal (stomach) irritation. Aspirin helps with pain control, reduces inflammation, and help to prevent blood clots. Post-operative constipation: Constipation is common after surgery. Drinking plenty of water is important in helping to prevent this. An nqzw-dhu-xajopnr stool softener can also help prevent or treat constipation. Colace 100mg tablets can be obtained at most pharmacies and can be taken 2 - 3 times a day. The pain medication may also cause nausea. If you have significant nausea, we can provide a prescription for an anti-nausea medication. Cryotherapy: ??? Ice is a highly effective anti-inflammatory in the postoperative period. It helps reduce inflammation and pain. ??? Apply an ice pack to the surgical area for 20-30 minutes every 3-[address]. [address] ice directly on the skin as this can cause frostbite; place a towel/rag between the ice and skin. ??? Specific cooling machines have been designed to wrap around the hip after hip surgery. Your physical therapist may use this during therapy sessions Incision Care: The original dressing should be removed 48 hours after surgery. Clean around your incision sites with soap and water, and then pat dry. Apply a water-proof dressing over the incision site until you have stopped draining. After, apply band aids over the incisions so your sutures do not catch and pull on your clothing. Do this daily or as needed through out the day if the band-aid becomes soiled orwet. Do not put any ointments or lotions over the incisions until your sutures are removed. Showering: As long as there isn???t any drainage from the incision sites, you may resume regular showers afterthe initial dressing is removed. Water may run over the incision. When complete, pat the incision dry, and reapply the band-aid or tegaderm Returning to work or school: You may return to work or school in 4-5 days after surgery if pain is tolerable and your job does not require manual labor. You must take the time to honor your commitments to physical therapy and office visits. Returning to heavy labor will be determined by your progression through physical therapy and the cartilage condition on the acetabulum and femoral head. Driving No driving while on narcotic pain medications. You may drive once you are confident that you can brake suddenly if needed and you are off narcotic pain medication. documented in this encounter Medications at Time of Discharge Medication Sig Dispensed Refills Start Date End Date cetirizine (ZYRTEC) 10 mg Tablet Take 10 [...] tablet Take 650 mg by mouth daily. oxyCODONE (ROXICODONE) 5 mg Tablet Take 1-2 tablets by mouth every 6 hours as needed for Pain. 60 tablet 01/14/2016 07/27/2020 famotidine (PEPCID) 20 mg TabletIndications:Chron ic migraine Take 1 tablet by mouth daily. 90 tablet 3 05/20/2015 09/10/2020 topiramate (TOPAMAX) 25 mg TabletIndications:Chron ic migraine Take 1 and 1/2=37.5 mg in the morning and 2=50mg at bedtime 315 tablet 3 05/20/2015 11/30/2020 cyclobenzaprine (FLEXERIL) 10 mg tablet Take 10 mg by mouth 3 times daily as needed. 01/12/2021 documented as of this encounter Progress Notes * Lazara Lorenz RN - 01/14/2016 10:38 AM EDT Discharge instructions done with the and questions answered. documented in this encounter H&P Notes * Brittany Smith MD - 01/14/2016 9:11 AM EDT The patient's history and physical exam have been reviewed and completed. There has been no interval change from that of the pre-operative history and physical exam done within the last 30 days. Source Note - Brittany Smith MD - 01/14/2016 9:11 AM EDT Patient Name: Elin Willard Patient Age: 55 y.o. Birthdate: 1960 Admit date: 01/14/2016 Attending Physician: Brittany Smith MD Please see my recent clinic note for pre-op H&P. * Brittany Smith MD - 01/14/2016 9:11 AM EDT Patient Name: Elin Willard Patient Age: 55 y.o. Birthdate: 1960 Admit date: 01/14/2016 Attending Physician: Brittany Smith MD Please see my recent clinic note for pre-op H&P. documented in this encounter Miscellaneous Notes * Op Note - Brittany Smith MD - 01/14/2016 9:00 AM EDT [facility] [place]ative [place] Patient Name: Elin Willard : [id number] MR#: [id number] Case Date: 01/14/2016 Surgeon: Surgeon(s) and Role: * Brittany Smith MD - Primary * Chalino Baltazar MD - Resident-Surgeon Chief Preoperative diagnosis: Labral tear, left hip Postoperative diagnosis: Labral tear, left hip Procedure(s): ARTHROSCOPY HIP W/LABRAL DEBRIDEMENT Anesthesia: General Estimated Blood Loss: 5cc Specimens removed during surgery: None Drains: none Surgical Closure: Primary Closure - closure of ALL tissue levels during the original surgery regardless of wires, wickes, drains, or other devices extruding through the incision Disposition: awakened from anesthesia, extubated and taken to the recovery room in a stable condition, having suffered no apparent untoward event. Condition: doing well without problems Indications: 55 year old female with left hip pain. She had MRI evidence for labral tear. 4 months of relief from an intra-articular injection. After a discussion of risks and benefits, the patient elected to undergo the above procedures. Operative Findings: 1. Acetabular Cartilage: Grade II at chondrolabral junction from 12-3 (~3mm rim) 2. Acetabular Labrum: Degenerative mid-substance tearing 12-3 3. Femoral Head: normal 4. Cotyloid Fossa: Synovitic. 5. Capsule: Synovitic. Traction time 41 min Description: The patient was greeted in the Preoperative Holding Area. Consent was reviewed, the left hip was confirmed to be the correct hip and was marked with a green ramona. The patient was then identified by Anesthesia and brought to the Operating Room and placed supine on the operating room table. General anesthetic with muscular relaxation was initiated. The patient was then positioned on the table with a well-padded perineal post, and the bilateral feet placed in traction boots. Arms were carefully padded. The hip was then prepped and draped in the standard sterile fashion. A surgicaltime-out was performed with the proper site and consent confirmed, and the patient received appropriate preoperative antibiotics. Gentle traction was placed through the non-operative leg and distraction traction was placed through the operative lower extremity. A single shot fluoroscopic image confirmed adequate distraction of the hip. An anterolateral portal was made with a asim and spread technique 1cm proximal and 1cm medial to the tip of the greater trochanter. A spinal needle was advanced into the joint under fluoroscopic guidance. Nitinol wire was placed, and then the 4.5 cannula was advanced into the join followed by the camera. We had excellent visualization of the anterior triangle. A mid anterior portal was then established with similar asim an spread technique and a 5.0 cannula was placed. The camera was switched to the mid anterior portal. We were able to view our entry point posteriorly. A Rosston blade was thenused to enlarge but not connect the anterolateral and mid anterior portals. This allowed better visu alization of the joint. Labral Debridement At this point, the labrum was visualized throughout its entire course. Labral tear as described above. The labrum was gently debrided with a shaver and Arthrocare down to a stable base. This involveddebridement of the articular side of the chondrolabral junction. After debridement, residual labrumwas stable to probing. The Arthrocare was also used to perform a limited synovectomy of inflamed synovium in the cotyloid fossa. At this point the joint was copiously irrigated and then evacuated of all fluid. A long spinal needle was then placed through the anterolateral portal and 20cc of .25% Marcaine was injected. Tractionwas let down. Each portal site was injected with 5cc of 0.25% Marcaine. Arthroscopic portals were closed with 3-0 Vicryl and 4-0 Prolene. The wounds were covered with Xeroform and a dry sterile dressing. The patient was extubated and transferred back to the hospital bed and into the PACU in stable condition. All counts were correct at the end of the case. There were no apparent complications. Post-operative Plan: Physical Therapy per [facility] protocol to start in the next 2-5 days. Weight Bearing/Crutch use Labral Debridement: 50% weight bearing with normal gait (heel-toe) for ~7 days. After this it is okay to progress to full weigh bearing and discontinue crutches when comfortable and walking without alimp. Attestation: Case Date: 01/14/2016 I was present and I participated during the entire procedure (does not need to include opening and closing). BRITTANY SMITH MD 01/14/2016 documented in this encounter Plan of Treatment Upcoming Encounters Date Type Department Care Team (Late st Contact Info) Description 07/10/2024 9:00 AM EDT TH Visit (TeleHealth) [place] [address] Andrei Kent MD [facility] [place] [address] documented as of this encounter Procedures Procedure Name Priority Date/Time Associated Diagnosis Comments XR FLUORO NO RAD <1HR - OR USE Routine 01/14/2016 9:08 AM EDT ARTHROSCOPY HIP W/LABRAL REPAIR (WRVU 15) 01/14/2016 7:39 AM EDT Pain in left hip Case Notes Total traction time: 41 minutes, [id number] documented in this encounter Results * XR Fluoro No Rad <1Hr (01/14/2016 9:08 AM EDT) Narrative RAD - 01/14/2016 9:08 AM EDT This order does not need a radiologist interpretation. ?? Brittany Smith MD IMG FLUORO ORDERABLE S [place], [place] documented in this encounter Visit Diagnoses Diagnosis Left ZAYDA s/p labral debridement 01/14/16 (Sarah)- Primary Pain in joint, pelvic region and thigh Pain in left hip Pain in joint, pelvic region and thigh documented in this encounter Administered Medications Inactive Administered Medications - up to 3 most recent administrations Medication Order MAR Action Action Date Dose Rate Site acetaminophen (TYLENOL) tablet 1,000 mg 1,000 mg, Oral, ONCE, 1 dose, On Criss 01/14/16 at 0700, Maximum dose of acetaminophen is 4000 mg from all sources in 24 hours., Day of Surgery (Day of Procedure), Routine Given 01/14/2016 6:53 AM EDT 1,000 mg fentaNYL (PF) 50 mcg/mL 2mL syringe 25 mcg, Intravenous, EVERY 5 MIN PRN, Pain, for 1-4 pain score, Starting on Criss 01/14/16 at 0925, Until Criss 01/14/16 at 1256, for 1-4 pain score Hold for respiratory rate less than 10 per minute. Maximum dose: 250 mcg over one hour., PACU Recovery fentaNYL (PF) 50 mcg/mL 2mL syringe 50 mcg, Intravenous, EVERY 5 MIN PRN, Pain, for 5-10 pain score, Starting on Criss 01/14/16 at 0925, Until Criss 01/14/16 at 1256, for 5-10 pain score Hold for respiratory rate less than 10 per minute. Maximum dose: 250 mcg over one hour., PACU Recovery gabapentin (NEURONTIN) capsule 600 mg 600 mg, Oral, ONCE, 1 dose, On Criss 01/14/16 at 0700, Day of Surgery (Day of Procedure), Routine Given 01/14/2016 6:53 AM EDT 600 mg lactated ringers infusion 1,000 mL 1,000 mL, at 100 mL/hr, Intravenous, CONTINUOUS, Starting on Criss 01/14/16 at 0700, Until Criss 01/14/16 at 1256, Day of Surgery (Day of Procedure) New Bag 01/14/2016 7:37 AM EDT lidocaine (XYLOCAINE) 10 mg/mL (1 %) injection 3 mg 3 mg (0.3 mL), Subcutaneous, ONCE PRN, 1 dose, Starting on Criss 01/14/16 at 0634, Until Criss 01/14/16 at 1256, for discomfort with PIV insertion, Day of Surgery (Day of Procedure), Routine oxyCODONE (ROXICODONE) immediate release tablet 10 mg 10 mg, Oral, EVERY 4 HOURS PRN, Starting on Criss 01/14/16 at 0925, Until Criss 01/14/16 at 1256, Pain, moderate pain (4-6), For moderate pain (4-6). Do not exceed 15 mg in 4 hours. If pain not relieved, call provider., PACU Recovery, Routine oxyCODONE (ROXICODONE) immediate release tablet 15 mg 15 mg, Oral, EVERY 4 HOURS PRN, Starting on Criss 01/14/16 at 0925, Until Criss 01/14/16 at 1256, Pain, severe pain, PACU Recovery, Routine oxyCODONE (ROXICODONE) immediate release tablet 5 mg 5 mg, Oral, EVERY 4 HOURS PRN, Starting on Criss 01/14/16 at 0925, Until Criss 01/14/16 at 1256, Pain, mild pain (1-3), For mild pain (1-3). Do not exceed 15 mg in 4 hours. If pain not relieved, call provider, PACU Recovery, Routine Given 01/14/2016 9:37 AM EDT 5 mg scopolamine (TRANSDERM-SCOP) 1.5 mg (1 mg over 3 days) patch 1 patch 1 patch, Transdermal, ONCE, 1 dose, On Criss 01/14/16 at 0700, Recovery (Recovery-Hospital Unit), Routine Patch Applied 01/14/2016 7:00 AM EDT 1 patch 01- Ear Behind (Left) scopolamine (TRANSDERM-SCOP) 1.5 mg patch Patch Removal Transdermal, EVERY 24 HOURS, 1 dose, First dose on Mon01/15/16 at 0900, Remove Scopolamine Patch, Recovery (Recovery-Hospital Unit) scopolamine (TRANSDERM-SCOP) 1.5 mg patch Patch Verification Transdermal, 2 TIMES DAILY, 1 dose, First dose on Criss 01/14/16 at 1845, Verify scopolamine 1.5 mg patch., Recovery (Recovery-Hospital Unit) sodium chloride 0.9 % flush 5-20 mL 5-20 mL, Intravenous, EVERY 1 MIN PRN, Starting on Criss 01/14/16 at 0634, Until Criss 01/14/16 at 1256, flush, Flush pertains to all indwelling lines. Flush per protocol found in the job aid using the link provided on this medication record., Day of Surgery (Day of Procedure), Routine documented in this encounter Active and Recently Administered Medications Times are shown in EDT. Scheduled Medication Order 01/12/2016 01/13/2016 01/14/2016 acetaminophen (TYLENOL) tablet 1,000 mg (COMPLETED) 1,000 mg, Oral, ONCE, 1 dose, On Criss 01/14/16 at 0700, Maximum dose of acetaminophen is 4000 mg from all sources in 24 hours., Day of Surgery (Day of Procedure), Routine 0653 (Given - Provid er: Marilyn Tijerina RN) acetaminophen (TYLENOL) tablet 1,000 mg 1,000 mg, Oral, EVERY 8 HOURS SCHEDULED, First dose on Criss 01/14/16 at 0945, Until Discontinued, Maximum total acetaminophen dose 4 grams per 24 hours., Recovery (Recovery-Hospital Unit), Routine 0945 (Due) ceFAZolin (ANCEF) 2,000 mg in sodium chloride 0.9% 56.06 mL 2,000 mg (2 g), Intravenous, EVERY 3 HOURS, 1 dose, First dose on Mon01/14/16 at 0700, Administer over 30 Minutes, Redose after 3 hours., Intra-Operative (Intra-Procedure), Indication for (Active or Suspected): Prophylaxis 0700 (Due) gabapentin (NEURONTIN) capsule 600 mg (COMPLETED) 600 mg, Oral, ONCE, 1 dose, On Mon01/14/16 at 0700, Day of Surgery (Day of Procedure), Routine 0653 (Given - Provid er: Marilyn Tijerina RN) scopolamine (TRANSDERM-SCOP) 1.5 mg (1 mg over 3 days) patch 1 patch (COMPLETED)(Linked Group 1) 1 patch, Transdermal, ONCE, 1 dose, On Mon01/14/16 at 0700, Recovery (Recovery-Hospital Unit), Routine 0700 (Patch Applied - Provider: Marilyn Tijerina RN) scopolamine (TRANSDERM-SCOP) 1.5 mg patch Patch Removal(Linked Group 1) Transdermal, EVERY 24 HOURS, 1 dose, First dose on Mon01/15/16 at 0900, Remove Scopolamine Patch, Recovery (Recovery-Hospital Unit) scopolamine (TRANSDERM-SCOP) 1.5 mg patch Patch Verification(Linked Group 1) Transdermal, 2 TIMES DAILY, 1 dose, First dose on Mon01/14/16 at 1845, Verify scopolamine 1.5 mg patch., Recovery (Recovery-Hospital Unit) Continuous Medication Order 01/12/2016 01/13/2016 01/14/2016 lactated ringers infusion 1,000 mL 1,000 mL, at 100 mL/hr, Intravenous, CONTINUOUS, Starting on Mon01/14/16 at 0700, Until Mon01/14/16 at 1256, Day of Surgery (Day of Procedure) 0737 (New Bag - Prov ider: Amy Quigley CRNA)0918 (Stopped - Provider: Amy Quigley CRNA) PRN Medication Order 01/12/2016 01/13/2016 01/14/2016 BUpivacaine (PF) (MARCAINE) 0.25 % (2.5 mg/mL) injection (CANCELED) ONCE PRN, Starting on Mon01/14/16 at 0903, Until Criss 01/14/16 at 1256, Intra-Operative (Intra-Procedure), Routine 0903 (Given - Provid er: Chalino Baltazar) EPINEPHrine (ADRENALIN) injection (CANCELED) ONCE PRN, Starting on Criss 01/14/16 at 0829, Until Criss 01/14/16 at 1256, Intra-Operative (Intra-Procedure), Routine 0829 (Given - Provid er: Brittany Smith MD - Comment: 1 ml of epi 1:1000 1 mg/ml mixed in each 3L bag of NS,) fentaNYL (PF) 50 mcg/mL 2mL syringe(Linked Group 2) 25 mcg, Intravenous, EVERY 5 MIN PRN, Pain, for 1-4 pain score, Starting on Criss 01/14/16 at 0925, Until Criss 01/14/16 at 1256, for 1-4 pain score Hold for respiratory rate less than 10 per minute. Maximum dose: 250 mcg over one hour., PACU Recovery fentaNYL (PF) 50 mcg/mL 2mL syringe(Linked Group 2) 50 mcg, Intravenous, EVERY 5 MIN PRN, Pain, for 5-10 pain score, Starting on Criss 01/14/16 at 0925, Until Criss 01/14/16 at 1256, for 5-10 pain score Hold for respiratory rate less than 10 per minute. Maximum dose: 250 mcg over one hour., PACU Recovery HYDROmorphone (DILAUDID) syringe 0.2-0.4 mg 0.2-0.4 mg, Intravenous, EVERY 5 MIN PRN, Pain, Starting on Criss 01/14/16 at 0925, Until Criss 01/14/16 at 1256, For moderate pain (4-6) give: 0.2 mg every 5 minute prn For severe pain (7-10) give: 0.4 mg every 5 minutes prn Maximum dose: 4 mg per hour Hold for respiratory rate less than 10 per minute., PACU Recovery lidocaine (XYLOCAINE) 10 mg/mL (1 %) injection 3 mg 3 mg (0.3 mL), Subcutaneous, ONCE PRN, 1 dose, Starting on Criss 01/14/16 at 0634, Until Criss 01/14/16 at 1256, for discomfort with PIV insertion, Day of Surgery (Day of Procedure), Routine naloxone (NARCAN) injection 40 mcg 40 mcg, Intravenous, EVERY 5 MIN PRN, Starting on Criss 01/14/16 at 0925, Until Criss 01/14/16 at 1256, Opioid Reversal, for respiratory rate less than 6 or unresponsive., May repeat every every 5 minutes to increase respiratory rate. DO NOT exceed 120 mcg total dose. Notify anesthesia immediately if administered., PACU Recovery, Routine ondansetron (ZOFRAN) injection 4 mg 4 mg, Intravenous, EVERY 30 MIN PRN, Starting on Criss 01/14/16 at 0925, Until Criss 01/14/16 at 1256, Nausea, May repeat 4 mg once in 30 minutes. If multiple antiemetics ordered, use ondansetron first and if ineffective use prochlorperazine second and if ineffective use promethazine, PACU Recovery oxyCODONE (ROXICODONE) immediate release tablet 10 mg(Linked Group 3) 10 mg, Oral, EVERY 4 HOURS PRN, Starting on Criss 01/14/16 at 0925, Until Criss 01/14/16 at 1256, Pain, moderate pain (4-6), For moderate pain (4-6). Do not exceed 15 mg in 4 hours. If pain not relieved, call provider., PACU Recovery, Routine 09 (See Alternativ e - Provider: Lazara Lorenz RN) oxyCODONE (ROXICODONE) immediate release tablet 15 mg(Linked Group 3) 15 mg, Oral, EVERY 4 HOURS PRN, Starting on Criss 01/14/16 at 0925, Until Criss 01/14/16 at 1256, Pain, severe pain, PACU Recovery, Routine 0937 (See Alternativ e - Provider: Lazara Lorenz RN) oxyCODONE (ROXICODONE) immediate release tablet 5 mg(Linked Group 3) 5 mg, Oral, EVERY 4 HOURS PRN, Starting on Criss 01/14/16 at 0925, Until Criss 01/14/16 at 1256, Pain, mild pain (1-3), For mild pain (1-3). Do not exceed 15 mg in 4 hours. If pain not relieved, call provider, PACU Recovery, Routine 0937 (Given - Provid er: Lazara Lorenz RN) promethazine (PHENERGAN) injection 6.25 mg 6.25 mg, Intravenous, EVERY 30 MIN PRN, Nausea, Starting on Mon01/14/16 at 0925, 2 doses, Until Criss 01/14/16 at 1256, If multiple antiemetics ordered, use promethazine first and if ineffective use ondansetron second., PACU Recovery sodium chloride 0.9 % flush 5-20 mL 5-20 mL, Intravenous, EVERY 1 MIN PRN, Starting on Mon01/14/16 at 0634, Until Criss 01/14/16 at 1256, flush, Flush pertains to all indwelling lines. Flush per protocol found in the job aid using the link provided on this medication record., Day of Surgery (Day of Procedure), Routine No Frequency Medication Order 01/12/2016 01/13/2016 01/14/2016 ceFAZolin (ANCEF) 2 gram/50 mL infusion (COMPLETED) 1 dose, Starting on Mon01/14/16 at 0651, Until Mon01/14/16 at 0748, MARILYN TIJERINA: cabinet override 0748 (Given - Provid er: Amy Quigley CRNA) Linked Groups Order Group 1: scopolamine (TRANSDERM-SCOP) 1.5 mg (1 mg over 3 days) patch 1 patch (COMPLETED)Jump to med 1 patch, Transdermal, ONCE, 1 dose, On Mon01/14/16 at 0700, Recovery (Recovery-Hospital Unit), Routine Followed by scopolamine (TRANSDERM-SCOP) 1.5 mg patch Patch VerificationJump to med Transdermal, 2 TIMES DAILY, 1 dose, First dose on Mon01/14/16 at 1845, Verify scopolamine 1.5 mg patch., Recovery (Recovery-Hospital Unit) Followed by scopolamine (TRANSDERM-SCOP) 1.5 mg patch Patch RemovalJump to med Transdermal, EVERY 24 HOURS, 1 dose, First dose on Mon01/15/16 at 0900, Remove Scopolamine Patch, Recovery (Recovery-Hospital Unit) Group 2: fentaNYL (PF) 50 mcg/mL 2mL syringeJump to med 25 mcg, Intravenous, EVERY 5 MIN PRN, Pain, for 1-4 pain score, Starting on 01/13/16 at 0925, Until Criss 01/14/16 at 1256, for 1-4 pain score Hold for respiratory rate less than 10 per minute. Maximum dose: 250 mcg over one hour., PACU Recovery Or fentaNYL (PF) 50 mcg/mL 2mL syringeJump to med 50 mcg, Intravenous, EVERY 5 MIN PRN, Pain, for 5-10 pain score, Starting on Criss 01/14/16 at 0925, Until Criss 01/14/16 at 1256, for 5-10 pain score Hold for respiratory rate less than 10 per minute. Maximum dose: 250 mcg over one hour., PACU Recovery Group 3: oxyCODONE (ROXICODONE) immediate release tablet 5 mgJump to med 5 mg, Oral, EVERY 4 HOURS PRN, Starting on Criss 01/14/16 at 0925, Until Criss 01/14/16 at 1256, Pain, mild pain (1-3), For mild pain (1-3). Do not exceed 15 mg in 4 hours. If pain not relieved, call provider, PACU Recovery, Routine Or oxyCODONE (ROXICODONE) immediate release tablet 10 mgJump to med 10 mg, Oral, EVERY 4 HOURS PRN, Starting on Criss 01/14/16 at 0925, Until Criss 01/14/16 at 1256, Pain, moderate pain (4-6), For moderate pain (4-6). Do not exceed 15 mg in 4 hours. If pain not relieved, call provider., PACU Recovery, Routine Or oxyCODONE (ROXICODONE) immediate release tablet 15 mgJump to med 15 mg, Oral, EVERY 4 HOURS PRN, Starting on Criss 01/14/16 at 0925, Until Criss 01/14/16 at 1256, Pain, severe pain, PACU Recovery, Routine documented in this encounter Care Teams Filter Helper Relationship Specialty Start Date End Date Greta Kimball MD [address] [place] [address] PCP - General 06/25/13 documented as of this encounter
--- OUTSIDE RECORDS SUMMARY | 2024-05-28 16:06 | XMS_ITS | Encounter Summary ---
Author Organization [facility] [place] [address] Care Team Providers Care Hotel Front Desk Agent Name Role Phone Greta Kimball MD Primary Care Provider [phone] Reason for Visit * Reason Comments Follow-up Encounter Details Date Type Department Care Team (Latest Contact Info) Description 08/11/2020 11:30 AM EDT Office Visit [facility] [place] [address] Suzie Hebert, JOI [facility] [place] [address] Radiculopathy of lumbar region Social History Tobacco [...] Sign Reading Time Taken Comments Blood Pressure 103/71 08/11/2020 11:20 AM EDT Pulse 76 08/11/2020 11:20 AM EDT Temperature 36.7 ??C (98.1 ??F) 08/11/2020 11:20 AM E DT Respiratory Rate - - Oxygen Saturation 100% 08/11/2020 11:20 AM EDT Inhaled Oxygen Concentration - - Weight 49 kg (108 lb) 08/11/2020 11:20 AM EDT Height 156.2 cm (5' 1.5) 08/11/2020 11:20 AM ED T Body Mass Index 20.08 08/11/2020 11:20 AM EDT documented in this encounter Progress Notes * Suzie Hebert, FINISHING FRAME RUNNER - 08/11/2020 11:30 AM EDT [facility] [place] [address] Phone: PAIN MANAGEMENT WORK RELATED INJURY FOLLOW UP NOTE DATE OF VISIT 08/11/2020 Patient Elin Willard 1960 REFERRING PROVIDER Melanie Guajardo [address] [place] [address] PRIMARY CARE PROVIDER Greta Kimball MD Dates of Injury: 1) Approx. April 07 2020-exact date unclear. 2) 05/14/20 REASON FOR VISIT: Elin Willard is a 60 y.o. female with lower back and right leg pain radiating to the foot. She was seen for initial consultation on 07/25. She had the MRI completed at [facility] on 08/06. She is here to review the imaging findings and discuss treatment options. The pain is most severe in the lower lumbar area with intermittent radiation into the buttocks and down the right lateral lower extremity to the 4th and 5th toes. This radiating pain does not occur as often now but she still has occasional tingling and pain in her leg. She also has right leg pain with IC. The mid back pain is improving but certain activities increase this pain. Still has some tingling in her mid back when she brushes her teeth. She takes tylenol at bedtime. She is stiff in the morning. Does stretching before getting out of bed. Overall, activity level is improving very slowly. Takes tylenol after doing quite a bit of activity. 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 She is still having difficulty with walking, standing, sitting, and stooping. Activities such as meal prep are painful if they are lengthy recipes. Alleviating factors include lying down/ resting, pacing activities, as well as stretching. She denies saddle anesthesia, weakness/loss of motor function, or bowel dysfunction. She continues to have intermittent post micturition dribbling. HISTORY OF INJURY: Patient was injured on two separate dates. 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 She was assisting a patient with ambulation [...] max assist transfer with a hospice client. She felt severe pain again in her mid and lower back. She was seen at [facility] on 06/16/20 and underwent an xray of the lumbar and thoracic spine. The lumbar xrayshowed facet joint degeneration at L5-S1. The thoracic spine MRI showed a compression fracture of 15% height loss at T12. She has been off work since this injury and will remain so until the end of July. FUNCTIONAL HISTORY Work:off of work since end of May. # of missed days from work past month due to pain: Off of work Interference with activities/ADL: unable to ski since injury. Would like to use mountain bike, hiking, kayaking and return to work Exercise/activities: yoga and home PT as well as formal PT How do you spend your day? Doing yoga, using hot tub, PT, home PT exercises. REVIEW OF SYSTEMS: Denies fever, chills, SOB, abdominal pain, leg weakness/numbness, arm weakness/numbness, bowel or bladder incontinence, balance issues. No constipation, change in urination, nausea, oversedation, dysphoria. MEDICATIONS The [place] Prescription Monitoring Program was checked and no concerns were identified. Medications 07/27/20 3598 Medication Sig Taking? orphenadrine (NORFLEX) 100 mg Tablet Sustained Release TAKE 1 TABLET BY MOUTH TWICE DAILY NEEDEDFOR MUSCLE SPASM prochlorperazine (Compazine) 10 mg Tablet TAKE 1 TABLET BY MOUTH EVERY 6 HOURS NEEDED FOR NAUSEA venlafaxine (Effexor) 50 mg Tablet TAKE 1 TABLET BY MOUTH EVERY DAY WITH FOOD cetirizine (ZYRTEC) 10 mg Tablet Take 10 mg by mouth as needed for Allergies. SUMAtriptan (IMITREX) 100 mg Tablet Take 1 tablet by mouth 2 times daily as needed for Migraine. Patient taking differently: Take 100 mg by mouth 2 times daily as needed for Migraine. As needed for migrains famotidine (PEPCID) 20 mg Tablet Take 1 tablet by mouth daily. Patient not taking: Reported on 07/27/2020 topiramate (TOPAMAX) 25 mg Tablet Take 1 and 1/2=37.5 mg in the morning and 2=50mg at bedtime Patient taking differently: 100 mg. 100 mg at night Indications: 4 tablets at night diaZEPam (VALIUM) 5 mg Tablet Take 1-2 tablets by mouth daily as needed. Patient taking differently: Take 5-10 mg by mouth daily as needed. PRN hydrOXYzine (VISTARIL) 25 mg Capsule Take 1 capsule by mouth 2 times daily as needed. Caution:sedation Patient taking differently: Take 25 mg by mouth 2 times daily as needed. Caution:sedation Only as needed for migraines Cholecalciferol, Vitamin D3, 5,000 unit Capsule Take 1 capsule by mouth daily. 10,000 units PROAIR HFA 90 mcg/actuation inhaler Inhale 1 puff into the lungs as needed. calcium carbonate 648 mg calcium tablet Take 650 mg by mouth daily. cyclobenzaprine (FLEXERIL) 10 mg tablet Take 10 mg by mouth 3 times daily as needed. ADVERSE DRUG REACTIONS Allergies as of 08/11/2020 - Review Complete 07/27/2020 Allergen Reaction Noted ??? Amitriptyline 11/23/2015 ??? Erythromycin 04/14/2011 ??? Mold extracts 04/14/2011 SURGICAL HISTORY Past Surgical History: Procedure Laterality Date ??? PRO ARTHROSCOPY HIP W/LABRAL REPAIR Left 01/14/2016 ARTHROSCOPY HIP W/LABRAL REPAIR performed by Jonathan Smith MD at [facility] FAMILY HISTORY None pertinent IMAGING STUDIES [...] is no abnormal intraosseous signal. PHYSICAL EXAMINATION No data found. There is no height or weight on file to calculate BMI. There were no vitals taken for this visit. Appearance/ Behavior Well groomed, good eye contact, relaxed, cooperative, normal speech, no acute distress, no involuntary movements Eyes Sclera anicteric, conjunctiva clear. ENT Hearing grossly intact Lungs Normal respiratory effort Skin No rash, asymmetric hair loss, bruises, scars, swelling Musckuloskeletal Inspection/Palpation/ Range of Motion/Facet Loading maneuvers Gait:intact, no assistive devices required Inspection: good alignment, no excessive curvature, shoulder and hip levels equal bilaterally; Palpation: Tenderness thoracic paraspinal musculature. There is also lower lumbar area tenderness. Worse on the right. ROM:Patient has excellent range of motion. ASSESSMENT Elin Willard is a 60 y.o. 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 She has been placed off work as of 06/16/20 and will remain so until the end of July. The T-12 compression fracture appears healed. She does have a disc protrusion at T6-7 which may be causing the mid back pain. There is an annular tear at L5-S1 and although there does not seem to be a disc protrusion at that level, annular tears can be painful and are consistent with the lower back symptoms she is experiencing. PLAN/RECOMMENDATIONS Reviewed MRI results using anatomic models and the imaging studies. Discussed likely pain generators. She will continue the PT as scheduled. Interlaminar LESI at L5-S1 R>L with fluoroscopic guidance. Continue with yoga and home exercises. Continue to Pace activities. She will return two weeks after procedure for follow up. Completed the worker's compensation form as required. Activity restrictions are left up to the PCP. Elin Willard had the opportunity to ask questions and indicated that all questions were answeredto her satisfaction. Suzie Hebert APRN Nurse Practitioner [facility] documented in this encounter Plan of Treatment Upcoming Encounters Date Type Department Care Team (Late st Contact Info) Description 07/10/2024 9:00 AM EDT TH Visit (TeleHealth) [place] [address] Andrei Kent MD [facility] [place] [address] documented as of this encounter Visit Diagnoses Diagnosis Radiculopathy of lumbar region Thoracic or lumbosacral neuritis or radiculitis, unspecified documented in this encounter Care Teams Hotel Front Desk Agent Relationship Specialty Start Date End Date Greta Kimball MD [address] [place] [address] PCP - General 06/25/13 documented as of this encounter
--- OUTSIDE RECORDS SUMMARY | 2024-05-28 16:06 | XMS_ITS | Encounter Summary ---
Author Organization [facility] [place] [address] Care Team Providers Care Dam Worker Name Role Phone Greta Kimball MD Primary Care Provider [phone] Reason for Visit * Reason Comments Abdominal Pain Diarrhea * Consultation (Routine) - Closed Specialty Diagnoses / Procedures Referred By Michelle calle Referred To Contact Gastroenterology Diagnoses Abdominal pain Diarrhea ABDOMINAL PAIN, diarrhea Jamison Bah PA [address] [place] [address] [facility] [address] [place] [address] Referral ID Status Reason Start Date Expiration Date V isits Requested Visits Authorized [id number] Closed Consult & Test Connection Center PCP Updated and/or Approved 07/01/2015 06/30/2016 1 1 Encounter Details Date Type Department Care Team (Late st Contact Info) Description 11/23/2015 8:00 AM EDT Office [place] [address] Naty Barber APRN [facility] [place] [address] Irritable bowel syndrome with diarrhea Social History Tobacco Use Types Packs/Day Years [...] Sign Reading Time Taken Comments Blood Pressure 115/76 11/23/2015 7:48 AM EDT Pulse 76 11/23/2015 7:48 AM EDT Temperature - - Respiratory Rate - - Oxygen Saturation - - Inhaled Oxygen Concentration - - Weight 56.3 kg (124 lb 3.2 oz) 11/23/2015 7:48 A M EDT Height 160.7 cm (5' 3.25) 11/23/2015 7:48 AM ED T Body Mass Index 21.83 11/23/2015 7:48 AM EDT documented in this encounter Progress Notes * Naty Barber RN - 11/23/2015 8:00 AM EDT Section of Gastroenterology and Hepatology [address] [place] [address] .Elin Willard : 1960 Patient is here for further evaluation of gastrointestinal symptoms at the request of Jamison GAMBOA. HPI: Pt's sx have been long standing. Will experience lower abdominal discomfort and at times more intense in the right lower quadrant. These sx can occur prior to urgency and multiple stools. Stool consistency can vary. The urgency can also occur after eating. Will have several stools in a short period of time. Occurs 4-5 days/7days. Uses imodium prn with relief. Pt recalls when in her 20s she had ibs sx. Some of the discomfort can improve with passage of stool but not always. 2008 colonoscopy, one HP in descending otherwise normal exam. 2015 normal abdominal and pelvic u/s. Hx of endometriosis. And the pain associated with it, was on the right side of abdomen. Per pt had celiac serology and per pt it was negative. However, was gluten free for sometime prior to the test and began having gluten two weeks prior to the blood work. Pt did notice avoiding gluten was helpful. Tried probiotics and yogurt. Feels the probiotics were helpful. At times some bright red blood with wiping. Usually occurs after she has had multiple stools. No fecal seepage or incontinence. No significant flatulence. As a general rule she does not have bloating and distention. Weight stable. Reviewed diet. Usually smoothie in the morning and banana. Yogurt for snack. Lunch: chicken; salad; at times soup. Supper: tries to avoid pasta. Meat/veg. Does not eat late. Does not awake during the night with sx. Hx of migraines. Uses naproxen/aleve, at least 10x per month. Will try to take with pepcid. Two months ago started magnesium, sx have not changed. No hx of reflux, dysphagia, odynophagia, n/v, chest pain, ent concerns. Social History Social History ??? Marital status: Spouse name: N/A ??? Number of children: N/A ??? Years of education: N/A Occupational History ??? Not on file. Social History Main Topics ??? Smoking status: Never Smoker ??? Smokeless tobacco: Never Used ??? Alcohol use 0.6 oz/week 1 Glasses of wine per week ??? Drug use: No ??? Sexual activity: Not on file Comment: Deferred Other Topics Concern ??? Not on file Social History Narrative Medical History: ibs, migraines, osteoporosis, fracture lateral tibial Surgical History: oral surgery, lateral release and condroplasty, wisdom teeth Family History: no gi etiologies Allergies Allergen Reactions ??? Amitriptyline 25 mg and up caused her fingers to tingle ??? Erythromycin ??? Mold Extracts Mildew Current Outpatient Prescriptions: ??? cetirizine (ZYRTEC) 10 mg Tablet, Take 10 mg by mouth as needed for Allergies., Disp: , Rfl: ??? HYDROcodone-acetaminophen (NORCO) 5-325 mg Tablet, Take 1 tablet by mouth every 6 hours as needed., Disp: , Rfl: 0 ??? SUMAtriptan (IMITREX) 100 mg Tablet, Take 1 tablet by mouth 2 times daily as needed for Migraine., Disp: 54 tablet, Rfl: 3 ??? naproxen sodium (ANAPROX) 550 mg Tablet, Take 1 tablet by mouth 2 times daily as needed., Disp:120 tablet, Rfl: 3 ??? famotidine (PEPCID) 20 mg Tablet, Take 1 tablet by mouth daily., Disp: 90 tablet, Rfl: 3 ??? topiramate (TOPAMAX) 25 mg Tablet, Take 1 and 1/2=37.5 mg in the morning and 2=50mg at bedtime (Patient taking differently: Take 75 mg by mouth nightly. Take 1 and 1/2=37.5 mg in the morning and 2=50mg at bedtime), Disp: 315 tablet, Rfl: 3 ??? diaZEPam (VALIUM) 5 mg Tablet, Take 1-2 tablets by mouth daily as needed., Disp: 10 tablet, Rfl: 5 ??? hydrOXYzine (VISTARIL) 25 mg Capsule, Take 1 capsule by mouth 2 times daily as needed. Caution:sedation, Disp: 135 capsule, Rfl: 3 ??? Magnesium 250 mg Tablet, Take 1 tablet by mouth daily as needed., Disp: , Rfl: ??? Cholecalciferol, Vitamin D3, 5,000 unit Capsule, Take 1 capsule by mouth daily. 10,000 units, Disp: , Rfl: ??? multivitamin (THERAGRAN) Tablet, Take 1 tablet by mouth daily., Disp: , Rfl: ??? Flaxseed Oil Oil, by Misc.(Non-Drug; Combo Route) route as needed., Disp: , Rfl: ??? PROAIR HFA 90 mcg/actuation inhaler, Inhale 1 puff into the lungs as needed., Disp: , Rfl: ??? calcium carbonate 648 mg calcium tablet, Take 650 mg by mouth daily., Disp: , Rfl: ??? cyclobenzaprine (FLEXERIL) 10 mg tablet, Take 10 mg by mouth 3 times daily as needed., Disp: , Rfl: Review of Systems - Negative except General: Cardiac: Resp: GI: see above : MS: Neuro: Skin: Psyche: Sleep: Endo: Physical Exam: Soft, non-tender, no mass, organomegaly Impression: 1. IBS: Low fodmap diet; kefir. IBGard. Some concern with fairly chronic use of nsaids. As these can cause microscopic colitis and upper GI inflammation, which can contribute to lower gi sx. Pt seeing neurology this week. Will discuss alternatives. 2. Pt will call regarding progress. I spent a total of 57 minutes face to face with this patient; 40 minutes were spent counseling the patient in the medical problems described above. Sincerely, Naty Barber, QC MANAGER Section of Gastroenterology and Hepatology documented in this encounter Plan of Treatment Upcoming Encounters Date Type Department Care Team (Late st Contact Info) Description 07/10/2024 9:00 AM EDT TH Visit (TeleHealth) [place] [address] Andrei Kent MD [facility] [place] [address] documented as of this encounter Visit Diagnoses Diagnosis Irritable bowel syndrome with diarrhea Irritable bowel syndrome documented in this encounter Care Teams Dam Worker Relationship Specialty Start Date End Date Greta Kimball MD [address] [place] [address] PCP - General 06/25/13 documented as of this encounter
--- OUTSIDE RECORDS SUMMARY | 2024-05-28 16:06 | XMS_ITS | Encounter Summary ---
Author Organization [facility] Address [facility] [place] [address] Care Team Providers Care Production Planner Name Role Phone Greta Kimball MD Primary Care Provider [phone] Reason for Visit * Auth/Cert Specialty Diagnoses / Procedures Referred By Michelle calle Referred To Contact Diagnoses lumbar radiculopathy Procedures PRO INJECTION DX/THER SBST INTRLMNR LMBR/SAC W/IMG GDN INJECTION, EPIDURAL, LUMBAR OR SACRAL (CAUDAL), WITH IMAGING GUIDANCE (WRVU 1.8) Referral ID Status Reason Start Date Expiration Date Visits Re quested Visits Authorized [id number] 1 1 Encounter Details Date Type Department Care Team (Late st Contact Info) Description 08/28/2020 12:00 PM EDT Ancillary [place] [id number] Jamie Pepe MD [facility] [place] [address] Pain Social History Tobacco Use Types Packs/Day [...] AM EDT TH Visit (TeleHealth) [place] [address] Andrei Kent MD [facility] [place] [address] documented as of this encounter Procedures Procedure Name Priority Date/Time Associated Diagnosis Comments FILM LIBRARY STORAGE ONLY PAIN CLINIC C ARM Routine 08/28/2020 4:15 PM EDT Pain documented in this encounter Results * Film Library- Storage Only pain Clinic C-Arm (08/28/2020 4:15 PM EDT) Narrative [facility] - 08/28/2020 4:15 PM EDT See PACS for result report. Jamie Pepe MD G FILM LIBRARY ORD ERABLES [place], [place] documented in this encounter Visit Diagnoses Diagnosis Pain Generalized pain documented in this encounter Care Teams Production Planner Relationship Specialty Start Date End Date Greta Kimball MD [address] [place] [address] PCP - General 06/25/13 documented as of this encounter
--- OUTSIDE RECORDS SUMMARY | 2024-05-28 16:06 | XMS_ITS | Encounter Summary ---
[place] [address] Care Team Providers Care Medart Operator Name Role Phone Greta Kimball MD Primary Care Provider [phone] Encounter Details Date Type Department Care Team (Late st Contact Info) Description 08/11/2020 Telephone [facility] [place] [id number] Ariana Eisenberg Social History Tobacco Use Types [...] encounter Miscellaneous Notes * Telephone Encounter - Ariana Eisenberg - 08/11/2020 12:28 PM EDT Procedure: Interlaminar SIVAN MRI required? no (If yes, verify that updated MRI is in eDH) (Atlanto-Axial Joint injection, MARIANELA; 1 year or <)(Caudal SIVAN, LESI, Thoracic SIVAN, TFESI Lumbar & Cervical; 2 years or <) RISK LEVEL: Intermediate Are you on any blood thinners? no (If yes, specify medication type and prescribing provider for anticoagulant hold request) Medication: Prescribing provider: Reminder: Coumadin requires an INR lab 1 hour prior to procedure Are you taking any NSAIDs? no Type of NSAID: Tylenol Are you currently taking any oral steroids (i.e. prednisone) or have you had a steroid injection within the past two weeks? no If YES to oral steroids: Have you been taking more than 40mg a day for more than 14 days? If no, okay to schedule. Are you currently taking or have you recently been treated with antibiotics? no Have you been in the ER or hospitalized recently? no If yes. Why? Do you have any allergies to anesthetics or steroids? no Are you diabetic? no (In the case of type I diabetes, steroids injections can make blood sugar spike) Is this being billed to workers comp or your regular insurance (verify insurance)? Worker's Comp yes Insurance: NO Have you had or are you scheduled to have a COVID vaccine? Yes Date of First Dose Date of Second Dose 04/2020 Is this a STEROID injection (anything other than RFA, MBB, Lumbar Puncture, or Blood Patch)? Yes If you have a date set for your COVID vaccine -1st or 2nd dose-, please schedule your steroid injection at least 2 weeks before, or 1 week after your vaccine. If you already have a date set for your steroid injection, please schedule your vaccine, either at least 1 week before, or at least 2 weeks after the date of your injection. Spine Intervention Society Recommendation: Fact: There is currently no direct evidence to suggest that a corticosteroid injection before or after the administration of an mRNA COVID-19 vaccine decreases the efficacy of the vaccine. However, based on the known timeline of uayrmvmzrmui-ymglygxof-qoscpue (HPA) axis suppression following epidural and intraarticular corticosteroid injections, and the timeline of the reported peak efficacy of the Pfizer-BioNTRockbot and Moderna vaccines, physicians should consider timing an elective corticosteroid injection such that it is administered no less than two weeks prior to a COVID-19 mRNA vaccine dose and no less than one week following a COVID-19 mRNA vaccine dose, whenever possible. documented in this encounter Plan of Treatment Upcoming Encounters Date Type Department Care Team (Late st Contact Info) Description 07/10/2024 9:00 AM EDT TH Visit (TeleHealth) [place] [phone] Andrei Kent MD [facility] [place] [address] documented as of this encounter Visit Diagnoses Not on filedocumented in this encounter Care Teams Medart Operator Relationship Specialty Start Date End Date Greta Kimball MD [address] [place] [address] PCP - General 06/25/13 documented as of this encounter
--- OUTSIDE RECORDS SUMMARY | 2024-05-28 16:06 | XMS_ITS | Encounter Summary ---
[place] [address] Care Team Providers Care Design Inserter Name Role Phone Greta Kimball MD Primary Care Provider [phone] Reason for Referral * Consultation (Routine) - Closed Specialty Diagnoses / Procedures Referred By Contac t Referred To Contact Acupuncture Diagnoses Radiculopathy of lumbar region Suzie Hebert APRN [facility] [place] [address] Referral ID Status Reason Start Date Expiration Date V isits Requested Visits Authorized [id number] Closed Consult, Test & Treat 12/01/2020 05/30/2021 1 1 * Physical Therapy (Routine) - Closed Specialty Diagnoses / Procedures Referred By Contac t Referred To Contact Physical Therapy Diagnoses Radiculopathy of lumbar region Suzie Hebert APRN [facility] [place] [address] Physical Therapy, [address] [address] Referral ID Status Reason Start Date Expiration Date V isits Requested Visits Authorized [id number] Closed Evaluate and Treat 12/01/2020 05/30/2021 12 12 Reason for Visit * Reason Comments Pain Management f/u visit Encounter Details Date Type Department Care Team (Latest Contact Info) Description 12/01/2020 2:30 PM EDT Office Visit [facility] [place] [address] Suzie Hebert APRN [facility] [place] [address] Radiculopathy of lumbar region Social History Tobacco [...] Reading Time Taken Comments Blood Pressure 108/70 12/01/2020 2:30 PM EDT Pulse 72 12/01/2020 2:30 PM EDT Temperature - - Respiratory Rate - - Oxygen Saturation 99% 12/01/2020 2:30 PM EDT Inhaled Oxygen Concentration - - Weight 50.8 kg (112 lb) 12/01/2020 2:30 PM EDT Height - - Body Mass Index 21.87 09/11/2020 10:56 AM EDT documented in this encounter Progress Notes * Suzie Hebert APRN - 12/01/2020 2:30 PM EDT [facility] [place] [address] Phone: PAIN MANAGEMENT WORK RELATED INJURY FOLLOW UP NOTE DATE OF VISIT 12/01/2020 Patient Elin [place] 1960 REFERRING PROVIDER Melanie Guajardo [address] [place] [address] PRIMARY CARE PROVIDER Greta Kimball MD Dates of Injury: 1) Approx. April 07 2020 2) 05/14/20 REASON FOR VISIT: Elin [place] is a 60 y.o. female with lower back and right leg pain radiating to the foot. She is very frustrated because she is still having pain that waxes and wanes in severity and limits her function at times. She has not been able to return to work. She is working with a vocational therapist to help her plan a return to the workforce while no longer doing hands on physical therapy. Voc [place] ab specialist is Elayne Paulino with the [facility] group. She is taking Tylenol 2000mg per day. She had hoped to avoid having to continue to take medication to reduce the pain. She had another recent flare of pain with leg pain much worse in the right leg than left. She had planned to start aquatic therapy but the schedule would only allow for every otherweek aquatic therapy. She would like to change to [facility] where she will be able to do both land and aquatic therapy. She is continuing to do exercises at home and with the physical therapist. She continues to have intermittent mid back pain which is exacerbated with most activities requiring bending, twisting, reaching, etc. This has not been as troublesome as the lower back and leg pain. HISTORY OF INJURY: Patient was injured on two separate dates. 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 She was assisting a patient with ambulation [...] constipation, or change in urination. MEDICATIONS The [place] Prescription Monitoring Program was checked and no concerns were identified. Medications 11/30/20 0943 Medication Sig Taking? topiramate (Topamax) 100 mg Tablet nightly. Yes [...] for Migraine. As needed for migrains Yes diaZEPam (VALIUM) 5 mg Tablet Take [...] Take 650 mg by mouth daily. Yes cyclobenzaprine (FLEXERIL) 10 mg tablet Take 10 mg by mouth 3 times daily as needed. Yes ADVERSE DRUG REACTIONS Allergies as of 12/01/2020 - Review Complete 11/30/2020 Allergen Reaction Noted ??? Amitriptyline 11/23/2015 ??? Erythromycin 04/14/2011 ??? Mold extracts 04/14/2011 SURGICAL HISTORY Past Surgical History: Procedure Laterality Date ??? PRO ARTHROSCOPY HIP W/LABRAL REPAIR Left 01/14/2016 ARTHROSCOPY HIP W/LABRAL REPAIR performed by Jonathan Smith MD at [facility] FAMILY HISTORY None pertinent IMAGING STUDIES [...] the past 24 hrs: Pulse BP SpO2 12/01/20 1430 72 108/70 99 % Body mass index is 21.87 kg/m??. 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 She underwent an LESI to help reduce her back pain. She had some improvement with the initial LESI but the effectiveness has begun to wane and she is having more frequent exacerbation. She is frustrated that improvement has been slow. In addition to the lower back and leg pain, she is also continuing to experience intermittent mid back pain with activities. The pain is all a result of the injury sustained at work and have been documented in the initial report. She continues to remain off work. She is working with vocational rehabilitation. PLAN/RECOMMENDATIONS Referral to [facility] PT for land and aquatic therapy. Add acupuncture. Continue to Pace activities. Continue with vocational rehabilitation. Completed the worker's compensation form as required. Activity restrictions are left up to the PCP. LESI L5-S1 ordered. If patient still not able to reach functional goals after injection, she will be considered for the functional zoroastrian program. Procedure: Lumbar Epidural Steroid Injection Laterality: N/A Levels: L5-S1 Pertinent Medical History - h/o Thrombocytopenia/bleeding tendency/platelet dysfunction: no - h/o Liver disease/abnormal liver function: no - h/o Chronic kidney disease (CKD)/abnormal kidney function: no - Patient on dialysis? no PATY Risk Stratification - Intermediate Is patient taking an anticoagulant? No Is patient taking any NSAIDs/Nutritional Supplements? No Is patient taking Aspirin? No Is patient taking Antibiotics? No Has patient been on greater than 40mg of steroid 14 days or longer or has patient had a steroid injection within the last two weeks? No Does patient have allergies to contrast/local anesthetic/steroid? No Labs? N/A Imaging? In Chart Does patient need IV? no Does patient need sedation? no Does patient need NPO guidelines? no Special Instructions - N/A Follow up post procedure - In Person Office Visit 6-8 weeks with Suzie Hebert, MSN, QUILT STUFFER Elin Jared [place] had the opportunity to ask questions and indicated that all questions were answeredto her satisfaction. Suzie Hebert APRN Nurse Practitioner [facility] Notes to be sent to [facility] Aaliyah documented in this encounter Plan of Treatment Upcoming Encounters Date Type Department Care Team (Late st Contact Info) Description 07/10/2024 9:00 AM EDT TH Visit (TeleHealth) [place] [address] Andrei Kent MD [facility] [place] [address] Scheduled Referrals Name Type Priority Associated Diagnoses Order Schedule Referral to Physical Therapy Outpatient Referral Routine Radiculopathy of lumbar region Ordered: 12/01/2020 Referral for Acupuncture Outpatient Referral Routine Radiculopathy of lumbar region Ordered: 12/01/2020 documented as of this encounter Visit Diagnoses Diagnosis Radiculopathy of lumbar region Thoracic or lumbosacral neuritis or radiculitis, unspecified documented in this encounter Care Teams Design Inserter Relationship Specialty Start Date End Date Greta Kimball MD [address] [place] [address] PCP - General 06/25/13 documented as of this encounter
--- OUTSIDE RECORDS SUMMARY | 2024-05-28 16:06 | XMS_ITS | Encounter Summary ---
Author Organization [facility] [place] [address] Care Team Providers Care Platform Architect Name Role Phone Greta Kimball MD Primary Care Provider [phone] Reason for Visit * High Dollar Medication (Urgent) - Specialty Diagnoses / Procedures Referred By Michelle calle Referred To Contact Neurology Diagnoses Chronic migraine without aura, intractable, without status migrainosus Procedures TC ONABOTULINUMTOXINA, 1 UNIT, INJECTION Nadir Powell MD [facility] [place] [address] [facility] [address] [place] [address] Referral ID Status Reason Start Date Expiration Date V isits Requested Visits Authorized [id number] Evaluate and Treat 11/20/2015 11/19/2016 4 4 Encounter Details Date Type Department Care Team (Late st Contact Info) Description 11/26/2015 3:30 PM EDT Office [place] [address] Nadir Powell MD Intractable chronic migraine without [...] Sign Reading Time Taken Comments Blood Pressure 123/72 11/26/2015 3:44 PM EDT Pulse 86 11/26/2015 3:44 PM EDT Temperature - - Respiratory Rate - - Oxygen Saturation - - Inhaled Oxygen Concentration - - Weight 56.2 kg (124 lb) 11/26/2015 3:44 PM EDT Height 160.7 cm (5' 3.25) 11/26/2015 3:44 PM ED T Body Mass Index 21.79 11/26/2015 3:44 PM EDT documented in this encounter Procedure Notes * Nadir Powell MD - 11/26/2015 3:30 PM EDTProcedure(s): CHEMODENERVATION, MEDICAL BOTOX PREEMPT PROTOCOL 8-4-16 Total headache days per month: 7 Total days headache free per month: 24 Severity of headaches: 3 severe, 4+ moderate Botox effective: yes MIDAS today: 13 She had HAGEN at least 16 days per month with at least 8 days reaching migraine level before she went on Botox. Now she has 7 days per month 3 reaching migraine level. The risks, benefits and anticipated outcomes of the procedure, the risks and benefits of the alternatives to the procedure, and the roles and tasks of the personnel to be involved, were discussed with the patient. The patient has given written informed consent to the procedure and agrees to proceed. Yes, informed consent obtained, in chart, and reaffirmed verbally today UNIVERSAL PROTOCOL / SAFETY CHECKLIST Procedure to be performed: Botox for Chronic Intractable Migraine Sign in Communication: 3.55 PM Time Out: Team Confirms the Correct Patient, Correct Procedure, Correct Site and Site Marking, Correct Position (if applicable), Prep and Dry Time (if applicable). Time: 4 PM Affirmation of Time Out: 4.05 PM Sign Out Discussion: Nadir Powell MD Treatment # 3 Lot #:[id number] Exp: Jun 2018 Dilution: 1:4 Diluent: Normal Saline Indication: Chronic Intractable Migraine without status migrainosus Injection SItes Muscle Fixed Site/Fixed Dose L R Optional follow pain #units Software Qa Manager 10 Units divided in 2 sites Procerus 5 Units in 1 site Frontalis 20 Units divided in 4 sites Temporalis 40 Units divided in 8 sites 10 10 10U or <, @2 sites or < Occipitalis 30 Units divided in 6 sites 10 10 10U or <, @2 sites or < Cervical PSPs 20 Units divided in 4 sites Trapezius 30 Units divided in 6 sites 10U or <, @2 sites or < TMJ 5 Subtotals 155 Units plus 25 20 Total Units used:200 Total Units wasted:0 Patient did tolerate the procedure. Nadir Powell MD documented in this encounter Plan of Treatment Upcoming Encounters Date Type Department Care Team (Late st Contact Info) Description 07/10/2024 9:00 AM EDT TH Visit (TeleHealth) [place] [address] Andrei Kent MD [facility] [place] [address] documented as of this encounter Visit Diagnoses Diagnosis Intractable chronic migraine without aura and without status migrainosus Chronic migraine without aura, with intractable migraine, so stated, without mention of status migrainosus documented in this encounter Care Teams Platform Architect Relationship Specialty Start Date End Date Greta Kimball MD [address] [place] [address] PCP - General 06/25/13 documented as of this encounter
--- OUTSIDE RECORDS SUMMARY | 2024-05-28 16:06 | XMS_ITS | Encounter Summary ---
[place] [address] Care Team Providers Care Body Shop Supervisor Name Role Phone Greta Kimball MD Primary Care Provider [phone] Reason for Visit * Reason Onset Date Comments Medication Refill 11/03/2014 Encounter Details Date Type Department Care Team (Late st Contact Info) Description 11/03/2014 Telephone [place] [address] Radha Hurst CMA Medication Refill Social History Tobacco Use Types Packs/Day Years [...] Miscellaneous Notes * Telephone Encounter - Radha Hurst CMA - 11/03/2014 10:45 AM EDT New Rx for Valium faxed to pharmacy. documented in this encounter Plan of Treatment Upcoming Encounters Date Type Department Care Team (Late st Contact Info) Description 07/10/2024 9:00 AM EDT TH Visit (TeleHealth) [place] [address] Andrei Kent MD [facility] [place] [address] documented as of this encounter Visit Diagnoses Not on filedocumented in this encounter Care Teams Body Shop Supervisor Relationship Specialty Start Date End Date Greta Kimball MD [address] [place] [address] PCP - General 06/25/13 documented as of this encounter
--- OUTSIDE RECORDS SUMMARY | 2024-05-28 16:06 | XMS_ITS | Encounter Summary ---
Author Organization [facility] [place] [address] Care Team Providers Care System Support Developer Name Role Phone Greta Kimball MD Primary Care Provider [phone] Reason for Visit * Reason Comments Left Hip Pain Labral tear per MRI, pt works with [employer] at [employer] * Consultation (Routine) - Closed Specialty Diagnoses / Procedures Referred By Michelle calle Referred To Contact Orthopaedics Diagnoses tear acetabular labrum Jamison Bah PA [address] [place] [address] Jonathan Smith MD [facility] [place] [address] Referral ID Status Reason Start Date Expiration Date V isits Requested Visits Authorized [id number] Closed Consult, Test & Treat Connection [facility] 07/01/2015 06/30/2016 1 1 Encounter Details Date Type Department Care Team (Late st Contact Info) Description 07/31/2015 1:50 PM EDT Office [place] [phone] Jonathan Smith MD [facility] [place] [address] Acetabular labrum tear, left, initial encounter Social History Tobacco Use Types Packs/Day [...] Sign Reading Time Taken Comments Blood Pressure 114/71 07/31/2015 1:26 PM EDT Pulse 92 07/31/2015 1:26 PM EDT Temperature - - Respiratory Rate - - Oxygen Saturation - - Inhaled Oxygen Concentration - - Weight 56.7 kg (125 lb) 07/31/2015 1:26 PM EDT v erbal Height 160.7 cm (5' 3.25) 07/31/2015 1:26 PM ED T verbal Body Mass Index 21.97 07/31/2015 1:26 PM EDT documented in this encounter Progress Notes * Yenny Harris, FINISH PAINTER - 07/31/2015 2:33 PM EDT PATIENT NAME: Elin Willard AGE: 55 y.o. MR#: [id number] DATE OF VISIT: 07/31/2015 DATE OF INJURY/ONSET: January 2015 STAFF: Today's covering physician is Dr. Smith. CHIEF COMPLAINT: Left hip pain HISTORY OF PRESENT ILLNESS Ms. Willard a 55 y.o. year old female comes into clinic today for an approximate 6 month history of acute onset left hip pain. Briefly, the patient reports she was receiving adjustment from her chiropractor when he noted that she had a flexion contracture and attempted to work on hip manipulation and stretching. She states she developed acute groin pain described as sharp and moderate in intensity. 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 She also c/o achy pain after increased activity like walking. She has some of her colleagues take a look at her hip. X- rays and MRI were completed revealing a labral tear in the absence of significant DJD. Interventions have included an aquatic physical therapy, NSAIDs and gentle stretching. She has not noted significant improvement in her symptoms. She does have a hx of low back pain with radicular symptoms, but states it typically manifests on her right side. She feels her hip/groin pain is prohibiting herfrom performing her job duties with comfort and from exercising such as, walking great distances. She has an intra-articular injection scheduled for next Monday. Outside reports reviewed: office notes. Patient's medications, allergies, past medical, surgical, social and family histories were reviewedand updated as appropriate. PAST MEDICAL HISTORY: Active Ambulatory Problems Diagnosis Date Noted ??? Migraine 04/14/2011 ??? Chronic migraine 03/27/2013 ??? Multilevel degenerative disc disease 07/31/2015 Resolved Ambulatory Problems Diagnosis Date Noted ??? No Resolved Ambulatory Problems No Additional Past Medical History PAST SURGICAL HISTORY: No past surgical history on file. FAMILY HISTORY: Family History Negative family history of: Thrombophilia Social History Occupational History ??? Not on file. Social History Main Topics ??? Smoking status: Never Smoker ??? Smokeless tobacco: Never Used ??? Alcohol Use: 0.6 oz/week 1 Glasses of wine per week ??? Drug Use: No ??? 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 Current Outpatient Prescriptions on File Prior to Visit Medication Sig Dispense Refill ??? HYDROcodone-acetaminophen (NORCO) 5-325 mg Tablet Take 1 tablet by mouth every 6 hours as needed. 0 ??? SUMAtriptan (IMITREX) 100 mg Tablet Take 1 tablet by mouth 2 times daily as needed for Migraine. 54 tablet 3 ??? naproxen sodium (ANAPROX) 550 mg Tablet Take 1 tablet by mouth 2 times daily as needed. 120 tablet 3 ??? famotidine (PEPCID) 20 mg Tablet Take 1 tablet by mouth daily. 90 tablet 3 ??? topiramate (TOPAMAX) 25 mg Tablet Take 1 and 1/2=37.5 mg in the morning and 2=50mg at bedtime 315 tablet 3 ??? diaZEPam (VALIUM) 5 mg Tablet Take 1-2 tablets by mouth daily as needed. 10 tablet 5 ??? hydrOXYzine (VISTARIL) 25 mg Capsule Take 1 capsule by mouth 2 times daily as needed. Caution:sedation 135 capsule 3 ??? Magnesium 250 mg Tablet Take 1 tablet by mouth daily as needed. ??? Cholecalciferol, Vitamin D3, 5,000 unit Capsule Take 2 capsules by mouth daily. ??? multivitamin (THERAGRAN) Tablet Take 1 tablet by mouth daily. ??? Flaxseed Oil Oil by Luxodo.(Non-Drug; Combo Route) route as needed. ??? PROAIR HFA 90 mcg/actuation inhaler Inhale 1 puff into the lungs as needed. ??? calcium carbonate 648 mg calcium tablet Take 650 mg by mouth 2 times daily. ??? cyclobenzaprine (FLEXERIL) 10 mg tablet Take 10 mg by mouth 3 times daily as needed. No current facility-administered medications on file prior to visit. Allergies Allergen Reactions ??? Erythromycin ??? Mold Extracts Mildew ROS: Negative for fever, chills, SOB, chest pain, nausea, vomiting, and diarrhea. Physical Exam Blood pressure 114/71, pulse 92, height 160.7 cm (5' 3.25), weight 56.7 kg (125 lb). Constitutional: oriented to person, place, and time and well-developed, well- nourished, and in no distress. Skin: Skin is warm and dry. Left Hip Exam Comments: Comes in without antalgia. No pain with palpation of greater trochanter or ITB. ROM 115 deg flexion, 152 deg extension. 40 deg abduction, 30 deg adduction. 15-20 deg internal rotation, 70 deg external rotation. + Impingement test. Neg Log roll. Neg Stinchfield. Neg Piriformis. + Zachary' Sign. Neg SLR. No leg length discrepancy Neurovascular Exam Normal sensation and motor function distally. DP and PT pulses 2+ to palpation. RADIOLOGICAL STUDIES: MRI of the patient's left hip dated 03/06/15 was reviewed revealing a superolateral acetabular labrum tear measuring 1.5 cm without evidence of CAM lesion or significant DJD. ASSESSMENT/PLAN: Elin Willard is a pleasant and active 55 y.o. female who presents to the clinic with 6 month history of acute onset left hip/groin pain after going for adjustment from a chiropractor. Her main or history, imaging and exam are consistent with an anterior labral tear without evidence of significant DJD. Dr. Smith and I both met with and evaluated the patient. We discussed conservative management with corticosteroid injection and continued aquatic physical therapy versus pursuing hip arthroscopyand labral debridement versus repair. We discussed with her that it is reasonable to pursue conservative measures, as she does not have evidence of a CAM lesion which poses threat to articular cartila ge. However, if her pain is causing significant impact on her quality of life, it would also be very reasonable to pursue arthroscopy. The patient will like to undergo intra-articular corticosteroid injection as previously planned next week at the [facility]. She filled out a health assessment plan at today's visit. She is going to consider her options and let us know if she would like to proce ed with surgery. F/U PRN. documented in this encounter Plan of Treatment Upcoming Encounters Date Type Department Care Team (Late st Contact Info) Description 07/10/2024 9:00 AM EDT TH Visit (TeleHealth) [place] [address] Andrei Kent MD [facility] [place] [place] [address] documented as of this encounter Visit Diagnoses Diagnosis Acetabular labrum tear, left, initial encounter documented in this encounter Care Teams System Support Developer Relationship Specialty Start Date End Date Greta Kimball MD [address] [place] [address] PCP - General 06/25/13 documented as of this encounter
--- OUTSIDE RECORDS SUMMARY | 2024-05-28 16:06 | XMS_ITS | Encounter Summary ---
Author Organization [facility] Address [facility] [place] [address] Care Team Providers Care Trust Clerk Name Role Phone Greta Kimball MD Primary Care Provider [phone] Reason for Visit * Reason Comments Follow Up Surgery L hip scope 01/14/16 Encounter Details Date Type Department Care Team (Late st Contact Info) Description 03/08/2016 1:00 PM EST Office [place] [address] Jonathan Smith MD [facility] [place] [address] Left hip pain s/p labral debridement 01/14/16 (Sarah) Social History Tobacco Use Types Packs/Day Years [...] Sign Reading Time Taken Comments Blood Pressure 105/68 03/08/2016 12:56 PM EST Pulse 83 03/08/2016 12:56 PM EST Temperature - - Respiratory Rate - - Oxygen Saturation - - Inhaled Oxygen Concentration - - Weight 55.3 kg (122 lb) 03/08/2016 12:56 PM EST Height 161.9 cm (5' 3.75) 03/08/2016 12:[address] Body Mass Index 21.11 03/08/2016 12:56 PM EST documented in this encounter Progress Notes * Yenny Lamb APRN - 03/08/2016 1:00 PM EST Patient Name: Elin Willard : [id number] MR#: [id number] ?? Case Date: 01/14/2016 ?? Surgeon: Surgeon(s) and Role: * Jonathan Smith MD - Primary * Chalino Baltazar MD - Resident-Surgeon Chief ?? Preoperative diagnosis: Labral tear, left hip ?? Postoperative diagnosis: Labral tear, left hip ?? Procedure(s): ARTHROSCOPY HIP W/LABRAL DEBRIDEMENT Patient Name: Elin Willard : [id number] MR#: [id number] ?? Case Date: 01/14/2016 ?? Surgeon: Surgeon(s) and Role: * Jonathan Smith MD - Primary * Chalino Baltazar MD - Resident-Surgeon Chief ?? Preoperative diagnosis: Labral tear, left hip Postoperative diagnosis: Labral tear, left hip ?? Procedure(s): ARTHROSCOPY HIP W/LABRAL DEBRIDEMENT Visit Date: 03/08/16 CC: 2 month f/u left hip arthroscopy Subjective: Elin Willard is a 55 y.o. female who presents to clinic approximately 2 months status post the above procedure. She reports she is doing well postoperatively in the groin pain she had previously is now gone. She does rate reports some mild lateral soft tissue pain. 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 Feels she is progressing with strengthening range of motion. Is not taking any pain medications. Reports she's been otherwise wellwithout fever, chills, night sweats or other signs of infection. Is ready to return to work. Current Outpatient Prescriptions: ??? SUMAtriptan (IMITREX) 100 mg Tablet, Take 1 tablet by mouth 2 times daily as needed for Migraine., Disp: 54 tablet, Rfl: 3 ??? famotidine (PEPCID) 20 mg Tablet, Take 1 tablet by mouth daily. (Patient taking differently: Take 20 mg by mouth 2 times daily as needed.), Disp: 90 tablet, Rfl: 3 ??? topiramate (TOPAMAX) 25 mg Tablet, Take 1 and 1/2=37.5 mg in the morning and 2=50mg at bedtime (Patient taking differently: 75mg at night Indications: 4 tablets at night), Disp: 315 tablet, Rfl: 3 ??? diaZEPam (VALIUM) 5 mg Tablet, Take 1-2 tablets by mouth daily as needed., Disp: 10 tablet, Rfl: 5 ??? hydrOXYzine (VISTARIL) 25 mg Capsule, Take 1 capsule by mouth 2 times daily as needed. Caution:sedation, Disp: 135 capsule, Rfl: 3 ??? Cholecalciferol, Vitamin D3, 5,000 unit Capsule, Take 1 capsule by mouth daily. 10,000 units, Disp: , Rfl: ??? PROAIR HFA 90 mcg/actuation inhaler, Inhale 1 puff into the lungs as needed., Disp: , Rfl: ??? cyclobenzaprine (FLEXERIL) 10 mg tablet, Take 10 mg by mouth 3 times daily as needed., Disp: , Rfl: ??? naproxen sodium (ANAPROX) 550 mg Tablet, take 1 tablet by mouth twice a day if needed, Disp: , Rfl: 0 ??? oxyCODONE (ROXICODONE) 5 mg Tablet, Take 1-2 tablets by mouth every 6 hours as needed for Pain.(Patient not taking: Reported on 01/26/2016), Disp: 60 tablet, Rfl: 0 ??? cetirizine (ZYRTEC) 10 mg Tablet, Take 10 mg by mouth as needed for Allergies., Disp: , Rfl: ??? calcium carbonate 648 mg calcium tablet, Take 650 mg by mouth daily., Disp: , Rfl: Allergies Allergen Reactions ??? Amitriptyline 25 mg and up caused her fingers to tingle ??? Erythromycin ??? Mold Extracts Mildew Objective: Blood pressure 105/68, pulse 83, height 161.9 cm (5' 3.75), weight 55.3 kg (122 lb). Alert and oriented and a tour female with no apparent distress. Gait is nonantalgic and unassisted.Left hip incisions are well-healed. Range of motion 0-120?? flexion. Internal rotation to 15??. External rotation to 50??. Mild discomfort with impingement testing. Calf supple and nontender. DP and PT pulses 2+ to palpation. Distal sensation intact. Assessment/Plan: Elin Willard is a 55 y.o. female who presents to clinic 2 months status post left hip arthroscopy and labral debridement. She is doing very well postoperatively. She will continueto follow with the PT protocol, has self administered. She will progress activities as tolerated and follow-up on an as-needed basis. documented in this encounter Plan of Treatment Upcoming Encounters Date Type Department Care Team (Late st Contact Info) Description 07/10/2024 9:00 AM EDT TH Visit (TeleHealth) [place] [address] Andrei eKnt MD [facility] [place] [address] documented as of this encounter Visit Diagnoses Diagnosis Left hip pain s/p labral debridement 01/14/16 (Sarah) Pain in joint, pelvic region and thigh documented in this encounter Care Teams Trust Clerk Relationship Specialty Start Date End Date Greta Kimball MD [address] [place] [address] PCP - General 06/25/13 documented as of this encounter
--- OUTSIDE RECORDS SUMMARY | 2024-05-28 16:06 | XMS_ITS | Encounter Summary ---
Author Organization [facility] [place] [address] Care Team Providers Care Masonry Inspector Name Role Phone Greta Kimball MD Primary Care Provider [phone] Reason for Visit * Reason Onset Date Comments Medication Refill 11/03/2014 Encounter Details Date Type Department Care Team (Late st Contact Info) Description 11/03/2014 [place] [address] Zachary Dias MD [facility] [place] [address] Migraine without aura and without status migrainosus, [...] AM EDT TH Visit (TeleHealth) [place] [address] Andrei Kent MD [facility] [place] [address] documented as of this encounter Visit Diagnoses Diagnosis Migraine without aura and without status migrainosus, not intractable Migraine without aura, without mention of intractable migraine without mention of status migrainosus documented in this encounter Care Teams Masonry Inspector Relationship Specialty Start Date End Date Greta Kimball MD [address] [place] [address] PCP - General 06/25/13 documented as of this encounter
--- OUTSIDE RECORDS SUMMARY | 2024-05-28 16:06 | XMS_ITS | Encounter Summary ---
Author Organization Formerly [facility] [place] [address] Care Team Providers Care Graphic Editor Name Role Phone Greta Kimball MD Primary Care Provider [phone] Reason for Visit * Reason Comments Back Pain comp fx T 10 * Consultation (Routine) - Closed Specialty Diagnoses / Procedures Referred By Contac t Referred To Contact [facility] Diagnoses Dorsalgia, unspecified Spine- W/C low back pain, R LE/foot tingling & numbness/ XR in eDH Melanie Guajardo [address] [place] [address] [facility] [place] [place] [address] Referral ID Status Reason Start Date Expiration Date V isits Requested Visits Authorized [id number] Closed Consult, Test & Treat Connection Center PCP Updated and/or Approved 06/18/2020 06/18/2021 6 6 Encounter Details Date Type Department Care Team (Late st Contact Info) Description 07/27/2020 2:30 PM EDT Office Visit [facility] [place] [address] Suzie Hebert APRN [facility] [place] [address] Compression fracture of T12 vertebra, initial encounter; Lumbar spondylosis; Radiculopathy of lumbar region Social History Tobacco [...] Reading Time Taken Comments Blood Pressure 116/71 07/27/2020 2:32 PM EDT Pulse 88 07/27/2020 2:32 PM EDT Temperature - - Respiratory Rate - - Oxygen Saturation - - Inhaled Oxygen Concentration - - Weight 49 kg (108 lb) 07/27/2020 2:32 PM EDT Height 152.4 cm (5') 07/27/2020 2:32 PM EDT Body Mass Index 21.09 07/27/2020 2:32 PM EDT documented in this encounter Progress Notes * Suzie Hebert, JOI - 07/27/2020 2:30 PM EDT [facility] [place] [address] Phone: PAIN MANAGEMENT NEW PATIENT WORK RELATED INJURY CONSULTATION NOTE DATE OF VISIT 07/27/2020 Patient Elin Willard 1960 REFERRING PROVIDER Melanie Guajardo [address] [place] [id number] PRIMARY CARE PROVIDER Greta Kimball MD Dates of Injury: 1) Approx. April 07 2020-exact date unclear. 2) 05/14/20 CHIEF COMPLAINT: Elin Willard is a 60 y.o. female with lower back and right leg pain radiating to the foot. She is seen in consultation at the request of Melanie Starkey, for evaluation, recommendations, and management. The history is obtained from the patient, and I have reviewed medical records provided by the referring physician and located in the electronic medical record to fill in gaps in the patient's recollection of events, treatments and outcomes. HPI Patient was injured on two separate dates. 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 She was seen at [facility] on 06/16/20 and underwent an xray of the lumbar and thoracic spine. The lumbar xrayshowed facet joint degeneration at L5-S1. The thoracic spine MRI showed a compression frracture of 15% height loss at T12. She has been off work since this injury and will remain so until the end of July. The pain is most severe at the waist level with intermittent radiation into the buttocks and down the right lateral lower extremity to the 4th and 5th toes with associated numbness and tingling. The radicular symptoms have nearly resolved since she stopped working and her back pain has also improved slowly. She is having the tingling/numbness in her toes today and believes the PT may have aggravated it. She started formal PT today and underwent dry needling and e-stim treatments. She has been doing home PT exercises on her own, in addition to yoga stretches. She finds this helpful in maintaining mobility. She is still having difficulty with walking, standing, sitting, and stooping. Activities such as meal prep are painful if they are lengthy recipes. Alleviating factors include lying down/ resting, pacing activities, as well as stretching. Tylenol and orphenadrine are also helpful but she has been trying to avoid taking much analgesic medication so that she can identify aggravating movements and adjust her activities. She rates her pain at a 4/10 today. It is higher with activities and has been lower with rest. She denies saddle anesthesia, weakness/loss of motor function, or bowel dysfunction. Although she has not noticed any cornelius urinary incontinence, she has noticed that once she empties her bladder andstands up from the toilet, she has had some dribbling on a few occasions. This is new for her. She has no history of pelvic surgeries. She regularly does pelvic floor exercises. An MRI has been ordered and scheduled for 08/06/20. It will be done at [facility]. FUNCTIONAL HISTORY Work:off of work since end [...] using hot tub, PT, home PT exercises. CURRENT THERAPIES: PT Acetaminophen Orphenedrine (rarely now) Had been taking daily. Rest Home exercise and yoga Pacing activities PAST THERAPIES: celebrex-tried it. Wants to avoid NSAID. CBD ointment Massage REVIEW OF SYSTEMS: Constitutional: denies fever, chills, cough, signs of infection, weight changes, fatigue HEENT: +photosensitivity with Migraine h/as 4-6 per month. Under care of neurology for headache. Had some eye drooping with the headaches on occasion. This has been reported to neurology. Cardiac:denies chest pain or pressure, lower extremity edema Lungs: denies SOB on exertion GI: denies constipation, black tarry stool, loss of control; +IBS with diarrhea which has improved now so asymptomatic : denies frequency, urgency, hesitation, or incontinence. +New onset dribbling after urination after standing up. Neuro: denies dizziness, numbness, seizures, tremors. Legs felt heavy early on but is much better. Muscle skeletal: denies use of ambulatory aide, falls Skin: denies open sores. Has a rash since use of massage oil with arnica and lashay. Psychological/Mood: Good Sleep: wakes up at night and tosses and turns for comfort. New mattress. RELEVANT SOCIAL HISTORY: Lives with: partner Patient has two children ages 29 and 27. Smoking:no Alcohol: present and past: social approx 2-3 glasses of wine per week Illicit substance use: none MEDICATIONS The [place] Prescription Monitoring Program was checked and no concerns were identified. Medications 07/27/20 1438 Medication Sig Taking? orphenadrine (NORFLEX) 100 mg Tablet Sustained Release TAKE 1 TABLET BY MOUTH TWICE DAILY NEEDEDFOR MUSCLE SPASM Yes SUMAtriptan (IMITREX) 100 mg Tablet Take [...] capsule by mouth daily. 10,000 units Yes calcium carbonate 648 mg calcium tablet Take 650 mg by mouth daily. Yes prochlorperazine (Compazine) 10 mg Tablet TAKE 1 TABLET BY MOUTH EVERY 6 HOURS NEEDED FOR NAUSEA venlafaxine (Effexor) 50 mg Tablet TAKE 1 TABLET BY MOUTH EVERY DAY WITH FOOD cetirizine (ZYRTEC) 10 mg Tablet Take 10 mg by mouth as needed for Allergies. famotidine (PEPCID) 20 mg Tablet Take 1 tablet by mouth daily. Patient not taking: Reported on 07/27/2020 PROAIR HFA 90 mcg/actuation inhaler Inhale 1 puff into the lungs as needed. cyclobenzaprine (FLEXERIL) 10 mg tablet Take 10 mg by mouth 3 times daily as needed. ADVERSE DRUG REACTIONS Allergies as of 07/27/2020 - Review Complete 07/27/2020 Allergen Reaction Noted ??? Amitriptyline 11/23/2015 ??? Erythromycin 04/14/2011 ??? Mold extracts 04/14/2011 MEDICAL HISTORY No past medical history on file. SURGICAL HISTORY Past Surgical History: Procedure Laterality Date ??? PRO ARTHROSCOPY HIP W/LABRAL REPAIR Left 01/14/2016 ARTHROSCOPY HIP W/LABRAL REPAIR performed by Jonathan Smith MD at [facility] FAMILY HISTORY None pertinent IMAGING STUDIES Xrays of lumbar spine shows facet degeneration at L5-S1. Xray of thoracic spine showed compression fracture at W30--Erlvlf depression of superior endplate of 10-15%. This correlates with the locationof her most severe back pain. PHYSICAL EXAMINATION Patient Vitals for the past 24 hrs: Pulse BP 07/27/20 1432 88 116/71 Body mass index is 21.09 kg/m??. BP 116/71 Pulse 88 Ht 152.4 cm (5') Wt 49 kg (108 lb) Appearance/ Behavior Well groomed, good eye contact, relaxed, cooperative, normal speech, no acute distress, no involuntary movements Eyes Sclera anicteric, conjunctiva clear. ENT Hearing grossly intact Lungs Normal respiratory effort Skin No rash, asymmetric hair loss, bruises, scars, swelling Musckuloskeletal Inspection/Palpation/ Range of Motion/Facet Loading maneuvers Gait:intact, no assistive devices required Heel walk intact Toe walk intact Tandem walk: intact Inspection: good alignment, no excessive curvature, shoulder and hip levels equal bilaterally; There is a slight rash in the lower thoracic area consistent with resolving allergic dermatitis. Palpation: Tenderness thoracic paraspinal musculature and lower thoracic spinous process tenderness. There is also lower lumbar area tenderness. Right buttock tender but patient states that it was the location of the dry needling done earlier today and the area is tender superficially. No SI joint tenderness. ROM:Patient has excellent range of motion. SLR: Negative Facet Loading: Neg Neuro Motor Strength Segment Muscle Action Bilateral Results L2-5, S 1 Gluteus medius Hip Adduction 5/5 L4-5, S1 Gluteus medius Hip Abduction 5/5 L2 Iliopsoas Hip flexion 5/5 L3 Quadriceps Knee extension 5/5 L4 Tibialis anterior Ankle Dorsiflexion 5/5 L5 Extensor hallucis Great toe extension 5/5 S1 Gastrocnemius Ankle Plantar flexion 5/5 Reflexes: Segment Tendon Bilateral C5 Biceps 2+ C6 Brachioradialis 2+ C7 Triceps 2+ Upper Miner Neg L3-4 Patella 2+ S1 Ankle 2+ Lower Babinski Down going Clonus Neg Sensory Exam: No sensory deficits noted in cervical or thoracic dermatomes. There is decreased sensation in the right 5th toe and the lateral aspect of the sole of her foot. Vascular: warm to touch + 2 pedal pulses, no lower extremity edema or cyanosis noted. ASSESSMENT Elin Willard is a 60 y.o. 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 She has been placed off work as of 06/16/20 and will remain so until the end of July. Her symptoms are improving but she still has pain which correlates with the T12 mild endplate compression fractureas well as intermittent back and leg pain with numbness/ paresthesias consistent with S1 radiculopathy. Xrays showed L5-S1 lumbar facet arthropathy which may be irritating the S1 nerve root, particularly if there is a disc component involved. An MRI has been ordered to better evaluate the discs and nerve roots. She has noticed some post micturition leakage which is new but has had no cornelius incontinence. Denies saddle anesthesia, loss of motor function, or bowel dysfunction. PLAN/RECOMMENDATIONS She will continue the PT as scheduled. MRI as ordered. Will consider referral to neuroradiology if the compression fracture is not fully healed and if herpain continues to persist. May consider therapeutic injection if the radicular symptoms persist but for now they are continuing to improve. Discussed that this can take several months to resolve. Continue with yoga and home exercises. Continue to Pace activities. She will return in approx. 4-6 weeks for further follow up. Completed the worker's compensation form as required. Activity restrictions are left up to the PCP. Elin Willard had the opportunity to ask questions and indicated that all questions were answeredto her satisfaction. Suzie Hebert APRN Nurse Practitioner [facility] documented in this encounter Plan of Treatment Upcoming Encounters Date Type Department Care Team (Late st Contact Info) Description 07/10/2024 9:00 AM EDT TH Visit (TeleHealth) [place] [id number] Andrei Kent MD [facility] [place] [address] documented as of this encounter Visit Diagnoses Diagnosis Compression fracture of T12 vertebra, initial encounter Lumbar spondylosis Lumbosacral spondylosis without myelopathy Radiculopathy of lumbar region Thoracic or lumbosacral neuritis or radiculitis, unspecified documented in this encounter Care Teams Graphic Editor Relationship Specialty Start Date End Date Greta Kimball MD [address] [place] [address] PCP - General 06/25/13 documented as of this encounter
--- OUTSIDE RECORDS SUMMARY | 2024-05-28 16:06 | XMS_ITS | Encounter Summary ---
[place] [address] Care Team Providers Care Fish Hatchery Worker Name Role Phone Greta Kimball MD Primary Care Provider [phone] Reason for Visit * Auth/Cert Specialty Diagnoses / Procedures Referred By Michelle calle Referred To Contact Diagnoses Labral tear of hip, degenerative Labral tear, left hip Procedures PRO ARTHROSCOPY HIP W/LABRAL REPAIR ARTHROSCOPY HIP W/LABRAL REPAIR Referral ID Status Reason Start Date Expiration Date Visits Re quested Visits Authorized [id number] 1 1 Encounter Details Date Type Department Care Team (Late st Contact Info) Description 01/14/2016 7:37 AM EDT Anesthesia Event [facility] [place] [address] Armando Dubon MD [facility] DR ANESTHESIOLOGY [place] [address] Miriam Moncada MD [facility] [place]OLOG[place] [address] Anesthesia Record Procedure Summary Procedure Name Responsible Anesthesiologist Anesthesia Start Time Anesthesia Stop Time ARTHROSCOPY HIP W/LABRAL REPAIR (WRVU 15) (Left: Hip) Armando Dubon MD 01/14/16 0737 01/14/16 0919 Events Date Time Event Comment 01/14/2016 0708 0737 Start Delay 2/2 late surgeon arrival 0740 AN Verify 0740 An Start Data 0744 An Induction 0746 An Intubation 0748 Anesthesia Ready 0814 Quick Note Traction applie d 0817 Procedure Start 0833 Break/Relief In ARMANDO GIBBS MD 0846 Break/Relief Out 0914 Extubation/LMA Out 0916 an stop data 0919 Recovery or ICU Handoff No ent care was transferred to the destination unit staff after review of the patient's medical history, current anesthetic/surgical status and plan, according to the Provider Handoff Checklist. 0919 Stop Meds Name Total Midazolam 2 mg fentaNYL 50 mcg IV Lidocaine 30 mg Propofol 160 mg Rocuronium 40 mg PHENYLephrine 400 mcg Ondansetron 8 mg Dexamethasone 8 mg Neostigmine 1 mg Glycopyrrolate 0.2 mg Propofol INF 613.83 mg ceFAZolin (ANCEF) 2 gram/50 mL infusion 2 g Ketamine 10 mg/mL 20 mg lactated ringers infusion 1,000 mL 500 m L * Agents Name O2 Air * Blood No blood administrations on file. Lines, Drains, and Airways Type Details Placement Removal Incision 01/14/16; hip; other (see comments) (arthroscopic ports,); 12/20/21 (LDA cleanup utility RA#[id number]); 1715 (LDA cleanup utility RA#[id number]) 01/14/16 0000 by Marizol Westfall RN 12/20/21 1715 by Sabiha Londono (RETIRED) Peripheral IV Line - Single Lumen 01/14/16; 0643; median cubital vein right (antecubital fossa); [id number] catheter system; 20 gauge, 1 in length; 08/07/17 (Auto removal via utility); 0921 (Auto removal via utility) 01/14/16 0643 by Marilyn Tijerina RN 08/07/17 0921 by Kwaab User ETT Mask Ventilation: Ea sy (1); ETT Type: Cuffed, Oral; ETT Size: 6.5 mm; Mac Blade: 3; Notes: Asleep, Pre-O2; Attempts: 1; Laryngoscopy Grade: 1; ETT Placement Verified By: Auscultation, Capnometry, Visual; Secured at Teeth: 19 cm; Inserted by: SUSAN Lance; Removal Date: 01/14/16; Removal Time: 91301/14/16 0746 by Amy Quigley CRNA 01/14/16 0914 by Amy Quigley CRNA documented in this encounter Social History Tobacco Use Types Packs/Day Years Used Date Smoking Tobacco: Never Smokeless Tobacco: Never Alcohol Use Standard Drinks/Week Comments Yes 1 (1 standard drink = 0.6 oz pur e alcohol) Sex and Gender Information Value Date Recorded Sex Assigned at Female 07/26/2020 11:14 AM EDT Gender Identity Not on file Sexual Orientation Not on file documented as of this encounter OR Notes * Anesthesia Postprocedure Evaluation - Armando Dubon MD - 01/14/2016 10:42 AM EDT [facility] Department of Anesthesiology Post-procedure Note Patient: Elin Willard Procedure Summary Date Anesthesia Start Anesthesia Stop Room / Location 01/14/16 0737 0919 [facility] OR / [facility] Procedure Diagnosis Surgeon Responsible Provider ARTHROSCOPY HIP W/LABRAL REPAIR (Left Hip) Pain in left hip (Labral tear, left hip) Jonathan Smith MD Herrick, Michael D, MD All Anesthesia Providers: Anesthesiologist: Armando Dubon MD SANDING MACHINE OPERATOR OR TENDER: Amy Quigley CRNA Last (1hr) Vitals: BP 104/59 (01/14/16 1000) Temp Pulse 72 (01/14/16 1000) Resp 16 (01/14/16 1000) SpO2 99 % (01/14/16 1000) Patient Location: PACU/[facility] Level of Consciousness: Awake and Alert Pain Management: Satisfactory Analgesia PONV: None Cardiovascular Status: Hemodynamically Stable Respiratory Status: Stable Respiratory Status Postoperative Fluid Status: Intravascular EUvolemia Possible Anesthetic Complications: NONE apparent at time of evaluation Final Primary Anesthesia Type: General (The anesthetic type performed was the same as planned.) Comments: Doing well, no nausea ARMANDO DUBON MD * Anesthesia Preprocedure Evaluation - Armando Dubon MD - 01/14/2016 7:06 AM EDT Pre-Anesthesia Evaluation for: Elin Willard a 55 y.o. female. Procedure(s): ARTHROSCOPY HIP W/LABRAL REPAIR Patient Active Problem List Diagnosis ??? Pain in left hip ??? IBS (irritable bowel syndrome) ??? Multilevel degenerative disc disease ??? Chronic migraine ??? Migraine No past medical history on file. No past surgical history on file. Social History Substance Use Topics ??? Smoking status: Never Smoker ??? Smokeless tobacco: Never Used ??? Alcohol use 0.6 oz/week 1 Glasses of wine per week History Drug Use No Allergies Allergen Reactions ??? Amitriptyline 25 mg and up caused her fingers to tingle ??? Erythromycin ??? Mold Extracts Mildew Medications: MAR and/or home medications have been reviewed. Physical Exam: Vitals: 01/14/16 0634 BP: 109/57 Pulse: 79 Resp: 16 Temp: 36 ??C (96.8 ??F) Body mass index is 23.05 kg/(m^2). Height: 154.9 cm (5' 1) Weight - Scale: 55.3 kg (122 lb) Airway Assessment: Mallampati: II TM distance: >3 FB Neck ROM: full Cardiovascular Assessment: cardiovascular exam normal Pulmonary Assessment: pulmonary exam normal Dental Assessment: Misc Assessment: IV access: Peripheral line Anesthesia Plan: ASA 2 general, with a(n) intravenous induction 55 yo presents for left hip scope Hx RAD (asthma as a child and now rare URI and cold induced, no issues recently) DDD, IBS, BPV Chronic migraines Hx of PONV and motion sickness Pre-op tylenol, gabapentin and scope patch Risks and benefits of GA discussed All questions answered Full Code ARMANDO DUBON MD Region - Other Informed Consent: Anesthetic plan and risks discussed with patient. Plan discussed with SANDING MACHINE OPERATOR OR TENDER. PAT Staff Note documented in this encounter Plan of Treatment Upcoming Encounters Date Type Department Care Team (Late st Contact Info) Description 07/10/2024 9:00 AM EDT TH Visit (TeleHealth) [place] [address] Andrei Kent MD [facility] [place] [address] documented as of this encounter Visit Diagnoses Not on filedocumented in this encounter Administered Medications Inactive Administered Medications - up to 3 most recent administrations Medication Order MAR Action Action Date Dose Rate Site ceFAZolin (ANCEF) 2 gram/50 mL infusion 1 dose, Starting on Criss 01/14/16 at 0651, Until Criss 01/14/16 at 0748, MARILYN TIJERINA: cabinet override Given 01/14/2016 7:48 AM EDT 2 g dexamethasone (DECADRON) injection PRN, Starting on Criss 01/14/16 at 0749, Until Criss 01/14/16 at 0927, Anesthesia Intra-op, Routine Given 01/14/2016 7:49 AM EDT 8 mg fentaNYL 50 mcg/mL multi-dose injection PRN, Starting on Criss 01/14/16 at 0743, Until Criss 01/14/16 at 0927, Pain, Anesthesia Intra-op, Routine Given 01/14/2016 7:43 AM EDT 50 mcg glycopyrrolate (ROBINUL) multi-dose injection PRN, Starting on Criss 01/14/16 at 0858, Until Criss 01/14/16 at 0927, Anesthesia Intra-op, Routine Given 01/14/2016 8:58 AM EDT 0.2 mg ketamine (KETALAR) 10 mg/mL bolus injection (Anesthesia) PRN, Starting on Criss 01/14/16 at 0811, Until Criss 01/14/16 at 0927, Anesthesia Intra-op Given 01/14/2016 8:49 AM EDT 10 mg Given 01/14/2016 8:11 AM EDT 10 mg lactated ringers infusion 1,000 mL 1,000 mL, at 100 mL/hr, Intravenous, CONTINUOUS, Starting on Criss 01/14/16 at 0700, Until Criss 01/14/16 at 1256, Day of Surgery (Day of Procedure) New Bag 01/14/2016 7:37 AM EDT lidocaine (PF) (XYLOCAINE) 100 mg/5 mL (2 %) injection PRN, Starting on Criss 01/14/16 at 0743, Until Criss 01/14/16 at 0927, Anesthesia Intra-op, Routine Given 01/14/2016 7:43 AM EDT 30 mg midazolam (PF) (VERSED) 1 mg/mL multi-dose injection PRN, Starting on Criss 01/14/16 at 0737, Until Criss 01/14/16 at 0927, Sleep, Anesthesia Intra-op, Routine Given 01/14/2016 8:10 AM EDT 1 mg Given 01/14/2016 7:37 AM EDT 1 mg neostigmine (PROSTIGMINE) multi-dose injection PRN, Starting on Criss 01/14/16 at 0858, Until Criss 01/14/16 at 09, Anesthesia Intra-op, Routine Given 01/14/2016 8:58 AM EDT 1 mg ondansetron (ZOFRAN) injection PRN, Starting on Criss 01/14/16 at 0749, Until Criss 01/14/16 at 09, Nausea, Anesthesia Intra-op, Routine Given 01/14/2016 8:52 AM EDT 4 mg Given 01/14/2016 7:49 AM EDT 4 mg PHENYLephrine HCl in NS (PF) (LELO-SYNEPHRINE) 0.8 mg/10 mL (80 mcg/mL) multi-dose injection Syrg PRN, Starting on Criss 01/14/16 at 0747, Until Criss 01/14/16 at 09, Anesthesia Intra-op, Routine Given 01/14/2016 8:54 AM EDT 80 mcg Given 01/14/2016 8:30 AM EDT 80 mcg Given 01/14/2016 7:57 AM EDT 80 mcg propofol (DIPRIVAN) 10 mg/mL bolus injection (Anesthesia) PRN, Starting on Criss 01/14/16 at 0744, Until Criss 01/14/16 at 926, Anesthesia Intra-op Given 01/14/2016 7:44 AM EDT 160 mg propofol (DIPRIVAN) infusion CONTINUOUS PRN, Starting on Criss 01/14/16 at 0747, Until Criss 01/14/16 at 09, Anesthesia Intra-op, Routine Rate/Dose Change 01/14/2016 8:59 AM EDT 75 mcg/kg/min 24.9 mL/hr New Bag 01/14/2016 7:47 AM EDT 150 mcg/kg/min 49.8 mL/h r rocuronium (ZEMURON) multi-dose injection PRN, Starting on Criss 01/14/16 at 0744, Until Criss 01/14/16 at 0927, Anesthesia Intra-op, Routine Given 01/14/2016 7:44 AM EDT 40 mg documented in this encounter Care Teams Fish Hatchery Worker Relationship Specialty Start Date End Date Greta Kimball MD [address] [place] [address] PCP - General 06/25/13 documented as of this encounter
--- OUTSIDE RECORDS SUMMARY | 2024-05-28 16:06 | XMS_ITS | Encounter Summary ---
Author Organization [facility] [place] [address] Care Team Providers Care Almond Pan Finisher Name Role Phone Greta Kimball MD Primary Care Provider [phone] Reason for Visit * Reason Comments Left Hip Pain Left hip scope Encounter Details Date Type Department Care Team (Late st Contact Info) Description 01/26/2016 1:00 PM EDT Office Visit [place] [address] Jonathan Smith MD [facility] [place] [address] Left hip pain s/p labral debridement 01/14/16 [...] Sign Reading Time Taken Comments Blood Pressure 109/72 01/26/2016 12:56 PM EDT Pulse 85 01/26/2016 12:56 PM EDT Temperature - - Respiratory Rate - - Oxygen Saturation - - Inhaled Oxygen Concentration - - Weight 55.3 kg (122 lb) 01/26/2016 12:56 PM EDT verbal Height 161.9 cm (5' 3.75) 01/26/2016 12:56 PM E DT verbal Body Mass Index 21.11 01/26/2016 12:56 PM EDT documented in this encounter Progress Notes * Michelle Watson - 01/26/2016 1:00 PM EDT Post Procedure Visit for Hip Arthroscopy Date: Case Date: 01/14/2016 ??Surgeon: Surgeon(s) and Role: * Jonathan Smith MD - Primary * Chalino Baltazar MD - Resident-Surgeon Chief ??Preoperative diagnosis: Labral tear, left hip ??Postoperative diagnosis: Labral tear, left hip ??Procedure(s): ARTHROSCOPY HIP W/LABRAL DEBRIDEMENT HPI: Patient is 2 weeks s/p left hip arthroscopy. She has been doing therapy with Jillian Kaur PT at [facility] 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 Patient rates their pain as 2/10. She is currently taking a prescription NSAID. She states that shedoes not need a refill today. She has prescription Naproxen at home for migraines. Exam: Incisions appear to be healing, sutures in place, no signs of infection Numbness/Tingling: no ROM: 0-90 Assessment: doing well 2 wks s/p the above procedure Plan: Sutures removed today and steri strips applied. Progress PT per protocol with focus on core strengthening and hip ER strengthening. Patient should use their prescription NSAID, or equivalent dosing of OTC Aleve. She will remain out of work as planned until re-evaluation. F/U [address] Smith. Michelle Yung M.Ed, N.H.LAT, [facility] Print Finisher to Dr. Nabil Smith Department of Orthopaedics Division of Sports Medicine documented in this encounter Plan of Treatment Upcoming Encounters Date Type Department Care Team (Late st Contact Info) Description 07/10/2024 9:00 AM EDT TH Visit (TeleHealth) [place] [address] Andrei Kent MD [facility] [place] [address] documented as of this encounter Visit Diagnoses Diagnosis Left hip pain s/p labral debridement 01/14/16 ([place]) Pain in joint, pelvic region and thigh documented in this encounter Care Teams Almond Pan Finisher Relationship Specialty Start Date End Date Greta Kimball MD [address] [place] [address] PCP - General 06/25/13 documented as of this encounter
--- OUTSIDE RECORDS SUMMARY | 2024-05-28 16:06 | XMS_ITS | Encounter Summary ---
Author Organization [facility] Address [facility] [place] [address] Care Team Providers Care Manager Commercial Real Estate Name Role Phone Greta Kimball MD Primary Care Provider [phone] Encounter Details Date Type Department Care Team (Late st Contact Info) Description 03/04/2015 - 03/04/2015 11:59 PM EST Hospital Encounter Radiology Library at [facility] [place] [address] [facility] Temporary Pain Discharge Disposition: Home Social [...] mouth daily. 01/05/2016 Flaxseed Oil Oil by [facility].(Non-Drug; Combo Route) route as needed. 01/05/2016 famotidine [...] AM EDT TH Visit (TeleHealth) [place] [address] Andrei Kent MD [facility] [place] [address] documented as of this encounter Procedures Procedure Name Priority Date/Time Associated Diagnosis Comments FILM LIBRARY STORAGE ONLY DX HIP Routine 03/04/2015 12:00 AM EST Pain documented in this encounter Results * Film Library- Storage only DX Hip (03/04/2015 12:00 AM EST) Narrative BINTA - 07/01/2015 3:22 PM EST See PACS for result report. Dr Nino [facility] FILM LIBRARY ORD ERABLES Performing Organization Address City/State/[facility] Co de Phone Number [place], [place] documented in this encounter Visit Diagnoses Diagnosis Pain Generalized pain documented in this encounter Care Teams Manager Commercial Real Estate Relationship Specialty Start Date End Date Greta Kimball MD [address] [place] [address] PCP - General 06/25/13 documented as of this encounter
--- OUTSIDE RECORDS SUMMARY | 2024-05-28 16:06 | XMS_ITS | Encounter Summary ---
Author Organization [facility] [place] [address] Care Team Providers Care Cupola Tender Name Role Phone Greta Kimball MD Primary Care Provider [phone] Reason for Visit * Auth/Cert Specialty Diagnoses / Procedures Referred By Michelle calle Referred To Contact Diagnoses Labral tear of hip, degenerative Labral tear, left hip Procedures PRO ARTHROSCOPY HIP W/LABRAL REPAIR ARTHROSCOPY HIP W/LABRAL REPAIR Referral ID Status Reason Start Date Expiration Date Visits Re quested Visits Authorized [id number] 1 1 Encounter Details Date Type Department Care Team (Late st Contact Info) Description 01/14/2016 7:30 AM EDT - 01/14/2016 9:45 AM EDT Surgery [place] [address] Brittany Smith MD [facility] [place] [address] ARTHROSCOPY HIP W/LABRAL REPAIR (WRVU 15) Social History Tobacco Use Types Packs/Day Years [...] Sign Reading Time Taken Comments Blood Pressure 100/64 01/14/2016 9:36 AM EDT Pulse 66 01/14/2016 9:32 AM EDT Temperature 36.1 ??C (97 ??F) 01/14/2016 9:19 AM EDT Respiratory Rate 16 01/14/2016 9:32 AM EDT Oxygen Saturation 99% 01/14/2016 9:32 AM EDT Inhaled Oxygen Concentration - - [...] closest emergency room or call the hospital head gauge unit operator at [phone] and ask for physician organizational effectiveness consultant covering for your physician. Questions or problems after 5pm or on a weekend: Call the [facility] head gauge unit operator at and ask for the physician organizational effectiveness consultant covering for your doctor. SCOPOLAMINE PATCH DISCHARGE [...] is a short acting narcotic pain medication. Ykkk-aav-aiqqgdu Tylenol (acetaminophen) may be taken in addition [...] important in helping to prevent this. An lawb-bwy-lqdbldm stool softener can also help prevent or [...] - 01/14/2016 9:11 AM EDT Patient Name: Elni Willard Patient Age: 55 y.o. Birthdate: 1960 Admit date: 01/14/2016 Attending Physician: Brittany Smith MD Please see my recent clinic note for pre-op H&P. documented in this encounter Miscellaneous Notes * Op Note - Brittany Smith MD - 01/14/2016 9:00 AM EDT [facility] Operative Note Patient Name: Elin Willard : [id number] MR#: [id number] Case Date: 01/14/2016 Surgeon: Surgeon(s) and Role: [...] hip and was marked with a green [place]. The patient was then identified by Anesthesia [...] to view our entry point posteriorly. A Mccammon blade was thenused to enlarge but not [...] apparent complications. Post-operative Plan: Physical Therapy per [facility] protocol to start in the next 2-5 [...] AM EDT TH Visit (TeleHealth) [place] [address] Andrei Kent MD [facility] [place] [address] documented as of this encounter Procedures Procedure Name Priority Date/Time Associated Diagnosis Comments XR FLUORO NO RAD <1HR - OR USE Routine 01/14/2016 9:08 AM EDT ARTHROSCOPY HIP W/LABRAL REPAIR (WRVU 15) 01/14/2016 7:39 AM EDT Pain in left hip Case Notes Total traction time: 41 minutes, [id number] documented in this encounter Results * XR Fluoro No Rad <1Hr (01/14/2016 9:08 AM EDT) Narrative RAD - 01/14/2016 9:08 AM EDT This order does not need a radiologist interpretation. ?? Brittany Smith MD IMG FLUORO ORDERABLE [place], [place] documented in this encounter Visit Diagnoses [...] Given 01/14/2016 6:53 AM EDT 1,000 mg BUpivacaine (PF) (MARCAINE) 0.25 % (2.5 mg/mL) injection ONCE PRN, Starting on Criss 01/14/16 at 0903, Until Criss 01/14/16 at 1256, Intra-Operative (Intra-Procedure), Routine Given 01/14/2016 9:03 AM EDT 75 mg 19- Surgical Site EPINEPHrine (ADRENALIN) injection ONCE PRN, Starting on Criss 01/14/16 at 0829, Until Criss 01/14/16 at 1256, Intra-Operative (Intra-Procedure), Routine Given 01/14/2016 8:29 AM EDT 1 mg 19- Surgical Site fentaNYL (PF) 50 mcg/mL 2mL syringe 25 [...] Oral, EVERY 4 HOURS PRN, Starting on Mon01/14/16 at 0925, Until Mon01/14/16 at 1256, Pain, severe pain, PACU Recovery, Routine oxyCODONE (ROXICODONE) immediate release tablet 5 mg 5 mg, Oral, EVERY 4 HOURS PRN, Starting on Mon01/14/16 at 0925, Until Criss 01/14/16 at 1256, [...] Mon01/14/16 at 0700, Recovery (Recovery-Hospital Unit), Routine Patch [...] PRN, Starting on Mon01/14/16 at 0634, Until Mon01/14/16 at 1256, flush, Flush pertains to all [...] Day of Surgery (Day of Procedure), Routine 06 (Given - Provid er: Marilyn Tijerina RN) [...] 3 HOURS, 1 dose, First dose on Criss 01/14/16 at 0700, Administer over 30 Minutes, Redose after 3 hours., Intra-Operative (Intra-Procedure), Indication for (Active or Suspected): Prophylaxis 0700 (Due) gabapentin (NEURONTIN) capsule 600 mg (COMPLETED) 600 mg, Oral, ONCE, 1 dose, On Criss 01/14/16 at 0700, Day of Surgery (Day of Procedure), Routine 06 (Given - Provid er: Marilyn Tijerina RN) scopolamine (TRANSDERM-SCOP) 1.5 mg (1 mg over 3 days) patch 1 patch (COMPLETED)(Linked Group 1) 1 patch, Transdermal, ONCE, 1 dose, On Criss 01/14/16 at 0700, Recovery (Recovery-Hospital Unit), Routine 0700 [...] Starting on Criss 01/14/16 at 0700, Until Crsis 01/14/16 at 1256, Day of Surgery (Day of Procedure) 0737 (New Bag - Prov ider: Amy Quigley CRNA)0918 (Stopped - Provider: Amy Quigley CRNA) PRN Medication Order 01/12/2016 01/13/2016 01/14/2016 BUpivacaine (PF) (MARCAINE) 0.25 % (2.5 mg/mL) injection (CANCELED) ONCE PRN, Starting on Criss 01/14/16 at 0903, Until Criss 01/14/16 at 1256, [...] not relieved, call provider., PACU Recovery, Routine 0937 (See Alternativ e [...] EVERY 30 MIN PRN, Nausea, Starting on Criss 01/14/16 at 0925, 2 doses, Until Criss 01/14/16 [...] mL infusion (COMPLETED) 1 dose, Starting on Criss 01/14/16 at 0651, Until Criss 01/14/16 at 0748, MARILYN TIJERINA: cabinet override 0748 (Given - Provid er: Amy Quigley CRNA) Linked Groups Order Group 1: scopolamine (TRANSDERM-SCOP) 1.5 mg (1 mg over 3 days) patch 1 patch (COMPLETED)Jump to med 1 patch, Transdermal, ONCE, 1 dose, On Criss 01/14/16 at 0700, Recovery (Recovery-Hospital Unit), Routine Followed [...] Routine documented in this encounter Care Teams Cupola Tender Relationship Specialty Start Date End Date Greta Kimball MD [address] [place] [address] PCP - General 06/25/13 documented as of this encounter
--- OUTSIDE RECORDS SUMMARY | 2024-05-28 16:06 | XMS_ITS | Encounter Summary ---
Author Organization [facility] Address [facility] [place] [address] Care Team Providers Care Quiller Hand Name Role Phone Greta Kimball MD Primary Care Provider [phone] Reason for Visit * Reason Onset Date Comments Medication Refill 10/31/2014 Encounter Details Date Type Department Care Team (Late st Contact Info) Description 10/31/2014 [place] [address] Zachary Dias MD [facility] [place] [place] [address] Medication Refill Social History Tobacco Use Types [...] encounter Miscellaneous Notes * Telephone Encounter - Emmy Zavala - 10/31/2014 8:30 AM EDT Name of Med: diazepam Strength of Pills: 5mg Dosing Directions: Take 1-2 tablets by mouth daily as needed. 30 or 90 Day: 30 day supply Pharmacy: [phone] Last Appointment:10/20/14 Next Appointment:05/20/15 documented in this encounter Plan of Treatment Upcoming Encounters Date Type Department Care Team (Late st Contact Info) Description 07/10/2024 9:00 AM EDT TH Visit (TeleHealth) [place] [address] Andrei Kent MD [facility] [place] [address] documented as of this encounter Visit Diagnoses Not on filedocumented in this encounter Care Teams Quiller Hand Relationship Specialty Start Date End Date Greta Kimball MD [address] [place] [address] PCP - General 06/25/13 documented as of this encounter
--- OUTSIDE RECORDS SUMMARY | 2024-05-28 16:06 | XMS_ITS | Encounter Summary ---
Author Organization [facility] [place] [address] Care Team Providers Care Hazardous Material Technician Name Role Phone Greta Kimball MD Primary Care Provider [phone] Reason for Referral * Physical Therapy (Routine) - Specialty Diagnoses / Procedures Referred By Michelle calle Referred To Contact Physical Therapy Diagnoses Status post arthroscopy of hip Jonathan Smith MD [facility] [place] [address] Referral ID Status Reason Start Date Expiration Date V isits Requested Visits Authorized [id number] Evaluate and Treat PCP Updated and/or Approved 01/05/2016 07/03/2016 12 12 Reason for Visit * Reason Comments Left Hip Pain Case Req: Left hip s cope 01/14/16 Encounter Details Date Type Department Care Team (Late st Contact Info) Description 01/05/2016 3:30 PM EDT Office Visit [place] [address] Jonathan Smith MD [facility] [place] [address] Status post arthroscopy of hip; Pain in left hip Social History Tobacco Use Types Packs/Day Years [...] Sign Reading Time Taken Comments Blood Pressure 117/71 01/05/2016 3:24 PM EDT Pulse 94 01/05/2016 3:24 PM EDT Temperature - - Respiratory Rate - - Oxygen Saturation - - Inhaled Oxygen Concentration - - Weight 55.3 kg (122 lb) 01/05/2016 3:24 PM EDT f ully clothed Height 154.3 cm (5' 0.75) 01/05/2016 3:24 PM ED T verbal Body Mass Index 23.24 01/05/2016 3:24 PM EDT documented in this encounter Progress Notes * Jonathan Smith MD - 01/05/2016 3:30 PM EDT Elin presents for pre-operative discussion in anticipation of hip arthroscopy on the left. She had a near complete resolution of symptoms for 3-4 months after her hip injection - unfortunately pain has returned and is similar to her presentation in July CV: RRR Lungs: CTA B We discussed the issues around a hip arthroscopy for labral tears and impingement and the expected outcomes from operative intervention. We discussed the intensity and importance of rehabilitation following surgery. I reviewed expectation around early recovery after hip arthroscopy and the physical therapy protocol. The goals risk and benefits of hip arthroscopy were reviewed in detail. Risk including, but not limited to bleeding, infection, nerve injury, continued pain, stiffness, adhesions, groin or foot numbness, skin irritation from traction, need for future intervention and anesthetic risks. Informed consent was obtained. documented in this encounter Plan of Treatment Upcoming Encounters Date Type Department Care Team (Late st Contact Info) Description 07/10/2024 9:00 AM EDT TH Visit (TeleHealth) [place] [address] Andrei Kent MD [facility] [place] [address] Scheduled Referrals Name Type Priority Associated Diagnoses Orde r Schedule Referral to Physical Therapy Outpatient Referral Routine Status post arthroscopy of hip Ordered: 01/05/2016 documented as of this encounter Visit Diagnoses Diagnosis Status post arthroscopy of hip Pain in left hip Pain in joint, pelvic region and thigh documented in this encounter Care Teams Hazardous Material Technician Relationship Specialty Start Date End Date Greta Kimball MD [address] [place] [address] PCP - General 06/25/13 documented as of this encounter
--- OUTSIDE RECORDS SUMMARY | 2024-05-28 16:06 | XMS_ITS | Encounter Summary ---
[place] [address] Care Team Providers Care Hand Sprayer Name Role Phone Greta Kimball MD Primary Care Provider [phone] Encounter Details Date Type Department Care Team (Late st Contact Info) Description 08/27/2020 Telephone [place] [address] Valeriano Troncoso, RN Social History Tobacco Use Types Packs/Day [...] encounter Miscellaneous Notes * Telephone Encounter - Valeriano Troncoso RN - 08/27/2020 9:45 AM EDT Elin Willard :1960 Message left: I left a message on answering machine Ms. Willard at 9:45 AM regarding upcoming Neither lumbar epidural steroid injection with Dr. Jamie Pepe MD. Message included the followin. Patient instructed to arrive at 1130 (30 minutes prior to procedure start time) on 08/28/2020 (date of procedure) with their class b driver. 2. Following instructions left in the message: - Bring Updated list of medications including dosage and reason for taking. - Call the Pain Clinic Nurse at for: ~Procedure instructions. ~If you are taking antibiotics for any active infections ~If you have any signs or symptoms of infection, cold or flu or any current skin breakdown ~If you are taking anticoagulants / blood thinners (Plavix, Pletal, Lovenox, Coumadin, etc). ~If you had any steroid injections anywhere in your body within the last two weeks - If you have received or are scheduled to receive the COVID vaccine. FAROOQ Bal documented in this encounter Plan of Treatment Upcoming Encounters Date Type Department Care Team (Late st Contact Info) Description 07/10/2024 9:00 AM EDT TH Visit (TeleHealth) [place] [address] Andrei Kent MD [facility] [place] [address] documented as of this encounter Visit Diagnoses Not on filedocumented in this encounter Care Teams Hand Sprayer Relationship Specialty Start Date End Date Greta Kimball MD [address] [place] [address] PCP - General 06/25/13 documented as of this encounter
--- OUTSIDE RECORDS SUMMARY | 2024-05-28 16:07 | XMS_ITS | Encounter Summary ---
Author Organization [facility] Address [address] [place] [address] Care Team Providers Care Bottom Crane Operator Name Role Phone Unknown, Provider Primary Care Provider Unava ilable Encounter Details Date Type Department Care Team (Late st Contact Info) Description 08/18/1999 Results Only [facility] - Maple conversion [address] [place] [address] Michael Rodriguez MD [address] [place] [address] [address] [place] [phone] Social History Tobacco Use Types Packs/Day Years Used Date Smoking Tobacco: Never Assessed Comments Unknown Sex and Gender Information Value Date Recorded Sex Assigned at Not on file Legal Sex Female 18:06 EST Gender Identity Not on file Sexual Orientation Not on file documented as of this encounter Plan of Treatment Not on file documented as of this encounter Procedures Procedure Name Priority Date/Time Associated Diagnosis Comments CYTOPATHOLOGY Routine 08/18/1999 7:53 EDT documented in this encounter Results * CYTOPATHOLOGY (08/18/1999 7:53 EDT) Pathology Report: CYTOPATHOLOGY REPORT Reports generated via electronic interface contain original data; however they are lacking the format of the original report. Caution should be taken when reading/interpreti ng unformatted reports. Name: ? JUAN WILLARD ? Accession #: ? [id number] : ? 1960 (Age: 39) ??F ?Collect Date: ? 08/18/1999 Location: ?Receive Date: ? 08/18/1999 Provider: ?MICHAEL RODRIGUEZ MD Copy to: ?MICHAEL RODRIGUEZ MD ? Specimen/Source: ?Cotton Program Technician ThinPrep Last Menstrual Period: ? GYNECOLOGIC ??CYTOPATHOLOGY ??REPORT Name: JUAN WILLARD ?[facility] : 1960 ?? 39Y F ?Client ID: [id number] SS#: [id number] ? Clinician: MICHAEL RODRIGUEZ MD ?? Location: [facility] ??Copy to: ?? Specimen: ?Cotton Program Technician ThinPrep ? Source: Cervix/Endocervix ?Collected: 08/16/99 ? Received: 08/18/1999 ?LMP: 03/24/99 ? Hormone Therapy: Yes ? : No ? Radiation Therapy: No ?? Post : No ?Chemotherapy: No ?IUD: ?Prev Abnormal Pap: No ?? Clinical Hx: ?(Blank starr indicate information not provided on requisition) SPECIMEN ADEQUACY: ? Satisfactory For Evaluation ?? GENERAL CATEGORIZATION: ? BENIGN CELLULAR CHANGES ?? DESCRIPTIVE DIAGNOSIS: ? Reactive Cellular Changes Associated With Inflammation Present ? (Includes Repair) ? Reviewed And Electronically Signed By: ? Janet Sunshine MD., PhD. ? Report Date: ?? 08/26/1999 [facility] Archived Tests - Final Diagnosis Text Field: Clinical History : ? Document reviewed and electronically signed by: ? Conversion ? Report Date: ??08/26/1999 00:00 End of Report [facility] 08/18/1999 7:53 EDT 08/18/1999 7:54 EDT us Michael Rodriguez MD PATHOLOGY ORDERABLES Final Resu lt [facility] [address] [place] [address] documented in this encounter Visit Diagnoses Not on filedocumented in this encounter Care Teams Bottom Crane Operator Relationship Specialty Start Date End Date Unknown, Provider, PCP - General 10/20/08 01/25/11 documented as of this encounter
--- OUTSIDE RECORDS SUMMARY | 2024-05-28 16:07 | XMS_ITS | Encounter Summary ---
Author Organization [facility] [place] [address] Care Team Providers Care Soaking Tank Worker Name Role Phone Erica Hodgson MD Primary Care Provider [phone] Encounter Details Date Type Department Care Team (Late st Contact Info) Description 03/05/2013 2:15 PM EST [place] [address] Zachary Dias MD [facility] [place] [address] Migraine (Primary Dx) Discharge Disposition: Home Social History [...] as of this encounter Progress Notes * Zachary Dias MD - 03/05/2013 2:56 PM EST She looks well. She is not jaundiced, sedated, ataxic, nor dysarthric. She is having some tingling down her left arm into the fourth and fifth fingers of the left hand and also occasional tingling in the first and second fingers of the right hand. She does have a history of having had a carpal tunnel surgery on the left. Her primary care provider's office is considering doing an MRI of the cervical spine after the start of the year if matters do not settle down and has started her on some gabapentin 100 mg three times a day. I also told her that one of the local neurologists up in her area, Dr. Dominguez or Dr. Enrique Banegas, might be able to do nerve conduction studies if appropriate. Regarding her headaches, she did keep a headache calendar, has been able to show that for the last five months she has had headache more than half the month, and in fact eight or more of those days a month meet criteria for migraine, the other ones are milder headaches, and therefore she has chronic migraine. We will check a TSH today. She did have an MRI in the not too distant past, and I have told her that the evidence based approach to treating chronic migraine is to either use topiramate, which we discussed, or Botox, which actually is the only thing that has FDA approval specifically for chronic migraine. We will work on getting a prior authorization for her to have a trial of Botox for chronic migraine. We discussed the pros and cons and the possible side effects, and she is willing to try that. Followup therefore will be we will fit her in as soon as we can once we get a prior authorization for the Botox. I have asked her to call at the end of the month just to make sure that things are moving along in this regard, and today we will check a TSH. The majority of today's 25-minute office visit was dominated by 15 minutes of direct [id number] counseling and therapeutic planning. documented in this encounter Plan of Treatment Upcoming Encounters Date Type Department Care Team (Late st Contact Info) Description 07/10/2024 9:00 AM EDT TH Visit (TeleHealth) [place] [address] Andrei Kent MD [facility] [place] [address] documented as of this encounter Procedures Procedure Name Priority Date/Time Associated Diagnosis Comments TSH Routine 03/05/2013 3:02 PM EST Migraine documented in this encounter Results * TSH (03/05/2013 3:02 PM EST) Thyroid Stimulating Hormone 1.59 0.27 - 4.20 mcIU/mL YANELIS WITT Blood specimen (specimen) 03/05/2013 3:02 PM EST 03/05/2013 3:07 PM EST Narrative Resulting Agency Comment Spec In Lab Zachary Dias MD CHEMISTRY ORDERABLES YANELIS WITT documented in this encounter Visit Diagnoses Diagnosis Migraine- Primary Migraine, unspecified, without mention of intractable migraine without mention of status migrainosus documented in this encounter Care Teams Soaking Tank Worker Relationship Specialty Start Date End Date Erica Hodgson MD [facility] [address] [place] [address] [place] [address] PCP - General 03/16/10 06/24/13 documented as of this encounter
--- OUTSIDE RECORDS SUMMARY | 2024-05-28 16:07 | XMS_ITS | Encounter Summary ---
Author Organization [facility] Address [address] [place] [address] Care Team Providers Care Textile Cutting Machine Operator Name Role Phone Erica Hodgson MD Primary Care Provider [phone] Encounter Details Date Type Department Care Team (Late st Contact Info) Description 02/02/2018 Results Only [facility] [phone] Greta Oakes MD [address] [place] [address] [id number] Social History Tobacco Use Types Packs/Day Years [...] Procedure Name Priority Date/Time Associated Diagnosis Comments PAP TEST- RESULT ONLY Routine 02/02/2018 0:00 EDT documented in this encounter Results * PAP TEST- RESULT ONLY (02/02/2018 0:00 EDT) Pathology Report: CYTOPATHOLOGY REPORT Reports generated via electronic interface contain original data; however they are lacking the format of the original report. Caution should be taken when reading/interpreti ng unformatted reports. Name: ? JUAN WILLARD ? Accession #: ? [id number] ? : ? 1960 (Age: 57) ??F ?Collect Date: ? 02/02/2018 ? Location: ? [facility] ? Receive Date: ? 02/06/2018 ? Provider: GRETA OAKES MD Copy to: ? Final Report SPECIMEN ADEQUACY ? Satisfactory for Evaluation - transformation zone component present GENERAL CATEGORIZATION ? Negative for Intraepithelial Lesion or Malignancy INTERPRETATION ? Reactive cellular changes associated with inflammation present (includes repair). Other: Additional clinical information: Z01.419 Specimen/Source: ??Pap Test, Cervix/Endocervix, ThinPrep Imaging System with manual evaluation Document reviewed and electronically signed by: ? ADELFO OVERTON MD ? Report ??Date: 02/19/2018 08:45 HPV with Pap Test ? Date Ordered: ? 02/19/2018 ? Status: ?? Signed Out ?Date Complete: ? 02/20/2018 ? By: ??System Interface ? Date Reported: ? 02/20/2018 ? Interpretation RESULT: POSITIVE FOR HIGH OR INTERMEDIATE RISK HPV. E6 OR E7 mRNA from one or more types of HPV types 16,18,31, 33,35,39,45,51,52, 56,58,59,66, and 68 is detected by plastics sheet finishing press operator mediated amplification. High and intermediate risk HPV types are associated with most squamous intraepithelial lesions and cervical cancers. Comments Document reviewed and electronically signed by: ? System Interface ? Report date: 02/20/2018 By the signature above, the attending physician certifies that he/she has personally conducted a gross and/or microscopic examination of the described specimens and rendered or confirmed the above diagnosis. End of Report [facility] 02/02/2018 02/06/2018 us Greta Oakes MD PATHOLOGY ORDERABLES Final Resu lt [facility] [address] [place] [address] documented in this encounter Visit Diagnoses Not on filedocumented in this encounter Care Teams Textile Cutting Machine Operator Relationship Specialty Start Date End Date Erica Hodgson MD [address] [place] [address] PCP - General 01/26/11 02/10/20 documented as of this encounter
--- OUTSIDE RECORDS SUMMARY | 2024-05-28 16:07 | XMS_ITS | Encounter Summary ---
Author Organization [facility] Address [address] [place] [address] Care Team Providers Care Floor Sanding Machine Operator Name Role Phone Greta Kimball MD Primary Care Provider [phone] Encounter Details Date Type Department Care Team (Late st Contact Info) Description 03/24/2022 Lab Requisition [facility] Pathology & Laboratory Medicine - [address] [address] Outr Resulting Lab, Provider Social History Tobacco Use Types Packs/Day Years [...] Procedure Name Priority Date/Time Associated Diagnosis Comments ZZCOVID-19 TEST [facility] PCR Today 03/23/2022 13:16 EST COVID-19 TESTING Routine 03/23/2022 13:1 6 EST documented in this encounter Results * COVID-19 TEST [facility] PCR (03/23/2022 13:16 EST) Swab 03/23/2022 13:1 6 EST 03/24/2022 17:29 EST us Provider Outr Resulting Lab MICROBIOLOGY - GENER AL ORDERABLES Final Result [facility] [address] [place] [address] * COVID-19 TESTING (03/23/2022 13:16 EST) COVID-19 rt-PCR Result Negative Negative 03/25/2022 12:10 EST [facility] Comment: This test has not been FDA cleared or approved. This test has been authorized by FDA under an EUA for use by authorized laboratories. This test has been authorized only for detection of nucleic acid from 2019-nCoV, not for any other viruses or pathogens. This test is only authorized for the duration of the declaration that circumstances exist justifying the authorization of emergency use of in vitro diagnostic tests for detection and/or diagnosis of 2019-nCoV under section 564(b)(1) of Act, 21 U.S.C ?? 360bbb-3(b) (1), unless the authorization is terminated or revoked sooner. Negative results do not preclude 2019-nCoV infection and should not be used as the sole basis for treatment or other patient management decisions. Negative results must be combined with clinical observations, patient history, and epidemiological information. Testing was performed using the vaihsnavi SARS-CoV-2 assay ([employer] on the Vaishnavi 6800 System Performing Lab Vaishnavi [address] [facility] 03/25/2022 12:10 EST [facility] Swab 03/23/2022 13:1 6 EST 03/24/2022 17:29 EST us Provider Outr Resulting Lab MICROBIOLOGY - GENER AL ORDERABLES Final Result [facility] [address] [place] [address] documented in this encounter Visit Diagnoses Not on filedocumented in this encounter Care Teams Floor Sanding Machine Operator Relationship Specialty Start Date End Date Greta Kimball MD [address] [place] [address] PCP - General 02/11/20 documented as of this encounter
--- OUTSIDE RECORDS SUMMARY | 2024-05-28 16:07 | XMS_ITS | Encounter Summary ---
Author Organization [facility] Address [address] [place] [address] Care Team Providers Care Ballet Company Member Name Role Phone Greta Kimball MD Primary Care Provider [phone] Encounter Details Date Type Department Care Team (Latest Contact Info) Description 02/15/2021 Lab Requisition [facility] Pathology & Laboratory Medicine - [facility] [address] [place] [address] Greta Kimball MD [address] [place] [phone] Encounter for gynecological examination (general) (routine) without abnormal findings Social History Tobacco Use Types Packs/Day Years [...] Name Priority Date/Time Associated Diagnosis Comments PAP TEST Today 02/12/2021 9:15 EDT Encounter for gynecological examination (general) (routine) without abnormal findings HPV DNA DETECTION WITH GENOTYPING, PCR Today 02/12/2021 9:15 EDT Encounter for gynecological examination (general) (routine) without abnormal findings documented in this encounter Results * (ABNORMAL) HUMAN PAPILLOMAVIRUS (HPV) DETECTION-HIGH RISK TYPES (02/12/2021 9:15 EDT) HPV other High Risk types, PCR Positive( A) Negative 02/24/2021 7:21 [facility] Comment:E6 OR E7 mRNA from o ne or more types of HPV types 16,18,31,33,35,39,45,51,52,56,58,59,66, and 68 is detected by medical grade shoemaker mediated amplification. High and intermediate risk HPV types are associated with most squamous intraepithelial lesions and cervical cancers. Papanicolaou smear specimen (specimen) CERVIX UTERI STRUCTURE / Unknown 02/12/2021 9:15 EDT 02/22/2021 14:19 EDT us Greta Kimball MD MICROBIOLOGY - GENERAL ORDERABL ES Final Result [facility] [address] [place] [address] * PAP TEST (02/12/2021 9:15 EDT) Specimens A. Cervix and/or Endocervix , ThinPrep Imaging System with Manual Evaluation 02/24/2021 7:21 [facility] Specimen Adequacy Satisfactory for Evaluation - transformation zone component present 02/24/2021 7:21 [facility] General Categorization Epithelial Cell Abnormality 02/24/2021 7:21 [facility] Descriptive Diagnosis Squamous Cell Abnormality - Atypical squamous cells, undetermined significance (ASC-US). 02/24/2021 7:21 [facility] Educational Comments [facility] recommends following ASCCP's 2012 Updated Consensus Guidelines for the Management of Abnormal Cervical Cancer Screening Tests and Cancer Precursors (JLGTD, 2013; 17(5):S1-S27). Consensus guidelines are available online at www.asccp.org. 02/24/2021 7:21 [facility] Attestation By the signature below, the attending physician certifies that they have personally conducted a gross and/or microscopic examination of the described specimens and rendered or confirmed the above diagnosis. 02/24/2021 7:21 [facility] at 0721 Clinical History See below 02/25/20 7:21 EDT [facility] HPV The result for the Human Papillomavirus (HPV) Detection-High Risk Types is Positive . E6 OR E7 mRNA from one or more types of HPV types 16,18,31,33,35,39 ,45,51,52,56,58,5 9,66, and 68 is detected by medical grade shoemaker mediated amplification. High and intermediate risk HPV types are associated with most squamous intraepithelial lesions and cervical cancers. Testing was performed on specimen [id number] and was resulted on 02/24/2021 0712 EDT by CASTILLO, LAB INSTRUMENT RESULTS IN 02/24/2021 7:21 EDT [facility] Performing Lab [facility] 02/24/2021 7:21 EDT [facility] Scanned Images 02/24/2021 7:21 EDT [facility] Papanicolaou smear specimen (specimen) CERVIX UTERI STRUCTURE / Unknown 02/12/2021 9:15 EDT 02/15/2021 16:14 EDT us Greta Kimball MD PATHOLOGY ORDERABLES Final Resu lt [facility] [address] [place] [address] documented in this encounter Visit Diagnoses Diagnosis Encounter for gynecological examination (general) (routine) without abnormal findings documented in this encounter Care Teams Ballet Company Member Relationship Specialty Start Date End Date Greta Kimball MD [address] [place] [address] PCP - General 02/11/20 documented as of this encounter
--- OUTSIDE RECORDS SUMMARY | 2024-05-28 16:07 | XMS_ITS | Encounter Summary ---
Author Organization [facility] Address [facility] [place] [address] Care Team Providers Care Poultry Farmer Egg Name Role Phone Greta Kimball MD Primary Care Provider [phone] Encounter Details Date Type Department Care Team (Late st Contact Info) Description 08/28/2013 2:45 PM EDT [place] [address] Zachary Dias MD [facility] [place] [address] Chronic migraine (Primary Dx) Discharge Disposition: Home [...] Sign Reading Time Taken Comments Blood Pressure 118/75 08/28/2013 2:57 PM EDT Pulse 87 08/28/2013 2:57 PM EDT Temperature - - Respiratory Rate - - Oxygen Saturation - - Inhaled Oxygen Concentration - - Weight 61.1 kg (134 lb 9.6 oz) 08/28/2013 2:57 P M EDT Height 154.9 cm (5' 1) 08/28/2013 2:57 PM EDT Body Mass Index 25.43 08/28/2013 2:57 PM EDT documented in this encounter Progress Notes * Zachary Dias MD - 08/28/2013 3:28 PM EDT She looks well and she is doing adequately well on the topiramate. She only had three days of migraine in June but seven in July and of course we have only just started August and she has had one day of migraine so far. Fifty milligrams of topiramate is not causing her any problem. Her laboratory work was acceptable and here in the office she is not jaundiced, sedated, ataxic, or dysarthric. I have decided not to change her dose of topiramate. We are going to have her keep a headache calendar as she has been and she will call us in October. If she is having more than eight days of headache a month or headaches she cannot control, I would go to 75 mg of topiramate at bedtime over the phone and have her return in November. Should she continue to do well, I do not think I would necessarily raise the dose as 50 mg might be sufficient for her. She is pleased with her progress. The majority of today's 15-minute office visit was dominated by 10 minutes of direct [id number] counseling and therapeutic planning. documented in this encounter Plan of Treatment Upcoming Encounters Date Type Department Care Team (Late st Contact Info) Description 07/10/2024 9:00 AM EDT TH Visit (TeleHealth) [place] [address] Andrei Kent MD [facility] [place] [address] documented as of this encounter Visit Diagnoses Diagnosis Chronic migraine- Primary Chronic migraine without aura, without mention of intractable migraine without mention of status migrainosus documented in this encounter Care Teams Poultry Farmer Egg Relationship Specialty Start Date End Date Greta Kimball MD [address] [place] [address] PCP - General 06/25/13 documented as of this encounter
--- OUTSIDE RECORDS SUMMARY | 2024-05-28 16:07 | XMS_ITS | Encounter Summary ---
Author Organization [facility] [place] [address] Care Team Providers Care Universal Grinder Tool Name Role Phone Erica Hodgson MD Primary Care Provider [phone] Reason for Visit * Reason Comments Medication Refill Encounter Details Date Type Department Care Team (Late Contact Info) Description 03/13/2013 [place] [address] Zachary Dias MD [facility] [place] [address] Migraine (Primary Dx) Social History Tobacco Use Types [...] encounter Miscellaneous Notes * Telephone Encounter - Monie Mederos LPN - 03/13/2013 4:25 PM EST Prescription faxed to [facility] documented in this encounter Plan of Treatment Upcoming Encounters Date Type Department Care Team (Late st Contact Info) Description 07/10/2024 9:00 AM EDT TH Visit (TeleHealth) [place] [address] Andrei Kent MD [facility] [place] [address] documented as of this encounter Visit Diagnoses Diagnosis Migraine- Primary Migraine, unspecified, without mention of intractable migraine without mention of status migrainosus documented in this encounter Care Teams Universal Grinder Tool Relationship Specialty Start Date End Date Erica Hodgson MD [facility] [address] [place] [address] [place] [address] PCP - General 03/16/10 06/24/13 documented as of this encounter
--- OUTSIDE RECORDS SUMMARY | 2024-05-28 16:07 | XMS_ITS | Encounter Summary ---
Author Organization [facility] Address [address] [place] [address] Care Team Providers Care Unit Tender Name Role Phone Greta Kimball MD Primary Care Provider [phone] Encounter Details Date Type Department Care Team (Latest Contact Info) Description 02/17/2023 Lab Requisition [facility] Pathology & Laboratory Medicine - [facility] [address] [place] [address] Greta Kimball MD [address] [place] [address] [phone] Encounter for gynecological examination (general) (routine) without [...] Date/Time Associated Diagnosis Comments PAP TEST Today 02/16/2023 8:40 EDT Encounter for gynecological examination (general) (routine) without abnormal findings HPV DNA DETECTION WITH GENOTYPING, PCR Today 02/16/2023 8:40 EDT Encounter for gynecological examination (general) (routine) without abnormal findings documented in this encounter Results * HUMAN PAPILLOMAVIRUS (HPV) DETECTION-HIGH RISK TYPES (02/16/2023 8:40 EDT) HPV other High Risk types, PCR Negative Negative 02/24/2023 15:41 [facility] Comment:No E6 or E7 mRNA is detected from HPV types 16,18,31,33,35,39,45,51,52,56,58,59,66, and 68 by direct support professional home health mediated amplification. Pap Test CERVIX UTERI STRUCTURE / Unknown 02/16/2023 8:40 EDT 02/23/2023 16:52 EDT us Greta Kimball MD MICROBIOLOGY - GENERAL ORDERABL ES Final Result [facility] [address] [place] [address] * PAP TEST (02/16/2023 8:40 EDT) Specimens A. Cervix and/or Endocervix , ThinPrep Imaging System with Manual Evaluation 02/24/2023 15:41 [facility] Specimen Adequacy Satisfactory for Evaluation - transformation zone component present 02/24/2023 15:41 [facility] General Categorization Epithelial Cell Abnormality 02/24/2023 15:41 [facility] Descriptive Diagnosis Squamous Cell Abnormality - Atypical squamous cells, undetermined significance (ASC-US). 02/24/2023 15:41 [facility] Educational Comments [facility] recommends following the ASCCP's management guidelines which may be found at www.asccp.org 02/24/2023 15:41 [facility] Attestation By the signature below, the attending physician certifies that they have personally conducted a gross and/or microscopic examination of the described specimens and rendered or confirmed the above diagnosis. 02/24/2023 15:41 [facility] at 1541 Clinical History See below 02/25/20 15:41 [facility] HPV The result for the Human Papillomavirus (HPV) Detection-High Risk Types is Negative. No E6 or E7 mRNA is detected from HPV types 16,18,31,33,35,3 9,45,51,52,56,58 ,59,66, and 68 by direct support professional home health mediated amplification.Te sting was performed on specimen [id number] and was resulted on 02/24/2023 1541 EDT by CASTILLO, LAB INSTRUMENT RESULTS IN 02/24/2023 15:41 EDT [facility] Performing Lab [facility] 02/24/2023 15:41 EDT [facility] Scanned Images 02/24/2023 15:41 EDT [facility] Pap Test CERVIX UTERI STRUCTURE / Unknown 02/16/2023 8:40 EDT 02/17/2023 12:48 EDT us Greta Kimball MD PATHOLOGY ORDERABLES Final Resu lt [facility] [address] [place] [address] documented in this encounter Visit Diagnoses Diagnosis Encounter for gynecological examination (general) (routine) without abnormal findings documented in this encounter Care Teams Unit Tender Relationship Specialty Start Date End Date Greta Kimball MD [address] [place] [address] PCP - General 02/11/20 documented as of this encounter
--- OUTSIDE RECORDS SUMMARY | 2024-05-28 16:07 | XMS_ITS | Encounter Summary ---
Author Organization [facility] Address [address] [place] [address] Care Team Providers Care Salvage Supervisor Name Role Phone Unknown, Provider Primary Care Provider Unava ilable Encounter Details Date Type Department Care Team (Late st Contact Info) Description 12/03/1999 Results Only [facility] - Maple conversion [address] [place] [address] Michael Rodriguez MD [address] [place] [address] DR BLANCHARD [address] [place] [id number] Social History Tobacco Use Types Packs/Day [...] Priority Date/Time Associated Diagnosis Comments CYTOPATHOLOGY Routine 12/03/1999 0:00 EDT documented in this encounter Results * CYTOPATHOLOGY (12/03/1999 0:00 EDT) Pathology Report: CYTOPATHOLOGY REPORT Reports generated via electronic interface contain original data; however they are lacking the format of the original report. Caution should be taken when reading/interpreti ng unformatted reports. Name: ? JUAN WILLARD ? Accession #: ? [id number] : ? 1960 (Age: 39) ??F ?Collect Date: ? 12/03/1999 Location: ? [facility] ? Receive Date: ? 12/06/1999 Provider: ? MICHAEL RODRIGUEZ MD Copy to: ?ANDRZEJ QUILES MD ? CYTOLOGIC DIAGNOSIS: ? Nipple Discharge, Left: ?? - Morphologic description only; see comment. ? COMMENT: ? Several small three dimensional clusters of cohesive ductal cells are present in a background of abundant foam cells. ??A papillary lesion cannot be ruled out. ??Recommend clinical correlation and further work up as clinically indicated. Document reviewed and electronically signed by: ? Nikki Avery MD Report Date: ??12/06/1999 18:26 By the signature above, the attending physician certifies that he/she has personally conducted a gross and/or microscopic examination of the described specimens and rendered or confirmed the above diagnosis. Specimen Type: ? Nipple Discharge, Left Clinical History: ? H/O galactorrhea ? Gross Description: ? 1 spray fixed slide was received and processed. ? End of Report [facility] 12/03/1999 12/06/1999 7:4 2 EDT us Michael Rodriguez MD PATHOLOGY ORDERABLES Final Resu lt [facility] [address] [place] [address] documented in this encounter Visit Diagnoses Not on filedocumented in this encounter Care Teams Salvage Supervisor Relationship Specialty Start Date End Date Unknown, Provider, PCP - General 10/20/08 01/25/11 documented as of this encounter
--- OUTSIDE RECORDS SUMMARY | 2024-05-28 16:07 | XMS_ITS | Encounter Summary ---
Author Organization [facility] [address] Care Team Providers Care Silk Screen Printer Name Role Phone Erica Hodgson MD Primary Care Provider [phone] Reason for Visit * Reason Comments Medication Refill Encounter Details Date Type Department Care Team (Late st Contact Info) Description 01/29/2012 [place] [address] Zachary Dias MD [facility] [place] [address] Social History Tobacco Use Types Packs/Day Years [...] AM EDT TH Visit (TeleHealth) [place] [id number] Andrei Kent MD [facility] [place] [address] documented as of this encounter Visit Diagnoses Not on filedocumented in this encounter Care Teams Silk Screen Printer Relationship Specialty Start Date End Date Erica Hodgson MD [facility] [address] [place] [address] [place] [address] PCP - General 03/16/10 06/24/13 documented as of this encounter
--- OUTSIDE RECORDS SUMMARY | 2024-05-28 16:07 | XMS_ITS | Encounter Summary ---
Author Organization [facility] Address [address] [place] [address] Care Team Providers Care Motors And Controls Tester Name Role Phone Unknown, Provider Primary Care Provider Unava ilable Encounter Details Date Type Department Care Team (Late st Contact Info) Description 09/02/2002 Results Only [facility] - Maple conversion [address] [place] [address] Elizabeth Monroy, DOROTHY Social History Tobacco Use Types Packs/Day Years [...] Priority Date/Time Associated Diagnosis Comments CYTOPATHOLOGY Routine 09/02/2002 0:00 EDT documented in this encounter Results * CYTOPATHOLOGY (09/02/2002 0:00 EDT) Pathology Report: CYTOPATHOLOGY REPORT Reports generated via electronic interface contain original data; however they are lacking the format of the original report. Caution should be taken when reading/interpreti ng unformatted reports. Name: ? JUAN WILLARD ? Accession #: ? [id number] : ? 1960 (Age: 42) ??F ?Collect Date: ? 09/02/2002 Location: ? [facility] ? Receive Date: ? 09/04/2002 Provider: ?ELIZABETH MONROY MID LEVEL CLINICIAN Copy to: ? Specimen/Source: ?ThinPrep Pap Test, Cervix/Endocervix Last Menstrual Period: ? 2 + years ago Previous Gynecologic Pathology: ? CAIN: 1996 Benign cellular changes: 1999 ? SPECIMEN ADEQUACY ? Satisfactory for Evaluation - transformation zone component present GENERAL CATEGORIZATION ? Negative for Intraepithelial Lesion or Malignancy ? Document reviewed and electronically signed by: ? RADHA Martinez(ASCP) ? Report Date: ??09/09/2002 16:52 End of Report [facility] 09/02/2002 09/04/2002 us Elizabeth Monroy MID LEVEL CLINICIAN PATHOLOGY ORDERABLES Final Re sult [facility] [address] [place] [address] documented in this encounter Visit Diagnoses Not on filedocumented in this encounter Care Teams Motors And Controls Tester Relationship Specialty Start Date End Date Unknown, Provider, PCP - General 10/20/08 01/25/11 documented as of this encounter
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
--- OUTSIDE RECORDS SUMMARY | 2024-05-28 16:07 | XMS_ITS | Clinical Summary ---
Author Organization [facility] Address [address] [place] [address] Care Team Providers Care Diamond Die Driller Name Role Phone Greta Kimball MD Primary Care Provider [phone] Social History Tobacco Use Types Packs/Day Years Used Date Smoking Tobacco: Never Assessed Comments Unknown Sex and Gender Information Value Date Recorded Sex Assigned at Not on file Legal Sex Female 18:06 EST Gender Identity Not on file Sexual Orientation Not on file Plan of Treatment Health Maintenance Due Date Last Done Comments Hepatitis C Screen 1960 COVID-19 Vaccine (2023- season) 2023 RSV Immunization ( o r 60+ Years) (1 - 1-dose 75+ series) 2034 Insurance MEDICAID [place] Care Teams Diamond Die Driller Relationship Specialty Start Date End Date Greta Kimball MD [address] [place] [id number] PCP - General 02/11/20
--- OUTSIDE RECORDS SUMMARY | 2024-05-28 16:07 | XMS_ITS | Encounter Summary ---
Author Organization [facility] Address [address] [place] [address] Care Team Providers Care Mine Production Engineer Name Role Phone Unknown, Provider Primary Care Provider Unava ilable Encounter Details Date Type Department Care Team (Late st Contact Info) Description 08/27/2001 Results Only [facility] - Maple conversion [address] [place] [address] Elizabeth Monroy, DOROTHY Social History Tobacco Use [...] Priority Date/Time Associated Diagnosis Comments CYTOPATHOLOGY Routine 08/27/2001 0:00 EDT documented in this encounter Results * CYTOPATHOLOGY (08/27/2001 0:00 EDT) Pathology Report: CYTOPATHOLOGY REPORT Reports generated via electronic interface contain original data; however they are lacking the format of the original report. Caution should be taken when reading/interpreti ng unformatted reports. Name: ? JUAN WILLARD ? Accession #: ? [id number] : ? 1960 (Age: 41) ??F ?Collect Date: ? 08/27/2001 Location: ? [facility] ? Receive Date: ? 08/29/2001 Provider: ?ELIZABETH MONROY TECHNICAL ARTIST Copy to: ? Specimen/Source: ?ThinPrep Pap Test, Cervix/Endocervix Last Menstrual Period: ? 1 year ago Previous Gynecologic Pathology: ? CAIN: 1996 ? SPECIMEN ADEQUACY ? Satisfactory for Evaluation - transformation zone component present GENERAL CATEGORIZATION ? Negative for Intraepithelial Lesion or Malignancy ? Document reviewed and electronically signed by: ? Michael Escobedo, CT(ASCP) ? Report Date: ??08/31/2001 09:46 End of Report [facility] 08/27/2001 08/29/2001 us Elizabeth Monroy NP PATHOLOGY ORDERABLES Final Re sult [facility] [address] [place] [address] documented in this encounter Visit Diagnoses Not on filedocumented in this encounter Care Teams Mine Production Engineer Relationship Specialty Start Date End Date Unknown, Provider, PCP - General 10/20/08 01/25/11 documented as of this encounter
--- OUTSIDE RECORDS SUMMARY | 2024-05-28 16:07 | XMS_ITS | Encounter Summary ---
Author Organization [facility] Address [address] [place] [address] Care Team Providers Care Works Manager Name Role Phone Greta Kimball MD Primary Care Provider [phone] Encounter Details Date Type Department Care Team (Late st Contact Info) Description 12/29/2020 Lab Requisition [facility] Pathology & Laboratory Medicine - [address] [address] Outr Resulting Lab, Provider Social History Tobacco [...] Procedure Name Priority Date/Time Associated Diagnosis Comments CALCIUM, URINE 24HR Routine 12/28/2020 7:30 EDT documented in this encounter Results * (ABNORMAL) CALCIUM, URINE 24HR (12/28/2020 7:30 EDT) Calcium, Urine 23.4 See Note mg/dL 12/30/2020 8:46 EDT [facility] Comment: NOTE: Reference range not established Calcium, Urine 24 hr 374(H) 100 - 300 mg/24hrs 12/30/2020 8:46 EDT [facility] Comment:Reference range assu mes a normal daily intake of calcium between 600 - 800 mg/day. Urine Volume 1,600 mL 12/30/2020 8:46 EDT [facility] Urine Collection Period 24.0 Hours 12/30/2020 8:46 EDT [facility] Urine 24 HOUR URINE SPECIMEN / Unknown 12/28/2020 7:30 EDT 12/29/2020 16:02 EDT us Provider Outr Resulting Lab URINALYSIS ORDERABLE S Final Result Performing Organization Address City/State/[facility] Co de Phone Number [facility] [address] [place] [address] documented in this encounter Visit Diagnoses Not on filedocumented in this encounter Care Teams Works Manager Relationship Specialty Start Date End Date Greta Kimball MD [address] [place] [address] PCP - General 02/11/20 documented as of this encounter
--- OUTSIDE RECORDS SUMMARY | 2024-05-28 16:07 | XMS_ITS | Encounter Summary ---
Author Organization [facility] Address [facility] [place] [address] Care Team Providers Care Car Carder Name Role Phone Erica Hodgson MD Primary Care Provider [phone] Encounter Details Date Type Department Care Team (Late st Contact Info) Description 03/05/2012 1:15 PM EST [place] [address] Zachary Dias MD [facility] [place] [address] Migraine (Primary Dx) Discharge Disposition: Home Social [...] Sign Reading Time Taken Comments Blood Pressure 105/65 03/05/2012 1:36 PM EST Pulse 81 03/05/2012 1:36 PM EST Temperature - - Respiratory Rate - - Oxygen Saturation - - Inhaled Oxygen Concentration - - Weight 59 kg (130 lb) 03/05/2012 1:36 PM EST rep orted Height 154.9 cm (5' 1) 03/05/2012 1:36 PM EST r eported Body Mass Index 24.56 03/05/2012 1:36 PM EST documented in this encounter Progress Notes * Zachary iDas MD - 03/05/2012 1:35 PM EST She looks well in the office. She is not jaundiced, sedated, ataxic nor dysarthric. She is able to control all of her headaches, and the migraine she gets seem to be occurring at a variable frequency. Nine sumatriptan a month sounds as though it is probably close to the right number for her, but I think there are some months where she would need a little bit more, so I actually wrote for #18 as a one-month's supply, which is approximately within U.S. Headache Consortium Guidelines. I also renewed her famotidine, hydroxyzine and naproxen sodium today. I gave her some more headache calendars to keep and when she returns in six months, hopefully that will enable us to know whether or not we should do anything else, but it sounds as though she is in very good order right now regarding her migraines. The majority of today's 20-minute office visit was dominated by 15 minutes of direct cbbo-ll-hywb counseling and therapeutic planning. documented in this encounter Plan of Treatment Upcoming Encounters Date Type Department Care Team (Late st Contact Info) Description 07/10/2024 9:00 AM EDT TH Visit (TeleHealth) [place] [address] Andrei Kent MD [facility] [place] [address] documented as of this encounter Visit Diagnoses Diagnosis Migraine- Primary Migraine, unspecified, without mention of intractable migraine without mention of status migrainosus documented in this encounter Care Teams Car Carder Relationship Specialty Start Date End Date Erica Hodgson MD HOSP[facility] [address] [place] [address] [place] [address] PCP - General 03/16/10 06/24/13 documented as of this encounter
--- OUTSIDE RECORDS SUMMARY | 2024-05-28 16:07 | XMS_ITS | Encounter Summary ---
Author Organization [facility] Address [address] [place] [address] Care Team Providers Care Customer Assistant Name Role Phone Unavailable Primary Care Provider Unavailabl e Encounter Details Date Type Department Care Team (Late st Contact Info) Description 09/09/2008 Orders Only [facility] Laboratory Services - [facility] ([facility] [address] [place], [place] [address] Seymour Hodgson MD [facility] [address] [place], [place] [address] Social History Tobacco Use Types Packs/Day Years [...] Procedure Name Priority Date/Time Associated Diagnosis Comments HPV DETECTION, HIGH RISK TYPES Routine 09/09/2008 8:58 EDT CYTOPATHOLOGY Routine 09/09/2008 0:00 EDT documented in this encounter Results * HUMAN PAPILLOMA VIRUS DNA TEST (09/09/2008 8:58 EDT) Specimen Description Cervix, ThinPrep vial [facility] Result Negative for HPV types 16, 18, 31, 33, 35, 39, 45, 51, 52, 56, 58, 59, and 68. [facility] Report Status Final 09/23/2008 [facility] 09/09/2008 8:58 EDT 09/17/2008 8:58 EDT us Seymour Hodgson MD MICROBIOLOGY - GENERAL ORDERABLE S Final Result [facility] [address] [place] [address] * CYTOPATHOLOGY (09/09/2008 0:00 EDT) Pathology Report: CYTOPATHOLOGY REPORT ? Reports generated via electronic interface contain original data; ? however they are lacking the format of the original report. ? Caution should be taken when reading/interpreti ng unformatted reports. ? Name: ? JUAN WILLARD ? Accession #: ? [id number] ? : ? 1960 (Age: 48) ??F ?Collect Date: ? 09/09/2008 ? Location: ? [facility] ? Receive Date: ? 09/11/2008 ? Provider: ?SEYMOUR READY MD ? Copy to: ? Specimen/Source: ?Pap Test, Cervix/Endocervix, ThinPrep Imaging System ? with manual evaluation ? Last Menstrual Period: ? Menstrual/Pregnanc y Status: ? Post Menopausal ? Other: ? HPVDX - HPV testing requested regardless of diagnosis on current ThinPrep Pap ?? test. ? SPECIMEN ADEQUACY ? Satisfactory for Evaluation ? - transformation zone component present ? GENERAL CATEGORIZATION ? Negative for Intraepithelial Lesion or Malignancy ? Document reviewed and electronically signed by: ? Blanka Doradog, CT(ASCP) ? Report Date: ??09/16/2008 13:33 ? End of Report ? [facility] 09/09/2008 09/11/2008 us Seymour Hodgson MD PATHOLOGY ORDERABLES Final Resul t [facility] [address] [place] [address] documented in this encounter Visit Diagnoses Not on filedocumented in this encounter
--- OUTSIDE RECORDS SUMMARY | 2024-05-28 16:07 | XMS_ITS | Encounter Summary ---
Author Organization Formerly [facility] [place] [address] Care Team Providers Care Channel Man Name Role Phone Greta Kimball MD Primary Care Provider [phone] Encounter Details Date Type Department Care Team (Late st Contact Info) Description 12/17/2013 [place] [address] Zachary Dias MD [facility] [place] [address] Social History Tobacco Use Types Packs/Day Years [...] Telephone Encounter - Zachary Dias MD - 12/17/2013 9:57 AM EDT outstanding * Telephone Encounter - Ana Luisa Flynn RN - 12/17/2013 8:55 AM EDT S: I was having a stretch of headaches for about 2 weeks O: Patient reports that she had 2 weeks of HAGEN that she could not break, but she has been free of HAnow for the past 2 days . She took her prescribed medications as directed - naproxyn sodium 550 mg along with hydroxyzine 25 mg , sumatriptan 100 mg , twice daily as needed but no more than 2 days per week. These medications did not break the cycle , she then tried valium 5 mg tablet on three occassions and that seems to have stopped the HAGEN. A: Currently stable and HAGEN free , no interventions needed at this time. P : Next appt 01/15/14 with Gila Ramoseen feels comfortable with waiting to see him to discussmedications. She will call sooner if HAGEN become worse. documented in this encounter Plan of Treatment Upcoming Encounters Date Type Department Care Team (Late st Contact Info) Description 07/10/2024 9:00 AM EDT TH Visit (TeleHealth) [place] [address] Andrei Kent MD [facility] [place] [address] documented as of this encounter Visit Diagnoses Not on filedocumented in this encounter Care Teams Channel Man Relationship Specialty Start Date End Date Greta Kimball MD [address] [place] [address] PCP - General 06/25/13 documented as of this encounter
--- OUTSIDE RECORDS SUMMARY | 2024-05-28 16:07 | XMS_ITS | Encounter Summary ---
Author Organization [facility] Address [address] [place] [address] Care Team Providers Care Screwhead Polisher Name Role Phone Greta Kimball MD Primary Care Provider [phone] Encounter Details Date Type Department Care Team (Late st Contact Info) Description 08/05/2022 Lab Requisition [facility] Pathology & Laboratory Medicine - [address] [address] Outr Resulting Lab, Provider Social History Tobacco [...] Procedure Name Priority Date/Time Associated Diagnosis Comments ALPHA 1 ANTITRYPSIN Routine 08/04/2022 1 1:05 EDT documented in this encounter Results * ALPHA 1 ANTITRYPSIN (08/04/2022 11:05 EDT) Alpha 1 Antitrypsin 91 90 - 200 mg/dL 08/08/2022 10:26 EDT [facility] Blood VENOUS BLOOD / Unknown 08/04/2022 11:05 EDT 08/05/2022 17:41 EDT us Provider Outr Resulting Lab CHEMISTRY & BLOOD GA S ORDERABLES Final Result [facility] [address] [place] [address] documented in this encounter Visit Diagnoses Not on filedocumented in this encounter Care Teams Screwhead Polisher Relationship Specialty Start Date End Date Greta Kimball MD [address] [place] [address] PCP - General 02/11/20 documented as of this encounter
--- OUTSIDE RECORDS SUMMARY | 2024-05-28 16:07 | XMS_ITS | Encounter Summary ---
Author Organization [facility] [place] [address] Care Team Providers Care Program Professional Name Role Phone Erica Hodgson MD Primary Care Provider [phone] Reason for Visit * Reason Comments Medication Refill Encounter Details Date Type Department Care Team (Late st Contact Info) Description 04/14/2012 [place] [address] Zachary Dias MD [facility] [place] [address] Social History Tobacco Use Types Packs/Day Years [...] AM EDT TH Visit (TeleHealth) [place] [address] Andrei Kent MD [facility] [place] [address] documented as of this encounter Visit Diagnoses Not on filedocumented in this encounter Care Teams Program Professional Relationship Specialty Start Date End Date Erica Hodgson MD [facility] [address] [place] [address] [place] [address] PCP - General 03/16/10 06/24/13 documented as of this encounter
--- OUTSIDE RECORDS SUMMARY | 2024-05-28 16:07 | XMS_ITS | Encounter Summary ---
Author Organization [facility] [place] [address] Care Team Providers Care Dinkey Locomotive Engineer Name Role Phone Erica Hodgson MD Primary Care Provider [phone] Encounter Details Date Type Department Care Team (Late st Contact Info) Description 09/11/2012 2:15 PM EDT [place] [address] Zachary Dias MD [facility] [place] [address] Migraine (Primary Dx) Discharge Disposition: Home Social [...] Sign Reading Time Taken Comments Blood Pressure 107/73 09/11/2012 2:36 PM EDT Pulse 89 09/11/2012 2:36 PM EDT Temperature - - Respiratory Rate - - Oxygen Saturation - - Inhaled Oxygen Concentration - - Weight 59 kg (130 lb) 09/11/2012 2:36 PM EDT Height 154.3 cm (5' 0.75) 09/11/2012 2:36 PM ED T Body Mass Index 24.77 09/11/2012 2:36 PM EDT documented in this encounter Progress Notes * Zachary Dias MD - 09/11/2012 3:10 PM EDT She looks well. She is not jaundiced, sedated, ataxic nor dysarthric. She is not sure exactly how many headaches she is getting a month. It may be around eight days. I have encouraged her to keep a headache calendar and call us in two months, because if she is having significantly more than eight days a month, we should talk about prevention. Otherwise, she has had no headache she cannot control. Sumatriptan works quite well for her, but the milder headaches do usually respond to her naproxen sodium and hydroxyzine. She occasionally will get a bout for a day or two of what sounds like mild migraine associated vertigo and she has some TMJ sort of symptoms, which she is treating conservatively. We did talk a little bit about triggers today and the natural history of migraine. Followup will be in approximately six months. I did give her a new prescription today for the diazepam, which she uses judiciously as her rescue. It is simply that her prescription has . The majority of today's 25-minute office visit was dominated by 15 minutes of direct [id number] counseling and therapeutic planning. documented in this encounter Plan of Treatment Upcoming Encounters Date Type Department Care Team (Late st Contact Info) Description 07/10/2024 9:00 AM EDT TH Visit (TeleHealth) [place] [address] Andrei Kent MD [facility] [place] [address] documented as of this encounter Visit Diagnoses Diagnosis Migraine- Primary Migraine, unspecified, without mention of intractable migraine without mention of status migrainosus documented in this encounter Care Teams Dinkey Locomotive Engineer Relationship Specialty Start Date End Date Erica Hodgson MD [facility] [address] [place] [address] [place] [address] PCP - General 03/16/10 06/24/13 documented as of this encounter
--- OUTSIDE RECORDS SUMMARY | 2024-05-28 16:07 | XMS_ITS | Referral Summary ---
Author Organization [facility] Address [address] [place] [address] Care Team Providers Care Operator Prefinish Name Role Phone Greta Kimball MD Primary Care Provider [phone] Social History Tobacco Use Types Packs/Day Years Used Date Smoking Tobacco: Never Assessed Comments Unknown Sex and Gender Information Value Date Recorded Sex Assigned at Not on file Legal Sex Female 18:06 EST Gender Identity Not on file Sexual Orientation Not on file Plan of Treatment Not on file Insurance [place]ID [place] Care Teams Operator Prefinish Relationship Specialty Start Date End Date Greta Kimball MD [address] [place] [phone] PCP - General 02/11/20
--- OUTSIDE RECORDS SUMMARY | 2024-05-28 16:07 | XMS_ITS | Encounter Summary ---
Author Organization [facility] Address [address] [place] [address] Care Team Providers Care Double End Tenoner Setter Name Role Phone Unknown, Provider Primary Care Provider Unava ilable Encounter Details Date Type Department Care Team (Late st Contact Info) Description 03/09/2004 Results Only [facility] - Maple conversion [address] [place] [address] Mona Robertson, [facility] [address] [place] [address] Social History Tobacco Use Types Packs/Day Years [...] Priority Date/Time Associated Diagnosis Comments CYTOPATHOLOGY Routine 03/09/2004 0:00 EST documented in this encounter Results * CYTOPATHOLOGY (03/09/2004 0:00 EST) Pathology Report: CYTOPATHOLOGY REPORT Reports generated via electronic interface contain original data; however they are lacking the format of the original report. Caution should be taken when reading/interpreti ng unformatted reports. Name: ? JUAN WILLARD ? Accession #: ? [id number] : ? 1960 (Age: 43) ??F ?Collect Date: ? 03/09/2004 Location: ? [facility] ? Receive Date: ? 03/10/2004 Provider: ?MONA ROBERTSON LOCAL TANKER TRUCK DRIVER Copy to: ? Specimen/Source: ?ThinPrep Pap Test, Cervix/Endocervix Last Menstrual Period: ? 2000 Other: ? HPVA - HPV testing requested if ASC-US on the current ThinPrep Pap test. ? SPECIMEN ADEQUACY ? Satisfactory for Evaluation - transformation zone component present GENERAL CATEGORIZATION ? Negative for Intraepithelial Lesion or Malignancy ? Document reviewed and electronically signed by: ? RADHA Suarez(ASCP) ? Report Date: ??03/16/2004 13:05 End of Report [facility] 03/09/2004 03/10/2004 us Mona Robertson LOCAL TANKER TRUCK DRIVER PATHOLOGY ORDERABLES Final R esult [facility] [address] [place] [address] documented in this encounter Visit Diagnoses Not on filedocumented in this encounter Care Teams Double End Tenoner Setter Relationship Specialty Start Date End Date Unknown, Provider, PCP - General 10/20/08 01/25/11 documented as of this encounter
--- OUTSIDE RECORDS SUMMARY | 2024-05-28 16:07 | XMS_ITS | Encounter Summary ---
Author Organization [facility] Address [address] [place] [address] Care Team Providers Care Funeral Professional Name Role Phone Seymour Hodgson MD Primary Care Provider [phone] Encounter Details Date Type Department Care Team (Late st Contact Info) Description 01/02/2012 Results Only [facility] [phone] Seymour Hodgson MD [address] [place] [phone] Social History Tobacco Use Types Packs/Day Years [...] Diagnosis Comments PAP TEST- RESULT ONLY Routine 01/02/2012 0:00 EDT documented in this encounter Results * PAP TEST- RESULT ONLY (01/02/2012 0:00 EDT) Pathology Report: CYTOPATHOLOGY REPORT Reports generated via electronic interface contain original data; however they are lacking the format of the original report. Caution should be taken when reading/interpreti ng unformatted reports. Name: ? JUAN WILLARD ? Accession #: ? [id number] : ? 1960 (Age: 51) ??F ?Collect Date: ? 01/02/2012 Location: ? [facility] ? Receive Date: ? 01/03/2012 Provider: ?SEYMOUR HODGSON MD Copy to: ? Specimen/Source: ?Pap Test, Cervix/Endocervix, ThinPrep Imaging System with manual evaluation Last Menstrual Period: ? 1998 Menstrual/Pregnanc y Status: ? Post Menopausal: since age 39 ? SPECIMEN ADEQUACY ? Satisfactory for Evaluation - transformation zone component present GENERAL CATEGORIZATION ? Negative for Intraepithelial Lesion or Malignancy ? Document reviewed and electronically signed by: ? RADHA Infante(ASCP) ? Report Date: ??01/10/2012 12:51 End of Report [facility] 01/02/2012 01/03/2012 us Seymour Hodgson MD PATHOLOGY ORDERABLES Final Resul t Performing Organization Address City/State/[facility] Co de Phone Number [facility] [address] [place] [address] documented in this encounter Visit Diagnoses Not on filedocumented in this encounter Care Teams Funeral Professional Relationship Specialty Start Date End Date Seymour Hodgson MD [address] [place] [address] PCP - General 01/26/11 02/10/20 documented as of this encounter
--- OUTSIDE RECORDS SUMMARY | 2024-05-28 16:07 | XMS_ITS | Encounter Summary ---
Author Organization [facility] Address [address] [place] [address] Care Team Providers Care Spot Worker Name Role Phone Unknown, Provider Primary Care Provider Unava ilable Encounter Details Date Type Department Care Team (Late st Contact Info) Description 06/28/2005 Results Only [facility] - Maple conversion [address] [place] [address] Mona Robertson, [facility] [address] [place] [address] Social History Tobacco Use Types [...] Priority Date/Time Associated Diagnosis Comments CYTOPATHOLOGY Routine 06/28/2005 0:00 EST documented in this encounter Results * CYTOPATHOLOGY (06/28/2005 0:00 EST) Pathology Report: CYTOPATHOLOGY REPORT Reports generated via electronic interface contain original data; however they are lacking the format of the original report. Caution should be taken when reading/interpreti ng unformatted reports. Name: ? JUAN WILLARD ? Accession #: ? [id number] : ? 1960 (Age: 45) ??F ?Collect Date: ? 06/28/2005 Location: ? [facility] ? Receive Date: ? 06/29/2005 Provider: ?MONA ROBERTSON MOTORCYCLE SERVICE TECHNICIAN Copy to: ? Specimen/Source: ?ThinPrep Pap Test, Cervix/Endocervix, processed on Patient Home Monitoring ThinPrep Imaging System, with manual evaluation Last Menstrual Period: ? 2000 Other: ? HPVA - HPV testing requested if ASC-US on the current ThinPrep Pap test. ? SPECIMEN ADEQUACY ? Satisfactory for Evaluation - transformation zone component present GENERAL CATEGORIZATION ? Negative for Intraepithelial Lesion or Malignancy ? Document reviewed and electronically signed by: ? RAJESH Collado(ASCP) ? Report Date: ??06/30/2005 14:09 End of Report [facility] 06/28/2005 06/29/2005 us Mona Robertson MOTORCYCLE SERVICE TECHNICIAN PATHOLOGY ORDERABLES Final R esult [facility] [address] [place] [address] documented in this encounter Visit Diagnoses Not on filedocumented in this encounter Care Teams Spot Worker Relationship Specialty Start Date End Date Unknown, Provider, PCP - General 10/20/08 01/25/11 documented as of this encounter
--- OUTSIDE RECORDS SUMMARY | 2024-05-28 16:07 | XMS_ITS | Encounter Summary ---
Author Organization [facility] Address [address] [place] [address] Care Team Providers Care Box Spring Upholsterer Name Role Phone Greta Kimball MD Primary Care Provider [phone] Encounter Details Date Type Department Care Team (Latest Contact Info) Description 02/16/[address] [facility] Pathology & Laboratory Medicine - [facility] [address] [place] [address] Greta Kimball MD [address] [place] [address] Encounter for gynecological examination (general) (routine) without [...] Date/Time Associated Diagnosis Comments PAP TEST Today 02/15/2022 10:00 EDT Encounter for gynecological examination (general) (routine) without abnormal findings documented in this encounter Results * PAP TEST (02/15/2022 10:00 EDT) Specimens A. Cervix and/or Endocervix , ThinPrep Imaging System with Manual Evaluation 02/28/2022 11:[address] [facility] Specimen Adequacy Satisfactory for Evaluation - transformation zone component present 02/28/2022 11:19 [facility] General Categorization Epithelial Cell Abnormality 02/28/2022 11:19 [facility] Descriptive Diagnosis Squamous Cell Abnormality - Atypical squamous cells, undetermined significance (ASC-US). Shift in brandt present suggestive of bacterial vaginosis. 02/28/2022 11:19 [facility] Educational Comments [facility] recommends following the ASCCP's management guidelines which may be found at www.asccp.org 02/28/2022 11:19 [facility] Attestation By the signature below, the attending physician certifies that they have personally conducted a gross and/or microscopic examination of the described specimens and rendered or confirmed the above diagnosis. 02/28/2022 11:19 [facility] at [address] Clinical History SEE BELOW 02/29/20 11:19 [facility] Performing Lab [facility] 02/28/2022 11:19 [facility] Scanned Images 02/28/2022 11:19 [facility] Papanicolaou smear specimen (specimen) CERVIX UTERI STRUCTURE / Unknown 02/15/2022 10:00 EDT 02/16/2022 14:10 EDT us Greta Kimball MD PATHOLOGY ORDERABLES Final Resu lt Performing Organization Address City/State/[facility] Co de Phone Number [facility] [address] [place] [address] documented in this encounter Visit Diagnoses Diagnosis Encounter for gynecological examination (general) (routine) without abnormal findings documented in this encounter Care Teams Box Spring Upholsterer Relationship Specialty Start Date End Date Greta Kimball MD [address] [place] [address] PCP - General 02/11/20 documented as of this encounter
--- OUTSIDE RECORDS SUMMARY | 2024-05-28 16:07 | XMS_ITS | Encounter Summary ---
Author Organization [facility] [place] [address] Care Team Providers Care Cosmetic Sales Advisor Name Role Phone Greta Kimball MD Primary Care Provider [phone] Reason for Visit * Reason Comments Medication Refill Encounter Details Date Type Department Care Team (Late st Contact Info) Description 07/30/2013 [place] [address] Fady Menezes APRN Social History Tobacco Use Types Packs/Day Years [...] AM EDT TH Visit (TeleHealth) [place] [address] Andrei Kent MD [facility] [place] [address] documented as of this encounter Visit Diagnoses Not on filedocumented in this encounter Care Teams Cosmetic Sales Advisor Relationship Specialty Start Date End Date Greta Kimball MD [address] [place] [address] PCP - General 06/25/13 documented as of this encounter
--- OUTSIDE RECORDS SUMMARY | 2024-05-28 16:07 | XMS_ITS | Encounter Summary ---
Author Organization [facility] [place] [address] Care Team Providers Care Healthcare Market Consultant Name Role Phone Erica Hodgson MD Primary Care Provider [phone] Reason for Visit * Reason Comments Medication Refill Encounter Details Date Type Department Care Team (Late st Contact Info) Description 05/24/2013 [place] [address] Fady Menezes APRN Social History Tobacco Use [...] AM EDT TH Visit (TeleHealth) [place] [address] Andrei Kent MD [facility] [place] [address] documented as of this encounter Visit Diagnoses Not on filedocumented in this encounter Care Teams Healthcare Market Consultant Relationship Specialty Start Date End Date Erica Hodgson MD [facility] [address] [place] [address] PCP - General 03/16/10 06/24/13 documented as of this encounter
--- OUTSIDE RECORDS SUMMARY | 2024-05-28 16:07 | XMS_ITS | Encounter Summary ---
Author Organization [facility] Address [address] [place] [address] Care Team Providers Care Food Service Order Clerk Name Role Phone Erica Hodgson MD Primary Care Provider [phone] Greta Kimball MD Primary Care Provider [phone] Encounter Details Date Type Department Care Team (Late st Contact Info) Description 07/09/2019 Lab Requisition [facility] Pathology & Laboratory Medicine - [address] [address] Unknown, Provider, Social History Tobacco Use Types Packs/Day Years [...] Procedure Name Priority Date/Time Associated Diagnosis Comments HOLD SST Today 07/08/2019 9:27 EDT LH Today 07/08/2019 9:27 EDT FSH Today 07/08/2019 9:27 EDT documented in this encounter Results * HOLD SST (07/08/2019 9:27 EDT) Hold Hold 07/09/2019 16:46 EDT [facility] Blood VENOUS BLOOD / Unknown 07/08/2019 9:27 EDT 07/09/2019 15:41 EDT us Provider Unknown LAB INFO SERVICE AND SUPPORT & PHONE RESULT Final Result Performing Organization Address [facility]/ZIP Co de Phone Number [facility] [address] [place] [address] * LH (07/08/2019 9:27 EDT) Luteinizing Hormone 38.9 See Note mIU/mL 07/10/2019 8:49 EDT [facility] Comment: NOTE: Female Reference Ranges: Pre-Pubertal: ?<6.0 mIU/mL Menstruating: Follicular Phase(-12 to -4 days: ??1.9 - 12.5 mIU/mL Midcycle(-3 to +2 days): ?8.7 - 76.3 mIU/mL Luteal Phase(+4 to +12 days): ? 0.5 - 16.9 mIU/mL Post Menopausal: 15.9 - 54.0 mIU/mL Blood VENOUS BLOOD / Unknown 07/08/2019 9:27 EDT 07/09/2019 15:34 EDT us Provider Unknown CHEMISTRY & BLOOD GAS ORDERA BLES Final Result Performing Organization Address [facility]/ZIP Co de Phone Number [facility] [address] [place] [address] * FSH (07/08/2019 9:27 EDT) FSH 103.1 See Note mIU/mL 07/10/2019 8:49 EDT [facility] Blood VENOUS BLOOD / Unknown 07/08/2019 9:27 EDT 07/09/2019 15:34 EDT Narrative [facility] - 07/10/2019 8:49 EDT NOTE: Female FSH Reference Ranges (>= 13 Menstruating): PHYSIOLOGICAL STATUS ? REFERENCE RANGE ? Follicular (-12 to -4 days): ?? 2.5 - 10.2 mIU/mL Midcycle (-3 to +2 days): ?3.4 - 33.4 mIU/mL Luteal (+4 to +12 days): ? 1.5 - 9.1 mIU/mL Postmenopausal: ?23.0 - 116.3 mIU/mL Reference Ranges for female patients <13 years old have not been established. us Provider Unknown CHEMISTRY & BLOOD GAS ORDERA BLES Final Result [facility] [address] [place] [address] documented in this encounter Visit Diagnoses Not on filedocumented in this encounter Care Teams Food Service Order Clerk Relationship Specialty Start Date End Date Erica Hodgson MD [address] [place] [address] PCP - General 01/26/11 02/10/20 Greta Kimball MD [address] [place] [address] PCP - General 02/11/20 documented as of this encounter
--- OUTSIDE RECORDS SUMMARY | 2024-05-28 16:07 | XMS_ITS | Encounter Summary ---
Author Organization [facility] Address [address] [place] [address] Care Team Providers Care Rice Farmworker Name Role Phone Greta Kimball MD Primary Care Provider [phone] Encounter Details Date Type Department Care Team (Latest Contact Info) Description 02/12/2020 Lab Requisition [facility] Pathology & Laboratory Medicine - [facility] [address] [place] [address] Greta Kimball MD [address] [place] [address] Encounter for gynecological examination (general) (routine) without [...] Date/Time Associated Diagnosis Comments PAP TEST Today 02/11/2020 8:30 EDT Encounter for gynecological examination (general) (routine) without abnormal findings HPV DNA DETECTION WITH GENOTYPING, PCR Today 02/11/2020 8:30 EDT Encounter for gynecological examination (general) (routine) without abnormal findings documented in this encounter Results * (ABNORMAL) HUMAN PAPILLOMAVIRUS (HPV) DETECTION-HIGH RISK TYPES (02/11/2020 8:30 EDT) HPV other High Risk types, PCR Positive( A) Negative 03/25/2020 14:22 [facility] Comment:E6 OR E7 mRNA from o ne or more types of HPV types 16,18,31,33,35,39,45,51,52,56,58,59,66, and 68 is detected by it security consultant mediated amplification. High and intermediate risk HPV types are associated with most squamous intraepithelial lesions and cervical cancers. Papanicolaou smear specimen (specimen) CERVIX UTERI STRUCTURE / Unknown 02/11/2020 8:30 EDT 03/23/2020 12:58 EST us Greta Kimball MD MICROBIOLOGY - GENERAL ORDERABL ES Final Result [facility] [address] [place] [address] * PAP TEST (02/11/2020 8:30 EDT) Specimens A. Cervix and/or Endocervix , ThinPrep Imaging System with Manual Evaluation 0 14:22 [facility] Specimen Adequacy Satisfactory for Evaluation - transformation zone component present 0 14:22 [facility] General Categorization Epithelial Cell Abnormality 0 14:22 [facility] Descriptive Diagnosis Squamous Cell Abnormality - Atypical squamous cells, undetermined significance (ASC-US). Shift in brandt present suggestive of bacterial vaginosis. 0 14:22 [facility] Educational Comments Employment Interviewer slides of this case were reviewed at the intradepartmental consultation conference. An additional slide was prepared and evaluated. [facility] recommends following ASCCP's 2012 Updated Consensus Guidelines for the Management of Abnormal Cervical Cancer Screening Tests and Cancer Precursors (JLGTD, 2013; 17(5):S1-S27). Consensus guidelines are available online at www.asccp.org. 0 14:22 [facility] Attestation By the signature below, the attending physician certifies that they have personally conducted a gross and/or microscopic examination of the described specimens and rendered or confirmed the above diagnosis. 0 14:22 [facility] at 1422 Clinical History See below 03/25/20 2 0 14:22 [facility] HPV The result for the Human Papillomavirus (HPV) Detection-High Risk Types is Positive . E6 OR E7 mRNA from one or more types of HPV types 16,18,31,33,35,39,4 5,51,52,56,58,59,66 , and 68 is detected by it security consultant mediated amplification. High and intermediate risk HPV types are associated with most squamous intraepithelial lesions and cervical cancers. Testing was performed on specimen [id number] and was resulted on 03/25/2020 1404 EST by CASTILLO, LAB INSTRUMENT RESULTS IN 0 14:22 [facility] Performing Lab [facility] 0 14:22 [facility] Scanned Images 0 14:22 [facility] Papanicolaou smear specimen (specimen) CERVIX UTERI STRUCTURE / Unknown 02/11/2020 8:30 EDT 02/12/2020 10:01 EDT us Greta Kimball MD PATHOLOGY ORDERABLES Final Resu lt [facility] [address] [place] [address] documented in this encounter Visit Diagnoses Diagnosis Encounter for gynecological examination (general) (routine) without abnormal findings documented in this encounter Care Teams Rice Farmworker Relationship Specialty Start Date End Date Greta Kimball MD [address] [place] [address] PCP - General 02/11/20 documented as of this encounter
--- OUTSIDE RECORDS SUMMARY | 2024-05-28 16:07 | XMS_ITS | Encounter Summary ---
Author Organization [facility] [place] [address] Care Team Providers Care Green Building Materials Distributor Name Role Phone Greta Kimball MD Primary Care Provider [phone] Encounter Details Date Type Department Care Team (Late st Contact Info) Description 07/29/2013 [place] [address] Zachary Dias MD [facility] [place] [address] Social History Tobacco Use Types Packs/Day Years [...] Telephone Encounter - Monie Mederos LPN - 07/29/2013 9:56 AM EDT CBC and hepatic function results from [facility] reviewed by Dr. Dias: please tell her ok. Spoke with patient about the above information per Dr. Dias and she verbalized understanding. Patient is aware of appointment on 08/28/13 @2:45p. [facility] documented in this encounter Plan of Treatment Upcoming Encounters Date Type Department Care Team (Late st Contact Info) Description 07/10/2024 9:00 AM EDT TH Visit (TeleHealth) [place] [address] Andrei Kent MD [facility] [place] [address] documented as of this encounter Visit Diagnoses Not on filedocumented in this encounter Care Teams Green Building Materials Distributor Relationship Specialty Start Date End Date Greta Kimball MD [address] [place] [address] PCP - General 06/25/13 documented as of this encounter
--- OUTSIDE RECORDS SUMMARY | 2024-05-28 16:07 | XMS_ITS | Encounter Summary ---
Author Organization [facility] [place] [address] Care Team Providers Care Tax Lawyer Name Role Phone Greta Kimball MD Primary Care Provider [phone] Reason for Visit * Reason Comments Medication Refill Encounter Details Date Type Department Care Team (Late st Contact Info) Description 07/30/2013 [place] [address] Zachary Dias MD [facility] [place] [place] [address] Social History Tobacco Use Types Packs/Day Years [...] Telephone Encounter - Monie Mederos LPN - 08/01/2013 4:31 PM EDT Prescription faxed to [facility]. documented in this encounter Plan of Treatment Upcoming Encounters Date Type Department Care Team (Late st Contact Info) Description 07/10/2024 9:00 AM EDT TH Visit (TeleHealth) [place] [address] Andrei Kent MD [facility] [place] [address] documented as of this encounter Visit Diagnoses Not on filedocumented in this encounter Care Teams Tax Lawyer Relationship Specialty Start Date End Date Greta Kimball MD [address] [place] [address] PCP - General 06/25/13 documented as of this encounter
--- OUTSIDE RECORDS SUMMARY | 2024-05-28 16:07 | XMS_ITS | Encounter Summary ---
Author Organization [facility] Address [facility] [place] [address] Care Team Providers Care Assistant City Attorney Name Role Phone Erica Hodgson MD Primary Care Provider Encounter Details Date Type Department Care Team (Latest Contact Info) Description 04/19/2011 6:43 PM EST - 04/19/2011 11:59 PM EST Hospital [place] [address] Zachary Dias MD [facility] [place] [address] CLINIC, CONV Migraine Discharge Disposition: Home Social History Tobacco Use [...] - - Weight 61.2 kg (135 lb) 04/19/2011 6:11 AM EST Height - - Body Mass Index 25.51 04/14/2011 8:36 AM EST documented in this encounter Medications at Time of Discharge Medication Sig Dispensed Refills Start Date End Date CALCIUM CITRATE/VITAMIN D3 (CALCIUM CITRATE + ORAL) Take 1 tablet by mouth daily. 03/27/2013 hydroCODone-acetaminoph en (VICODIN) 5-500 mg per tablet Take 1 tablet by mouth every 6 hours as needed. 05/20/2015 cyclobenzaprine (FLEXERIL) 10 mg tablet Take 10 mg by mouth 3 times daily as needed. 01/12/2021 naproxen sodium (ANAPROX) 550 mg tabletIndications:Migra ine Take 1 tablet by mouth 2 times daily as needed. 30 tablet 12 04/14/2011 03/05/2012 hydrOXYzine (VISTARIL) 25 mg capsuleIndications:Migr rick Take 1 capsule by mouth 2 times daily as needed. Caution:sedation 30 capsule 12 04/14/2011 03/05/2012 SUMAtriptan (IMITREX) 100 mg tabletIndications:Migra ine Take 1 tablet by mouth 2 times daily as needed for Migraine. 9 tablet 11 04/14/2011 03/05/2012 famotidine (PEPCID) 20 mg tabletIndications:Migra ine Take 1 tablet by mouth daily as needed. 30 tablet 12 04/14/2011 03/05/2012 diaZEPam (VALIUM) 5 mg tabletIndications:Migra ine Take 1-2 tablets by mouth daily as needed for Anxiety. 10 tablet 5 04/14/2011 01/29/2012 documented as of this encounter Plan of Treatment Upcoming Encounters Date Type Department Care Team (Late st Contact Info) Description 07/10/2024 9:00 AM EDT TH Visit (TeleHealth) [place] [address] Andrei Kent MD [facility] [place] [address] documented as of this encounter Procedures Procedure Name Priority Date/Time Associated Diagnosis Comments MRI BRAIN WWO CONTRAST (GENERIC) Routine 04/19/2011 7:40 PM EST Migraine NOS/not intrcbl documented in this encounter Results * MRI BRAIN WITH/WO CONTRAST (04/19/2011 7:40 PM EST) Anatomical Region Laterality Modality Head Magnetic Resonan ce 04/19/2011 7:40 PM EST Impressions 04/26/2011 3:24 PM EST IMPRESSION: ?? 1. ??No acute intracranial abnormality identified. 2. ??Unremarkable MRA of the intracranial vessels. Narrative 04/26/2011 3:24 PM EST EXAMINATION: ??MRA HEAD WITHOUT CONTRAST, MRI BRAIN WITH AND WITHOUT CONTRAST HISTORY: ??A 51-year-old woman with left sided headache, dizziness, vertigo. COMPARISON: ??None. FINDINGS: ??No acute infarct on the diffusion weighted images. ??The ventricles are normal in size and midline in position. ??No evidence of enhancing mass lesion. ??Brainstem and cerebellum unremarkable. ??The paranasal sinuses and mastoid air cells appear clear. ?? MRA [place]: ??The distal internal carotid arteries, proximal middle cerebral arteries and anterior cerebral arteries are normal in caliber and course. ??The distal vertebral arteries are patent, the left dominant. ??The basilar artery, bilateral superior cerebellar arteries and posterior cerebral arteries are normal in course and caliber. ??Within the limitation of the MRA technique, no evidence of large aneurysm or arteriovenous shunting. Procedure Note aJnae De Paz MD - 04/26/2011 EXAMINATION: MRA HEAD WITHOUT CONTRAST, MRI BRAIN WITH AND WITHOUTCONTRAST HISTORY: A 51-year-old woman with left sided headache, dizziness,vertigo. COMPARISON: None. FINDINGS: No acute infarct on the diffusion weighted images. Theventricles are normal in size and midline in position. No evidence of enhancing mass lesion. Brainstem and cerebellum unremarkable. The paranasal sinuses and mastoid air cells appear clear. MRA [place]: The distal internal carotid arteries, proximalmiddle cerebral arteries and anterior cerebral arteries are normal in caliber and course. The distal vertebral arteries are patent, the left dominant. The basilar artery, bilateral superior cerebellar arteries and posteriorcerebral arteries are normal in course and caliber. Within the limitation of theMRA technique, no evidence of large aneurysm or arteriovenous shunting. IMPRESSION IMPRESSION: 1. No acute intracranial abnormality identified. 2. Unremarkable MRA of the intracranial vessels. Zachary Dias MD IMG MRI ORDERABLES documented in this encounter Visit Diagnoses Diagnosis Migraine Migraine, unspecified, without mention of intractable migraine without mention of status migrainosus documented in this encounter Administered Medications Inactive Administered Medications - up to 3 most recent administrations Medication Order MAR Action Action Date Dose Rate Site gadopentetate dimeglumine (MAGNEVIST) injection 12 mL 12 mL (0.2 mL/kg/dose ? 61.2 kg), Intravenous, ONCE PRN, Per Protocol, Starting on Mon04/19/11 at 1930, 1 dose, Until Mon04/19/11 at 1929 Given 04/19/2011 7:29 PM EST 12 mLs Right Arm documented in this encounter Care Teams Assistant City Attorney Relationship Specialty Start Date End Date Erica Hodgson MD [facility] [address] [place] [address] [place] [address] PCP - General 03/16/10 06/24/13 documented as of this encounter
--- OUTSIDE RECORDS SUMMARY | 2024-05-28 16:07 | XMS_ITS | Encounter Summary ---
Author Organization [facility] Address [address] [place] [address] Care Team Providers Care Hand Launderer Name Role Phone Erica Hodgson MD Primary Care Provider [phone] Encounter Details Date Type Department Care Team (Late st Contact Info) Description 01/16/2015 Results Only [facility] [phone] Greta Oakes MD [address] [place] [address] [phone] Social History Tobacco Use Types Packs/Day Years [...] Diagnosis Comments PAP TEST- RESULT ONLY Routine 01/16/2015 0:00 EDT documented in this encounter Results * PAP TEST- RESULT ONLY (01/16/2015 0:00 EDT) Pathology Report: CYTOPATHOLOGY REPORT Reports generated via electronic interface contain original data; however they are lacking the format of the original report. Caution should be taken when reading/interpreti ng unformatted reports. Name: ? JUAN WILLARD ? Accession #: ? [id number] : ? 1960 (Age: 54) ??F ?Collect Date: ? 01/16/2015 Location: ? [facility] ? Receive Date: ? 01/20/2015 Provider: ?GRETA OAKES MD Copy to: ? Specimen/Source: ?Pap Test, Cervix/Endocervix, ThinPrep Imaging System with manual evaluation Last Menstrual Period: ? 15 years ? SPECIMEN ADEQUACY ? Satisfactory for Evaluation - transformation zone component present GENERAL CATEGORIZATION ? Negative for Intraepithelial Lesion or Malignancy ? Document reviewed and electronically signed by: ? RADHA Jean-Baptiste(ASCP) ? Report Date: ??01/21/2015 15:55 End of Report [facility] 01/16/2015 01/20/2015 us Greta Oakes MD PATHOLOGY ORDERABLES Final Resu lt [facility] [address] [place] [address] documented in this encounter Visit Diagnoses Not on filedocumented in this encounter Care Teams Hand Launderer Relationship Specialty Start Date End Date Erica Hodgson MD [address] [place] [address] PCP - General 01/26/11 02/10/20 documented as of this encounter
--- OUTSIDE RECORDS SUMMARY | 2024-05-28 16:07 | XMS_ITS | Encounter Summary ---
Author Organization [facility] [place] [address] Care Team Providers Care Wood Window And Door Craftsman Name Role Phone Erica Hodgson MD Primary Care Provider [phone] Reason for Visit * Reason Comments Other Encounter Details Date Type Department Care Team (Late st Contact Info) Description 03/06/2013 Tele[place] [address] Zachary Dias MD [facility] [place] [address] Social History Tobacco Use Types Packs/Day Years [...] Miscellaneous Notes * Telephone Encounter - Monie Pandey LPN - 03/06/2013 8:53 AM EST Spoke with patient on the phone about wnl TSH results per Dr. Dias. Patient verbalized understanding and does not have any questions at this time. * Telephone Encounter - Monie Pandey LPN - 03/06/2013 8:50 AM EST Message copied by MONIE PANDEY on MonMar 06, 2013 8:50 AM ------ Message from: ZACHARY DIAS Created: MonMar 05, 2013 8:05 PM Please tell her wnl ----- Message ----- From: [place], Lab In [facility] Sent: 03/05/2013 3:58 PM To: Zachary Dias MD documented in this encounter Plan of Treatment Upcoming Encounters Date Type Department Care Team (Late st Contact Info) Description 07/10/2024 9:00 AM EDT TH Visit (TeleHealth) [place] [address] Andrei Kent MD [facility] [place] [address] documented as of this encounter Visit Diagnoses Not on filedocumented in this encounter Care Teams Wood Window And Door Craftsman Relationship Specialty Start Date End Date Erica Hodgson MD [facility] [address] [place] [address] [place] [address] PCP - General 03/16/10 06/24/13 documented as of this encounter
--- OUTSIDE RECORDS SUMMARY | 2024-05-28 16:07 | XMS_ITS | Encounter Summary ---
Author Organization [facility] Address [address] [place] [address] Care Team Providers Care Registered Nursing Professor Name Role Phone Unknown, Provider Primary Care Provider Unava ilable Encounter Details Date Type Department Care Team (Late st Contact Info) Description 01/24/2011 Results Only [facility] [phone] Seymour Hodgson MD [address] [place] [address] [phone] Social History Tobacco Use Types Packs/Day Years [...] Priority Date/Time Associated Diagnosis Comments SURGICAL PATHOLOGY Routine 01/24/2011 0:00 EDT documented in this encounter Results * SURGICAL PATHOLOGY (01/24/2011 0:00 EDT) Pathology Report: SURGICAL PATHOLOGY REPORT ? Reports generated via electronic interface contain original data; ? however they are lacking the format of the original report. ? Caution should be taken when reading/interpreti ng unformatted reports. ? Name: ? JEFF, JUAN P ? Accession #: ? [id number] ? : ? 1960 (Age: 50) ??F ? Collect Date: ? 01/24/2011 ? Location: ? [facility] ? Receive Date: ? 01/25/2011 ? Provider: SEYMOUR O READY MD ? Copy to: ? Final Pathologic Diagnosis: ? A. ?Skin of calf, right medial, punch biopsy: ? 1. ?Seborrheic keratosis. ? B. ?Skin of calf, right posterior, punch biopsy: ? 1. ?? Seborrheic keratosis. ? Microscopic Description: ? The stratum corneum is thickened by laminated orthohyperkeratosi s. ??The ? epidermis is hyperplastic with papillomatosis and acanthosis. ??The keratinocytes have a basaloid appearance with round regular nuclei. Deeper sections show ? similar features. ? Document reviewed and electronically signed by: ? HOSEA L COOK MD ? Report ??Date: 01/27/2011 16:41 ? By the signature above, the attending physician certifies that he/she has ? personally conducted a gross and/or microscopic examination of the described ? specimens and rendered or confirmed the above diagnosis. ? Specimen(s) Received: ? A. ?Right medial calf (#1) ? B. ? Right posterior calf (#2) ? Clinical History: ? H/O excess sun exposure as a teen & child; A. 0.75 circular lesion, ? hypochonic, SK vs BCC; B. Oval, light brown lesion, 1.0 cm diameter, SK vs ? fibroadenoma ? Gross Description: ? Received in formalin labelled Juan Willard and Rt medial calf is a ?? circular punch biopsy of che-white skin measuring 0.4 cm in diameter and 0.4 cm in thickness. ??The specimen is bisected and entirely submitted as (A). ? Received in formalin labelled Anuja Willardhleen and Rt posterior calf is an ? ovoid punch biopsy of che-white skin measuring 0.4 x 0.3 cm in diameter and 0.3 cm in thickness. ??The specimen is submitted intact as (B). ??(Zac Collins)/[facility] ? End of Report ? [facility] 01/24/2011 01/25/2011 9:2 5 EDT us Seymour Hodgson MD PATHOLOGY ORDERABLES Final Resul t [facility] [address] [place] [address] documented in this encounter Visit Diagnoses Not on filedocumented in this encounter Care Teams Registered Nursing Professor Relationship Specialty Start Date End Date Unknown, Provider, PCP - General 10/20/08 01/25/11 documented as of this encounter
--- OUTSIDE RECORDS SUMMARY | 2024-05-28 16:07 | XMS_ITS | Encounter Summary ---
Author Organization [facility] [place] [address] Care Team Providers Care Job Printer Apprentice Name Role Phone Erica Hodgson MD Primary Care Provider [phone] Encounter Details Date Type Department Care Team (Late st Contact Info) Description 04/19/2011 6:45 PM EST - 04/19/2011 11:59 PM [facility] [place] [address] Social History Tobacco Use Types Packs/Day Years [...] 04/14/2011 01/29/2012 documented as of this encounter Miscellaneous Notes * Miscellaneous - Provider, Scanning - 04/27/2011 9:31 AM EST documented in this encounter Plan of Treatment Upcoming Encounters Date Type Department Care Team (Late st Contact Info) Description 07/10/2024 9:00 AM EDT TH Visit (TeleHealth) [place] [address] Andrei Kent MD [facility] [place] [place] [address] documented as of this encounter Procedures Procedure Name Priority Date/Time Associated Diagnosis Comments MRI HEAD ANGIOGRAM WO CONTRAST Routine 04/19/2011 7:40 PM EST documented in this encounter Results * MRI HEAD ANGIOGRAM WO CONTRAST (04/19/2011 7:40 PM EST) Anatomical Region [...] mastoid air cells appear clear. ?? MRA [place]: ??The distal internal carotid arteries, [...] large aneurysm or arteriovenous shunting. Procedure Note Janae De Paz MD - 04/26/2011 EXAMINATION: MRA [...] and mastoid air cells appear clear. MRA [place]: The distal internal carotid arteries, [...] ORDERABLES documented in this encounter Visit Diagnoses Not on filedocumented in this encounter Care Teams Job Printer Apprentice Relationship Specialty Start Date End Date Erica Hodgson MD [facility] [address] [place] [address] [place] [address] PCP - General 03/16/10 06/24/13 documented as of this encounter
--- OUTSIDE RECORDS SUMMARY | 2024-05-28 16:07 | XMS_ITS | Encounter Summary ---
Author Organization [facility] [place] [address] Care Team Providers Care Reroller Hand Name Role Phone Erica Hodgson MD Primary Care Provider [phone] Encounter Details Date Type Department Care Team (Late st Contact Info) Description 03/27/2013 2:15 PM EST Office [place] [address] Zachary Dias MD [facility] [place] [address] Migraine; Chronic migraine Discharge Disposition: Home Social History [...] Sign Reading Time Taken Comments Blood Pressure 114/79 03/27/2013 2:09 PM EST Pulse 80 03/27/2013 2:09 PM EST Temperature - - Respiratory Rate - - Oxygen Saturation - - Inhaled Oxygen Concentration - - Weight 59.9 kg (132 lb) 03/27/2013 2:09 PM EST Height 154.9 cm (5' 1) 03/27/2013 2:09 PM EST Body Mass Index 24.94 03/27/2013 2:09 PM EST documented in this encounter Progress Notes * Zachary Dias MD - 03/27/2013 2:39 PM EST Consent was obtained and a time-out was conducted just prior to the start of the procedure to verify the correct: patient, procedure, procedure location, and all relevant critical information. Each injection site was sterilized with 70% isopropyl alcohol. OnabotulinumtoxinA was reconstituted with 0.9% NaCl to create a dilution of 5 units per 0.1mL. Injections were administered with a 30 gauge, 1/2 needle. Injections administered as follows and performed bilaterally with injections split equally except for procerus: 20 units divided between 4 sites in the frontalis muscle, 10 units divided between 2 sites in the manufacturing maintenance technician muscles, 5 units into 1 site in the procerus muscle, 40 units divided between 8 sites in the temporalis muscles, 30 units divided between 6 sites in the suboccipital region, 20 units divided between 4 sites in the cervical paraspinal musculature, and 30 units divided between 6 sites in the trapezii. Total units used= 155. Total injection sites=31. The patient tolerated the procedure without any immediate complications. MIDAS 19, HAGEN on , average pain score of 6/10 documented in this encounter Miscellaneous Notes * Miscellaneous - Provider, Scanning - 04/11/2013 5:02 AM EST documented in this encounter Plan of Treatment Upcoming Encounters Date Type Department Care Team (Late st Contact Info) Description 07/10/2024 9:00 AM EDT TH Visit (TeleHealth) [place] [address] Andrei Kent MD [facility] [place] [address] documented as of this encounter Visit Diagnoses Diagnosis Migraine Migraine, unspecified, without mention of intractable migraine without mention of status migrainosus Chronic migraine Chronic migraine without aura, without mention of intractable migraine without mention of status migrainosus documented in this encounter Administered Medications Inactive Administered Medications - up to 3 most recent administrations Medication Order MAR Action Action Date Dose Rate Site botulinum toxin type A (BOTOX) injection 155 Units 155 Units, Intramuscular, ONCE, 1 dose, On Mon03/27/13 at 1500, Routine Given 03/27/2013 2:38 PM EST 155 Units documented in this encounter Care Teams Reroller Hand Relationship Specialty Start Date End Date Erica Hodgson MD [facility] [address] [place] [address] [place] [address] PCP - General 03/16/10 06/24/13 documented as of this encounter
--- OUTSIDE RECORDS SUMMARY | 2024-05-28 16:07 | XMS_ITS | Encounter Summary ---
Author Organization [facility] [place] [address] Care Team Providers Care Assistant Controller Name Role Phone Erica Hodgson MD Primary Care Provider [phone] Reason for Visit * Reason Onset Date Comments Prior Authorization 03/11/2013 BOTOX APPROV ED 02/12/13-03/13/16 Encounter Details Date Type Department Care Team (Late st Contact Info) Description 03/11/2013 Telephone [place] [id number] Zachary Dias MD [facility] [place] [address] Prior Authorization (BOTOX APPROVED 02/12/13-03/13/16) Social History Tobacco Use Types Packs/Day Years [...] encounter Miscellaneous Notes * Telephone Encounter - [place] - 03/15/2013 2:20 PM EST BOTOX APPROVED 02/12/13-03/13/16 * Telephone Encounter - [place] - 03/11/2013 9:56 AM EST PA FOR BOTOX FAXED TO BS OF MD documented in this encounter Plan of Treatment Upcoming Encounters Date Type Department Care Team (Late st Contact Info) Description 07/10/2024 9:00 AM EDT TH Visit (TeleHealth) [place] [address] Andrei Kent MD [facility] [place] [address] documented as of this encounter Visit Diagnoses Not on filedocumented in this encounter Care Teams Assistant Controller Relationship Specialty Start Date End Date Erica Hodgson MD [facility] [address] [place] [address] [place] [address] PCP - General 03/16/10 06/24/13 documented as of this encounter
--- OUTSIDE RECORDS SUMMARY | 2024-05-28 16:07 | XMS_ITS | Encounter Summary ---
Author Organization [facility] [place] [address] Care Team Providers Care Utility Appraiser Name Role Phone Erica Hodgson MD Primary Care Provider [phone] Reason for Visit * Reason Onset Date Comments Results 04/27/2011 Encounter Details Date Type Department Care Team (Late st Contact Info) Description 04/27/2011 [place] [address] Zachary Dias MD [facility] [place] [address] Results Social History Tobacco Use Types Packs/Day Years [...] encounter Miscellaneous Notes * Telephone Encounter - Tennille Moore LPN - 04/27/2011 2:02 PM EST Informed pt of her MRI results, no worrisome lesion. Pt voiced understanding. documented in this encounter Plan of Treatment Upcoming Encounters Date Type Department Care Team (Late st Contact Info) Description 07/10/2024 9:00 AM EDT TH Visit (TeleHealth) [place] [address] Andrei Kent MD [facility] [address] documented as of this encounter Visit Diagnoses Not on filedocumented in this encounter Care Teams Utility Appraiser Relationship Specialty Start Date End Date Erica Hodgson MD [facility] [address] [place] [address] [place] [address] PCP - General 03/16/10 06/24/13 documented as of this encounter
--- OUTSIDE RECORDS SUMMARY | 2024-05-28 16:07 | XMS_ITS | Encounter Summary ---
Author Organization Count Includes [facility] Address [facility] [place] [address] Care Team Providers Care Archivist Economic History Name Role Phone Greta Kimball MD Primary Care Provider [phone] Encounter Details Date Type Department Care Team (Late st Contact Info) Description 06/25/2013 1:45 PM EST Office [place] [address] Zachary Dias MD [facility] [place] [address] Chronic migraine (Primary Dx); Migraine Discharge Disposition: Home Social History Tobacco [...] Sign Reading Time Taken Comments Blood Pressure 119/67 06/25/2013 1:54 PM EST Pulse 91 06/25/2013 1:54 PM EST Temperature - - Respiratory Rate - - Oxygen Saturation - - Inhaled Oxygen Concentration - - Weight 62.6 kg (138 lb) 06/25/2013 1:54 PM EST R eported Height 154.9 cm (5' 1) 06/25/2013 1:54 PM EST R eported Body Mass Index 26.07 06/25/2013 1:54 PM EST documented in this encounter Progress Notes * Zachary Dias MD - 06/25/2013 2:25 PM EST I had her come in because her insurance changed and she now has a very high deductible and cannot afford the Botox injections. She only had them once, and she had a pretty good month in March with only five days of headache. March was 17 days and May was 10 days. Ordinarily I would advocate for repeat Botox injections, but she cannot afford it. Therefore, at her request we discussed topiramate today. I told her about the rare possibility of acute glaucoma and what that would be like, necessitating a trip to the emergency room. Also that it can cause cognitive difficulties and weight loss and paresthesias. I said we would go slow on the dose and start her on 25 mg at bedtime for a month with her continuing her excellent headache calendars, and if there is no problem but insufficient benefit she can go to 50 mg at bedtime after that and follow up with me in 9 to 10 weeks and we will see if we need to go higher. We probably will. The target dose is usually around 100 mg at bedtime. I will check a CBC and liver profile at [facility] in two weeks. The majority of today's 15-minute office visit was dominated by 10 minutes of direct [id number] counseling and therapeutic planning. documented in this encounter Plan of Treatment Upcoming Encounters Date Type Department Care Team (Late st Contact Info) Description 07/10/2024 9:00 AM EDT TH Visit (TeleHealth) [place] [address] Andrei Kent MD [facility] [place] [address] documented as of this encounter Visit Diagnoses Diagnosis Chronic migraine- Primary Chronic migraine without aura, without mention of intractable migraine without mention of status migrainosus Migraine Migraine, unspecified, without mention of intractable migraine without mention of status migrainosus documented in this encounter Care Teams Archivist Economic History Relationship Specialty Start Date End Date Greta Kimball MD [address] [place] [address] PCP - General 06/25/13 documented as of this encounter
--- OUTSIDE RECORDS SUMMARY | 2024-05-28 16:07 | XMS_ITS | Encounter Summary ---
Author Organization [facility] [place] [address] Care Team Providers Care Supervisor Cereal Name Role Phone Erica Hodgson MD Primary Care Provider [phone] Encounter Details Date Type Department Care Team (Late st Contact Info) Description 06/07/2013 Telephone [place] [address] Zachary Dias MD [facility] [place] [address] Social History Tobacco Use Types Packs/Day Years [...] Miscellaneous Notes * Telephone Encounter - Ana Luisa Flynn RN - 06/07/2013 2:23 PM EST I have informed Elin to keep the 06/25/[address] Dias prefers to wait until that appt to start topiramate. * Telephone Encounter - Zachary Dias MD - 06/07/2013 2:12 PM EST Actually, the 06/25 visit would be an excellent time to start her on topiramate and go over pros and cons..(which i would rather do face to face given that topiramate can have some side effects) * Telephone Encounter - Ana Luisa Flynn RN - 06/07/2013 1:46 PM EST I spoke with Elin , she reports that she has new insurance With a 11,000 deductable , and because of this she is not going to be able to continue Botox injections. She is asking about the possibility of going on topamax as a preventative , as mentioned by Dr. Dias at a previous appt . Also if she is not continuing with Botox , she is asking if she needs to have theappt on 06/25/13 which is scheduled for Botox injection? Her pharmacy is [facility]. documented in this encounter Plan of Treatment Upcoming Encounters Date Type Department Care Team (Late st Contact Info) Description 07/10/2024 9:00 AM EDT TH Visit (TeleHealth) [place] [address] Andrei Kent MD [facility] [place] [address] documented as of this encounter Visit Diagnoses Not on filedocumented in this encounter Care Teams Supervisor Cereal Relationship Specialty Start Date End Date Erica Hodgson MD [facility] [address] [place] [address] [place] [address] PCP - General 03/16/10 06/24/13 documented as of this encounter
--- OUTSIDE RECORDS SUMMARY | 2024-05-28 16:07 | XMS_ITS | Encounter Summary ---
Author Organization [facility] Address [address] [place] [address] Care Team Providers Care Weight Yardage Checker Name Role Phone Unknown, Provider Primary Care Provider Unava ilable Encounter Details Date Type Department Care Team (Late st Contact Info) Description 08/25/2000 Results Only [facility] [address] [place] [address] Michael Rodriguez MD [address] [place] [address] DR BLAN[address]ARD [address] [place] [phone] Social History Tobacco Use Types Packs/Day [...] Priority Date/Time Associated Diagnosis Comments CYTOPATHOLOGY Routine 08/25/2000 0:00 EDT documented in this encounter Results * CYTOPATHOLOGY (08/25/2000 0:00 EDT) Pathology Report: CYTOPATHOLOGY REPORT Reports generated via electronic interface contain original data; however they are lacking the format of the original report. Caution should be taken when reading/interpreti ng unformatted reports. Name: ? JUAN WILLARD ? Accession #: ? [id number] : ? 1960 (Age: 40) ??F ?Collect Date: ? 08/25/2000 Location: ? [facility] ? Receive Date: ? 08/28/2000 Provider: ?MICHAEL RODRIGUEZ MD Copy to: ? Specimen/Source: ?ThinPrep Pap Test, Cervix/Endocervix Last Menstrual Period: ? 06/22/00 Menstrual/Pregnanc y Status: ? Post Menopausal ? SPECIMEN ADEQUACY ? Satisfactory for evaluation. GENERAL CATEGORIZATION ? Within Normal Limits ? Document reviewed and electronically signed by: ? Olga Craft, ??SCT(ASCP) ? Report Date: ??08/29/2000 10:12 End of Report STEFFI MONTALVO 08/25/2000 08/28/2000 us Michael Rodriguez MD PATHOLOGY ORDERABLES Final Resu lt STEFFI MONTALVO [address] [place] [address] documented in this encounter Visit Diagnoses Not on filedocumented in this encounter Care Teams Weight Yardage Checker Relationship Specialty Start Date End Date Unknown, Provider, PCP - General 10/20/08 01/25/11 documented as of this encounter
--- OUTSIDE RECORDS SUMMARY | 2024-05-28 16:07 | XMS_ITS | Encounter Summary ---
Author Organization [facility] Address [address] [place] [address] Care Team Providers Care Resource Protection Specialist Name Role Phone Greta Kimball MD Primary Care Provider [phone] Encounter Details Date Type Department Care Team (Late st Contact Info) Description 07/15/2021 Lab Requisition [facility] Pathology & Laboratory Medicine - [address] [address] Outr Resulting Lab, Provider Social History Tobacco [...] Date/Time Associated Diagnosis Comments HOLD SST Today 07/15/2021 10:00 EDT RHEUMATOID FACTOR Today 07/15/2021 10: 00 EDT ANTI NUCLEAR AB (MAYITO), IFA Today 07/15/2021 10:00 EDT documented in this encounter Results * HOLD SST (07/15/2021 10:00 EDT) Hold Hold 07/15/2021 22:46 EDT [facility] Blood VENOUS BLOOD / Unknown 07/15/2021 10:00 EDT 07/15/2021 21:44 EDT us Provider Outr Resulting Lab LAB INFO SERVICE AND SUPPORT & PHONE RESULT Final Result Performing Organization Address [facility]/ZIP Co de Phone Number [facility] [address] [place] [address] * RHEUMATOID FACTOR (07/15/2021 10:00 EDT) Rheumatoid Factor <8.6 <12.0 IU/mL 07/15/2021 22:17 EDT [facility] Blood VENOUS BLOOD / Unknown 07/15/2021 10:00 EDT 07/15/2021 21:33 EDT us Provider Outr Resulting Lab CHEMISTRY & BLOOD GA S ORDERABLES Final Result Performing Organization Address [facility] Co de Phone Number [facility] [address] [place] [address] * ANTI NUCLEAR AB (MAYITO), IFA (07/15/2021 10:00 EDT) MAYITO Interpretation Negative Negative 2021 15:34 EDT [facility] Comment:No titer performed, MAYITO Screen is negative. Blood VENOUS BLOOD / Unknown 07/15/2021 10:00 EDT 07/15/2021 21:33 EDT Narrative [facility] - 07/16/2021 15:34 EDT Results were obtained with the INOVA NOVA Lite HEp-2 MAYITO Kit by indirect immunofluorescence. us Provider Outr Resulting Lab IMMUNOLOGY AND SEROL OGY ORDERABLES Final Result Performing Organization Address [facility] Co de Phone Number [facility] [address] [place] [address] documented in this encounter Visit Diagnoses Not on filedocumented in this encounter Care Teams Resource Protection Specialist Relationship Specialty Start Date End Date Greta Kimball MD [address] [place] [address] PCP - General 10/20/20 documented as of this encounter
--- OUTSIDE RECORDS SUMMARY | 2024-05-28 16:07 | XMS_ITS | Encounter Summary ---
Author Organization [facility] [place] [address] Care Team Providers Care Prop Making Supervisor Name Role Phone Erica Hodgson MD Primary Care Provider [phone] Encounter Details Date Type Department Care Team (Late st Contact Info) Description 08/30/2011 12:15 PM EDT [place] [address] Zachary Dias MD [facility] [place] [address] Migraine (Primary Dx) Discharge Disposition: Home Social [...] Reading Time Taken Comments Blood Pressure 101/64 08/30/2011 12:11 PM EDT Pulse 90 08/30/2011 12:11 PM EDT Temperature - - Respiratory Rate - - Oxygen Saturation - - Inhaled Oxygen Concentration - - Weight 59 kg (130 lb) 08/30/2011 12:11 PM EDT re ported Height 161.9 cm (5' 3.75) 08/30/2011 12:11 PM E DT reported Body Mass Index 22.49 08/30/2011 12:11 PM EDT documented in this encounter Progress Notes * Zachary Dias MD - 08/30/2011 12:37 PM EDT She looks well in the office save for the fact that she is using a crutch to get about. She recently injured her knee skiing. Her imaging was normal, and I showed that to her. In July 2011, she only needed to treat headache on four occasions. She usually uses the naproxen sodium and hydroxyzine, but when she gets a more severe headache, the sumatriptan 100 mg tablets are effective for her, and she is quite pleased in that regard. She has not needed to use her diazepam rescue. She knows to call if she is not doing well. Otherwise, I will see her just before the snow flies in February 2012, and she will probably need her medications renewed at that point. The majority of today's 25-minute office visit was dominated by 15 minutes of direct [id number] counseling and therapeutic planning. documented in this encounter Plan of Treatment Upcoming Encounters Date Type Department Care Team (Late st Contact Info) Description 07/10/2024 9:00 AM EDT TH Visit (TeleHealth) [place] [address] Andrei Kent MD [facility] [place] [address] documented as of this encounter Visit Diagnoses Diagnosis Migraine- Primary Migraine, unspecified, without mention of intractable migraine without mention of status migrainosus documented in this encounter Care Teams Prop Making Supervisor Relationship Specialty Start Date End Date Erica Hodgson MD [facility] [address] [place] [address] [place] [address] PCP - General 03/16/10 06/24/13 documented as of this encounter
--- OUTSIDE RECORDS SUMMARY | 2024-05-28 16:07 | XMS_ITS | Encounter Summary ---
Author Organization [facility] Address [address] [place] [address] Care Team Providers Care Speech Therapist Technician Name Role Phone Erica Hodgson MD Primary Care Provider [phone] Encounter Details Date Type Department Care Team (Late st Contact Info) Description 02/07/2019 Results Only [facility] [phone] Greta Oakes MD [address] [place] [id number] Social History Tobacco Use Types Packs/Day Years [...] Diagnosis Comments PAP TEST- RESULT ONLY Routine 02/07/2019 0:00 EDT documented in this encounter Results * PAP TEST- RESULT ONLY (02/07/2019 0:00 EDT) Pathology Report: CYTOPATHOLOGY REPORT Reports generated via electronic interface contain original data; however they are lacking the format of the original report. Caution should be taken when reading/interpreti ng unformatted reports. Name: ? JUAN WILLARD ? Accession #: ? [id number] ? : ? 1960 (Age: 58) ??F ?Collect Date: ? 02/07/2019 ? Location: ? [facility] ? Receive Date: ? 02/11/2019 ? Provider: GRETA OAKES MD Copy to: ? Final Report SPECIMEN ADEQUACY ? Satisfactory for Evaluation - transformation zone component present GENERAL CATEGORIZATION ? Negative for Intraepithelial Lesion or Malignancy ?? 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 RAJESH Seals(ASCP) ? Report ??Date: 02/13/2019 10:26 HPV with Pap Test ? Date Ordered: ? 02/13/2019 ? Status: ?? Signed Out ?Date Complete: ? 02/14/2019 ? By: ??System Interface ? Date Reported: ? 02/14/2019 ? Interpretation RESULT: POSITIVE FOR HIGH OR INTERMEDIATE RISK HPV. E6 OR E7 mRNA from one or more types of HPV types 16,18,31, 33,35,39,45,51,52, 56,58,59,66, and 68 is detected by road train driver mediated amplification. High and intermediate risk HPV types are associated with most squamous intraepithelial lesions and cervical cancers. Comments Document reviewed and electronically signed by: ? System Interface ? Report date: 02/14/2019 By the signature above, the attending physician certifies that he/she has personally conducted a gross and/or microscopic examination of the described specimens and rendered or confirmed the above diagnosis. End of Report [facility] 02/07/2019 02/11/2019 us Greta Oakes MD PATHOLOGY ORDERABLES Final Resu lt [facility] [address] [place] [address] documented in this encounter Visit Diagnoses Not on filedocumented in this encounter Care Teams Speech Therapist Technician Relationship Specialty Start Date End Date Erica Hodgson MD [address] [place] [address] PCP - General 01/26/11 02/10/20 documented as of this encounter
--- OUTSIDE RECORDS SUMMARY | 2024-05-28 16:07 | XMS_ITS | Encounter Summary ---
Author Organization [facility] Address [address] [place] [address] Care Team Providers Care Manager Scientific Name Role Phone Unknown, Provider Primary Care Provider Unava ilable Encounter Details Date Type Department Care Team (Late st Contact Info) Description 09/27/2010 Results Only [facility] Services - [facility] ([facility]) [address], [place] [phone] Gilda Frey MD [address] [place], [place] [phone] Social History Tobacco Use Types Packs/Day Years [...] Diagnosis Comments PAP TEST- RESULT ONLY Routine 09/27/2010 0:00 EDT documented in this encounter Results * PAP TEST- RESULT ONLY (09/27/2010 0:00 EDT) Pathology Report: CYTOPATHOLOGY REPORT ? Reports generated via electronic interface contain original data; ? however they are lacking the format of the original report. ? Caution should be taken when reading/interpreti ng unformatted reports. ? Name: ? JUAN WILLARD ? Accession #: ? [id number] ? : ? 1960 (Age: 50) ??F ?Collect Date: ? 09/27/2010 ? Location: ? [facility] ? Receive Date: ? 09/28/2010 ? Provider: ?GILDA FREY MD ? Copy to: ? [facility] ? [address] ?[place], [place] [address] ? Specimen/Source: ?Pap Test, Cervix/Endocervix, ThinPrep Imaging System ? with manual evaluation ? Last Menstrual Period: ? 2009 ? SPECIMEN ADEQUACY ? Not applicable. ? GENERAL CATEGORIZATION ? INTERPRETATION ? See comment. ? COMMENT ? A result for this sample was initially reported on 10/04/2010. On 10/18/10, ?? we were notified by Cheryl Wang at [facility], that ?? [facility] had submitted the sample with incorrect patient information. No ?? testing was actually performed on this patient, and all charges related to this sample for this patient have been credited. ? Document reviewed and electronically signed by: ? Elayne Bell, SCT(ASCP) ? Report Date: ??10/19/2010 16:32 ? HPV with Pap Test ? Date Ordered: ? 10/04/2010 ? Status: ?? Signed Out ?Date Complete: ? 10/19/2010 ? By: ??System Interface ? Date Reported: ? 10/19/2010 ? * Amended * ? Interpretation ? RESULT: Disregard previous report. Specimen incorrectly identified. ? Comments ? Document reviewed and electronically signed by: ? System Interface ? Report date: 10/19/2010 ? By the signature above, the attending physician certifies that he/she has ? personally conducted a gross and/or microscopic examination of the described ? specimens and rendered or confirmed the above diagnosis. ? Amendments for HPV with Pap Test (10/04/2010) ? Amended: ??10/19/2010 by System Interface ? Reason: ? HPV Results Reported ? Previous Signout Date: ??10/08/2010 ? End of Report ? [facility] 09/27/2010 09/28/2010 us Gilda Frey MD PATHOLOGY ORDERABLES Final Re sult [facility] [address] [place] [address] documented in this encounter Visit Diagnoses Not on filedocumented in this encounter Care Teams Manager Scientific Relationship Specialty Start Date End Date Unknown, Provider, PCP - General 10/20/08 01/25/11 documented as of this encounter
--- OUTSIDE RECORDS SUMMARY | 2024-05-28 16:07 | XMS_ITS | Encounter Summary ---
Author Organization [facility] Address [address] [place] [address] Care Team Providers Care Commercial Leasing Manager Name Role Phone Unknown, Provider Primary Care Provider Unava ilable Encounter Details Date Type Department Care Team (Late st Contact Info) Description 04/22/2009 Orders Only [address] [address] Elmer Rowley MD [address] [place], [place] [id number] Social History Tobacco Use Types Packs/Day Years [...] Date/Time Associated Diagnosis Comments SURGICAL PATHOLOGY Routine 04/22/2009 0:00 EST documented in this encounter Results * SURGICAL PATHOLOGY (04/22/2009 0:00 EST) Pathology Report: SURGICAL PATHOLOGY REPORT ? Reports generated via electronic interface contain original data; ? however they are lacking the format of the original report. ? Caution should be taken when reading/interpreti ng unformatted reports. ? Name: ? JUAN WILLARD ? Accession #: ? [id number] ? : ? 1960 (Age: 49) ??F ? Collect Date: ? 04/22/2009 ? Location: ? [facility] ? Receive Date: ? 04/22/2009 ? Provider: ELMER ROWLEY MD ? Copy to: SEYMOUR READY MD ? Final Pathologic Diagnosis: ? Colon, descending, biopsy: ? - Colorectal mucosa with surface epithelial features suggestive of ? hyperplastic change. ? Comment: ? Deeper sections on the specimen were examined. ??(Dr. Lucero)/garcian ? Document reviewed and electronically signed by: ? Yue Byrne MD ? Report ??Date: 04/28/2009 15:36 ? By the signature above, the attending physician certifies that he/she has ? personally conducted a gross and/or microscopic examination of the described ? specimens and rendered or confirmed the above diagnosis. ? Specimen(s) Received: ? Descending colon ? Clinical History: ? Colorectal screen; ? polyp vs. lymphoid aggregate ? Gross Description: ? Received in [facility]'s labelled Willard, Juan and descending colon - ? polyp vs. lymphoid aggregate is a che-pink irregular soft tissue measuring 0.2 x 0.1 x 0.1 cm. ??The specimen is submitted entirely in one cassette. ??(A. ? Juan A)/garcian ? End of Report ? [facility] 04/22/2009 04/22/2009 8:2 8 EST us Elmer Rowley MD PATHOLOGY ORDERABLES Final Resul t [facility] [address] [place] [address] documented in this encounter Visit Diagnoses Not on filedocumented in this encounter Care Teams Commercial Leasing Manager Relationship Specialty Start Date End Date Unknown, Provider, PCP - General 10/20/08 01/25/11 documented as of this encounter
== END 2024-05-28 15:28 | disposition home or self-care (01) ==
LOC: LBN 15:27
PROVIDERS: PCP Family Medicine; Visit Provider Family Medicine
DX: Z01.419 Encounter for gynecological examination (general) (routine) without abnormal findings (principal)
CPT/HCPCS: 88142; 87624

== ENCOUNTER 2024-09-24 01:08 | Outpatient (CLI) | payer MEDICARE, SELFPAY ==
--- NOTE | 2024-09-24 12:43 | DI.MAMMO_ITS ---
Exam(s) MAMMO SCREENING EXAM: MAMMO SCREENING CLINICAL HISTORY: SCREENING, Z12.31. TECHNIQUE: Bilateral full field digital CC and MLO mammographic images were obtained with 3D tomosyn thesis and utilizing computer aided detection (CAD). COMPARISON: Prior mammograms were reviewed. FINDINGS: There has been no significant change in the appearance and distribution of the fibroglandular tissue which is again noted be moderately dense.. There are no obvious new spiculated masses nor malignant appearing microcalcification groups. There is no significant architectural distortion nor skin thickening-retraction. IMPRESSION: No radiographic evidence of malignancy. BI-RADS Category 1 - Negative Breast Density - Category C - The breast are heterogeneously dense, which may obscure small masses. Breast density Category C or D implies that the patient has dense breast tissue. Dense breast tissue can make it harder to find cancer on a mammogram. Dense breast tissue is also associated with an incr eased risk of breast cancer. This information about the result of the mammogram report was provided to the patient to raise their awareness. Use this report when you speak with the patient about their risks for breast cancer, which includes their family history. At that time, you may recommend additional screening tests (Ultrasoun d or MRI) as these tests may add significant information. A negative radiographic report should not delay biopsy if a dominant or clinically suspicious mass is present. Up to ten percent of cancers are not identified on mammography. A negative report may reinforce clinical impression. Adenosis and dense breasts may obscure an underlying neoplasm. False positive reports average 6 to 10%. Patient will receive a letter notifying them of these results.
== END 2024-09-24 01:28 ==
LOC: DI 01:08
PROVIDERS: PCP Family Medicine; Visit Provider Family Medicine
DX: Z12.31 Encounter for screening mammogram for malignant neoplasm of breast (principal); R92.333 Mammographic heterogeneous density, bilateral breasts
CPT/HCPCS: 77063; 77067

== ENCOUNTER 2024-12-31 18:08 | Outpatient (REF) | payer MEDICARE, SELFPAY ==
[2024-12-31 19:08] LABS: HCT 45.5 % (36.0-46.0); HGB 15.5 g/dL (11.2-15.7); MCH 32.6 pg (27.0-33.0); MCHC 34.1 % (32.0-36.0); MCV 96 fL (80-95); MPV 11.6 fL (8.0-11.0); Platelet Count 245 10^3/uL (130-400); RBC 4.76 10^6/uL (3.93-5.22); RDW 11.7 % (11.7-14.6); RDW-SD 41.0 fL; WBC 7.60 10^3/uL (4.4-10.8)
[2024-12-31 19:27] LABS: ALT 28 U/L (14-59); AST 20 U/L (15-37); Albumin 4.1 g/dL (3.4-5.0); Alkaline Phosphatase 66 U/L (46-116); Anion Gap 10.1 mmol/L (3-11); BUN 20 mg/dL (7-18); Bilirubin, Total 0.4 mg/dL (0.2-1.0); CO2 28.9 mmol/L (21.0-32.0); Calcium 9.4 mg/dL (8.5-10.1); Chloride 104 mmol/L (98-107); Glucose 88 mg/dL (74-106); Potassium 4.4 mmol/L (3.5-5.1); Sodium 143 mmol/L (136-145); TSH (W/Ref FT4) 1.27 uIU/mL (0.36-3.74); Total Protein 7.1 g/dL (6.4-8.2)
[2024-12-31 19:28] LABS: C-Reactive Protein < 0.50 mg/dL (<or=0.5)
[2025-01-02 11:18] LABS: Lyme Ab w Rflx to Lyme Confirm Negative (Negative)
== END 2024-12-31 18:09 | disposition home or self-care (01) ==
LOC: NCHCN 18:08
PROVIDERS: PCP Family Medicine; Visit Provider Family Medicine
DX: R53.83 Other fatigue (principal); Z13.29 Encounter for screening for other suspected endocrine disorder
CPT/HCPCS: 80053; 85027; 84443; 86140; 86618

== ENCOUNTER 2025-01-27 02:27 | Outpatient (CLI) | payer MEDICARE, SELFPAY ==
--- NOTE | 2025-01-27 10:55 | DI.RAD_ITS ---
Exam(s) XR ELBOW LT COMPLETE EXAM: XR ELBOW LT COMPLETE CLINICAL HISTORY: PAIN LEFT ELBOW M25.522. TECHNIQUE: 2D digital imaging was performed of the left elbow. Three images were obtained. AP, lateral and oblique views were obtained. COMPARISON: No exams were available for comparison FINDINGS: BONES: No acute fracture is present. No bony destructive lesion is seen. JOINTS: The elbow is normally aligned. No joint effusion is seen. SOFT TISSUE: Normal. IMPRESSION: Unremarkable radiographs of the left elbow. DATA REPOSITORY: RADIATION DOSE DELIVERED:
== END 2025-01-27 02:47 ==
LOC: DI 02:27
PROVIDERS: PCP Family Medicine; Visit Provider Family Medicine
DX: M25.522 Pain in left elbow (principal)
CPT/HCPCS: 73080